=== PATIENT | male | born 1970 | race Caucasian/White ===

== ENCOUNTER 2017-02-03 14:25 | Inpatient (IN) | payer MEDICAID, SELFPAY | END 2017-02-06 08:35 | disposition home or self-care (01) | DRG 74 | PROVIDERS: Admitting Provider Family Medicine; Visit Provider Family Medicine | DX: E11.42 Type 2 diabetes mellitus with diabetic polyneuropathy (principal); E11.621 Type 2 diabetes mellitus with foot ulcer; L97.528 Non-pressure chronic ulcer of other part of left foot with other specified severity; L97.518 Non-pressure chronic ulcer of other part of right foot with other specified severity; E11.628 Type 2 diabetes mellitus with other skin complications; E11.65 Type 2 diabetes mellitus with hyperglycemia; L03.032 Cellulitis of left toe; L03.031 Cellulitis of right toe | CPT/HCPCS: 11042; 36415; 73630; 80053; 80202; 82962; 85025; 87040; 93971; J2543; J3370 ==

== ENCOUNTER 2017-02-19 13:16 | Emergency (ER) | payer MEDICAID, SELFPAY ==
[2017-02-19 13:18] VITALS: BP 146/84; PULSE 84; RESP 16; TEMP 36.7; O2SAT 97; BMI 32.7
--- NOTE | 2017-02-19 14:06 | HMH.EDEXTP ---
ED Disposition Clinical Impression: Diabetic foot ulcer Disposition: Home, Self-Care Condition on Discharge: Fair Instructions: DI for Cellulitis -- Adult Additional Instructions: Keep dressing toe as before and followup with Wound care center as scheduled Prescriptions: levoFLOXacin [Levaquin 500mg tab] 500 mg PO DAILY #10 tab Referrals: Jose Francisco Fuentes MD [Primary Care Provider] - Time of Disposition: 17:01 - Critical Care Critical Care Time: No Attestation: On , the high probability of a clinically significant, sudden or life threatening deterioration of the following system(s) required my full and direct attention, intervention and personal management. The time I documented below is in addition to time spent performing reported procedures but includes the following listed in this critical care notation. Medical Decision Making - Medical Records Medical records reviewed: Yes: I reviewed the patient's medical records. Vital Signs: 02/19/17 13:18 Temperature 98.0 F Temperature Source Oral Pulse Rate [Right Brachial] 84 Respiratory Rate 16 Blood Pressure [Right Arm] 146/84 Blood Pressure Mean [Right Arm] 104 Blood Pressure Source [Right Arm] Automatic Cuff Blood Pressure Position [Right Arm] Sitting 02 Sat by Pulse Oximetry 97 Oxygen Delivery Method Room Air - Lab Data Lab results reviewed: Yes: I reviewed the patient's lab results. Lab Results 02/19/17 14:45: WBC 5.9, RBC 5.47, Hgb 15.8, Hct 48.2, MCV 88.1, MCH 29.0, MCHC 32.9, RDW 13.3, Plt Count 217, MPV 7.6, Neut % (Auto) 60.4, Lymph % (Auto) 31.6, [place] % (Auto) 5.4, Eos % (Auto) 2.2, Baso % (Auto) 0.5, Neut # (Auto) 3.6, Lymph # (Auto) 1.9, [place] # (Auto) 0.3, Eos # (Auto) 0.1, Baso # (Auto) 0.0 02/19/17 14:45: Sodium 142, Potassium 4.1, Chloride 104, Carbon Dioxide 28, Anion Gap 14.1, BUN 14, Creatinine 1.11, Estimated Creat Clear 133, Estimated GFR > 60, Est GFR ( Amer) > 60, Glucose 120 H, Calcium 9.4, Total Bilirubin 0.6, AST 22, ALT 28, Alkaline Phosphatase 112, Total Protein 8.3 H, Albumin 4.1, Globulin 4.2 H, Albumin/Globulin Ratio 1.0 L Result diagrams: 02/19/17 14:45 02/19/17 14:45 Orders (Tests/Meds): ED MEDICATIONS Generic Name Dose Route Start Last Admin Trade Name Freq PRN Reason Stop Dose Admin Sodium Chloride 1,000 mls @ 250 mls/hr 02/19/17 14:45 02/19/17 15:59 Sod Chloride 0.9% 1000ml Bag IV 03/21/17 14:44 250 mls/hr .Q4H KAREN Administration Sodium Chloride 10 ml 02/19/17 14:35 Saline Flush 10ml Syringe IV 03/21/17 14:34 NEEDED PRN Maintain IV Site Discontinued Medications Generic Name Dose Route Start Last Admin Trade Name Freq PRN Reason Stop Dose Admin Sodium Chloride 250 mls @ 250 mls/hr 02/19/17 14:30 02/19/17 16:16 Sod Chloride 0.9% 250ml Bag IV 03/21/17 14:29 Not Given .Q1H KAREN Levofloxacin 500 mg 02/19/17 14:32 02/19/17 16:00 Levaquin 500mg Tab PO 02/19/17 14:33 500 mg ONCE ONE Administration ORDERS Category Date Time Status Foot XR right minimum 3 views [XR foot RT min 3V] Stat Exams 02/19/17 14:31 Taken Wound Culture and Gram Stain Stat Micro 02/19/17 14:45 Received - Radiology Data #1 Image(s): Foot/Toes, Other Image Reviewed: Yes I reviewed the patient's radiology image Preliminary Findings: Normal/NAD - Antonio Inquiry Pt receiving controlled substance: No Antonio was queried for this patient: No Extremity Problem HPI - General Chief complaint: Extremity Problem,Nontraumatic Stated complaint: poss cellulitis on right great toe Time Seen by Provider: 02/19/17 14:25 Mode of Arrival: Ambulatory Source of Information: Patient Limitations: No Limitations Description of Symptoms (Recalled from ER Triage Doc. by RN): pt reports swelling to R ankle that was noticed this morning. Pt reports has been previously treated for cellulitis in R foot r/t wound on R great toe. Pt reports had first visit with wound c
--- NOTE | 2017-02-19 14:22 | ED_ITS ---
ED Disposition Clinical Impression: Diabetic foot ulcer Disposition: Home, Self-Care Condition on Discharge: Fair Instructions: DI for Cellulitis -- Adult Additional Instructions: Keep dressing toe as before and followup with Wound care center as scheduled Prescriptions: levoFLOXacin [Levaquin 500mg tab] 500 mg PO DAILY #10 tab Referrals: Jose Francisco Fuentes MD [Primary Care Provider] - Time of Disposition: 17:01 - Critical Care Critical Care Time: No Attestation: On , the high probability of a clinically significant, sudden or life threatening deterioration of the following system(s) required my full and direct attention, intervention and personal management. The time I documented below is in addition to time spent performing reported procedures but includes the following listed in this critical care notation. Medical Decision Making - Medical Records Medical records reviewed: Yes: I reviewed the patient's medical records. Vital Signs: 02/19/17 13:18 Temperature 98.0 F Temperature Source Oral Pulse Rate [Right Brachial] 84 Respiratory Rate 16 Blood Pressure [Right Arm] 146/84 Blood Pressure Mean [Right Arm] 104 Blood Pressure Source [Right Arm] Automatic Cuff Blood Pressure Position [Right Arm] Sitting 02 Sat by Pulse Oximetry 97 Oxygen Delivery Method Room Air - Lab Data Lab results reviewed: Yes: I reviewed the patient's lab results. Lab Results 02/19/17 14:45: WBC 5.9, RBC 5.47, Hgb 15.8, Hct 48.2, MCV 88.1, MCH 29.0, MCHC 32.9, RDW 13.3, Plt Count 217, MPV 7.6, Neut % (Auto) 60.4, Lymph % (Auto) 31.6 , [place] % (Auto) 5.4, Eos % (Auto) 2.2, Baso % (Auto) 0.5, Neut # (Auto) 3.6, Lymph # (Auto) 1.9, [place] # (Auto) 0.3, Eos # (Auto) 0.1, Baso # (Auto) 0.0 02/19/17 14:45: Sodium 142, Potassium 4.1, Chloride 104, Carbon Dioxide 28, Anion Gap 14.1, BUN 14, Creatinine 1.11, Estimated Creat Clear 133, Estimated GFR > 60, Est GFR ( Amer) > 60, Glucose 120 H, Calcium 9.4, Total Bilirubin 0.6, AST 22, ALT 28, Alkaline Phosphatase 112, Total Protein 8.3 H, Albumin 4.1, Globulin 4.2 H, Albumin/Globulin Ratio 1.0 L Result diagrams: 02/19/17 14:45 02/19/17 14:45 Orders (Tests/Meds): ED MEDICATIONS Generic Name Dose Route Start Last Admin Trade Name Freq PRN Reason Stop Dose Admin Sodium Chloride 1,000 mls @ 250 mls/hr 02/19/17 14:45 02/19/17 15:59 Sod Chloride 0.9% 1000ml Bag IV 03/21/17 14:44 250 mls/hr .Q4H KAREN Administration Sodium Chloride 10 ml 02/19/17 14:35 Saline Flush 10ml Syringe IV 03/21/17 14:34 NEEDED PRN Maintain IV Site Discontinued Medications Generic Name Dose Route Start Last Admin Trade Name Freq PRN Reason Stop Dose Admin Sodium Chloride 250 mls @ 250 mls/hr 02/19/17 14:30 02/19/17 16:16 Sod Chloride 0.9% 250ml Bag IV 03/21/17 14:29 Not Given .Q1H KAREN Levofloxacin 500 mg 02/19/17 14:32 02/19/17 16:00 Levaquin 500mg Tab PO 02/19/17 14:33 500 mg ONCE ONE Administration ORDERS Category Date Time Status Foot XR right minimum 3 views [XR foot RT min 3V] Stat Exams 02/19/17 14:31 Taken Wound Culture and Gram Stain Stat Micro 02/19/17 14:45 Received - Radiology Data #1 Image(s): Foot/Toes, Other Image Reviewed: Yes I reviewed the p
--- NOTE | 2017-02-19 14:31 | XR_ITS ---
XR foot RT min 3V HISTORY: Right great toe pain, redness, swelling ITS.REASON: rule out osteomyelitis right great toe ORDERING PHYSICIAN: Gabe Handy MD PATIENT AGE: 46 years COMPARISON: None FINDINGS: No fracture or dislocation. No lytic or blastic change. There is normal mineralization.. The joint spaces are well-preserved. No significant degenerative/arthritic changes. No erosive changes evident. There is generalized soft tissue swelling involving the great toe. No obvious erosive change. Faint lucency is noted along the medial and plantar aspect of the toe which could be due to soft tissue defect. Please correlate clinically. A tiny density is present along the plantar surface of the soft tissues and could be a foreign body upon the skin. Please correlate clinically IMPRESSION: Soft tissue swelling otherwise negative. No obvious osteomyelitis
[2017-02-19 15:12] LABS: Basophils % 0.5 % (0.1-2.0); Eosinophils # 0.1 K/mm3 (0.0-0.4); Eosinophils % 2.2 % (0.1-12.0); Hematocrit 48.2 % (42.0-52.0); Hemoglobin 15.8 g/dL (14.1-18.0); Lymphocytes # 1.9 K/mm3 (0.7-4.5); Lymphocytes % 31.6 K/mm3 (10-50); Mean Corpuscular HGB Conc 32.9 g/dL (31.8-35.4); Mean Corpuscular Volume 88.1 fl (80-94); Mean Platelet Volume 7.6 fl (7.4-10.4); Monocytes # 0.3 K/mm3 (0.1-1.0); Monocytes % 5.4 % (1.7-9.3); Neutrophils # 3.6 K/mm3 (1.8-7.8); Neutrophils % 60.4 % (37.0-80.0); Platelet Count 217 K/mm3 (142-424); Red Blood Count 5.47 M/mm3 (4.60-6.20); Red Cell Distribution Width 13.3 % (11.5-17.5); White Blood Count 5.9 K/mm3 (4.8-10.8)
[2017-02-19 15:20] LABS: Alanine Aminotransferase 28 U/L (12-78); Albumin Level 4.1 gm/dL (3.4-5.0); Alkaline Phosphatase 112 U/L (46-116); Anion Gap 14.1 mEq/L (5-15); Aspartate Amino Transferase 22 U/L (15-37); Bilirubin,Total 0.6 mg/dL (0.2-1.0); Blood Urea Nitrogen 14 mg/dL (7-18); Calcium 9.4 mg/dL (8.5-10.1); Carbon Dioxide 28 mmol/L (21.0-32.0); Chloride 104 mmol/L (98-107); Creatinine Clearance Estimated 133 mL/min (0-300); Creatinine,Serum 1.11 mg/dL (0.70-1.30); Estimated Glomerular Filt Rate > 60 ml/min (>60); GFR (African American) > 60 ML/MIN (>60); Globulin 4.2 gm/dl (1.3-3.2); Glucose 120 mg/dL (74-106); Potassium 4.1 mmoL/L (3.5-5.1); Sodium 142 mmol/L (136-145); Total Protein,Serum 8.3 gm/dL (6.4-8.2)
[2017-02-19 17:11] VITALS: BP 166/90; PULSE 79; RESP 18; TEMP 36.6; O2SAT 96
== END 2017-02-19 17:13 | disposition home or self-care (01) ==
PROVIDERS: Emergency Provider General Practice; Family Provider Family Medicine; PCP Family Medicine
DX: E11.621 Type 2 diabetes mellitus with foot ulcer (principal); A49.01 Methicillin susceptible Staphylococcus aureus infection, unspecified site
CPT/HCPCS: 73630; 80053; 85025; 87070; 87077; 87186; 87205; 96360; 96365; 99283

== ENCOUNTER 2017-02-23 09:00 | Outpatient (RCR) | payer MEDICAID, SELFPAY ==
--- NOTE | 2017-02-18 14:48 | HMH.PTOPEV ---
Outpatient Rehab Evaluation Rehab OP Evaluation Start: 02/18/17 12:51 Freq: Status: Active Protocol: Document 02/18/17 12:52 PENELOPE (Rec: 02/18/17 14:12 PENELOPE [id number]) Electronically Signed By Spencer Man, PT 02/18/17 12:52 Outpatient Therapy Subjective History Subjective History Pt presents with c/o ely great toe DFU x ~ 1 mo, right worse than left. Pt reports significant hx of polyneuropathy affecting all extremities as well as ely LE sciatica and DM. He reports last A1c was 6.2. He states, I was going to go back to work and had to wear steel toe boots and thick socks and rubbed some blisters on my feet. He also reports a recent hospitalization due to cellulitis in the right LE. Chief Complaint Pain Paresthesia Symptom Type Sharp Burning Numbness Prior Functional Limitations None Current Functional Limitations None Symptom Description Constant but Variable Level of pain today (0-10) 5 Wound Eval Subjective History Subjective Pt c/o frequent shooting pain in ely feet associated with neuropathy. He also reports numbness/and tingling worse from knees distal, but affecting entire LE ely. Wound Right Medial Great Toe Wound Type Diabetic Foot Ulcer Is This a Chronic Wound No Wound Length (cm) 1.4 Wound Width (cm) 0.9 Wound Depth (cm) 0.3 Wound Bed Appearance Yellow Pale Percentage Granulated (%) 25 Percentage of Slough (%) 75 Wound Margins Description Macerated Surrounding Tissue Appearance [place] Edema Degree None Query Text:1+ Trace, Barely Detectable, Rebound 15-30 seconds 2+ Moderate, Slight Indentation, Rebound 10-20 seconds 3+ Deep, Deeper Indentation, Rebound > 30 seconds 4+ Very Deep, Rebound > 60 seconds Drainage Description Sanguineous Drainage Amount Small Drainage Odor Slight Odor Dressing Status Changed Wound Topical S
== END 2017-02-23 09:01 ==
LOC: PT 09:00
PROVIDERS: Family Provider Family Medicine; PCP Family Medicine; Visit Provider Podiatrist
DX: E10.621 Type 1 diabetes mellitus with foot ulcer (principal); M86.9 Osteomyelitis, unspecified; Z51.89 Encounter for other specified aftercare
CPT/HCPCS: 97162; 97597

== ENCOUNTER 2017-03-08 22:17 | Observation (INO) | payer MEDICAID, SELFPAY ==
[2017-03-08 22:29] VITALS: BP 141/89; PULSE 93; RESP 16; TEMP 36.9; O2SAT 96; BMI 32.7
--- NOTE | 2017-03-08 23:06 | XR_ITS ---
XR foot RT min 3V HISTORY: The right first toe. Pain and swelling and redness. ITS.REASON: r/o osteomylitis ORDERING PHYSICIAN: Jose Francisco Fuentes MD PATIENT AGE: 46 years COMPARISON: 02/19/2017 FINDINGS: There is soft tissue swelling involving the great toe. Soft tissue gas is present along pad of the great toe consistent with ulceration of the soft tissues. There is discontinuity with an area of decreased density involving the proximal and medial aspect of the distal phalanx consistent with a bony erosion from osteomyelitis. This has developed since previous exam. This area measures approximately 3 mm and may be accentuated by the overlying soft tissue gas. There does however appear to be discontinuity of the bony cortex at this region. This is suspicious for osteomyelitis. Consider MRI for confirmation. Decreased density is noted along the proximal aspect of the distal phalanx on the oblique view as well. No other significant anomalies evident. IMPRESSION: Suspect small area of bony erosion involving the proximal and medial aspect of the distal phalanx of the great toe suspicious for osteomyelitis with associated soft tissue swelling and soft tissue ulceration. Consider MRI for confirmation
--- NOTE | 2017-03-08 23:35 | HMH.EDSKAF ---
ED Disposition Clinical Impression: Abscess of skin or subcutaneous tissue Qualifiers: Site of cutaneous abscess: extremity Site of cutaneous abscess of extremity: foot Laterality: right Qualified Code(s): L02.611 - Cutaneous abscess of right foot Diabetic foot ulcer Qualifiers: Diabetic foot ulcer location: toe Diabetes mellitus type: type 1 Laterality: right Non-pressure ulcer stage: unspecified non-pressure ulcer stage Qualified Code(s): E10.621 - Type 1 diabetes mellitus with foot ulcer; L97.519 - Non-pressure chronic ulcer of other part of right foot with unspecified severity Disposition: Admitted as Observation Condition on Discharge: Good Instructions: DI for Skin Abscess Referrals: Jose Francisco Fuentes MD [Primary Care Provider] - - Critical Care Critical Care Time: No Attestation: On 03/08/17, the high probability of a clinically significant, sudden or life threatening deterioration of the following system(s) required my full and direct attention, intervention and personal management. The time I documented below is in addition to time spent performing reported procedures but includes the following listed in this critical care notation. Medical Decision Making - Medical Records Medical records reviewed: Yes: I reviewed the patient's medical records. Vital Signs: 03/08/17 22:29 03/08/17 23:39 Temperature 98.4 F Temperature Source Oral Pulse Rate [Right Radial] 93 H 94 H Respiratory Rate 16 18 Blood Pressure [Right Arm] 141/89 145/94 Blood Pressure Mean [Right Arm] 106 111 Blood Pressure Source [Right Arm] Automatic Cuff Automatic Cuff Blood Pressure Position [Right Arm] Sitting Sitting 02 Sat by Pulse Oximetry 96 Oxygen Delivery Method Room Air - Lab Data Lab results reviewed: Yes: I reviewed the patient's lab results. Lab Results 03/08/17 23:00: WBC 5.8, RBC 5.01, Hgb 14.8, Hct 43.6, MCV 87.0, MCH 29.5, MCHC 33.9, RDW 13.4, Plt Count 186, MPV 8.1, Neut % (Auto) 54.9, Lymph % (Auto) 32.5, [place] % (Auto) 7.6, Eos % (Auto) 4.4, Baso % (Auto) 0.6, Neut # (Auto) 3.2, Lymph # (Auto) 1.9, [place] # (Auto) 0.4, Eos # (Auto) 0.3, Baso # (Auto) 0.0 03/08/17 23:00: Sodium 138, Potassium 4.0, Chloride 104, Carbon Dioxide 26, Anion Gap 12.0, BUN 19 H, Creatinine 1.06, Estimated Creat Clear 139, Estimated GFR 75, Est GFR ( Amer) 90, Glucose 196 H, C-Reactive Protein 0.8 03/08/17 23:00: Lactic Acid 1.4 Result diagrams: 03/08/17 23:00 03/08/17 23:00 Orders (Tests/Meds): ED MEDICATIONS Discontinued Medications Generic Name Dose Route Start Last Admin Trade Name Freq PRN Reason Stop Dose Admin Ertapenem 1 gm/ Sodium 50 mls @ 100 mls/hr 03/09/17 00:13 Chloride IV 03/09/17 00:14 ONCE ONE Protocol Vancomycin HCl 2,000 mg 03/09/17 00:14 Vancomycin 500mg Vial IV 03/09/17 00:15 CONSULT PHARMACY ONE Protocol ORDERS Category Date Time Status XR foot RT min 3V Stat Exams 03/08/17 23:06 Taken ESR [Erythrocyte Sedimentation Rate] Stat Lab 03/08/17 23:00 Received Blood Culture Stat Micro 03/08/17 23:00 Received - Radiology Data #1 Image(s): Foot/Toes Image Reviewed: Yes I reviewed the patient's radiology image Preliminary Findings: Abnormal (possible osteo) - Antonio Inquiry Pt receiving controlled substance: No Skin/Abscess/FB HPI - General Chief complaint: Skin/Abscess/Foreign Body Stated complaint: diab ulcer on right big toe Time Seen by Provider: 03/08/17 22:40 Mode of Arrival: Ambulatory Source of Information: Patient, Medical Record Limitations: No Limitations Description of Symptoms (Recalled from ER Triage Doc. by RN): diabetic ulcer reported to right great toe - History of Present Illness HPI narrative: pt with diabetes with progressive infection to rt foot - he has seen [facility] and podiatry and on abx but reports inc pain and reddness with foul smell complaint: abscess/boil Onset (ago): day(s) Tetanus up to date:
[2017-03-08 23:39] VITALS: BP 145/94; PULSE 94; RESP 18
--- NOTE | 2017-03-08 23:41 | ED_ITS ---
ED Disposition Clinical Impression: Abscess of skin or subcutaneous tissue Qualifiers: Site of cutaneous abscess: extremity Site of cutaneous abscess of extremity: foot Laterality: right Qualified Code(s): L02.611 - Cutaneous abscess of right foot Diabetic foot ulcer Qualifiers: Diabetic foot ulcer location: toe Diabetes mellitus type: type 1 Laterality: right Non-pressure ulcer stage: unspecified non-pressure ulcer stage Qualified Code(s): E10.621 - Type 1 diabetes mellitus with foot ulcer; L97.519 - Non- pressure chronic ulcer of other part of right foot with unspecified severity Disposition: Admitted as Observation Condition on Discharge: Good Instructions: DI for Skin Abscess Referrals: Jose Francisco Fuentes MD [Primary Care Provider] - - Critical Care Critical Care Time: No Attestation: On 03/08/17, the high probability of a clinically significant, sudden or life threatening deterioration of the following system(s) required my full and direct attention, intervention and personal management. The time I documented below is in addition to time spent performing reported procedures but includes the following listed in this critical care notation. Medical Decision Making - Medical Records Medical records reviewed: Yes: I reviewed the patient's medical records. Vital Signs: 03/08/17 22:29 03/08/17 23:39 Temperature 98.4 F Temperature Source Oral Pulse Rate [Right Radial] 93 H 94 H Respiratory Rate 16 18 Blood Pressure [Right Arm] 141/89 145/94 Blood Pressure Mean [Right Arm] 106 111 Blood Pressure Source [Right Arm] Automatic Cuff Automatic Cuff Blood Pressure Position [Right Arm] Sitting Sitting 02 Sat by Pulse Oximetry 96 Oxygen Delivery Method Room Air - Lab Data Lab results reviewed: Yes: I reviewed the patient's lab results. Lab Results 03/08/17 23:00: WBC 5.8, RBC 5.01, Hgb 14.8, Hct 43.6, MCV 87.0, MCH 29.5, MCHC 33.9, RDW 13.4, Plt Count 186, MPV 8.1, Neut % (Auto) 54.9, Lymph % (Auto) 32.5 , [place] % (Auto) 7.6, Eos % (Auto) 4.4, Baso % (Auto) 0.6, Neut # (Auto) 3.2, Lymph # (Auto) 1.9, [place] # (Auto) 0.4, Eos # (Auto) 0.3, Baso # (Auto) 0.0 03/08/17 23:00: Sodium 138, Potassium 4.0, Chloride 104, Carbon Dioxide 26, Anion Gap 12.0, BUN 19 H, Creatinine 1.06, Estimated Creat Clear 139, Estimated GFR 75, Est GFR ( Amer) 90, Glucose 196 H, C-Reactive Protein 0.8 03/08/17 23:00: Lactic Acid 1.4 Result diagrams: 03/08/17 23:00 03/08/17 23:00 Orders (Tests/Meds): ED MEDICATIONS Discontinued Medications Generic Name Dose Route Start Last Admin Trade Name Freq PRN Reason Stop Dose Admin Ertapenem 1 gm/ Sodium 50 mls @ 100 mls/hr 03/09/17 00:13 Chloride IV 03/09/17 00:14 ONCE ONE Protocol Vancomycin HCl 2,000 mg 03/09/17 00:14 Vancomycin 500mg Vial IV 03/09/17 00:15 CONSULT PHARMACY ONE Protocol ORDERS Category Date Time Status XR foot RT min 3V Stat Exams 03/08/17 23:06 Taken ESR [Erythrocyte Sedimentation Rate] Stat Lab 03/08/17 23:00 Received Blood Culture Stat Micro 03/08/17 23:00 Received - Radiology Data #1 Image(s): Foot/Toes Image Reviewed: Yes I reviewed the patient's radiology image Preliminary Findings: Abnormal (possible osteo) - Antonio Inquiry Pt receiving controlled substance: No
[2017-03-09] VITALS (22 sets, daily range): BP systolic 119–157; BP diastolic 75–94; PULSE 79–114; RESP 16–20; TEMP 36.1–36.9; O2SAT 94–97; BMI 32.5; BMI 32.7; BMI 32.6
[2017-03-09 00:14] LABS: Basophils % 0.6 % (0.1-2.0); Eosinophils # 0.3 K/mm3 (0.0-0.4); Eosinophils % 4.4 % (0.1-12.0); Hematocrit 43.6 % (42.0-52.0); Hemoglobin 14.8 g/dL (14.1-18.0); Lymphocytes # 1.9 K/mm3 (0.7-4.5); Lymphocytes % 32.5 K/mm3 (10-50); Mean Corpuscular HGB Conc 33.9 g/dL (31.8-35.4); Mean Corpuscular Hemoglobin 29.5 pg (27.0-31.2); Mean Platelet Volume 8.1 fl (7.4-10.4); Monocytes # 0.4 K/mm3 (0.1-1.0); Monocytes % 7.6 % (1.7-9.3); Neutrophils # 3.2 K/mm3 (1.8-7.8); Neutrophils % 54.9 % (37.0-80.0); Platelet Count 186 K/mm3 (142-424); Red Blood Count 5.01 M/mm3 (4.60-6.20); Red Cell Distribution Width 13.4 % (11.5-17.5); White Blood Count 5.8 K/mm3 (4.8-10.8)
[2017-03-09 00:20] LABS: Blood Urea Nitrogen 19 mg/dL (7-18); C-Reactive Protein 0.8 mg/L (0.0-0.9); Carbon Dioxide 26 mmol/L (21.0-32.0); Chloride 104 mmol/L (98-107); Creatinine Clearance Estimated 139 mL/min (0-300); Creatinine,Serum 1.06 mg/dL (0.70-1.30); Estimated Glomerular Filt Rate 75 ml/min (>60); GFR (African American) 90 ML/MIN (>60); Glucose 196 mg/dL (74-106); Sodium 138 mmol/L (136-145)
[2017-03-09 00:30] LABS: Lactic Acid 1.4 mmol/L (0.4-2.0)
--- NOTE | 2017-03-09 01:10 | PC.NURSE ---
Dr Villalta personally spoke to Pharmacy to clarify Vancomycin dosing
[2017-03-09 01:24] LABS: Erythrocyte Sedimentation Rate 15 mm/hr (0-15)
--- NOTE | 2017-03-09 05:54 | PC.NURSE ---
PATIENT ADMITTED WITH ULCER TO RIGHT GREAT TOE, STATING IT HAS BEEN THERE SINCE PROBABLY OCT. PATIENT STATES HE WAS INFORMED BY FAMILY MD TO COME TO ED IF PAIN START RADIATING UP LEG (NEUROPATHY) TO COME TO ED. INVANZ WAS STARTED IN ED AND WAS PASSED ON IN REPORT TO START VANCOMYCIN SOON INVANZ WAS DONE. @ 230 PHARMACY WAS PAGED, 1389 ROD CALLED BACK TO VERIFY FIRST DOSE OF VANC. 2 GRAMS TO BE GIVEN IN 250 NS OVER 2 HOURS. PATIENT RESTING WELL. VSS. NO C/O PAIN OR DISCOMFORT AT THIS TIME AND NO S/S OF ADVERSE REACTIONS NOTED. WILL CONTINUE TO MONITOR.
--- NOTE | 2017-03-09 07:14 | HMH.PHAVTE ---
[facility] Pharmacy VTE Monitoring - Patient Demographics Admission date: 03/09/17 Report Date: 03/09/17 Time: 07:14 Allergies/Adverse Reactions: Patient Allergies No Known Allergies Allergy (Unverified 02/03/17 14:32) No Known Allergies Allergy (Unknown, Uncoded 02/01/17 14:41) Height: 1.88 m Weight: 115.53 kg Patient Problems: Current Active Problems Diabetic foot ulcer (Acute) Abscess of skin or subcutaneous tissue (Acute) - VTE Risk Labs: VTE Related Lab Results Hgb 14.8 g/dL (14.1-18.0) 03/08/17 23:00 Hct 43.6 % (42.0-52.0) 03/08/17 23:00 Plt Count 186 K/mm3 (142-424) 03/08/17 23:00 BUN 19 mg/dL (7-18) H 03/08/17 23:00 Creatinine 1.06 mg/dL (0.70-1.30) 03/08/17 23:00 Estimated Creat Clear 139 mL/min (0-300) 03/08/17 23:00 Was VTE Risk Assessment Performed: Yes VTE Score: 4 VTE Risk Level: Low Risk - Prophylaxis VTE Prophylaxis Ordered?: Yes Types of VTE Prophylaxis: TEDS Knee High Location of Applied Device: Bilateral Lower Extremeties - VTE Diagnosis Confirmed Treatment or plan recommended: Continue Current Treatment
--- NOTE | 2017-03-09 07:25 | HMH.HP ---
*Admission Date: 03/08/17 *Chief complaint: Right great toe redness and swelling *History of present illness: 86-year-old male with recent history of diabetic foot infection stemming from a right great toe ulcer that required inpatient hospitalization within the last month as well as outpatient courses of antibiotics after an ER visit presented to the emergency department with increased redness and swelling originating at the right great toe. Patient is also been receiving treatment as an outpatient in the wound care clinic although tells me it is been almost 2 weeks since he was seen there due to a scheduling mixup. Patient denies fevers or chills at home. In emergency department he was evaluated and decision was made to admit for IV antibiotics as well as podiatry consultation. [facility] History I have reviewed the patient's past medical history: Yes Medical History: Reports:: Diabetes Mellitus Type 2 Denies:: Cancer, Coronary Artery Disease, Diabetes Mellitus Type 1, MRSA Other Surgeries: Yes: No Previous Surgery, Colonoscopy, EGD Amputation: No Fractures: No - *Social History Educational Level: Attended College Smoking Status: Former smoker Tobacco Type: cigars Alcohol Intake: former Occupational Status: employed Housing: other Household Members: spouse, children - Psychiatric History Expresses thoughts of harming self/others: None Suicide Plan Description: No Plan *Family Hx:: Diabetes, Heart Attack, Hypertension Review of Systems - Review of Systems Review of systems:: pertinent systems reviewed and negative unless documented below - Constitutional Denies chills, Denies fever(s) - *Cardiovascular Denies chest pain - *Respiratory Denies cough, Denies shortness of breath - *Musculoskeletal Reports joint swelling - *Neurologic Reports numbness (Diabetic peripheral neuropathy), Reports sensory deficit, Denies dizziness, Denies seizure-like activity Meds Home Medications Medication Instructions Recorded Confirmed Type Atorvastatin Calcium [Atorvastatin 10 mg PO HS 03/08/17 03/08/17 History 10mg Tab] Canagliflozin [Invokana] 1 cap PO DAILY 03/08/17 03/08/17 History Collagenase Clostridium Hist. 1 applic TD DAILY 03/08/17 03/08/17 History [Santyl Ointment 30gm] Finasteride [Proscar 5mg Tablet] 1 cap PO DAILY 03/08/17 03/08/17 History Linagliptin [Tradjenta] 1 tab PO DAILY 03/08/17 03/08/17 History Metformin HCl 1,000 mg PO BID 03/08/17 03/08/17 History Nortriptyline HCl 2 cap PO HS 03/08/17 03/08/17 History Pregabalin [Lyrica 75mg Cap] 1 cap PO BID 03/08/17 03/08/17 History Tamsulosin HCl [Flomax] 0.4 mg PO DAILY 03/08/17 03/08/17 History levoFLOXacin [Levaquin 500mg 500 mg PO DAILY 03/08/17 03/08/17 History tab] Allergies Allergy/AdvReac Type Severity Reaction Status Date / Time No Known Allergies Allergy Unverified 02/03/17 14:32 No Known Allergies Allergy Unknown Uncoded 02/01/17 14:41 Exam Vital signs and Labs for Last 24 Hours: Temp Pulse Resp BP Pulse Ox 97.5 F L 85 18 119/86 96 03/09/17 04:00 03/09/17 04:00 03/09/17 04:00 03/09/17 04:00 03/09/17 04:00 Laboratory Results - last 24 hr 03/08/17 23:00: WBC 5.8, RBC 5.01, Hgb 14.8, Hct 43.6, MCV 87.0, MCH 29.5, MCHC 33.9, RDW 13.4, Plt Count 186, MPV 8.1, Neut % (Auto) 54.9, Lymph % (Auto) 32.5, [place] % (Auto) 7.6, Eos % (Auto) 4.4, Baso % (Auto) 0.6, Neut # (Auto) 3.2, Lymph # (Auto) 1.9, [place] # (Auto) 0.4, Eos # (Auto) 0.3, Baso # (Auto) 0.0 03/08/17 23:00: Sodium 138, Potassium 4.0, Chloride 104, Carbon Dioxide 26, Anion Gap 12.0, BUN 19 H, Creatinine 1.06, Estimated Creat Clear 139, Estimated GFR 75, Est GFR ( Amer) 90, Glucose 196 H, C-Reactive Protein 0.8 03/08/17 23:00: ESR 15 03/08/17 23:00: Lactic Acid 1.4 I & O for Last 24 hours: Intake & Output 03/06/17 03/07/17 03/08/17 01/24/18 11:59 11:59 11:59 11:59 Weight 254 lb 11.2 oz Narrative: Patient appears comfortable and well.
--- NOTE | 2017-03-09 07:29 | P.HP_ITS ---
*Admission Date: 03/08/17 *Chief complaint: Right great toe redness and swelling *History of present illness: 86-year-old male with recent history of diabetic foot infection stemming from a right great toe ulcer that required inpatient hospitalization within the last month as well as outpatient courses of antibiotics after an ER visit presented to the emergency department with increased redness and swelling originating at the right great toe. Patient is also been receiving treatment as an outpatient in the wound care clinic although tells me it is been almost 2 weeks since he was seen there due to a scheduling mixup. Patient denies fevers or chills at home. In emergency department he was evaluated and decision was made to admit for IV antibiotics as well as podiatry consultation. [facility] History I have reviewed the patient's past medical history: Yes Medical History: Reports:: Diabetes Mellitus Type 2 Denies:: Cancer, Coronary Artery Disease, Diabetes Mellitus Type 1, MRSA Other Surgeries: Yes: No Previous Surgery, Colonoscopy, EGD Amputation: No Fractures: No - *Social History Educational Level: Attended College Smoking Status: Former smoker Tobacco Type: cigars Alcohol Intake: former Occupational Status: employed Housing: other Household Members: spouse, children - Psychiatric History Expresses thoughts of harming self/others: None Suicide Plan Description: No Plan *Family Hx:: Diabetes, Heart Attack, Hypertension Review of Systems - Review of Systems Review of systems:: pertinent systems reviewed and negative unless documented below - Constitutional Denies chills, Denies fever(s) - *Cardiovascular Denies chest pain - *Respiratory Denies cough, Denies shortness of breath - *Musculoskeletal Reports joint swelling - *Neurologic Reports numbness (Diabetic peripheral neuropathy), Reports sensory deficit, Denies dizziness, Denies seizure-like activity Meds Home Medications Medication Instructions Recorded Confirmed Type Atorvastatin Calcium [Atorvastatin 10 mg PO HS 03/08/17 03/08/17 History 10mg Tab] Canagliflozin [Invokana] 1 cap PO DAILY 03/08/17 03/08/17 History Collagenase Clostridium Hist. 1 applic TD DAILY 03/08/17 03/08/17 History [Santyl Ointment 30gm] Finasteride [Proscar 5mg Tablet] 1 cap PO DAILY 03/08/17 03/08/17 History Linagliptin [Tradjenta] 1 tab PO DAILY 03/08/17 03/08/17 History Metformin HCl 1,000 mg PO BID 03/08/17 03/08/17 History Nortriptyline HCl 2 cap PO HS 03/08/17 03/08/17 History Pregabalin [Lyrica 75mg Cap] 1 cap PO BID 03/08/17 03/08/17 History Tamsulosin HCl [Flomax] 0.4 mg PO DAILY 03/08/17 03/08/17 History levoFLOXacin [Levaquin 500mg 500 mg PO DAILY 03/08/17 03/08/17 History tab] Allergies Allergy/AdvReac Type Severity Reaction Status Date / Time No Known Allergies Allergy Unverified 02/03/17 14:32 No Known Allergies Allergy Unknown Uncoded 02/01/17 14:41 Exam Vital signs and Labs for Last 24 Hours: Temp Pulse Resp BP Pulse Ox 97.5 F L 85 18 119/86 96 03/09/17 04:00 03/09/17 04:00 03/09/17 04:00 03/09/17 04:00 03/09/17 04:00 Laboratory Results - last 24 hr 03/08/17 23:00: WBC 5.8, RBC 5.01, Hgb 14.8, Hct 43.6, MCV 87.0, MCH 29.5, MCHC 33.9, RDW 13.4, Plt Count 186, MPV 8.1, Neut % (Auto) 54.9, Lymph % (Auto) 32.5 , [place] % (Auto) 7.6, Eos % (Auto) 4.4, Baso % (Auto) 0.6, Neut # (Auto) 3.2,
--- NOTE | 2017-03-09 09:15 | P.CONPHA_ITS ---
- Pharmacy Consult Date: 03/09/17 Time: 09:12 Referring provider: DR. CASTRO Reason for Consult:: VANCOMYCIN DOSING Allergies and ADEs:: Allergies Allergy/AdvReac Type Severity Reaction Status Date / Time No Known Allergies Allergy Unverified 02/03/17 14:32 No Known Allergies Allergy Unknown Uncoded 02/01/17 14:41 Home Medications:: Home Medications Medication Instructions Recorded Confirmed Type Atorvastatin Calcium [Atorvastatin 10 mg PO HS 03/08/17 03/08/17 History 10mg Tab] Canagliflozin [Invokana] 1 cap PO DAILY 03/08/17 03/08/17 History Collagenase Clostridium Hist. 1 applic TD DAILY 03/08/17 03/08/17 History [Santyl Ointment 30gm] Finasteride [Proscar 5mg Tablet] 1 cap PO DAILY 03/08/17 03/08/17 History Linagliptin [Tradjenta] 1 tab PO DAILY 03/08/17 03/08/17 History Metformin HCl 1,000 mg PO BID 03/08/17 03/08/17 History Nortriptyline HCl 2 cap PO HS 03/08/17 03/08/17 History Pregabalin [Lyrica 75mg Cap] 1 cap PO BID 03/08/17 03/08/17 History Tamsulosin HCl [Flomax] 0.4 mg PO DAILY 03/08/17 03/08/17 History levoFLOXacin [Levaquin 500mg 500 mg PO DAILY 03/08/17 03/08/17 History tab] Height: 1.88 m Weight: 115.53 kg Laboratory Results:: SRCR=1.06 Medical History: Reports:: Diabetes Mellitus Type 2 Denies:: Cancer, Coronary Artery Disease, Diabetes Mellitus Type 1, MRSA Assessment and Plan (1) Diabetic foot ulcer Current visit: Yes Status: Acute Qualifiers: Diabetic foot ulcer location: toe Diabetes mellitus type: type 1 Laterality: right Non-pressure ulcer stage: unspecified non-pressure ulcer stage Qualified Code(s): E10.621 - Type 1 diabetes mellitus with foot ulcer; L97.519 - Non-pressure chronic ulcer of other part of right foot with unspecified severity Category: Medical Code(s): E11.621 - Type 2 diabetes mellitus with foot ulcer ; L97.509 - Non-pressure chronic ulcer of other part of unspecified foot with unspecified severity (2) Cellulitis of great toe of right foot Current visit: Yes Status: Acute Category: Medical Code(s): L03.031 - Cellulitis of right toe - Assessment and plan all Dx Assessment and Plan for all problems:: BASED ON PATIENT FACTORS, RECOMMEND VANCOMYCIN 2 GM IV Q12H. WILL OBTAIN VANCOMYCIN TROUGH LEVEL TOMORROW PRIOR TO 4TH DOSE. PHARMACY WILL FOLLOW DAILY AND ADJUST APPROPRIATE.
--- NOTE | 2017-03-09 09:22 | HMH.ORTHHP ---
*Admission Date: 03/08/17 *Chief complaint: Right hallux cellulitis, osteomyelitis *History of present illness: 86-year-old male with recent history of diabetic foot infection stemming from a right great toe ulcer that required inpatient hospitalization within the last month as well as outpatient courses of antibiotics after an ER visit presented to the emergency department with increased redness and swelling originating at the right great toe. Patient is also been receiving treatment as an outpatient in the wound care clinic although tells me it is been almost 2 weeks since he was seen there due to a scheduling mixup. Patient denies fevers or chills at home. In emergency department he was evaluated and decision was made to admit for IV antibiotics as well as podiatry consultation. [facility] History I have reviewed the patient's past medical history: Yes Medical History: Reports:: Diabetes Mellitus Type 2 Denies:: Cancer, Coronary Artery Disease, Diabetes Mellitus Type 1, MRSA Other Surgeries: Yes: No Previous Surgery, Colonoscopy, EGD Amputation: No Fractures: No - *Social History Educational Level: Attended College Smoking Status: Former smoker Tobacco Type: cigars Alcohol Intake: former Occupational Status: employed Housing: other Household Members: spouse, children - Psychiatric History Expresses thoughts of harming self/others: None Suicide Plan Description: No Plan *Family Hx:: Diabetes, Heart Attack, Hypertension Review of Systems - Constitutional Reports anorexia, Reports fatigue, Reports lack of energy, Denies body ache(s), Denies fever(s), Denies night sweats - Eyes Denies change in vision - ENT Denies abnormal hearing - *Cardiovascular Denies chest pain, Denies shortness of breath - *Respiratory Denies chest congestion, Denies shortness of breath - *Gastrointestinal Denies abdominal pain - *Genitourinary Denies difficulty urinating - *Musculoskeletal Reports joint swelling, Reports numbness - *Neurologic Reports numbness (Diabetic peripheral neuropathy), Reports sensory deficit, Denies abnormal walking, Denies dizziness, Denies seizure-like activity - Psychiatric Denies abnormal sleep pattern - Endocrine Denies rapid, pounding, or irregular heartbeat - Hematologic/Lymphatic Denies easy bleeding Meds Home Medications Medication Instructions Recorded Confirmed Type Atorvastatin Calcium [Atorvastatin 10 mg PO HS 03/08/17 03/08/17 History 10mg Tab] Canagliflozin [Invokana] 1 cap PO DAILY 03/08/17 03/08/17 History Collagenase Clostridium Hist. 1 applic TD DAILY 03/08/17 03/08/17 History [Santyl Ointment 30gm] Finasteride [Proscar 5mg Tablet] 1 cap PO DAILY 03/08/17 03/08/17 History Linagliptin [Tradjenta] 1 tab PO DAILY 03/08/17 03/08/17 History Metformin HCl 1,000 mg PO BID 03/08/17 03/08/17 History Nortriptyline HCl 2 cap PO HS 03/08/17 03/08/17 History Pregabalin [Lyrica 75mg Cap] 1 cap PO BID 03/08/17 03/08/17 History Tamsulosin HCl [Flomax] 0.4 mg PO DAILY 03/08/17 03/08/17 History levoFLOXacin [Levaquin 500mg 500 mg PO DAILY 03/08/17 03/08/17 History tab] Allergies Allergy/AdvReac Type Severity Reaction Status Date / Time No Known Allergies Allergy Unverified 02/03/17 14:32 No Known Allergies Allergy Unknown Uncoded 02/01/17 14:41 Exam Vital signs and Labs for Last 24 Hours: Temp Pulse Resp BP Pulse Ox 97.5 F L 85 18 119/86 96 03/09/17 04:00 03/09/17 04:00 03/09/17 04:00 03/09/17 04:00 03/09/17 04:00 I & O for Last 24 hours: Intake & Output 03/06/17 03/07/17 03/08/17 03/09/17 11:59 11:59 11:59 11:59 Weight 254 lb 11.2 oz - *Routine Respiratory Exam Present: accessory muscle use - *Routine Cardiovascular Exam Present: RRR - *Routine Abdominal Exam Present: soft - *Routine Rectal Exam Patient deferred: visual exam - *Routine Exam Patient deferred: penile exam - *Routine Extremities Exam Present: e
--- NOTE | 2017-03-09 09:26 | P.HP_ITS ---
*Admission Date: 03/08/17 *Chief complaint: Right hallux cellulitis, osteomyelitis *History of present illness: 86-year-old male with recent history of diabetic foot infection stemming from a right great toe ulcer that required inpatient hospitalization within the last month as well as outpatient courses of antibiotics after an ER visit presented to the emergency department with increased redness and swelling originating at the right great toe. Patient is also been receiving treatment as an outpatient in the wound care clinic although tells me it is been almost 2 weeks since he was seen there due to a scheduling mixup. Patient denies fevers or chills at home. In emergency department he was evaluated and decision was made to admit for IV antibiotics as well as podiatry consultation. [facility] History I have reviewed the patient's past medical history: Yes Medical History: Reports:: Diabetes Mellitus Type 2 Denies:: Cancer, Coronary Artery Disease, Diabetes Mellitus Type 1, MRSA Other Surgeries: Yes: No Previous Surgery, Colonoscopy, EGD Amputation: No Fractures: No - *Social History Educational Level: Attended College Smoking Status: Former smoker Tobacco Type: cigars Alcohol Intake: former Occupational Status: employed Housing: other Household Members: spouse, children - Psychiatric History Expresses thoughts of harming self/others: None Suicide Plan Description: No Plan *Family Hx:: Diabetes, Heart Attack, Hypertension Review of Systems - Constitutional Reports anorexia, Reports fatigue, Reports lack of energy, Denies body ache(s), Denies fever(s), Denies night sweats - Eyes Denies change in vision - ENT Denies abnormal hearing - *Cardiovascular Denies chest pain, Denies shortness of breath - *Respiratory Denies chest congestion, Denies shortness of breath - *Gastrointestinal Denies abdominal pain - *Genitourinary Denies difficulty urinating - *Musculoskeletal Reports joint swelling, Reports numbness - *Neurologic Reports numbness (Diabetic peripheral neuropathy), Reports sensory deficit, Denies abnormal walking, Denies dizziness, Denies seizure-like activity - Psychiatric Denies abnormal sleep pattern - Endocrine Denies rapid, pounding, or irregular heartbeat - Hematologic/Lymphatic Denies easy bleeding Meds Home Medications Medication Instructions Recorded Confirmed Type Atorvastatin Calcium [Atorvastatin 10 mg PO HS 03/08/17 03/08/17 History 10mg Tab] Canagliflozin [Invokana] 1 cap PO DAILY 03/08/17 03/08/17 History Collagenase Clostridium Hist. 1 applic TD DAILY 03/08/17 03/08/17 History [Santyl Ointment 30gm] Finasteride [Proscar 5mg Tablet] 1 cap PO DAILY 03/08/17 03/08/17 History Linagliptin [Tradjenta] 1 tab PO DAILY 03/08/17 03/08/17 History Metformin HCl 1,000 mg PO BID 03/08/17 03/08/17 History Nortriptyline HCl 2 cap PO HS 03/08/17 03/08/17 History Pregabalin [Lyrica 75mg Cap] 1 cap PO BID 03/08/17 03/08/17 History Tamsulosin HCl [Flomax] 0.4 mg PO DAILY 03/08/17 03/08/17 History levoFLOXacin [Levaquin 500mg 500 mg PO DAILY 03/08/17 03/08/17 History tab] Allergies Allergy/AdvReac Type Severity Reaction Status Date / Time No Known Allergies Allergy Unverified 02/03/17 14:32 No Known Allergies Allergy Unknown Uncoded 02/01/17 14:41 Exam Vital signs and Labs for Last 24 Hours: Temp Pulse Resp
--- NOTE | 2017-03-09 09:46 | P.PN_ITS ---
[facility] Anesthesia Checklist - Patient Identification Patient Identification: Arm Band - Structural Data Admitted From: Home Planned Operative Procedure/s: right 1st toe amputation, left 1st toe debridement Consent for Planned Operative Procedure(s) Verified: Yes Verified Documents: Surgical Consent, History and Physical - NPO Status Verified Time NPO: 00:00 - Additional verifications Anesthesia Reactions: No - Airway Assessment C-Spine Mobility Assessed: Yes (Mp2) TMJ Mobility Assessed: Yes Dentition: Good Dentition - Neurological Assessment Level of Consciousness: Awake, Alert - Anesthesia Plan Anesthesia Risk discussed: Yes Anesthesia Plan: Verified ASA Class: III Anesthesia Type: MAC [facility] Anesthesia HX I have reviewed the patient's past medical history: Yes Medical History: Reports:: Diabetes Mellitus Type 2, Gastroesophageal Reflux Disease(GERD), Hyperlipidemia Denies:: Cancer, Coronary Artery Disease, Diabetes Mellitus Type 1, MRSA Other Surgeries: Yes: No Previous Surgery, Colonoscopy, EGD Amputation: No Fractures: No *Family Hx:: Diabetes, Heart Attack, Hypertension
--- NOTE | 2017-03-09 10:54 | P.PN_ITS ---
[facility] Anesthesia Record Part I Intake, IV Amount: 550 Estimated blood loss (mL): 10 Urine output (mL): 0 Blood Products used (#): none Blood Pressure: 148/82 SaO2: 94 Pulse Rate: 93 Respiratory Rate: 18 Temperature: 97.5 F Patient is:: Awake, Stable Stable to PACU at:: 10:52
--- NOTE | 2017-03-09 10:54 | HMH.OPNOTE ---
Date of procedure: 03/09/17 Pre-op Diagnosis:: 1. Left hallux diabetic ulcer 2. Right hallux diabetic ulcer 3. Right hallux cellulitis 4. Right hallux osteomyelitis Post-op diagnosis:: same Procedure performed:: 1. Left hallux wound debridement 2. Right partial hallux amputation Surgeon:: Aundrea Vicente DPM SUPERVISOR [employer]:: Jose Francisco Zamudio Anesthesia: MAC Estimated blood loss (mL): 10 Clinical Note:: 46-year-old male with recent history of diabetic foot infection stemming from a right great toe ulcer that required inpatient hospitalization within the last month as well as outpatient courses of antibiotics after an ER visit presented to the emergency department with increased redness and swelling originating at the right great toe. Patient is also been receiving treatment as an outpatient in the wound care clinic. He has not been seen by wound care or myself for 2 weeks. Patient denies fevers or chills at home. In emergency department he was evaluated and decision was made to admit for IV antibiotics as well as podiatry consultation. X-rays and clinical examination reveal a stable left hallux ulcer and right hallux osteomyelitis. After a long discussion with the patient in regards to the conservative versus surgical treatment for the wounds and suspected osteomyelitis, the patient has elected to proceed with surgery because they have failed conservative wound treatment and the right toe infection is getting worse. The patient has been instructed on the planned procedure, all risk versus benefits of the procedure discussed. These include but are not limited to: bleeding, infection, nerve and blood vessel damage, need for further surgery, delay in healing of soft tissue or bone, failure of bones to heal, non-union, mal-union, prolonged pain and recovery, CPRS/RSD, DVT and anesthetic complications. No guarantees were given. All questions fully answered. The patient verbalized understanding and agreed to proceed with surgery. Written consent was obtained. Operative findings:: Left hallux wound: 0.4 x 0.5cm, does not probe to bone, wound base granular Right hallux distal phalanx bone soft and crumbly with purulent drainage from plantar wound. Operative note:: On this date and time patient was deemed an appropriate surgical candidate. With informed consent signed, the patient was taken to the operating theater. The patient was positioned supine. MAC anesthesia was induced. No tourniquet used. Pre-op right hallux block given with 15 cc 0.5% marcaine plain. Left hallux wound debridement: The left extremity was prepped and draped in normal sterile fashion. Attention was directed to the plantar medial aspect of the left hallux where an ulcer was noted. Utilizing a 15 blade the callus surrounding the wound was sharply debrided. Utilizing a 15 blade and curette the wound was debrided sharply sharply excisionally through skin into the subcu layer. Fibrotic tissue and biofilm was removed. Good bleeding was noted. Granular base was noted. Post debridement the wound measured 0.4?0.5 cm and probed 0.2 cm but not to bone. No purulence or signs of infection. Betadine dry sterile dressing was then applied to the left foot Right hallux partial amputation: The right lower extremity was prepped and drapped in normal sterile fashion. Attention was directed to the right hallux where a plantar medial wound was noted. Cellulitis is noted extending to the MPJ. wound probed directly to the bone and purulent drainage was coming from the wound site. A wound culture was taken. A fish mouth incision was mapped out. Utilizing a 15 blade dissection was carried down sharply to the level of the bone around the distal phalanx which was disarticulated from the proximal phalanx. The distal phalanx bone was soft and crumbly and had a slight malodor to it. Portion of it was cut and sent for bone culture and the other part was sent for bone biopsy for pathology. Attention was then direc
--- NOTE | 2017-03-09 10:54 | HMH.ANESII ---
[facility] Anesthesia Record Part II Discharge Time: 11:22 Destination: Nursing Department PACU nurse assessment reviewed?: Yes Patient Condition:: Good Anesthesia Complications:: None
--- NOTE | 2017-03-09 11:52 | XR_ITS ---
XR foot RT min 3V HISTORY: Follow-up surgery/amputation ITS.REASON: post op right foot amputation ORDERING PHYSICIAN: Jose Francisco Fuentes MD PATIENT AGE: 46 years COMPARISON: 03/08/2017 FINDINGS: Status post amputation at the mid aspect of the proximal phalanx of the great toe. No other changes evident. IMPRESSION: Status post amputation mid proximal phalanx great toe
--- NOTE | 2017-03-09 15:38 | HMH.DCSUM ---
General - General Admission date: 03/08/17 Discharge date: 03/10/17 HPI HPI: 86-year-old male with recent history of diabetic foot infection stemming from a right great toe ulcer that required inpatient hospitalization within the last month as well as outpatient courses of antibiotics after an ER visit presented to the emergency department with increased redness and swelling originating at the right great toe. Patient is also been receiving treatment as an outpatient in the wound care clinic although tells me it is been almost 2 weeks since he was seen there due to a scheduling mixup. Patient denies fevers or chills at home. In emergency department he was evaluated and decision was made to admit for IV antibiotics as well as podiatry consultation. Objective Vital signs: Temp Pulse Resp BP Pulse Ox 97.6 F 104 H 18 131/80 95 03/09/17 15:20 03/09/17 15:20 03/09/17 15:20 03/09/17 15:20 03/09/17 15:20 Hospital Course Hospital Course: Patient was admitted and placed on intravenous vancomycin for the cellulitis of the right great toe. Foot x-ray was concerning for osteomyelitis of the right great toe. Podiatry was consulted. Decision was made to take the patient to the OR for partial right hallux amputation. Patient underwent uncomplicated partial right hallux amputation. Postoperatively antibiotics were continued. On the dressings were changed by Dr. Millan. Patient was discharged home on oral antibiotics and will follow up with Dr. Millan per her instructions and will follow up with me in 1 week for adjustment of diabetic medications. DS: Diagnosis - Discharge Diagnosis (1) Osteomyelitis of toe of right foot Status: Acute (2) Diabetic foot ulcer Status: Chronic (3) Cellulitis of great toe of right foot Status: Acute (4) Diabetes mellitus with hyperglycemia Status: Acute Meds Home Medications Medication Instructions Recorded Confirmed Type Atorvastatin Calcium [Atorvastatin 10 mg PO HS 03/08/17 03/08/17 History 10mg Tab] Canagliflozin [Invokana] 300 mg PO DAILY 03/08/17 03/09/17 History Collagenase Clostridium Hist. 1 applic TD DAILY 03/08/17 03/08/17 History [Santyl Ointment 30gm] Finasteride [Proscar 5mg Tablet] 5 mg PO DAILY 03/08/17 03/09/17 History Linagliptin [Tradjenta] 5 mg PO DAILY 03/08/17 03/09/17 History Metformin HCl 1,000 mg PO BID 03/08/17 03/08/17 History Nortriptyline HCl 100 mg PO HS 03/08/17 03/09/17 History Pregabalin [Lyrica 75mg Cap] 75 mg PO BID 03/08/17 03/09/17 History Tamsulosin HCl [Flomax] 0.4 mg PO DAILY 03/08/17 03/08/17 History Allergies Allergy/AdvReac Type Severity Reaction Status Date / Time No Known Allergies Allergy Unverified 02/03/17 14:32 No Known Allergies Allergy Unknown Uncoded 02/01/17 14:41 Discharge Plan - Patient Discharge Instructions ACTIVITY: Continue current activity (June discharge after seen by podiatry) DIET: continue same diet - Follow up Plan Follow up with: Jose Francisco Fuentes MD [Primary Care Provider] - Aundrea Vicente DPM [Physician] - Disposition: Home, Self-Assisted Medications: Home Medications Medication Instructions Recorded Confirmed Type Atorvastatin Calcium [Atorvastatin 10 mg PO HS 03/08/17 03/08/17 History 10mg Tab] Canagliflozin [Invokana] 300 mg PO DAILY 03/08/17 03/09/17 History Collagenase Clostridium Hist. 1 applic TD DAILY 03/08/17 03/08/17 History [Santyl Ointment 30gm] Finasteride [Proscar 5mg Tablet] 5 mg PO DAILY 03/08/17 03/09/17 History Linagliptin [Tradjenta] 5 mg PO DAILY 03/08/17 03/09/17 History Metformin HCl 1,000 mg PO BID 03/08/17 03/08/17 History Nortriptyline HCl 100 mg PO HS 03/08/17 03/09/17 History Pregabalin [Lyrica 75mg Cap] 75 mg PO BID 03/08/17 03/09/17 History Tamsulosin HCl [Flomax] 0.4 mg PO DAILY 03/08/17 03/08/17 History Prescriptions/Medication Reconciliation: New Ciprofloxacin HCl [Cipro 500mg Tab] 500 mg PO BID #28 tab
--- NOTE | 2017-03-09 17:55 | PC.NURSE ---
Addendum entered by Caitlyn Paulino RN 03/09/17 17:59: right foot elevated on pillow. post op shoes at bedside. pt aware of partial weight bearing to right foot. Original Note: pt has no changes from previous assessment. lungs are clear. bowel and heart sounds normal. dressing are c/d/i to bilateral feet. pedal pulses in bilateral feet present. no pain reported. v/s/s. call light in reach. nonskids at bedside. iv is patent and flushes. call light in reach. will continue to monitor pt condition.
--- NOTE | 2017-03-09 18:58 | PC.NURSE ---
report to be given to silas marquez rn
--- NOTE | 2017-03-09 19:15 | PC.NURSE ---
PT FULL CODE, REPORT RECEIVED FROM ATA
[2017-03-10 04:00] VITALS: BP 148/88; PULSE 105; RESP 18; TEMP 36.6; O2SAT 94
--- NOTE | 2017-03-10 04:36 | PC.NURSE ---
PT ALERT AND ORIENTED. SLEPT LONG INTERVALS. IV SECURE AND PATENT, SL; CONTINUES ON IV ABX. C/O PAIN X1 OF THIS TIME, PAIN MED GIVEN. BILATERAL DRESSINGS ON FEET CLEAN, DRY AND INTACT. RT FOOT ELEVATED ON PILLOW WHILE IN BED. PT HAS ORDER FOR VANCOMYCIN TROUGH TODAY AT 1430. RESPIRATIONS EVEN AND UNLABORED. BREATH SOUNDS CLEAR. PT STABLE. WILL CONTINUE TO MONITOR PT. REPORT TO BE GIVEN TO ONCOMING NURSE.
--- NOTE | 2017-03-10 07:41 | PC.NURSE ---
REPORT GIVEN TO James ROMERO W/C
--- NOTE | 2017-03-10 08:51 | HMH.ORTHPN ---
Subjective Date: 03/10/17 Time: 08:05 Principal diagnosis: Right hallux cellulitis, osteomyelitis Interval history: Mr. Salas is a 46-year-old male who originally presented in January for bilateral hallux wounds. The left hallux wound was stable. However the right hallux wound progressed and became deeper and infected. He was admitted 03/08/17 for cellulitis, purulent drainage and worsening infection. Decision was made to take to surgery for partial hallux amputation for osteomyelitis. She is resting comfortably in bed this morning. No complaints of pain. Denies nausea, vomiting, fever and chills. PN: Obj Ex Vital signs: Temp Pulse Resp BP Pulse Ox 97.9 F 105 H 18 148/88 94 L 03/10/17 04:00 03/10/17 04:00 03/10/17 04:00 03/10/17 04:00 03/10/17 04:00 Narrative: Patient is resting comfortably in bed. Denies nausea, vomiting, fever, chills, shortness of breath and chest pain. He denies pain to the feet - Constitutional no acute distress - Detailed Lower Extremity Exam Foot/Toes: Left wound (left hallux plantar medial ulcer), Right amputation (partial hallux, sutures intact), Right erythema (improved to right hallux), Right swelling (improving to right hallux) Progress Note: A&P (1) Diabetic foot ulcer Start date: 03/08/17 Start time: 08:00 Status: Chronic Assessment and plan: Right hallux cellulitis, osteomyelitis, ulcer: S/p right partial hallux amputation 03/09/17, POD #1 Sutures intact to the distal right hallux and dictation site. Cellulitis is improving. The ulcer was removed with the amputation. There is less edema noted. Betadine used to cleanse the incision site. New Betadine dry sterile dressing applied to the right great toe and foot. 1. Maintain the dressing dry and intact until follow-up next week. 2. Elevate as needed for pain and swelling. 3. Take Motrin for pain as needed. 4. Partial weightbearing to the right heel in the postop shoe. Post op shoe dispensed today. 5. Rx given for Clinda and Cipro x 2 weeks. 6. Follow up with me in office next week. Current Visit: Yes (2) Cellulitis of great toe of right foot Status: Acute Assessment and plan: Cellulitis improving to right hallux. Continue antibiotics: Clinda and Cipro x 2 weeks upon discharge. Current Visit: Yes (3) Diabetic ulcer of left foot Status: Chronic Assessment and plan: Left plantar medial hallux ulcer: S/P left wound debridement 03/09/17, POD #1 Wound is stable today. No signs of infection. New betadine dry sterile dressing applied. Flat post op shoe dispensed. WB as tolerated. Current Visit: Yes - Time Spent With Patient less than 15 minutes (15 mins: b/l dressing changes and education)
--- NOTE | 2017-03-10 08:55 | P.PN_ITS ---
Subjective Date: 03/10/17 Time: 08:05 Principal diagnosis: Right hallux cellulitis, osteomyelitis Interval history: Mr. Salas is a 46-year-old male who originally presented in January for bilateral hallux wounds. The left hallux wound was stable. However the right hallux wound progressed and became deeper and infected. He was admitted for cellulitis, purulent drainage and worsening infection. Decision was made to take to surgery for partial hallux amputation for osteomyelitis. She is resting comfortably in bed this morning. No complaints of pain. Denies nausea , vomiting, fever and chills. PN: Obj Ex Vital signs: Temp Pulse Resp BP Pulse Ox 97.9 F 105 H 18 148/88 94 L 03/10/17 04:00 03/10/17 04:00 03/10/17 04:00 03/10/17 04:00 03/10/17 04:00 Narrative: Patient is resting comfortably in bed. Denies nausea, vomiting, fever, chills, shortness of breath and chest pain. He denies pain to the feet - Constitutional no acute distress - Detailed Lower Extremity Exam Foot/Toes: Left wound (left hallux plantar medial ulcer), Right amputation ( partial hallux, sutures intact), Right erythema (improved to right hallux), Right swelling (improving to right hallux) Progress Note: A&P (1) Diabetic foot ulcer Start date: 03/08/17 Start time: 08:00 Status: Chronic Assessment and plan: Right hallux cellulitis, osteomyelitis, ulcer: S/p right partial hallux amputation 03/09/17, POD #1 Sutures intact to the distal right hallux and dictation site. Cellulitis is improving. The ulcer was removed with the amputation. There is less edema noted. Betadine used to cleanse the incision site. New Betadine dry sterile dressing applied to the right great toe and foot. 1. Maintain the dressing dry and intact until follow-up next week. 2. Elevate as needed for pain and swelling. 3. Take Motrin for pain as needed. 4. Partial weightbearing to the right heel in the postop shoe. Post op shoe dispensed today. 5. Rx given for Clinda and Cipro x 2 weeks. 6. Follow up with me in office next week. Current Visit: Yes (2) Cellulitis of great toe of right foot Status: Acute Assessment and plan: Cellulitis improving to right hallux. Continue antibiotics: Clinda and Cipro x 2 weeks upon discharge. Current Visit: Yes (3) Diabetic ulcer of left foot Status: Chronic Assessment and plan: Left plantar medial hallux ulcer: S/P left wound debridement 03/09/17, POD #1 Wound is stable today. No signs of infection. New betadine dry sterile dressing applied. Flat post op shoe dispensed. WB as tolerated. Current Visit: Yes - Time Spent With Patient less than 15 minutes (15 mins: b/l dressing changes and education)
== END 2017-03-10 09:03 | disposition home or self-care (01) ==
LOC: ER 03-09 00:46 → 2ND 03-09 01:04
PROVIDERS: Admitting Provider Emergency Medicine; Emergency Provider Emergency Medicine; Family Provider Family Medicine; PCP Family Medicine; Visit Provider Podiatrist
PROC: (CPT 11042; principal; 2017-03-09 09:30)
DX: E11.69 Type 2 diabetes mellitus with other specified complication (principal); E11.621 Type 2 diabetes mellitus with foot ulcer; M86.171 Other acute osteomyelitis, right ankle and foot; E11.65 Type 2 diabetes mellitus with hyperglycemia; L03.031 Cellulitis of right toe; E11.42 Type 2 diabetes mellitus with diabetic polyneuropathy; L97.521 Non-pressure chronic ulcer of other part of left foot limited to breakdown of skin; Z87.891 Personal history of nicotine dependence
CPT/HCPCS: 11042; 28820; 73630; 80048; 83605; 85025; 85651; 86140; 87040; 87070; 87077; 87186; 87205; 88307; 88311; 93005; 99284; G0378; J1335; J3370

== ENCOUNTER → 2017-03-28 10:52 | Outpatient (CLI) | payer MEDICAID, SELFPAY ==
--- NOTE | 2017-03-28 | XR_ITS ---
XR foot wt bearing RT 2V HISTORY: Follow-up indication ORDERING PHYSICIAN: Aundrea Vicente DPM PATIENT AGE: 46 years COMPARISON: 03/09/2017 FINDINGS: Status post amputation at the mid aspect of the proximal phalanx of the great toe. There is some faint subcortical lucency at the amputation site. While this may be related to postsurgical change, one cannot exclude the possibility of osteomyelitis. Please correlate with clinical findings. Continued follow-up recommended. No soft tissue gas or other significant anomalies. IMPRESSION: There is faint transverse area of cortical lucency involving the stump of the amputation site of the proximal phalanx of the great toe possibly related to postsurgical change versus underlying osteomyelitis..
== END ==
PROVIDERS: PCP Family Medicine; Visit Provider Podiatrist
DX: Z89.421 Acquired absence of other right toe(s) (principal)
CPT/HCPCS: 73620

== ENCOUNTER 2017-03-30 22:51 | Emergency (ER) | payer MEDICAID, SELFPAY ==
[2017-03-30 22:56] VITALS: BP 142/88; PULSE 99; RESP 16; TEMP 36.9; O2SAT 96; BMI 32.7
--- NOTE | 2017-03-30 23:25 | HMH.EDSKAF ---
ED Disposition Clinical Impression: Cellulitis Qualifiers: Site of cellulitis: extremity Site of cellulitis of extremity: lower extremity Laterality: left Qualified Code(s): L03.116 - Cellulitis of left lower limb Diabetic foot ulcer Qualifiers: Diabetic foot ulcer location: toe Diabetes mellitus type: type 1 Laterality: left Non-pressure ulcer stage: unspecified non-pressure ulcer stage Qualified Code(s): E10.621 - Type 1 diabetes mellitus with foot ulcer; L97.529 - Non-pressure chronic ulcer of other part of left foot with unspecified severity Disposition: Home, Self-Care Condition on Discharge: Good Instructions: DI for Skin Abscess Additional Instructions: see dr douglas at 0800 Referrals: Jose Francisco Fuentes MD [Primary Care Provider] - - Critical Care Critical Care Time: No Attestation: On 03/30/17, the high probability of a clinically significant, sudden or life threatening deterioration of the following system(s) required my full and direct attention, intervention and personal management. The time I documented below is in addition to time spent performing reported procedures but includes the following listed in this critical care notation. Medical Decision Making - Medical Records Medical records reviewed: Yes: I reviewed the patient's medical records. Vital Signs: 03/30/17 22:56 Temperature 98.5 F Temperature Source Oral Pulse Rate [Left Radial] 99 H Respiratory Rate 16 Blood Pressure [Right Arm] 142/88 Blood Pressure Mean [Right Arm] 106 Blood Pressure Source [Right Arm] Automatic Cuff Blood Pressure Position [Right Arm] Sitting 02 Sat by Pulse Oximetry 96 Oxygen Delivery Method Room Air - Lab Data Lab results reviewed: Yes: I reviewed the patient's lab results. Lab Results 03/30/17 23:28: WBC 6.0, RBC 4.82, Hgb 13.9 L, Hct 41.4 L, MCV 86.0, MCH 28.8, MCHC 33.5, RDW 13.5, Plt Count 217, MPV 7.7, Neut % (Auto) 59.6, Lymph % (Auto) 30.8, [place] % (Auto) 6.3, Eos % (Auto) 2.6, Baso % (Auto) 0.6, Neut # (Auto) 3.6, Lymph # (Auto) 1.8, [place] # (Auto) 0.4, Eos # (Auto) 0.2, Baso # (Auto) 0.0 03/30/17 23:28: Sodium 133 L, Potassium 4.0, Chloride 104, Carbon Dioxide 28, Anion Gap 5.0, BUN 21 H, Creatinine 1.21, Estimated Creat Clear 122, Estimated GFR 64, Est GFR ( Amer) 77, Glucose 231 H Result diagrams: 03/30/17 23:28 03/30/17 23:28 Orders (Tests/Meds): ED MEDICATIONS Generic Name Dose Route Start Last Admin Trade Name Daniel PRN Reason Stop Dose Admin Vancomycin HCl 2,250 mg 03/30/17 23:35 Vancomycin 1000mg Vial IV 03/30/17 23:36 CON[facility]ULT [facility] Protocol ORDERS Category Date Time Status Foot XR left 2 views [XR foot LT 2V] Stat Exams 03/30/17 23:08 Ordered Lactic Acid Stat Lab 03/30/17 23:28 Received Blood Culture Stat Micro 03/30/17 23:28 Received - Physician Consults Physician Consulted: misael Reason -: Pt condition - Antonio Inquiry Pt receiving controlled substance: No Skin/Abscess/FB HPI - General Chief complaint: Skin/Abscess/Foreign Body Stated complaint: bleeding diabetic foot ulcers Time Seen by Provider: 03/30/17 23:25 Mode of Arrival: Ambulatory Source of Information: Patient, Medical Record Limitations: No Limitations Description of Symptoms (Recalled from ER Triage Doc. by RN): left great toe bleeding, diabetic - History of Present Illness HPI narrative: diabetic with infected lt great toe MD complaint: abscess/boil Onset (ago): day(s) Tetanus up to date: yes Location: L foot Severity: moderate - Related Data Home Medications Medication Instructions Recorded Confirmed Atorvastatin Calcium [Atorvastatin 10 mg PO HS 03/08/17 03/30/17 10mg Tab] Finasteride [Proscar 5mg Tablet] 5 mg PO DAILY 03/08/17 03/30/17 Linagliptin [Tradjenta] 5 mg PO DAILY 03/08/17 03/30/17 Metformin HCl 1,000 mg PO BID 03/08/17 03/30/17 Nortriptyline HCl 100 mg PO HS 03/08/17 03/30/17 Tamsulosin HCl [Flomax] 0.4 mg PO DAILY
--- NOTE | 2017-03-30 23:29 | ED_ITS ---
ED Disposition Clinical Impression: Cellulitis Qualifiers: Site of cellulitis: extremity Site of cellulitis of extremity: lower extremity Laterality: left Qualified Code(s): L03.116 - Cellulitis of left lower limb Diabetic foot ulcer Qualifiers: Diabetic foot ulcer location: toe Diabetes mellitus type: type 1 Laterality: left Non-pressure ulcer stage: unspecified non-pressure ulcer stage Qualified Code(s): E10.621 - Type 1 diabetes mellitus with foot ulcer; L97.529 - Non- pressure chronic ulcer of other part of left foot with unspecified severity Disposition: Home, Self-Care Condition on Discharge: Good Instructions: DI for Skin Abscess Additional Instructions: see dr douglas at 0800 Referrals: Jose Francisco Fuentes MD [Primary Care Provider] - - Critical Care Critical Care Time: No Attestation: On 03/30/17, the high probability of a clinically significant, sudden or life threatening deterioration of the following system(s) required my full and direct attention, intervention and personal management. The time I documented below is in addition to time spent performing reported procedures but includes the following listed in this critical care notation. Medical Decision Making - Medical Records Medical records reviewed: Yes: I reviewed the patient's medical records. Vital Signs: 03/30/17 22:56 Temperature 98.5 F Temperature Source Oral Pulse Rate [Left Radial] 99 H Respiratory Rate 16 Blood Pressure [Right Arm] 142/88 Blood Pressure Mean [Right Arm] 106 Blood Pressure Source [Right Arm] Automatic Cuff Blood Pressure Position [Right Arm] Sitting 02 Sat by Pulse Oximetry 96 Oxygen Delivery Method Room Air - Lab Data Lab results reviewed: Yes: I reviewed the patient's lab results. Lab Results 03/30/17 23:28: WBC 6.0, RBC 4.82, Hgb 13.9 L, Hct 41.4 L, MCV 86.0, MCH 28.8, MCHC 33.5, RDW 13.5, Plt Count 217, MPV 7.7, Neut % (Auto) 59.6, Lymph % (Auto) 30.8, [place] % (Auto) 6.3, Eos % (Auto) 2.6, Baso % (Auto) 0.6, Neut # (Auto) 3.6 , Lymph # (Auto) 1.8, [place] # (Auto) 0.4, Eos # (Auto) 0.2, Baso # (Auto) 0.0 03/30/17 23:28: Sodium 133 L, Potassium 4.0, Chloride 104, Carbon Dioxide 28, Anion Gap 5.0, BUN 21 H, Creatinine 1.21, Estimated Creat Clear 122, Estimated GFR 64, Est GFR ( Amer) 77, Glucose 231 H Result diagrams: 03/30/17 23:28 02 23:28 Orders (Tests/Meds): ED MEDICATIONS Generic Name Dose Route Start Last Admin Trade Name Freq PRN Reason Stop Dose Admin Vancomycin HCl 2,250 mg 03/30/17 23:35 Vancomycin 1000mg Vial IV 03/30/17 23:36 [facility]ULT [facility] Protocol ORDERS Category Date Time Status Foot XR left 2 views [XR foot LT 2V] Stat Exams 03/30/17 23:08 Ordered Lactic Acid Stat Lab 03/30/17 23:28 Received Blood Culture Stat Micro 03/30/17 23:28 Received - Physician Consults Physician Consulted: misael Reason -: Pt condition - Antonio Inquiry Pt receiving controlled substance: No Skin/Abscess/FB HPI - General Chief complaint: Skin/Abscess/Foreign Body Stated complaint: bleeding diabetic foot ulcers Time Seen by Provider: 03/30/17 23:25 Mode of Arrival: Ambulatory Source of Information: Patient, Medical Record Limitations: No Limitations Description of Symptoms (Recalled from ER Triage Doc. by RN): left great toe bleeding, diabetic - Hist
[2017-03-30 23:38] LABS: Basophils % 0.6 % (0.1-2.0); Eosinophils # 0.2 K/mm3 (0.0-0.4); Eosinophils % 2.6 % (0.1-12.0); Hematocrit 41.4 % (42.0-52.0); Hemoglobin 13.9 g/dL (14.1-18.0); Lymphocytes # 1.8 K/mm3 (0.7-4.5); Lymphocytes % 30.8 K/mm3 (10-50); Mean Corpuscular HGB Conc 33.5 g/dL (31.8-35.4); Mean Corpuscular Hemoglobin 28.8 pg (27.0-31.2); Mean Platelet Volume 7.7 fl (7.4-10.4); Monocytes # 0.4 K/mm3 (0.1-1.0); Monocytes % 6.3 % (1.7-9.3); Neutrophils # 3.6 K/mm3 (1.8-7.8); Neutrophils % 59.6 % (37.0-80.0); Platelet Count 217 K/mm3 (142-424); Red Blood Count 4.82 M/mm3 (4.60-6.20); Red Cell Distribution Width 13.5 % (11.5-17.5)
[2017-03-30 23:46] LABS: Blood Urea Nitrogen 21 mg/dL (7-18); Carbon Dioxide 28 mmol/L (21.0-32.0); Chloride 104 mmol/L (98-107); Creatinine Clearance Estimated 122 mL/min (0-300); Creatinine,Serum 1.21 mg/dL (0.70-1.30); Estimated Glomerular Filt Rate 64 ml/min (>60); GFR (African American) 77 ML/MIN (>60); Glucose 231 mg/dL (74-106); Sodium 133 mmol/L (136-145)
[2017-03-30 23:55] LABS: Lactic Acid 1.6 mmol/L (0.4-2.0)
--- NOTE | 2017-03-31 00:34 | PC.NURSE ---
Vancomycin 2250mg/500ml to be administered over 2.5 hours dose verified with Mei from pharmacy. Oder will not transfer to [facility] to be signed off.
[2017-03-31 00:56] VITALS: BP 143/90; PULSE 84; RESP 18; O2SAT 98
[2017-03-31 02:55] VITALS: BP 143/90; PULSE 84; RESP 18; TEMP 36.7; O2SAT 98
== END 2017-03-31 02:55 | disposition home or self-care (01) ==
PROVIDERS: Emergency Provider Emergency Medicine; Family Provider Family Medicine; PCP Family Medicine
DX: E11.621 Type 2 diabetes mellitus with foot ulcer (principal); L97.529 Non-pressure chronic ulcer of other part of left foot with unspecified severity; E11.65 Type 2 diabetes mellitus with hyperglycemia; Z79.84 Long term (current) use of oral hypoglycemic drugs; K21.9 Gastro-esophageal reflux disease without esophagitis; E78.5 Hyperlipidemia, unspecified
CPT/HCPCS: 80048; 83605; 85025; 87040; 93041; 96365; 99282

== ENCOUNTER → 2017-06-06 15:00 | Outpatient (CLI) | payer MEDICAID, SELFPAY ==
--- NOTE | 2017-06-06 14:38 | NVE_ITS ---
Venous Exam Indications: 729.5 Pain in limb. IMPRESSIONS 1. There is no evidence of significant Reflux. 2. Superficial vein thrombosis involving the left great saphenous vein Left lower extremity venous duplex evaluation. Doppler flow study including spectral analysis, color and alcantara scale imaging. Location: Vascular laboratory. Patient status: Outpatient. CRITICAL FINDINGS - Reported to: PETE - Read back and verified. - 06/06/17 - 1540 - SVT Tables: Venous flow and imaging: + + + + Location Overall Flow properties + + + + Left common femoral Patent Normal phasicity; spontaneous; normal augmentation; compressible + + + + Left saphenofemoral Patent Compressible junction + + + + Left profunda femoral Patent Compressible + + + + Left femoral Patent Normal phasicity; spontaneous; normal augmentation; compressible + + + + Left greater saphenous Partially occluded Diminished phasicity; not spontaneous; diminished augmentation; partially compressible + + + + Left popliteal Patent Normal phasicity; spontaneous; normal augmentation; compressible + + + + Left posterior tibial Patent Compressible + + + + Left peroneal Patent Compressible + + + + Left gastrocnemius Patent Compressible + + + + Left soleal Patent Compressible + + + + (Report amended ) Electronically signed by: Aubrey Galvan [id number]
--- NOTE | 2017-06-06 15:06 | XR_ITS ---
XR foot wt bearing LT 3V HISTORY: Redness, pain, swelling, ulceration ORDERING PHYSICIAN: Aundrea Vicente DPM PATIENT AGE: 46 years COMPARISON: 02/03/2017 FINDINGS: Bandage artifact is present at the great toe at the interphalangeal region and medially. No obvious bony destructive process evident. The joint spaces are well-preserved. No fracture or dislocation. There is soft tissue swelling of the great toe. No soft tissue gas apparent. IMPRESSION: Soft tissue swelling of the great toe with bandage artifact. No bony destructive process evident.
--- NOTE | 2017-06-06 15:06 | XR_ITS ---
XR foot wt bearing RT 3V HISTORY: Follow-up amputation of the great toe ORDERING PHYSICIAN: Aundrea Vicente DPM PATIENT AGE: 46 years COMPARISON: 03/28/2017 FINDINGS: Status post amputation at the distal aspect of the proximal phalanx of the great toe. There is some subcortical lucency noted at the distal aspect of the stump of the amputation as previously described the distal margin of the stump is ill-defined laterally on the oblique view. Cannot exclude the possibility of osteomyelitis of the tip of the stump. No soft tissue gas or other significant anomalies evident. IMPRESSION: Persistent subcortical lucencies of the tip of the stump of the proximal phalanx of the great toe with ill definition of the cortex laterally. Osteomyelitis is considered. MRI may be of further value if clinically warranted.
--- NOTE | 2017-06-06 16:18 | XR_ITS ---
XR chest 2V HISTORY: ITS.REASON: DIABETIC ORDERING PHYSICIAN: Aundrea Vicente DPM PATIENT AGE: 46 years COMPARISON: 03/17/2009 FINDINGS: The cardiomediastinal silhouette and pulmonary vascularity are within normal limits. The lungs are clear without infiltrates, suspicious nodules, or pleural effusions. No acute bony abnormalities. IMPRESSION: No change with no acute finding
== END ==
PROVIDERS: Visit Provider Podiatrist
DX: Z01.818 Encounter for other preprocedural examination (principal); E10.621 Type 1 diabetes mellitus with foot ulcer; I82.812 Embolism and thrombosis of superficial veins of left lower extremity
CPT/HCPCS: 71046; 73630; 93005; 93971

== ENCOUNTER → 2017-06-24 08:22 | Outpatient (CLI) | payer MEDICAID, SELFPAY ==
--- NOTE | 2017-06-24 08:22 | XR_ITS ---
XR foot wt bearing RT 3V HISTORY: Follow-up amputation ITS.REASON: post op views ORDERING PHYSICIAN: Aundrea Vicente DPM PATIENT AGE: 46 years COMPARISON: 06/06/2017 FINDINGS: Status post amputation of the distal aspect of the proximal phalanx of the great toe. Previously there was some subcortical lucency noted at the amputation site. This is once again noted but appears somewhat less lucent compared to the previous exam. There remains some cortical irregularity along the plantar and lateral aspect of the amputation site. No new abnormalities are evident. IMPRESSION: Status post amputation at the distal aspect of the proximal phalanx of the great toe with persistent cortical irregularity laterally. Subcortical lucency medially is somewhat less apparent. These findings may all be related to postsurgical change. Continued follow-up recommended
--- NOTE | 2017-06-24 08:22 | XR_ITS ---
XR foot wt bearing LT 3V HISTORY: Follow-up amputation ITS.REASON: post op views ORDERING PHYSICIAN: Aundrea Vicente DPM PATIENT AGE: 46 years COMPARISON: 06/06/2017 FINDINGS: Status post amputation at the first metatarsophalangeal junction. No abnormal soft tissue gas or bony erosive change at the patient's site. No other significant anomalies are evident. IMPRESSION: Unremarkable status post amputation of the first metatarsophalangeal junction
== END ==
PROVIDERS: Visit Provider Podiatrist
DX: Z98.890 Other specified postprocedural states (principal)
CPT/HCPCS: 73630

== ENCOUNTER 2017-07-04 08:05 | Outpatient (CLI) | payer MEDICAID, SELFPAY ==
[2017-07-04] VITALS (9 sets, daily range): BP systolic 130–146; BP diastolic 82–92; PULSE 77–82; RESP 18; TEMP 37; O2SAT 96; BMI 33.3
== END 2017-07-04 12:15 | disposition home or self-care (01) ==
LOC: INF 08:12
PROVIDERS: Family Provider Family Medicine; Visit Provider Podiatrist
DX: Z98.890 Other specified postprocedural states (principal); L03.039 Cellulitis of unspecified toe
CPT/HCPCS: 96365; 96366; J2407

== ENCOUNTER → 2018-03-30 08:39 | Outpatient (CLI) | payer MEDICAID, SELFPAY | PROVIDERS: Visit Provider Podiatrist | DX: Z71.3 Dietary counseling and surveillance (principal); E11.40 Type 2 diabetes mellitus with diabetic neuropathy, unspecified | CPT/HCPCS: 97802 ==

== ENCOUNTER → 2018-05-15 15:54 | Outpatient (CLI) | payer MEDICAID, SELFPAY ==
--- NOTE | 2018-05-15 15:57 | NVE_ITS ---
Venous Exam Indications: 729.5 Pain in limb. IMPRESSIONS 1. There is no evidence of significant Reflux. 2. No evidence of deep or superficial vein thrombosis involving the left lower extremity Left lower extremity venous duplex evaluation. Doppler flow study including spectral analysis, color and alcantara scale imaging. Location: Vascular laboratory. Patient status: Outpatient. CRITICAL FINDINGS - [facility] - Read back and verified. - 05/15/18 - 1615 - NONE Tables: Venous flow and imaging: + +-------+ + Location Overall Flow properties + +-------+ + Left common femoral Patent Normal phasicity; spontaneous; normal augmentation; compressible + +-------+ + Left saphenofemoral junction Patent Compressible + +-------+ + Left profunda femoral Patent Compressible + +-------+ + Left femoral Patent Normal phasicity; spontaneous; normal augmentation; compressible + +-------+ + Left greater saphenous Patent Normal phasicity; spontaneous; normal augmentation; compressible + +-------+ + Left popliteal Patent Normal phasicity; spontaneous; normal augmentation; compressible + +-------+ + Left posterior tibial Patent Compressible + +-------+ + Left peroneal Patent Compressible + +-------+ + Left gastrocnemius Patent Compressible + +-------+ + Left soleal Patent Compressible + +-------+ + (Report amended ) Electronically signed by: Breezy Currie [id number]
== END ==
PROVIDERS: PCP Internal Medicine Adolescent Medicine; Visit Provider Internal Medicine Adolescent Medicine
DX: M79.652 Pain in left thigh (principal)
CPT/HCPCS: 93971

== ENCOUNTER → 2018-08-01 10:18 | Outpatient (CLI) | payer MEDICAID, SELFPAY ==
--- NOTE | 2018-08-01 10:26 | XR_ITS ---
XR ribs RT min 3V w CXR1V HISTORY: ITS.REASON: pain ORDERING PHYSICIAN: Aundrea Vicente DPM PATIENT AGE: 47 years Comparison: None FINDINGS: A frontal view of the chest shows no acute finding. Multiple views of the right ribs were obtained. No fracture or dislocation. No lytic or blastic change. IMPRESSION: Negative RIBS. If pain persists, consider follow-up exam in 7-[address] with 3-D reformats.
== END ==
PROVIDERS: PCP Internal Medicine Adolescent Medicine; Visit Provider Podiatrist
DX: R07.81 Pleurodynia (principal)
CPT/HCPCS: 71101

== ENCOUNTER → 2018-08-24 12:32 | Outpatient (CLI) | payer MEDICAID, SELFPAY ==
--- NOTE | 2018-08-24 12:38 | XR_ITS ---
XR foot wt bearing RT 3V HISTORY: ITS.REASON: Pain and swelling right 2nd toe ORDERING PHYSICIAN: Aundrea Vicente DPM PATIENT AGE: 47 years COMPARISON: 06/24/2017 FINDINGS: Subtle erosive changes are present involving the tuft of the distal phalanx of the second toe consistent with acute osteomyelitis with associated soft tissue swelling. This has developed since the previous exam. There has been a prior amputation at the distal aspect of the proximal phalanx of the great toe with well-circumscribed margins. IMPRESSION: Erosion of the of the tuft of the distal phalanx of the second toe with soft tissue swelling consistent with osteomyelitis and cellulitis
== END ==
PROVIDERS: PCP Internal Medicine Adolescent Medicine; Visit Provider Podiatrist
DX: M79.674 Pain in right toe(s) (principal); M79.89 Other specified soft tissue disorders
CPT/HCPCS: 73630

== ENCOUNTER → 2018-08-26 09:40 | Outpatient (CLI) | payer MEDICAID, SELFPAY ==
[2018-08-26 10:29] LABS: Basophils % 0.7 % (0.1-2.0); Eosinophils # 0.1 K/mm3 (0.0-0.4); Eosinophils % 2.2 % (0.1-12.0); Hematocrit 46.8 % (42.0-52.0); Lymphocytes # 1.5 K/mm3 (0.7-4.5); Lymphocytes % 23.2 % (10-50); Mean Corpuscular Hemoglobin 28.6 pg (27.0-31.2); Mean Corpuscular Volume 89.6 fl (80-94); Mean Platelet Volume 7.4 fl (7.4-10.4); Monocytes # 0.4 K/mm3 (0.1-1.0); Monocytes % 6.9 % (1.7-9.3); Neutrophils # 4.2 K/mm3 (1.8-7.8); Platelet Count 249 K/mm3 (142-424); Red Blood Count 5.22 M/mm3 (4.60-6.20); Red Cell Distribution Width 13.4 % (11.5-17.5); White Blood Count 6.3 K/mm3 (4.8-10.8)
[2018-08-26 10:51] LABS: Alanine Aminotransferase 37 U/L (12-78); Albumin Level 3.4 gm/dL (3.4-5.0); Albumin/Globulin Ratio 1.1 (1.1-1.8); Alkaline Phosphatase 111 U/L (46-116); Anion Gap 12.4 mEq/L (5-15); Aspartate Amino Transferase 24 U/L (15-37); Bilirubin,Total 0.5 mg/dL (0.2-1.0); Blood Urea Nitrogen 18 mg/dL (7-18); Calcium 9.3 mg/dL (8.5-10.1); Carbon Dioxide 29 mmol/L (21.0-32.0); Chloride 108 mmol/L (98-107); Creatinine,Serum 1.22 mg/dL (0.70-1.30); Estimated Glomerular Filt Rate 63 ml/min (>60); GFR (African American) 76 ML/MIN (>60); Globulin 3.1 gm/dl (1.3-3.2); Glucose 178 mg/dL (74-106); Potassium 4.4 mmoL/L (3.5-5.1); Sodium 145 mmol/L (136-145); Total Protein,Serum 6.5 gm/dL (6.4-8.2)
[2018-08-26 11:21] LABS: C-Reactive Protein < 0.2 mg/L (0.0-0.9)
[2018-08-26 11:22] LABS: Hemoglobin A1C 6.2 % (0.0-7.0)
[2018-08-26 13:24] LABS: Erythrocyte Sedimentation Rate 7 mm/hr (0-15)
== END ==
PROVIDERS: Visit Provider Podiatrist
DX: E11.40 Type 2 diabetes mellitus with diabetic neuropathy, unspecified (principal); S90.424A Blister (nonthermal), right lesser toe(s), initial encounter; Z89.411 Acquired absence of right great toe; Z89.412 Acquired absence of left great toe
CPT/HCPCS: 36415; 80053; 83036; 85025; 85651; 86140

== ENCOUNTER → 2018-10-26 09:02 | Outpatient (CLI) | payer MEDICAID, SELFPAY ==
--- NOTE | 2018-10-26 09:06 | XR_ITS ---
PROCEDURE: XR FOOT WT BEARING LT 3V CLINICAL INDICATION: comparison views COMPARISON: [id number] XR foot LT min 3V from 06/08/2017 [id number] XR foot RT min 3V from 06/08/2017 [id number] XR foot wt bearing LT 3V from 06/24/2017 [id number] XR foot wt bearing RT 3V from 06/24/2017 XR FOOT WT BEARING RT 3V from 10/26/2018 FINDINGS: Status post amputation at the 1st metatarsophalangeal joint The joint spaces are well-preserved. No significant degenerative/arthritic changes. No erosive changes evident. Other findings:None. IMPRESSION: No change status post amputation at the 1st metatarsophalangeal joint. No acute finding Dictated by: Aubrey Galvan MD 10/26/2018 18:08 Electronically signed by Aubrey Galvan MD in [place] 10/26/2018 18:08
--- NOTE | 2018-10-26 09:06 | XR_ITS ---
PROCEDURE: XR FOOT WT BEARING RT 3V CLINICAL INDICATION: osteomyelitis of toe COMPARISON: [id number] XR foot LT min 3V from 06/08/2017 [id number] XR foot RT min 3V from 06/08/2017 [id number] XR foot wt bearing LT 3V from 06/24/2017 [id number] XR foot wt bearing RT 3V from 06/24/2017 FINDINGS: There has been prior amputation at the distal aspect of the proximal phalanx of the great toe. The amputation site is well-circumscribed. Erosion is present involving the distal aspect of the distal phalanx of the 2nd toe with some bony fragmentation and overlying soft tissue swelling consistent with osteomyelitis. IMPRESSION: Osteomyelitis of the tuft of the distal phalanx of the 2nd toe with associated soft tissue swelling Dictated by: Aubrey Galvan MD 10/26/2018 18:04 Electronically signed by Aubrey Galvan MD in [place] 10/26/2018 18:07
== END ==
PROVIDERS: PCP Internal Medicine Adolescent Medicine; Visit Provider Podiatrist
DX: M86.9 Osteomyelitis, unspecified (principal); M79.671 Pain in right foot; M79.672 Pain in left foot
CPT/HCPCS: 73630

== ENCOUNTER → 2018-11-02 12:53 | Outpatient (CLI) | payer MEDICAID, SELFPAY ==
[2018-11-02 14:17] LABS: Blood Urea Nitrogen 19 mg/dL (7-18); Estimated Glomerular Filt Rate 64 ml/min (>60); GFR (African American) 78 ML/MIN (>60)
== END ==
PROVIDERS: Visit Provider Podiatrist
DX: M86.9 Osteomyelitis, unspecified (principal)
CPT/HCPCS: 36415; 82565; 84520

== ENCOUNTER → 2018-11-06 09:53 | Outpatient (CLI) | payer MEDICAID, SELFPAY ==
--- NOTE | 2018-11-06 10:24 | MR_ITS ---
PROCEDURE: MR FOOT RT WO/W CON CLINICAL INDICATION: Surgical Planning, Osteomyelitis Osteomyelitis of the 2nd toe, chronic osteomyelitis, pre op evaluation with surgical planning COMPARISON: XR FOOT WT BEARING RT 3V from 10/26/2018 TECHNIQUE: Routine multiplanar multi echo sequences are performed without and with gadolinium enhancement. FINDINGS: There is destruction of the distal phalanx of the 2nd toe. Small fluid collection is present along the distal aspect of the 2nd toe in the subcutaneous region. This measures 7 mm and is consistent with a small abscess. There is hammertoe deformity of the 2nd toe. The middle phalanx and proximal phalanx have an unremarkable appearance. Extensive soft tissue swelling is present at the distal aspect of the 2nd toe. There has been prior amputation at the interphalangeal total joint of the great toe with some bony hypertrophic change at this area but no evidence of bone marrow edema or abnormal enhancement. No ligamentous or tendinous abnormalities are evident. IMPRESSION: 1. Osteomyelitis of the distal phalanx of the 2nd toe with associated small abscess in the bed of the distal phalanx and associated cellulitis of the 2nd toe. 2. Prior amputation at the interphalangeal joint of the great toe Dictated by: Aubrey Galvan MD 11/08/2018 06:49 Electronically signed by Aubrey Galvan MD in [place] 11/08/2018 06:49
== END ==
PROVIDERS: PCP Internal Medicine Adolescent Medicine; Visit Provider Podiatrist
DX: M86.9 Osteomyelitis, unspecified (principal); M79.671 Pain in right foot
CPT/HCPCS: 73720; A9576

== ENCOUNTER → 2018-11-09 14:40 | Outpatient (CLI) | payer MEDICAID, SELFPAY ==
--- NOTE | 2018-11-09 14:42 | MR_ITS ---
PROCEDURE: MR LUMBAR SPINE WO CON CLINICAL INDICATION: LEFT SIDED SCIATICA Low back pain with left leg pain weakness and burning COMPARISON: XR LUMBAR SPINE MIN 4V from 10/28/2018 TECHNIQUE: Standard multiplanar multiecho sequences are performed without contrast. 3-D MIP and myelographic images are also rendered and reviewed FINDINGS: The spinal cord ends at the T12-L1 level. T11-T12: Mild degenerative disc disease. T12-L1: Unremarkable. L1-L2: Unremarkable. L2-L3: Unremarkable. L3-L4: Unremarkable. L4-5: Bulging disc along with facet and ligamentum hypertrophic change with moderate right-sided foraminal narrowing and moderate to severe left-sided foraminal narrowing. The bulging disc is very slightly eccentric to the right abutting the anterior aspect of both L5 nerve roots. Small annular fissure is present at this region. L5-S1: Unremarkable. CT IMPRESSION: Bulging disc at L4-5 along with facet and ligamentum hypertrophic change with moderate right-sided foraminal narrowing and moderate to severe left-sided foraminal narrowing. The bulging disc is very slightly eccentric to the right abutting the anterior aspect of both L5 nerve roots. Small annular fissure is present at this region. Dictated by: Aubrey Galvan MD 11/10/2018 07:17 Electronically signed by Aubrey Galvan MD in [place] 11/10/2018 14:02
== END ==
PROVIDERS: PCP Internal Medicine Adolescent Medicine; Visit Provider Internal Medicine Adolescent Medicine
DX: M54.32 Sciatica, left side (principal)
CPT/HCPCS: 72148; 76376

== ENCOUNTER → 2018-11-23 09:18 | Outpatient (CLI) | payer OTHER, SELFPAY ==
--- NOTE | 2018-11-23 09:31 | ECG_ITS ---
APPROVED REPORT Exam: Resting ECG HR:76 bpm ECG Measurements Heart Rate 76 AXES WI 210 P 25 QRSd 90 QRS 29 QT 364 T 35 QTc 409 <Conclusion> Sinus rhythm with 1st degree AV block Otherwise normal ECG Electronically signed by : Jose Francisco Caldera, 11/23/2018 22:05:24
--- NOTE | 2018-11-23 09:33 | XR_ITS ---
PROCEDURE: XR CHEST 2V CLINICAL HISTORY: HTN, DMII COMPARISON: CXR2V XR chest 2V from 06/06/2017 FINDINGS: The cardiomediastinal silhouette and pulmonary vascularity are within normal limits. The lungs are clear without infiltrates, suspicious nodules, or pleural effusions. No acute bony abnormalities. IMPRESSION: No change with no acute finding Dictated by: Aubrey Galvan MD 11/23/2018 17:59 Electronically signed by Aubrey Galvan MD in [place] 11/23/2018 17:59
[2018-11-23 10:53] LABS: Basophils # 0.1 K/mm3 (0-0.2); Basophils % 0.9 % (0.1-2.0); Eosinophils # 0.4 K/mm3 (0.0-0.4); Hematocrit 45.9 % (42.0-52.0); Hemoglobin 14.8 g/dL (14.1-18.0); Lymphocytes % 30.9 % (10-50); Mean Corpuscular HGB Conc 32.1 g/dL (31.8-35.4); Mean Corpuscular Hemoglobin 29.8 pg (27.0-31.2); Mean Corpuscular Volume 92.8 fl (80-94); Mean Platelet Volume 7.5 fl (7.4-10.4); Monocytes # 0.4 K/mm3 (0.1-1.0); Monocytes % 6.5 % (1.7-9.3); Neutrophils # 3.5 K/mm3 (1.8-7.8); Neutrophils % 54.8 % (37.0-80.0); Platelet Count 236 K/mm3 (142-424); Red Blood Count 4.95 M/mm3 (4.60-6.20); Red Cell Distribution Width 14.2 % (11.5-17.5); White Blood Count 6.3 K/mm3 (4.8-10.8)
[2018-11-23 11:37] LABS: Alanine Aminotransferase 36 U/L (12-78); Albumin Level 3.6 gm/dL (3.4-5.0); Albumin/Globulin Ratio 1.2 (1.1-1.8); Alkaline Phosphatase 97 U/L (46-116); Anion Gap 13.4 mEq/L (5-15); Aspartate Amino Transferase 21 U/L (15-37); Bilirubin,Total 0.5 mg/dL (0.2-1.0); Blood Urea Nitrogen 19 mg/dL (7-18); Calcium 8.8 mg/dL (8.5-10.1); Carbon Dioxide 26 mmol/L (21.0-32.0); Chloride 107 mmol/L (98-107); Creatinine,Serum 1.13 mg/dL (0.70-1.30); Estimated Glomerular Filt Rate 69 ml/min (>60); GFR (African American) 83 ML/MIN (>60); Globulin 3.1 gm/dl (1.3-3.2); Glucose 119 mg/dL (74-106); Potassium 4.4 mmoL/L (3.5-5.1); Sodium 142 mmol/L (136-145); Total Protein,Serum 6.7 gm/dL (6.4-8.2)
[2018-11-23 13:59] LABS: C-Reactive Protein < 0.2 mg/dL (0.0-0.9)
[2018-11-23 16:59] LABS: Erythrocyte Sedimentation Rate 76 mm/hr (0-15)
== END ==
PROVIDERS: PCP Internal Medicine Adolescent Medicine; Visit Provider Podiatrist
DX: Z01.818 Encounter for other preprocedural examination (principal); M86.671 Other chronic osteomyelitis, right ankle and foot
CPT/HCPCS: 36415; 71046; 80053; 85025; 85651; 86140; 93005

== ENCOUNTER 2018-11-30 09:03 | Outpatient (CLI) | payer OTHER, SELFPAY ==
[2018-11-30 09:04] VITALS: BMI 32.1
--- NOTE | 2018-11-30 09:32 | HMH.PHACONS ---
- Pharmacy Consult Date: 11/30/18 Time: 09:32 Referring provider: DR. FREEMAN Reason for Consult:: VANCOMYCIN DOSING Allergies and ADEs:: Allergies Allergy/AdvReac Type Severity Reaction Status Date / Time tetanus toxoid, adsorbed Allergy Verified 11/28/18 12:24 Home Medications:: Home Medications Medication Instructions Recorded Confirmed Type Finasteride [Proscar 5mg Tablet] 5 mg PO DAILY 03/08/17 11/30/18 History Metformin HCl 1,000 mg PO BID 03/08/17 11/30/18 History Tamsulosin HCl [Flomax] 0.4 mg PO DAILY 03/08/17 11/30/18 History atorvastatin 40 mg tablet 40 mg PO DAILY 30 Days tab 05/23/18 11/30/18 History ertugliflozin 15 mg tablet 15 mg PO DAILY 30 Days tab 05/23/18 11/30/18 History lisinopril 20 mg tablet 20 mg PO DAILY #60 tab 08/01/18 11/30/18 History gabapentin 100 mg capsule 200 mg PO TID 30 Days #180 cap 10/26/18 11/30/18 History nortriptyline 50 mg capsule 50 mg PO DAILY #30 cap 10/26/18 11/30/18 History sildenafil 100 mg tablet 100 mg PO DAILY #10 tab 10/26/18 11/30/18 History levofloxacin 500 mg tablet 500 mg PO Q24H 14 Days #14 tab 11/17/18 11/30/18 Rx Doxycycline Hyclate [Doxycycline 100 mg PO BID 11/28/18 11/30/18 History 100mg Capsule] Height: 1.88 m Weight: 113.398 kg Laboratory Results:: SRCR 1.13 MG/DL ON 11/23/2018 Medical History: Reports:: Deep Vein Thrombosis, Diabetes Mellitus Type 2, Gastroesophageal Reflux Disease(GERD), Hyperlipidemia, Hypertension Denies:: Asthma, Cancer, Chronic Obstructive Pulmonary Disease (COPD), Coronary Artery Disease, Diabetes Mellitus Type 1, Internal Pacemaker, MRSA, Seizures Assessment and Plan - Assessment and plan all Dx Assessment and Plan for all problems:: RECOMMEND STARTING WITH VANCOMYCIN 2000 MG Q12H AT THIS TIME. WILL OBTAIN TROUGH AND BMP PRIOR TO DOSE IN THE AM TO DETERMINE CLEARANCE. PHARMACY WILL FOLLOW DAILY AND ADJUST APPROPRIATE.
[2018-11-30 09:43] LABS: Anion Gap 12.2 mEq/L (5-15); Blood Urea Nitrogen 17 mg/dL (7-18); Calcium 8.7 mg/dL (8.5-10.1); Carbon Dioxide 26 mmol/L (21.0-32.0); Chloride 107 mmol/L (98-107); Creatinine Clearance Estimated 136 mL/min (50-200); Creatinine,Serum 1.04 mg/dL (0.70-1.30); Estimated Glomerular Filt Rate 76 ml/min (>60); GFR (African American) 91 ML/MIN (>60); Glucose 112 mg/dL (74-106); Potassium 4.2 mmoL/L (3.5-5.1); Sodium 141 mmol/L (136-145)
[2018-11-30 09:45] VITALS: BP 147/73; PULSE 84; RESP 18; O2SAT 97
[2018-11-30 10:38] VITALS: BP 145/74; PULSE 87; RESP 18; O2SAT 95
[2018-11-30 12:15] VITALS: BP 135/79; PULSE 89; RESP 18; O2SAT 97
[2018-11-30 20:05] VITALS: BMI 32.1
[2018-11-30 20:10] VITALS: BP 151/92; PULSE 93; RESP 17; TEMP 37; O2SAT 98
== END 2018-11-30 22:20 | disposition home or self-care (01) ==
PROVIDERS: PCP Internal Medicine Adolescent Medicine; Visit Provider Podiatrist
DX: M86.671 Other chronic osteomyelitis, right ankle and foot (principal)
CPT/HCPCS: 80048; 96365; 96366; J3370

== ENCOUNTER 2018-12-01 08:10 | Outpatient (CLI) | payer OTHER, SELFPAY ==
[2018-12-01 08:27] VITALS: BMI 32.1
[2018-12-01 09:22] LABS: Anion Gap 13.1 mEq/L (5-15); Blood Urea Nitrogen 17 mg/dL (7-18); Calcium 9.1 mg/dL (8.5-10.1); Carbon Dioxide 26 mmol/L (21.0-32.0); Chloride 106 mmol/L (98-107); Creatinine Clearance Estimated 129 mL/min (50-200); Estimated Glomerular Filt Rate 71 ml/min (>60); GFR (African American) 86 ML/MIN (>60); Glucose 117 mg/dL (74-106); Potassium 4.1 mmoL/L (3.5-5.1); Sodium 141 mmol/L (136-145)
[2018-12-01 09:27] LABS: Vancomycin,Trough 20.2 mcg/ml (10.0-20.0)
[2018-12-01 09:45] VITALS: BP 120/71; PULSE 80; RESP 18; TEMP 36.3; O2SAT 97
[2018-12-01 10:15] VITALS: BP 117/68; PULSE 86; RESP 18
[2018-12-01 10:45] VITALS: BP 120/68; PULSE 84; RESP 16
[2018-12-01 11:15] VITALS: BP 117/70; PULSE 86; RESP 16
[2018-12-01 11:35] VITALS: BP 119/71; PULSE 82; RESP 18
== END 2018-12-01 11:55 | disposition home or self-care (01) ==
LOC: INF 08:27
PROVIDERS: Visit Provider Podiatrist
DX: L03.031 Cellulitis of right toe (principal); M79.671 Pain in right foot; E11.65 Type 2 diabetes mellitus with hyperglycemia
CPT/HCPCS: 80048; 80202; 96365; 96366; J3370

== ENCOUNTER → 2018-12-02 07:33 | Outpatient (CLI) | payer OTHER, SELFPAY ==
[2018-12-02 07:48] VITALS: BP 143/86; PULSE 89; RESP 16; TEMP 36.3; O2SAT 98; BMI 29.9
[2018-12-02 12:02] VITALS: BP 145/91; PULSE 84; RESP 16; O2SAT 95
[2018-12-02 19:31] VITALS: BP 133/66; PULSE 95; RESP 14; TEMP 36.6; O2SAT 95; BMI 32.1
[2018-12-02 20:45] VITALS: BP 132/84; PULSE 94; RESP 16; TEMP 36.8; O2SAT 97
[2018-12-02 21:49] VITALS: BP 137/76; PULSE 85; RESP 16; TEMP 36.8; O2SAT 96
== END ==
PROVIDERS: PCP Internal Medicine Adolescent Medicine; Visit Provider Podiatrist
DX: M86.671 Other chronic osteomyelitis, right ankle and foot (principal)
CPT/HCPCS: 96365; 96366; J3370

== ENCOUNTER → 2018-12-03 07:34 | Outpatient (CLI) | payer OTHER, SELFPAY ==
[2018-12-03 08:00] VITALS: BP 139/72; PULSE 75; RESP 16; TEMP 36.7; O2SAT 98; BMI 29.9
[2018-12-03 09:12] LABS: Vancomycin,Trough 19.1 mcg/ml (10.0-20.0)
[2018-12-03 09:18] LABS: Anion Gap 13.9 mEq/L (5-15); Blood Urea Nitrogen 16 mg/dL (7-18); Calcium 9.6 mg/dL (8.5-10.1); Carbon Dioxide 26 mmol/L (21.0-32.0); Chloride 106 mmol/L (98-107); Creatinine Clearance Estimated 121 mL/min (50-200); Creatinine,Serum 1.12 mg/dL (0.70-1.30); Estimated Glomerular Filt Rate 69 ml/min (>60); GFR (African American) 84 ML/MIN (>60); Glucose 125 mg/dL (74-106); Potassium 3.9 mmoL/L (3.5-5.1); Sodium 142 mmol/L (136-145)
--- NOTE | 2018-12-03 09:31 | HMH.PHACONS ---
- Pharmacy Consult Date: 12/03/18 Time: 09:31 Referring provider: DR. FREEMAN Reason for Consult:: VANCOMYCIN TROUGH LEVEL Allergies and ADEs:: Allergies Allergy/AdvReac Type Severity Reaction Status Date / Time tetanus toxoid, adsorbed Allergy Verified 11/30/18 20:18 Home Medications:: Home Medications Medication Instructions Recorded Confirmed Type Finasteride [Proscar 5mg Tablet] 5 mg PO DAILY 03/08/17 12/01/18 History Metformin HCl 1,000 mg PO BID 03/08/17 12/01/18 History Tamsulosin HCl [Flomax] 0.4 mg PO DAILY 03/08/17 12/01/18 History atorvastatin 40 mg tablet 40 mg PO DAILY 30 Days tab 05/23/18 12/01/18 History ertugliflozin 15 mg tablet 15 mg PO DAILY 30 Days tab 05/23/18 12/01/18 History lisinopril 20 mg tablet 20 mg PO DAILY #60 tab 08/01/18 12/01/18 History gabapentin 100 mg capsule 200 mg PO TID 30 Days #180 cap 10/26/18 12/01/18 History nortriptyline 50 mg capsule 50 mg PO DAILY #30 cap 10/26/18 12/01/18 History sildenafil 100 mg tablet 100 mg PO DAILY #10 tab 10/26/18 12/01/18 History levofloxacin 500 mg tablet 500 mg PO Q24H 14 Days #14 tab 11/17/18 12/01/18 Rx Doxycycline Hyclate [Doxycycline 100 mg PO BID 11/28/18 12/01/18 History 100mg Capsule] hydrocodone 5 mg-acetaminophen 325 1 tab PO Q6H PRN #30 tab 11/30/18 12/01/18 Rx mg tablet Height: 1.91 m Weight: 108.862 kg Laboratory Results:: Laboratory Results - last 24 hr 12/03/18 08:00: Vancomycin Trough 19.1 12/03/18 08:00: Sodium 142, Potassium 3.9, Chloride 106, Carbon Dioxide 26, Anion Gap 13.9, BUN 16, Creatinine 1.12, Estimated Creat Clear 121, Estimated GFR 69, Est GFR ( Amer) 84, Glucose 125 H, Calcium 9.6 Medical History: Reports:: Deep Vein Thrombosis, Diabetes Mellitus Type 2, Gastroesophageal Reflux Disease(GERD), Hyperlipidemia, Hypertension Denies:: Asthma, Cancer, Chronic Obstructive Pulmonary Disease (COPD), Coronary Artery Disease, Diabetes Mellitus Type 1, Internal Pacemaker, MRSA, Seizures Assessment and Plan - Assessment and plan all Dx Assessment and Plan for all problems:: BASED ON PATIENT FACTORS AND VANCOMYCIN TROUGH LEVEL OF 19.1, RECOMMEND CONTINUING CURRENT DOSE OF 1,750MG EVERY 12 HOURS. PHARMACY WILL CONTINUE TO MONITOR AND WILL ADJUST DOSE APPROPRIATE. -TAYA FARNSWORTH, LORAD
[2018-12-03 12:26] VITALS: BP 139/70; PULSE 72; RESP 16; TEMP 36.6; O2SAT 99
[2018-12-03 19:53] VITALS: BP 121/81; PULSE 83; RESP 18; TEMP 36.8; O2SAT 98; BMI 32.1
[2018-12-03 21:59] VITALS: BP 135/70; PULSE 84; RESP 17; TEMP 36.8; O2SAT 98
== END ==
PROVIDERS: PCP Internal Medicine Adolescent Medicine; Visit Provider Podiatrist
DX: M86.671 Other chronic osteomyelitis, right ankle and foot (principal)
CPT/HCPCS: 80048; 80202; 96365; 96366; J3370

== ENCOUNTER 2018-12-04 08:15 | Outpatient (CLI) | payer OTHER, SELFPAY ==
[2018-12-04 08:30] VITALS: BP 137/84; PULSE 79; RESP 20; TEMP 36.9; O2SAT 95
[2018-12-04 09:00] VITALS: BP 112/74; PULSE 68; RESP 20; TEMP 36.9; O2SAT 95
[2018-12-04 10:00] VITALS: BP 125/75; PULSE 68; RESP 20; TEMP 36.9; O2SAT 95
[2018-12-04 10:40] VITALS: BP 112/74; PULSE 68; RESP 20; TEMP 36.9; O2SAT 95
[2018-12-04 19:45] VITALS: BP 136/81; PULSE 82; RESP 18; TEMP 37.2; O2SAT 96
[2018-12-04 20:00] VITALS: BMI 32.1
[2018-12-04 21:50] VITALS: BP 136/83; PULSE 74; RESP 18; TEMP 36.9; O2SAT 96
== END 2018-12-04 10:45 | disposition home or self-care (01) ==
LOC: INF 08:15
PROVIDERS: PCP Internal Medicine Adolescent Medicine; Visit Provider Podiatrist
DX: M86.671 Other chronic osteomyelitis, right ankle and foot (principal)
CPT/HCPCS: 96365; 96366; G0463; J3370

== ENCOUNTER 2018-12-05 08:07 | Outpatient (CLI) | payer OTHER, SELFPAY ==
[2018-12-05 08:11] VITALS: BMI 32.1
[2018-12-05 08:37] LABS: Anion Gap 12.8 mEq/L (5-15); Blood Urea Nitrogen 24 mg/dL (7-18); Carbon Dioxide 27 mmol/L (21.0-32.0); Chloride 106 mmol/L (98-107); Creatinine Clearance Estimated 132 mL/min (50-200); Creatinine,Serum 1.07 mg/dL (0.70-1.30); Estimated Glomerular Filt Rate 73 ml/min (>60); GFR (African American) 89 ML/MIN (>60); Glucose 118 mg/dL (74-106); Sodium 141 mmol/L (136-145)
[2018-12-05 08:39] LABS: Potassium 4.8 mmoL/L (3.5-5.1)
[2018-12-05 08:40] LABS: Vancomycin,Trough 23.8 mcg/ml (10.0-20.0)
--- NOTE | 2018-12-05 08:57 | P.CONPHA_ITS ---
- Pharmacy Consult Date: 12/05/18 Time: 08:55 Referring provider: DR. FREEMAN Reason for Consult:: VANCOMYCIN TROUGH LEVEL AND DOSE CHANGE Allergies and ADEs:: Allergies Allergy/AdvReac Type Severity Reaction Status Date / Time tetanus toxoid, adsorbed Allergy Verified 11/30/18 20:18 Home Medications:: Home Medications Medication Instructions Recorded Confirmed Type Finasteride [Proscar 5mg Tablet] 5 mg PO DAILY 03/08/17 12/01/18 History Metformin HCl 1,000 mg PO BID 03/08/17 12/01/18 History Tamsulosin HCl [Flomax] 0.4 mg PO DAILY 03/08/17 12/01/18 History atorvastatin 40 mg tablet 40 mg PO DAILY 30 Days tab 05/23/18 12/01/18 History ertugliflozin 15 mg tablet 15 mg PO DAILY 30 Days tab 05/23/18 12/01/18 History lisinopril 20 mg tablet 20 mg PO DAILY #60 tab 08/01/18 12/01/18 History gabapentin 100 mg capsule 200 mg PO TID 30 Days #180 cap 10/26/18 12/01/18 History nortriptyline 50 mg capsule 50 mg PO DAILY #30 cap 10/26/18 12/01/18 History sildenafil 100 mg tablet 100 mg PO DAILY #10 tab 10/26/18 12/01/18 History levofloxacin 500 mg tablet 500 mg PO Q24H 14 Days #14 tab 11/17/18 12/01/18 Rx Doxycycline Hyclate [Doxycycline 100 mg PO BID 11/28/18 12/01/18 History 100mg Capsule] hydrocodone 5 mg-acetaminophen 325 1 tab PO Q6H PRN #30 tab 11/30/18 12/01/18 Rx mg tablet Height: 1.88 m Weight: 113.398 kg Laboratory Results:: Laboratory Results - last 24 hr 12/05/18 08:15: Sodium 141, Potassium 4.8 D, Chloride 106, Carbon Dioxide 27, A nion Gap 12.8, BUN 24 H D, Creatinine 1.07, Estimated Creat Clear 132, Estimated GFR 73, Est GFR ( Amer) 89, Glucose 118 H, Calcium 9.0, Vancomycin Trough 23.8 H Medical History: Reports:: Deep Vein Thrombosis, Diabetes Mellitus Type 2, Gastroesophageal Reflux Disease(GERD), Hyperlipidemia, Hypertension Denies:: Asthma, Cancer, Chronic Obstructive Pulmonary Disease (COPD), Coronary Artery Disease, Diabetes Mellitus Type 1, Internal Pacemaker, MRSA, Seizures Assessment and Plan - Assessment and plan all Dx Assessment and Plan for all problems:: BASED ON PATIENT FACTORS AND VANCOMYCIN TROUGH LEVEL OF 23.8, RECOMMEND HOLDING DOSE TODAY AND RESUMING DOSE TOMORROW AT 2,250MG DAILY. WILL OBTAIN TROUGH LEVEL AND BMP PRIOR TO DOSE ON 12/08/18. PHARMACY WILL CONTINUE TO MONITOR AND ADJUST DOSE APPROPRIATE. -TAYA FARNSWORTH, LORAD
[2018-12-05 09:00] VITALS: BP 135/83; PULSE 71; RESP 18; TEMP 36.6; O2SAT 98
--- NOTE | 2018-12-05 11:16 | PC.NURSE ---
Patient's Vancomycin was held today due to elevated vanc trough checked this am 23.8. Order from pharmacy to hold today's AM and PM dose of Vancomycin, then resume Vancomycin in am per pharmacy dosing. Pt verbalizes understanding of all instructions and that he is to return to outpatient infusion in am for Vancomyin.
== END 2018-12-05 09:00 | disposition home or self-care (01) ==
LOC: INF 08:07
PROVIDERS: Visit Provider Podiatrist
DX: M86.671 Other chronic osteomyelitis, right ankle and foot (principal); L03.031 Cellulitis of right toe
CPT/HCPCS: 80048; 80202

== ENCOUNTER 2018-12-06 08:11 | Outpatient (CLI) | payer OTHER, SELFPAY ==
[2018-12-06 08:23] VITALS: BP 131/84; PULSE 77; RESP 18; TEMP 36.7; O2SAT 98
[2018-12-06 08:53] VITALS: BP 130/81; PULSE 79; RESP 18; O2SAT 97
[2018-12-06 09:23] VITALS: BP 133/77; PULSE 74; RESP 18; O2SAT 98
[2018-12-06 09:53] VITALS: BP 130/79; PULSE 76; RESP 18; O2SAT 98
[2018-12-06 10:25] VITALS: BP 131/77; PULSE 76; RESP 18; O2SAT 98
== END 2018-12-06 10:40 | disposition home or self-care (01) ==
LOC: INF 08:11
PROVIDERS: Visit Provider Podiatrist
DX: M86.671 Other chronic osteomyelitis, right ankle and foot (principal)
CPT/HCPCS: 96365; 96366; J3370

== ENCOUNTER 2018-12-07 08:14 | Outpatient (CLI) | payer OTHER, SELFPAY ==
[2018-12-07 08:26] VITALS: BP 114/67; PULSE 78; RESP 18; TEMP 36.6; O2SAT 98
[2018-12-07 08:56] VITALS: BP 111/69; PULSE 74; RESP 18; O2SAT 97
[2018-12-07 09:26] VITALS: BP 112/62; PULSE 71; RESP 18; O2SAT 98
[2018-12-07 09:56] VITALS: BP 117/69; PULSE 78; RESP 18; O2SAT 98
[2018-12-07 10:26] VITALS: BP 115/66; PULSE 76; RESP 18; O2SAT 97
[2018-12-07 10:40] VITALS: BP 133/67; PULSE 76; RESP 18; O2SAT 98
== END 2018-12-07 10:40 | disposition home or self-care (01) ==
LOC: INF 08:14
PROVIDERS: Visit Provider Podiatrist
DX: M86.671 Other chronic osteomyelitis, right ankle and foot (principal); L03.031 Cellulitis of right toe
CPT/HCPCS: 96365; 96366; J3370

== ENCOUNTER 2018-12-08 08:14 | Outpatient (CLI) | payer OTHER, SELFPAY ==
[2018-12-08 08:18] VITALS: BMI 32.1
[2018-12-08 08:43] LABS: Anion Gap 10.3 mEq/L (5-15); Blood Urea Nitrogen 20 mg/dL (7-18); Calcium 9.2 mg/dL (8.5-10.1); Carbon Dioxide 27 mmol/L (21.0-32.0); Chloride 106 mmol/L (98-107); Creatinine Clearance Estimated 127 mL/min (50-200); Creatinine,Serum 1.12 mg/dL (0.70-1.30); Estimated Glomerular Filt Rate 69 ml/min (>60); GFR (African American) 84 ML/MIN (>60); Glucose 110 mg/dL (74-106); Potassium 4.3 mmoL/L (3.5-5.1); Sodium 139 mmol/L (136-145)
--- NOTE | 2018-12-08 09:03 | HMH.PHACONS ---
- Pharmacy Consult Date: 12/08/18 Time: 09:03 Referring provider: DR. FREEMAN Reason for Consult:: VANCOMYCIN TROUGH LEVEL Allergies and ADEs:: Allergies Allergy/AdvReac Type Severity Reaction Status Date / Time tetanus toxoid, adsorbed Allergy Verified 12/07/18 14:59 Home Medications:: Home Medications Medication Instructions Recorded Confirmed Type Finasteride [Proscar 5mg Tablet] 5 mg PO DAILY 03/08/17 12/07/18 History Metformin HCl 1,000 mg PO BID 03/08/17 12/07/18 History Tamsulosin HCl [Flomax] 0.4 mg PO DAILY 03/08/17 12/07/18 History atorvastatin 40 mg tablet 40 mg PO DAILY 30 Days tab 05/23/18 12/07/18 History ertugliflozin 15 mg tablet 15 mg PO DAILY 30 Days tab 05/23/18 12/07/18 History lisinopril 20 mg tablet 20 mg PO DAILY #60 tab 08/01/18 12/07/18 History gabapentin 100 mg capsule 200 mg PO TID 30 Days #180 cap 10/26/18 12/07/18 History nortriptyline 50 mg capsule 50 mg PO DAILY #30 cap 10/26/18 12/07/18 History sildenafil 100 mg tablet 100 mg PO DAILY #10 tab 10/26/18 12/07/18 History Doxycycline Hyclate [Doxycycline 100 mg PO BID 11/28/18 12/07/18 History 100mg Capsule] hydrocodone 5 mg-acetaminophen 325 1 tab PO Q6H PRN #30 tab 11/30/18 12/07/18 Rx mg tablet vancomycin 1.5 gram intravenous 1 g IV Q24H 12/07/18 12/07/18 History solution Height: 1.88 m Weight: 113.398 kg Laboratory Results:: Laboratory Results - last 24 hr 12/08/18 08:20: Sodium 139, Potassium 4.3, Chloride 106, Carbon Dioxide 27, Anion Gap 10.3, BUN 20 H, Creatinine 1.12, Estimated Creat Clear 127, Estimated GFR 69, Est GFR ( Amer) 84, Glucose 110 H, Calcium 9.2, Vancomycin Trough 13.0 Medical History: Reports:: Deep Vein Thrombosis, Diabetes Mellitus Type 2, Gastroesophageal Reflux Disease(GERD), Hyperlipidemia, Hypertension Denies:: Asthma, Cancer, Chronic Obstructive Pulmonary Disease (COPD), Coronary Artery Disease, Diabetes Mellitus Type 1, Internal Pacemaker, MRSA, Seizures Assessment and Plan - Assessment and plan all Dx Assessment and Plan for all problems:: BASED ON VANCOMYCIN TROUGH LEVEL AND PATIENT FACTORS, RECOMMEND CONTINUING VANCOMYCIN 2250 MG IV Q24H. PHARMACY WILL CONTINUE TO MONITOR DAILY AND ADJUST APPROPRIATE.
[2018-12-08 09:14] VITALS: BP 134/86; PULSE 82; RESP 18; TEMP 36.4; O2SAT 98
[2018-12-08 09:44] VITALS: BP 131/84; PULSE 81; RESP 18; O2SAT 97
[2018-12-08 10:14] VITALS: BP 136/81; PULSE 84; RESP 18; O2SAT 98
[2018-12-08 10:44] VITALS: BP 133/79; PULSE 82; RESP 18; O2SAT 97
[2018-12-08 11:20] VITALS: BP 135/84; PULSE 80; RESP 18; O2SAT 98
== END 2018-12-08 11:20 | disposition home or self-care (01) ==
LOC: INF 08:14
PROVIDERS: Visit Provider Podiatrist
DX: M86.671 Other chronic osteomyelitis, right ankle and foot (principal); L03.031 Cellulitis of right toe
CPT/HCPCS: 80048; 80202; 96365; 96366; J3370

== ENCOUNTER 2018-12-09 07:41 | Outpatient (CLI) | payer OTHER, SELFPAY ==
[2018-12-09 08:21] VITALS: BP 133/77; PULSE 79; RESP 17; TEMP 36.8; O2SAT 97
== END 2018-12-09 10:33 | disposition home or self-care (01) ==
LOC: INF 07:42
PROVIDERS: PCP Internal Medicine Adolescent Medicine; Visit Provider Podiatrist
DX: Z79.2 Long term (current) use of antibiotics (principal)
CPT/HCPCS: 96365; 96366; J3370

== ENCOUNTER 2018-12-10 08:09 | Outpatient (CLI) | payer OTHER, SELFPAY ==
[2018-12-10 08:23] VITALS: BMI 32.1
--- NOTE | 2018-12-10 08:27 | PC.NURSE ---
Notified dietary of diet request, they stated they were no longer serving breakfast
[2018-12-10 08:36] VITALS: BP 130/83; PULSE 81; RESP 14; TEMP 36.5; O2SAT 96
--- NOTE | 2018-12-10 08:54 | PC.NURSE ---
Dietary has delivered breakfast tray
== END 2018-12-10 10:55 | disposition home or self-care (01) ==
LOC: INF 08:10
PROVIDERS: PCP Internal Medicine Adolescent Medicine; Visit Provider Podiatrist
DX: Z98.890 Other specified postprocedural states (principal); L03.031 Cellulitis of right toe; M76.71 Peroneal tendinitis, right leg
CPT/HCPCS: 96365; 96366; J3370

== ENCOUNTER 2018-12-11 08:08 | Outpatient (CLI) | payer OTHER, SELFPAY ==
[2018-12-11 08:35] VITALS: BP 128/83; PULSE 73; RESP 18; TEMP 36.4; O2SAT 99
[2018-12-11 09:05] VITALS: BP 132/78; PULSE 71; RESP 18; TEMP 36.6; O2SAT 98
[2018-12-11 09:35] VITALS: BP 136/74; PULSE 79; RESP 16
[2018-12-11 10:05] VITALS: BP 129/72; PULSE 75; RESP 18; TEMP 36.7; O2SAT 97
[2018-12-11 10:35] VITALS: BP 138/69; PULSE 70; RESP 18
[2018-12-11 10:50] VITALS: BP 124/71; PULSE 71; RESP 16; TEMP 36.6; O2SAT 98
== END 2018-12-11 10:55 | disposition home or self-care (01) ==
LOC: INF 08:08
PROVIDERS: Visit Provider Podiatrist
DX: M86.671 Other chronic osteomyelitis, right ankle and foot (principal); L03.031 Cellulitis of right toe
CPT/HCPCS: 96365; 96366; J3370

== ENCOUNTER 2018-12-12 08:09 | Outpatient (CLI) | payer OTHER, SELFPAY ==
[2018-12-12 08:11] VITALS: BMI 32.1
[2018-12-12 08:45] LABS: Anion Gap 13.1 mEq/L (5-15); Blood Urea Nitrogen 18 mg/dL (7-18); Calcium 8.4 mg/dL (8.5-10.1); Carbon Dioxide 25 mmol/L (21.0-32.0); Chloride 108 mmol/L (98-107); Creatinine Clearance Estimated 131 mL/min (50-200); Creatinine,Serum 1.08 mg/dL (0.70-1.30); Estimated Glomerular Filt Rate 72 ml/min (>60); GFR (African American) 88 ML/MIN (>60); Glucose 100 mg/dL (74-106); Potassium 4.1 mmoL/L (3.5-5.1); Sodium 142 mmol/L (136-145); Vancomycin,Trough 11.6 mcg/ml (10.0-20.0)
--- NOTE | 2018-12-12 08:56 | HMH.PHACONS ---
- Pharmacy Consult Date: 12/12/18 Time: 08:57 Referring provider: DR. FREEMAN Reason for Consult:: VANCOMYCIN TROUGH LEVEL Allergies and ADEs:: Allergies Allergy/AdvReac Type Severity Reaction Status Date / Time tetanus toxoid, adsorbed Allergy Verified 12/11/18 14:10 Home Medications:: Home Medications Medication Instructions Recorded Confirmed Type Finasteride [Proscar 5mg Tablet] 5 mg PO DAILY 03/08/17 12/11/18 History Metformin HCl 1,000 mg PO BID 03/08/17 12/11/18 History Tamsulosin HCl [Flomax] 0.4 mg PO DAILY 03/08/17 12/11/18 History atorvastatin 40 mg tablet 40 mg PO DAILY 30 Days tab 05/23/18 12/11/18 History ertugliflozin 15 mg tablet 15 mg PO DAILY 30 Days tab 05/23/18 12/11/18 History lisinopril 20 mg tablet 20 mg PO DAILY #60 tab 08/01/18 12/11/18 History gabapentin 100 mg capsule 200 mg PO TID 30 Days #180 cap 10/26/18 12/11/18 History nortriptyline 50 mg capsule 50 mg PO DAILY #30 cap 10/26/18 12/11/18 History sildenafil 100 mg tablet 100 mg PO DAILY #10 tab 10/26/18 12/11/18 History Doxycycline Hyclate [Doxycycline 100 mg PO BID 11/28/18 12/11/18 History 100mg Capsule] hydrocodone 5 mg-acetaminophen 325 1 tab PO Q6H PRN #30 tab 11/30/18 12/11/18 Rx mg tablet vancomycin 1.5 gram intravenous 1 g IV Q24H 12/07/18 12/08/18 History solution Height: 1.88 m Weight: 113.398 kg Laboratory Results:: Laboratory Results - last 24 hr 12/12/18 08:15: Sodium 142, Potassium 4.1, Chloride 108 H, Carbon Dioxide 25, Anion Gap 13.1, BUN 18, Creatinine 1.08, Estimated Creat Clear 131, Estimated GFR 72, Est GFR ( Amer) 88, Glucose 100, Calcium 8.4 L, Vancomycin Trough 11.6 Medical History: Reports:: Deep Vein Thrombosis, Diabetes Mellitus Type 2, Gastroesophageal Reflux Disease(GERD), Hyperlipidemia, Hypertension Denies:: Asthma, Cancer, Chronic Obstructive Pulmonary Disease (COPD), Coronary Artery Disease, Diabetes Mellitus Type 1, Internal Pacemaker, MRSA, Seizures Assessment and Plan - Assessment and plan all Dx Assessment and Plan for all problems:: BASED ON PATIENT FACTORS AND VANCOMYCIN TROUGH LEVEL OF 11.6, RECOMMEND CONTINUING CURRENT DOSE OF VANCOMYCIN IV AT 2,250MG Q24H. PHARMACY WILL CONTINUE TO MONITOR AND WILL OBTAIN TROUGH LEVEL/BMP PRIOR TO DOSE ON 12/18/18. AT THAT POINT VANCOMYCIN DOSE WILL BE ADJUSTED APPROPRIATE. -TAYA COURTNEY, PHARMD
[2018-12-12 09:07] VITALS: BP 139/83; PULSE 73; RESP 18; TEMP 36.6; O2SAT 97
[2018-12-12 09:30] VITALS: BP 135/78; PULSE 75; RESP 18; O2SAT 98
[2018-12-12 10:00] VITALS: BP 140/80; PULSE 80; RESP 16; TEMP 36.6; O2SAT 97
[2018-12-12 10:30] VITALS: BP 133/76; PULSE 76; RESP 18
[2018-12-12 11:00] VITALS: BP 130/79; PULSE 74; RESP 18; TEMP 36.7; O2SAT 98
[2018-12-12 11:30] VITALS: BP 134/80; PULSE 72; RESP 16; TEMP 36.7; O2SAT 98
== END 2018-12-12 11:30 | disposition home or self-care (01) ==
LOC: INF 08:09
PROVIDERS: Visit Provider Podiatrist
DX: M86.671 Other chronic osteomyelitis, right ankle and foot (principal); L03.031 Cellulitis of right toe
CPT/HCPCS: 80048; 80202; 96365; 96366; J3370

== ENCOUNTER 2018-12-13 08:00 | Outpatient (CLI) | payer OTHER, SELFPAY ==
[2018-12-13 08:20] VITALS: BP 132/80; PULSE 75; RESP 18; TEMP 36.4; O2SAT 97
[2018-12-13 08:50] VITALS: BP 150/82; PULSE 75; RESP 18
[2018-12-13 09:20] VITALS: BP 138/70; PULSE 81; RESP 18
[2018-12-13 09:50] VITALS: BP 132/71; PULSE 80; RESP 18
[2018-12-13 10:10] VITALS: BP 127/73; PULSE 81; RESP 18
== END 2018-12-13 10:20 | disposition home or self-care (01) ==
LOC: INF 08:07
PROVIDERS: Visit Provider Podiatrist
DX: M86.671 Other chronic osteomyelitis, right ankle and foot (principal); L03.031 Cellulitis of right toe
CPT/HCPCS: 96365; 96366; J3370

== ENCOUNTER 2018-12-14 08:00 | Outpatient (CLI) | payer OTHER, SELFPAY ==
[2018-12-14 08:25] VITALS: BP 125/77; PULSE 79; RESP 18; TEMP 36.1; O2SAT 96
[2018-12-14 08:55] VITALS: BP 133/79; PULSE 79; RESP 18
[2018-12-14 09:25] VITALS: BP 143/73; PULSE 75; RESP 20
[2018-12-14 09:55] VITALS: BP 133/73; PULSE 74; RESP 20
[2018-12-14 10:25] VITALS: BP 135/79; PULSE 78; RESP 18
== END 2018-12-14 10:45 | disposition home or self-care (01) ==
LOC: INF 08:10
PROVIDERS: Visit Provider Podiatrist
DX: M86.671 Other chronic osteomyelitis, right ankle and foot (principal); L03.031 Cellulitis of right toe
CPT/HCPCS: 96365; 96366; J3370

== ENCOUNTER 2018-12-15 08:10 | Outpatient (CLI) | payer OTHER, SELFPAY ==
[2018-12-15 08:43] VITALS: BP 128/83; PULSE 72; RESP 18; TEMP 36.5; O2SAT 98
[2018-12-15 09:10] VITALS: BP 135/80; PULSE 72; RESP 18; TEMP 36.6; O2SAT 97
[2018-12-15 09:40] VITALS: BP 149/80; PULSE 83; RESP 16; O2SAT 98
[2018-12-15 10:10] VITALS: BP 126/79; PULSE 76; RESP 18; TEMP 36.6; O2SAT 98
[2018-12-15 10:35] VITALS: BP 132/82; PULSE 82; RESP 18; O2SAT 97
[2018-12-15 10:50] VITALS: BP 139/74; PULSE 80; RESP 16; TEMP 36.7; O2SAT 98
== END 2018-12-15 10:50 | disposition home or self-care (01) ==
LOC: INF 08:10
PROVIDERS: Visit Provider Podiatrist
DX: M86.671 Other chronic osteomyelitis, right ankle and foot (principal); L03.031 Cellulitis of right toe
CPT/HCPCS: 96365; 96366; J3370

== ENCOUNTER → 2018-12-16 08:00 | Outpatient (CLI) | payer OTHER, SELFPAY ==
[2018-12-16 08:21] VITALS: BP 145/85; PULSE 78; RESP 18; TEMP 36.8; O2SAT 98
[2018-12-16 10:26] VITALS: BP 152/83; PULSE 78; RESP 18; TEMP 36.7; O2SAT 98
== END ==
PROVIDERS: PCP Internal Medicine Adolescent Medicine; Visit Provider Podiatrist
DX: M86.671 Other chronic osteomyelitis, right ankle and foot (principal); L03.031 Cellulitis of right toe
CPT/HCPCS: 96365; 96366; J3370

== ENCOUNTER → 2018-12-17 07:55 | Outpatient (CLI) | payer OTHER, SELFPAY ==
[2018-12-17 08:08] VITALS: BP 151/93; PULSE 79; RESP 16; TEMP 36.7; O2SAT 100; BMI 32.1
== END ==
PROVIDERS: PCP Internal Medicine Adolescent Medicine; Visit Provider Podiatrist
DX: M86.671 Other chronic osteomyelitis, right ankle and foot (principal); L03.031 Cellulitis of right toe
CPT/HCPCS: 96365; 96366; J3370

== ENCOUNTER 2018-12-18 08:31 | Outpatient (CLI) | payer OTHER, SELFPAY ==
[2018-12-18 08:28] VITALS: BMI 32.1
[2018-12-18 09:35] LABS: Blood Urea Nitrogen 17 mg/dL (7-18); Calcium 9.2 mg/dL (8.5-10.1); Carbon Dioxide 27 mmol/L (21.0-32.0); Chloride 107 mmol/L (98-107); Creatinine Clearance Estimated 134 mL/min (50-200); Creatinine,Serum 1.06 mg/dL (0.70-1.30); Estimated Glomerular Filt Rate 74 ml/min (>60); GFR (African American) 89 ML/MIN (>60); Glucose 100 mg/dL (74-106); Sodium 142 mmol/L (136-145)
--- NOTE | 2018-12-18 09:52 | HMH.PHACONS ---
- Pharmacy Consult Date: 12/18/18 Time: 09:52 Referring provider: DR. FREEMAN Reason for Consult:: VANCOMYCIN TROUGH LEVEL Allergies and ADEs:: Allergies Allergy/AdvReac Type Severity Reaction Status Date / Time tetanus toxoid, adsorbed Allergy Verified 12/15/18 10:16 Home Medications:: Home Medications Medication Instructions Recorded Confirmed Type Finasteride [Proscar 5mg Tablet] 5 mg PO DAILY 03/08/17 12/18/18 History Metformin HCl 1,000 mg PO BID 03/08/17 12/18/18 History Tamsulosin HCl [Flomax] 0.4 mg PO DAILY 03/08/17 12/18/18 History atorvastatin 40 mg tablet 40 mg PO DAILY 30 Days tab 05/23/18 12/18/18 History lisinopril 20 mg tablet 20 mg PO DAILY #60 tab 08/01/18 12/18/18 History gabapentin 100 mg capsule 200 mg PO TID 30 Days #180 cap 10/26/18 12/18/18 History nortriptyline 50 mg capsule 50 mg PO DAILY #30 cap 10/26/18 12/18/18 History sildenafil 100 mg tablet 100 mg PO DAILY #10 tab 10/26/18 12/18/18 History Doxycycline Hyclate [Doxycycline 100 mg PO BID 11/28/18 12/18/18 History 100mg Capsule] hydrocodone 5 mg-acetaminophen 325 1 tab PO Q6H PRN #30 tab 11/30/18 12/18/18 Rx mg tablet vancomycin 1.5 gram intravenous 1 g IV Q24H 12/07/18 12/18/18 History solution Empagliflozin [Jardiance] 25 mg PO DAILY 12/13/18 12/18/18 History Height: 1.88 m Weight: 113.398 kg Laboratory Results:: Laboratory Results - last 24 hr 12/18/18 08:35: Vancomycin Trough 12.0 12/18/18 08:35: Sodium 142, Potassium 4.0, Chloride 107, Carbon Dioxide 27, Anion Gap 12.0, BUN 17, Creatinine 1.06, Estimated Creat Clear 134, Estimated GFR 74, Est GFR ( Amer) 89, Glucose 100, Calcium 9.2 Medical History: Reports:: Deep Vein Thrombosis, Diabetes Mellitus Type 2, Gastroesophageal Reflux Disease(GERD), Hyperlipidemia, Hypertension Denies:: Asthma, Cancer, Chronic Obstructive Pulmonary Disease (COPD), Coronary Artery Disease, Diabetes Mellitus Type 1, Internal Pacemaker, MRSA, Seizures Assessment and Plan - Assessment and plan all Dx Assessment and Plan for all problems:: BASED ON VANCOMYCIN TROUGH LEVEL OF 12.0, RECOMMEND CONTINUING CURRENT DOSE OF 2,250MG IV DAILY. WILL OBTAIN TROUGH LEVEL PRIOR TO DOSE ON 12/25/18 WITH BMP. DOSE WILL BE ADJUSTED APPROPRIATE AT THAT POINT. -LORA LIND
[2018-12-18 09:53] VITALS: BP 157/91; PULSE 81; RESP 18; TEMP 36.9; O2SAT 98
[2018-12-18 10:23] VITALS: BP 151/89; PULSE 80; RESP 18; O2SAT 97
[2018-12-18 10:53] VITALS: BP 150/87; PULSE 81; RESP 18; O2SAT 98
[2018-12-18 11:23] VITALS: BP 156/85; PULSE 78; RESP 18; O2SAT 98
[2018-12-18 11:53] VITALS: BP 153/82; PULSE 77; RESP 18; O2SAT 98
[2018-12-18 12:05] VITALS: BP 149/81; PULSE 80; RESP 18; O2SAT 97
== END 2018-12-18 12:05 | disposition home or self-care (01) ==
PROVIDERS: Visit Provider Podiatrist
DX: M86.671 Other chronic osteomyelitis, right ankle and foot (principal); L03.031 Cellulitis of right toe
CPT/HCPCS: 80048; 80202; 96365; 96366; J3370

== ENCOUNTER → 2018-12-18 13:07 | Outpatient (POV) | payer OTHER, SELFPAY ==
[2018-12-18 13:43] VITALS: BP 161/94; PULSE 84; RESP 18; O2SAT 98; BMI 32.1
--- NOTE | 2018-12-19 10:26 | HMH.PMCON ---
Assessment and Plan (1) Degenerative disc disease Current visit: Yes Status: Chronic Qualifiers: Spinal region: lumbar Qualified Code(s): M51.36 - Other intervertebral disc degeneration, lumbar region Category: Medical (2) Lumbar radiculopathy Current visit: Yes Status: Chronic Category: Medical Code(s): M54.16 - Radiculopathy, lumbar region (3) Low back pain Current visit: No Status: Acute Qualifiers: Chronicity: acute Back pain laterality: midline Sciatica presence: with sciatica Sciatica laterality: bilateral sciatica Qualified Code(s): M54.42 - Lumbago with sciatica, left side; M54.41 - Lumbago with sciatica, right side Category: Medical Code(s): M54.5 - Low back pain - Assessment and plan all Dx Assessment and Plan for all problems:: We will follow-up with the patient 1 month reassess his symptoms at that time. Patient should be completed his antibiotic therapy and released by that time we will move forward with injective therapy after this. He is been instructed to call the office if he has any issues prior to his next appointment. Dr. Galvez has reviewed this note and agrees with this plan of care. This note was dictated using voice recognition software and may contain errors or omissions HPI - Data of Consult Consult date: 12/18/18 Requesting Physician: Diane Murcia APRN Primary Care Provider: Jose Francisco Caldera MD - Consult Narrative Reason for consult: Back pain, leg pain History of present illness: Mr. Salas is a 48 year old male who presents today for consultation in regards to his low back and left leg pain. Patient has had pain for several years however it was exacerbated recently when he had been lawn mowing. Patient rates his pain an 8 out of 10. Patient is interested in injective therapy. He does have an MRI showing degenerative changes along with ligamenta flava hypertrophy. Patient and I discussed interventional options of pain management he would like to move forward with this. However patient does have current PICC line and vancomycin ordered for 6 weeks status post a toe amputation. We discussed that we would be able to do this after he finished antibiotic therapy and was cleared. CC: Diane Murcia APRN [facility] History I have reviewed the patient's past medical history: Yes Medical History: Reports:: Deep Vein Thrombosis, Diabetes Mellitus Type 2, Gastroesophageal Reflux Disease(GERD), Hyperlipidemia, Hypertension Denies:: Asthma, Cancer, Chronic Obstructive Pulmonary Disease (COPD), Coronary Artery Disease, Diabetes Mellitus Type 1, Internal Pacemaker, MRSA, Seizures *Have you ever received a pneumonia vaccine?: Yes *Have you received a flu vaccine this season?: Yes Other Medical History: Reports: Arthritis, Sinus Problems. Denies: Blood Transfusion Reaction Laterality Cases: Right: Other Other Surgeries: Yes: No Previous Surgery, Cardiac Catheterization, Colonoscopy, EGD, Other. No: Pacemaker Amputation: Yes (Right partial hallux amputation, Left Partial Hallux amputation ) Fractures: No - *Social History Smoking Status: Never smoker # Packs/Day (cigarettes): 0 #Yrs smoked (if former smoker): 0 Alcohol Intake: never Alcohol Intake Frequency:: holidays/special occasions only Substance Use Type: denies use *Occupational Status:: other Housing: house Household Members: children *Travel in the last 8 weeks: None Family Hx:: Diabetes, Heart Attack, Hypertension, Cancer Review of Systems - Review of Systems ROS General: no recent weight change, no fever, no sleep disturbances Respiratory: no cough, no shortness of air, no recurring pulmonary infections Cardiovascular/Peripheral Vascular: No chest pain, No palpitations, no edema, no shortness of breath. Gastrointestinal: no new onset incontinence, normal bowel movements reported Genitourinary: no new onset incontinence Musculoskeletal: Back pain, left leg pain Psychiatric: quinn
--- NOTE | 2018-12-19 10:30 | P.CONS_ITS ---
Assessment and Plan (1) Degenerative disc disease Current visit: Yes Status: Chronic Qualifiers: Spinal region: lumbar Qualified Code(s): M51.36 - Other intervertebral disc degeneration, lumbar region Category: Medical (2) Lumbar radiculopathy Current visit: Yes Status: Chronic Category: Medical Code(s): M54.16 - Radiculopathy, lumbar region (3) Low back pain Current visit: No Status: Acute Qualifiers: Chronicity: acute Back pain laterality: midline Sciatica presence: with sciatica Sciatica laterality: bilateral sciatica Qualified Code(s): M54.42 - Lumbago with sciatica, left side; M54.41 - Lumbago with sciatica, right side Category: Medical Code(s): M54.5 - Low back pain - Assessment and plan all Dx Assessment and Plan for all problems:: We will follow-up with the patient 1 month reassess his symptoms at that time. Patient should be completed his antibiotic therapy and released by that time we will move forward with injective therapy after this. He is been instructed to c all the office if he has any issues prior to his next appointment. Dr. Galvez has reviewed this note and agrees with this plan of care. This note was dictated using voice recognition software and may contain errors or omissions HPI - Data of Consult Consult date: 12/18/18 Requesting Physician: Diane Murcia APRN Primary Care Provider: Jose Francisco Caldera MD - Consult Narrative Reason for consult: Back pain, leg pain History of present illness: Mr. Salas is a 48 year old male who presents today for consultation in regards to his low back and left leg pain. Patient has had pain for several years however it was exacerbated recently when he had been lawn mowing. Patient rates his pain an 8 out of 10. Patient is interested in injective therapy. He does have an MRI showing degenerative changes along with ligamenta flava hypertrophy. Patient and I discussed interventional options of pain management he would like to move forward with this. However patient does have current PICC line and vancomycin ordered for 6 weeks status post a toe amputation. We discussed that we would be able to do this after he finished antibiotic therapy and was cleared. CC: Diane Murcia APRN [facility] History I have reviewed the patient's past medical history: Yes Medical History: Reports:: Deep Vein Thrombosis, Diabetes Mellitus Type 2, Gastroesophageal Reflux Disease(GERD), Hyperlipidemia, Hypertension Denies:: Asthma, Cancer, Chronic Obstructive Pulmonary Disease (COPD), Coronary Artery Disease, Diabetes Mellitus Type 1, Internal Pacemaker, MRSA, S eizures *Have you ever received a pneumonia vaccine?: Yes *Have you received a flu vaccine this season?: Yes Other Medical History: Reports: Arthritis, Sinus Problems. Denies: Blood Transfusion Reaction Laterality Cases: Right: Other Other Surgeries: Yes: No Previous Surgery, Cardiac Catheterization, Colonoscopy, EGD, Other. No: Pacemaker Amputation: Yes (Right partial hallux amputation, Left Partial Hallux amputation ) Fractures: No - *Social History Smoking Status: Never smoker # Packs/Day (cigarettes): 0 #Yrs smoked (if former smoker): 0 Alcohol Intake: never Alcohol Intake Frequency:: holidays/special occasions only Substance Use Type: denies use *Occupational Status:: other Housing: house Household Members: children *Travel in the last 8 weeks: None Family Hx:: Diabetes, Heart Attack, Hypertension, Cancer Review of Systems - Review of Systems ROS General: no recent weight change, no fever, no sleep disturbances
== END ==
PROVIDERS: PCP Internal Medicine Adolescent Medicine; Visit Provider Clinical Nurse Specialist Family Health
DX: M51.16 Intervertebral disc disorders with radiculopathy, lumbar region (principal)
CPT/HCPCS: 99202

== ENCOUNTER 2018-12-19 08:10 | Outpatient (CLI) | payer OTHER, SELFPAY ==
[2018-12-19 08:26] VITALS: BP 145/82; PULSE 88; RESP 18; TEMP 36.4; O2SAT 98
[2018-12-19 09:00] VITALS: BP 142/79; PULSE 82; RESP 18; TEMP 36.6; O2SAT 97
[2018-12-19 09:30] VITALS: BP 139/72; PULSE 79; RESP 16; TEMP 36.7; O2SAT 98
[2018-12-19 10:00] VITALS: BP 133/82; PULSE 76; RESP 18
[2018-12-19 10:30] VITALS: BP 138/76; PULSE 75; RESP 18; TEMP 36.6; O2SAT 97
[2018-12-19 10:45] VITALS: BP 140/79; PULSE 74; RESP 16; TEMP 36.6; O2SAT 97
== END 2018-12-19 10:50 | disposition home or self-care (01) ==
LOC: INF 08:10
PROVIDERS: Visit Provider Podiatrist
DX: M86.671 Other chronic osteomyelitis, right ankle and foot (principal); L03.031 Cellulitis of right toe
CPT/HCPCS: 96365; 96366; J3370

== ENCOUNTER 2018-12-20 08:42 | Outpatient (CLI) | payer OTHER, SELFPAY ==
[2018-12-20 08:48] VITALS: BP 125/73; PULSE 81; RESP 18; O2SAT 99
[2018-12-20 11:00] VITALS: BP 149/80; PULSE 88; RESP 18; O2SAT 98
== END 2018-12-20 11:00 | disposition home or self-care (01) ==
LOC: INF 08:42
PROVIDERS: Visit Provider Podiatrist
DX: M86.671 Other chronic osteomyelitis, right ankle and foot (principal); L03.031 Cellulitis of right toe
CPT/HCPCS: 96365; 96366; J3370

== ENCOUNTER 2018-12-21 08:20 | Outpatient (CLI) | payer OTHER, SELFPAY ==
[2018-12-21 08:37] VITALS: BP 131/85; PULSE 71; RESP 18; O2SAT 97
[2018-12-21 11:05] VITALS: BP 143/79; PULSE 74; RESP 18
== END 2018-12-21 11:05 | disposition home or self-care (01) ==
LOC: INF 08:21
PROVIDERS: Visit Provider Podiatrist
DX: M86.671 Other chronic osteomyelitis, right ankle and foot (principal); L03.031 Cellulitis of right toe
CPT/HCPCS: 96365; 96366; J3370

== ENCOUNTER 2018-12-22 08:05 | Outpatient (CLI) | payer OTHER, SELFPAY ==
[2018-12-22 08:30] VITALS: BP 141/85; PULSE 72; RESP 18; TEMP 36.3; O2SAT 97
[2018-12-22 10:45] VITALS: BP 130/82; PULSE 85; RESP 18; TEMP 36.6; O2SAT 97
== END 2018-12-22 10:45 | disposition home or self-care (01) ==
LOC: INF 08:05
PROVIDERS: Visit Provider Podiatrist
DX: M86.671 Other chronic osteomyelitis, right ankle and foot (principal); L03.031 Cellulitis of right toe
CPT/HCPCS: 96365; 96366; J3370

== ENCOUNTER 2018-12-23 07:52 | Outpatient (CLI) | payer OTHER, SELFPAY ==
[2018-12-23 08:19] VITALS: BP 131/92; PULSE 76; RESP 18; TEMP 36.4; O2SAT 96; BMI 32.1
[2018-12-23 10:40] VITALS: BP 138/90; PULSE 82; RESP 18; TEMP 36.6; O2SAT 99
== END 2018-12-23 10:40 | disposition home or self-care (01) ==
LOC: INF 07:53
PROVIDERS: PCP Internal Medicine Adolescent Medicine; Visit Provider Podiatrist
DX: M86.671 Other chronic osteomyelitis, right ankle and foot (principal); L03.031 Cellulitis of right toe
CPT/HCPCS: 96365; 96366; J3370

== ENCOUNTER 2018-12-24 08:01 | Outpatient (CLI) | payer OTHER, SELFPAY ==
[2018-12-24 08:13] VITALS: BP 141/96; PULSE 72; RESP 16; TEMP 36.4; O2SAT 97
[2018-12-24 10:40] VITALS: BP 135/85; PULSE 80; RESP 18; TEMP 36.6; O2SAT 96
== END 2018-12-24 10:40 | disposition home or self-care (01) ==
LOC: INF 08:02
PROVIDERS: PCP Internal Medicine Adolescent Medicine; Visit Provider Podiatrist
DX: M86.671 Other chronic osteomyelitis, right ankle and foot (principal); L03.031 Cellulitis of right toe
CPT/HCPCS: 96365; 96366; J3370

== ENCOUNTER 2018-12-25 08:09 | Outpatient (CLI) | payer OTHER, SELFPAY ==
[2018-12-25 08:10] VITALS: BMI 31.9
[2018-12-25 08:42] LABS: Anion Gap 11.3 mEq/L (5-15); Blood Urea Nitrogen 17 mg/dL (7-18); Calcium 8.9 mg/dL (8.5-10.1); Carbon Dioxide 28 mmol/L (21.0-32.0); Chloride 106 mmol/L (98-107); Creatinine Clearance Estimated 128 mL/min (50-200); Estimated Glomerular Filt Rate 71 ml/min (>60); GFR (African American) 86 ML/MIN (>60); Glucose 115 mg/dL (74-106); Potassium 4.3 mmoL/L (3.5-5.1); Sodium 141 mmol/L (136-145); Vancomycin,Trough 13.3 mcg/ml (10.0-20.0)
--- NOTE | 2018-12-25 08:50 | HMH.PHACONS ---
- Pharmacy Consult Date: 12/25/18 Time: 08:50 Referring provider: DR. FREEMAN Reason for Consult:: VANCOMYCIN TROUGH LEVEL Allergies and ADEs:: Allergies Allergy/AdvReac Type Severity Reaction Status Date / Time tetanus toxoid, adsorbed Allergy Verified 12/19/18 09:17 Home Medications:: Home Medications Medication Instructions Recorded Confirmed Type Finasteride [Proscar 5mg Tablet] 5 mg PO DAILY 03/08/17 12/24/18 History Metformin HCl 1,000 mg PO BID 03/08/17 12/24/18 History Tamsulosin HCl [Flomax] 0.4 mg PO DAILY 03/08/17 12/24/18 History atorvastatin 40 mg tablet 40 mg PO HS 30 Days tab 05/23/18 12/24/18 History lisinopril 20 mg tablet 20 mg PO DAILY #60 tab 08/01/18 12/24/18 History gabapentin 100 mg capsule 200 mg PO TID 30 Days #180 cap 10/26/18 12/24/18 History nortriptyline 50 mg capsule 50 mg PO HS #30 cap 10/26/18 12/24/18 History sildenafil 100 mg tablet 100 mg PO DAILY #10 tab 10/26/18 12/24/18 History Doxycycline Hyclate [Doxycycline 100 mg PO BID 11/28/18 12/24/18 History 100mg Capsule] hydrocodone 5 mg-acetaminophen 325 1 tab PO Q6H PRN #30 tab 11/30/18 12/24/18 Rx mg tablet vancomycin 1.5 gram intravenous 1 g IV Q24H 12/07/18 12/24/18 History solution Empagliflozin [Jardiance] 25 mg PO DAILY 12/13/18 12/24/18 History Diclofenac Sodium [Diclofenac 75mg 75 mg PO BID 12/19/18 12/24/18 History Tab] Height: 1.88 m Weight: 112.945 kg Laboratory Results:: Laboratory Results - last 24 hr 12/25/18 08:16: Sodium 141, Potassium 4.3, Chloride 106, Carbon Dioxide 28, Anion Gap 11.3, BUN 17, Creatinine 1.10, Estimated Creat Clear 128, Estimated GFR 71, Est GFR ( Amer) 86, Glucose 115 H, Calcium 8.9, Vancomycin Trough 13.3 Medical History: Reports:: Deep Vein Thrombosis, Diabetes Mellitus Type 2, Gastroesophageal Reflux Disease(GERD), Hyperlipidemia, Hypertension Denies:: Asthma, Cancer, Chronic Obstructive Pulmonary Disease (COPD), Coronary Artery Disease, Diabetes Mellitus Type 1, Internal Pacemaker, MRSA, Seizures Assessment and Plan - Assessment and plan all Dx Assessment and Plan for all problems:: BASED ON PATIENT FACTORS AND VANCOMYCIN TROUGH LEVEL, RECOMMEND CONTINUING VANCOMYCIN 2250 MG IV Q24H. PHARMACY WILL CONTINUE TO MONITOR AND ADJUST APPROPRIATE.
[2018-12-25 09:09] VITALS: BP 143/85; PULSE 79; RESP 18; TEMP 36.4; O2SAT 97
[2018-12-25 09:47] VITALS: BP 148/82; PULSE 78; RESP 18; TEMP 36.6; O2SAT 97
[2018-12-25 10:30] VITALS: BP 136/79; PULSE 82; RESP 16; TEMP 36.6; O2SAT 98
[2018-12-25 11:00] VITALS: BP 142/80; PULSE 76; RESP 18
[2018-12-25 11:30] VITALS: BP 139/81; PULSE 80; RESP 18; TEMP 36.6; O2SAT 97
== END 2018-12-25 11:30 | disposition home or self-care (01) ==
LOC: INF 08:09
PROVIDERS: Visit Provider Podiatrist
DX: M86.671 Other chronic osteomyelitis, right ankle and foot (principal); L03.031 Cellulitis of right toe
CPT/HCPCS: 80048; 80202; 96365; 96366; J3370

== ENCOUNTER 2018-12-26 08:13 | Outpatient (CLI) | payer OTHER, SELFPAY ==
[2018-12-26 08:30] VITALS: BP 137/82; PULSE 81; RESP 18; TEMP 36.6; O2SAT 97
[2018-12-26 09:00] VITALS: BP 134/84; PULSE 80; RESP 18; O2SAT 98
[2018-12-26 09:30] VITALS: BP 131/79; PULSE 79; RESP 18; O2SAT 97
[2018-12-26 10:00] VITALS: BP 132/80; PULSE 82; RESP 18; O2SAT 97
[2018-12-26 10:30] VITALS: BP 129/79; PULSE 78; RESP 18; O2SAT 98
[2018-12-26 10:50] VITALS: BP 124/73; PULSE 83; RESP 18; O2SAT 97
== END 2018-12-26 10:50 | disposition home or self-care (01) ==
LOC: INF 08:13
PROVIDERS: Visit Provider Podiatrist
DX: M86.671 Other chronic osteomyelitis, right ankle and foot (principal); L03.031 Cellulitis of right toe
CPT/HCPCS: 96365; 96366; J3370

== ENCOUNTER 2018-12-27 08:15 | Outpatient (CLI) | payer OTHER, SELFPAY ==
[2018-12-27 08:55] VITALS: BP 157/96; PULSE 81; RESP 18; O2SAT 98
[2018-12-27 09:25] VITALS: BP 131/85; PULSE 77; RESP 18
[2018-12-27 09:55] VITALS: BP 136/77; PULSE 81; RESP 18
[2018-12-27 10:25] VITALS: BP 122/69; PULSE 81; RESP 18
[2018-12-27 10:55] VITALS: BP 123/70; PULSE 83; RESP 18
== END 2018-12-27 11:05 | disposition home or self-care (01) ==
LOC: INF 08:23
PROVIDERS: Visit Provider Podiatrist
DX: M86.671 Other chronic osteomyelitis, right ankle and foot (principal); L03.031 Cellulitis of right toe
CPT/HCPCS: 96365; 96366; J3370

== ENCOUNTER 2018-12-28 08:04 | Outpatient (CLI) | payer OTHER, SELFPAY ==
[2018-12-28 08:19] VITALS: BP 140/83; PULSE 74; RESP 18
[2018-12-28 10:45] VITALS: BP 151/88; PULSE 78; RESP 18
--- NOTE | 2018-12-28 10:47 | XR_ITS ---
PROCEDURE: XR FOOT WT BEARING RT 3V CLINICAL INDICATION: post-op The follow-up amputation COMPARISON: [id number] XR foot wt bearing LT 3V from 06/24/2017 XR FOOT WT BEARING LT 3V from 10/26/2018 XR FOOT WT BEARING RT 3V from 10/26/2018 XR FOOT RT MIN 3V from 11/29/2018 FINDINGS: Status post amputation at the interphalangeal joint of the great toe and the PIP joint of the 2nd toe. There is some cortical regularity involving the stump of the great toe medially. This however was present on the previous exam and represents a chronic finding. No active bony lytic process evident. IMPRESSION: Status post amputation at the 1st interphalangeal joint and 2nd PIP joint with no acute finding Dictated by: Aubrey Galvan MD 12/28/2018 15:42 Electronically signed by Aubrey Galvan MD in [place] 12/28/2018 15:42
== END 2018-12-28 10:45 | disposition home or self-care (01) ==
PROVIDERS: PCP Internal Medicine Adolescent Medicine; Visit Provider Podiatrist
DX: M86.671 Other chronic osteomyelitis, right ankle and foot (principal); L03.031 Cellulitis of right toe; Z98.890 Other specified postprocedural states
CPT/HCPCS: 73630; 96365; 96366; J3370

== ENCOUNTER 2018-12-29 08:12 | Outpatient (CLI) | payer OTHER, SELFPAY ==
[2018-12-29 08:22] VITALS: BP 157/84; PULSE 82; RESP 18; TEMP 36.6; O2SAT 97
[2018-12-29 09:00] VITALS: BP 152/91; PULSE 80; RESP 18; TEMP 36.6; O2SAT 97
[2018-12-29 10:00] VITALS: BP 149/84; PULSE 82; RESP 16; TEMP 36.6; O2SAT 98
[2018-12-29 10:30] VITALS: BP 147/74; PULSE 80; RESP 18; TEMP 36.6; O2SAT 98
--- NOTE | 2018-12-29 10:41 | XR_ITS ---
PROCEDURE: XR CERVICAL SPINE 5V CLINICAL INDICATION: CERVICALGIA COMPARISON: No exams were available for comparison FINDINGS: There is normal alignment. No fracture or dislocation. No lytic or blastic change. No foraminal narrowing. No evidence of cervical rib. A central venous line is present from left subclavian approach with the tip in the region of the SVC IMPRESSION: Negative cervical spine Dictated by: Aubrey Galvan MD 12/29/2018 12:31 Electronically signed by Aubrey Galvan MD in [place] 12/29/2018 12:31
== END 2018-12-29 10:30 | disposition home or self-care (01) ==
PROVIDERS: PCP Internal Medicine Adolescent Medicine; Visit Provider Podiatrist
DX: M86.671 Other chronic osteomyelitis, right ankle and foot (principal); L03.031 Cellulitis of right toe; M54.2 Cervicalgia
CPT/HCPCS: 72050; 96365; 96366; J3370

== ENCOUNTER → 2018-12-30 07:57 | Outpatient (CLI) | payer OTHER, SELFPAY ==
[2018-12-30 08:08] VITALS: BP 136/77; PULSE 87; RESP 18; TEMP 36.9; O2SAT 98; BMI 30.8
[2018-12-30 10:26] VITALS: BP 140/88; PULSE 88; RESP 20; TEMP 36.8; O2SAT 98
== END ==
PROVIDERS: PCP Internal Medicine Adolescent Medicine; Visit Provider Podiatrist
DX: M86.671 Other chronic osteomyelitis, right ankle and foot (principal); L03.031 Cellulitis of right toe
CPT/HCPCS: 96365; 96366; J3370

== ENCOUNTER 2018-12-31 08:09 | Outpatient (CLI) | payer OTHER, SELFPAY ==
[2018-12-31 08:09] VITALS: BMI 32.1
[2018-12-31 08:15] VITALS: BP 129/80; PULSE 90; RESP 18; TEMP 36.4; O2SAT 98
[2018-12-31 09:14] VITALS: BP 138/71; PULSE 83; RESP 18; TEMP 36.6; O2SAT 97
[2018-12-31 10:15] VITALS: BP 145/84; PULSE 84; RESP 17; TEMP 36.6; O2SAT 98
[2018-12-31 10:50] VITALS: BP 136/78; PULSE 82; RESP 18; TEMP 36.7; O2SAT 98
== END 2018-12-31 10:50 | disposition home or self-care (01) ==
LOC: INF 08:10
PROVIDERS: PCP Internal Medicine Adolescent Medicine; Visit Provider Podiatrist
DX: M86.671 Other chronic osteomyelitis, right ankle and foot (principal); L03.031 Cellulitis of right toe
CPT/HCPCS: 96365; 96366; J3370

== ENCOUNTER 2019-01-01 08:18 | Outpatient (CLI) | payer OTHER, SELFPAY ==
[2019-01-01 08:20] VITALS: BMI 31.9
[2019-01-01 08:41] LABS: Basophils % 0.6 % (0.1-2.0); Eosinophils # 0.3 K/mm3 (0.0-0.4); Eosinophils % 6.9 % (0.1-12.0); Hematocrit 42.9 % (42.0-52.0); Hemoglobin 14.1 g/dL (14.1-18.0); Lymphocytes # 1.6 K/mm3 (0.7-4.5); Mean Corpuscular HGB Conc 32.8 g/dL (31.8-35.4); Mean Corpuscular Hemoglobin 31.1 pg (27.0-31.2); Mean Corpuscular Volume 94.8 fl (80-94); Mean Platelet Volume 7.8 fl (7.4-10.4); Monocytes # 0.4 K/mm3 (0.1-1.0); Monocytes % 8.9 % (1.7-9.3); Neutrophils # 2.6 K/mm3 (1.8-7.8); Neutrophils % 51.6 % (37.0-80.0); Platelet Count 201 K/mm3 (142-424); Red Blood Count 4.53 M/mm3 (4.60-6.20); Red Cell Distribution Width 13.8 % (11.5-17.5); White Blood Count 4.9 K/mm3 (4.8-10.8)
[2019-01-01 08:50] LABS: C-Reactive Protein < 0.2 mg/dL (0.0-0.9)
[2019-01-01 09:03] LABS: Erythrocyte Sedimentation Rate 15 mm/hr (0-15)
[2019-01-01 09:09] LABS: Anion Gap 13.5 mEq/L (5-15); Blood Urea Nitrogen 21 mg/dL (7-18); Calcium 8.5 mg/dL (8.5-10.1); Carbon Dioxide 26 mmol/L (21.0-32.0); Chloride 109 mmol/L (98-107); Creatinine Clearance Estimated 126 mL/min (50-200); Creatinine,Serum 1.12 mg/dL (0.70-1.30); Estimated Glomerular Filt Rate 69 ml/min (>60); GFR (African American) 84 ML/MIN (>60); Glucose 107 mg/dL (74-106); Potassium 4.5 mmoL/L (3.5-5.1); Sodium 144 mmol/L (136-145); Vancomycin,Trough 13.8 mcg/ml (10.0-20.0)
--- NOTE | 2019-01-01 09:35 | P.CONPHA_ITS ---
- Pharmacy Consult Date: 01/01/19 Time: 09:34 Referring provider: DR. FREEMAN Reason for Consult:: VANCOMYCIN TROUGH LEVEL Allergies and ADEs:: Allergies Allergy/AdvReac Type Severity Reaction Status Date / Time tetanus toxoid, adsorbed Allergy Verified 12/29/18 09:26 Home Medications:: Home Medications Medication Instructions Recorded Confirmed Type Finasteride [Proscar 5mg Tablet] 5 mg PO DAILY 03/08/17 12/29/18 History Metformin HCl 1,000 mg PO BID 03/08/17 12/29/18 History Tamsulosin HCl [Flomax] 0.4 mg PO DAILY 03/08/17 12/29/18 History atorvastatin 40 mg tablet 40 mg PO HS 30 Days tab 05/23/18 12/29/18 History lisinopril 20 mg tablet 20 mg PO DAILY #60 tab 08/01/18 12/29/18 History nortriptyline 50 mg capsule 50 mg PO HS #30 cap 10/26/18 12/29/18 History sildenafil 100 mg tablet 100 mg PO DAILY #10 tab 10/26/18 12/29/18 History vancomycin 1.5 gram intravenous 1 g IV Q24H 12/07/18 12/28/18 History solution Empagliflozin [Jardiance] 25 mg PO DAILY 12/13/18 12/29/18 History Diclofenac Sodium [Diclofenac 75mg 75 mg PO BID 12/19/18 12/29/18 History Tab] gabapentin 100 mg capsule 300 mg PO TID 30 Days #270 cap 12/28/18 12/29/18 History Height: 1.88 m Weight: 112.945 kg Laboratory Results:: Laboratory Results - last 24 hr 01/01/19 08:20: WBC 4.9, RBC 4.53 L, Hgb 14.1, Hct 42.9, MCV 94.8 H, MCH 31.1, MCHC 32.8, RDW 13.8, Plt Count 201, MPV 7.8, Neut % (Auto) 51.6, Lymph % (Auto) 32.0, [place] % (Auto) 8.9, Eos % (Auto) 6.9, Baso % (Auto) 0.6, Neut # (Auto) 2.6, Lymph # (Auto) 1.6, [place] # (Auto) 0.4, Eos # (Auto) 0.3, Baso # (Auto) 0.0, ESR 15 01/01/19 08:20: C-Reactive Protein < 0.2 01/01/19 08:20: Sodium 144, Potassium 4.5, Chloride 109 H, Carbon Dioxide 26, Anion Gap 13.5, BUN 21 H, Creatinine 1.12, Estimated Creat Clear 126, Estimated GFR 69, Est GFR ( Amer) 84, Glucose 107 H, Calcium 8.5, Vancomycin Trough 13.8 Medical History: Reports:: Deep Vein Thrombosis, Diabetes Mellitus Type 2, Gastroesophageal Reflux Disease(GERD), Hyperlipidemia, Hypertension Denies:: Asthma, Cancer, Chronic Obstructive Pulmonary Disease (COPD), Coronary Artery Disease, Diabetes Mellitus Type 1, Internal Pacemaker, MRSA, Seizures Assessment and Plan - Assessment and plan all Dx Assessment and Plan for all problems:: BASED ON PATIENT FACTORS AND VANCOMYCIN TROUGH LEVEL, RECOMMEND CONTINUING VANCOMYCIN 2250 MG IV Q24H. PHARMACY WILL CONTINUE TO MONITOR AND ADJUST APPROPRIATE.
[2019-01-01 09:45] VITALS: BP 133/88; PULSE 77; RESP 18; TEMP 36.6; O2SAT 98
[2019-01-01 10:15] VITALS: BP 138/87; PULSE 84; RESP 18; TEMP 36.6; O2SAT 97
[2019-01-01 10:45] VITALS: BP 140/79; PULSE 79; RESP 16; O2SAT 98
[2019-01-01 11:15] VITALS: BP 141/82; PULSE 75; RESP 18; TEMP 36.7; O2SAT 97
[2019-01-01 11:45] VITALS: BP 135/76; PULSE 76; RESP 18; TEMP 36.7; O2SAT 98
== END 2019-01-01 11:45 | disposition home or self-care (01) ==
LOC: INF 08:18
PROVIDERS: Visit Provider Podiatrist
DX: M86.671 Other chronic osteomyelitis, right ankle and foot (principal); L03.031 Cellulitis of right toe
CPT/HCPCS: 80048; 80202; 85025; 85651; 86140; 96365; 96366; J3370

== ENCOUNTER 2019-01-02 08:13 | Outpatient (CLI) | payer OTHER, SELFPAY ==
[2019-01-02 08:29] VITALS: BP 142/82; PULSE 73; RESP 18; TEMP 36.6; O2SAT 98
[2019-01-02 09:05] VITALS: BP 149/72; PULSE 77; RESP 18; TEMP 36.6; O2SAT 97
[2019-01-02 09:40] VITALS: BP 145/79; PULSE 74; RESP 18; TEMP 36.6; O2SAT 98
[2019-01-02 10:10] VITALS: BP 139/76; PULSE 80; RESP 16; TEMP 36.6; O2SAT 98
[2019-01-02 10:40] VITALS: BP 134/80; PULSE 78; RESP 18; TEMP 36.7; O2SAT 98
== END 2019-01-02 10:45 | disposition home or self-care (01) ==
LOC: INF 08:13
PROVIDERS: Visit Provider Podiatrist
DX: M86.671 Other chronic osteomyelitis, right ankle and foot (principal); L03.031 Cellulitis of right toe
CPT/HCPCS: 96365; 96366; J3370

== ENCOUNTER 2019-01-03 08:14 | Outpatient (CLI) | payer OTHER, SELFPAY ==
[2019-01-03 08:37] VITALS: BP 149/77; PULSE 78; RESP 18; O2SAT 96
[2019-01-03 10:50] VITALS: BP 155/86; PULSE 83; RESP 18
== END 2019-01-03 10:50 | disposition home or self-care (01) ==
LOC: INF 08:14
PROVIDERS: Visit Provider Podiatrist
DX: M86.671 Other chronic osteomyelitis, right ankle and foot (principal); L03.031 Cellulitis of right toe
CPT/HCPCS: 96365; 96366; G0463; J3370

== ENCOUNTER → 2019-01-16 10:09 | Outpatient (POV) | payer OTHER, SELFPAY ==
[2019-01-16 10:26] VITALS: BP 130/91; PULSE 85; RESP 18; O2SAT 98; BMI 32.7
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
== END ==
PROVIDERS: PCP Internal Medicine Adolescent Medicine; Visit Provider Clinical Nurse Specialist Family Health
DX: M51.16 Intervertebral disc disorders with radiculopathy, lumbar region (principal)
CPT/HCPCS: 99212

== ENCOUNTER → 2019-01-17 09:29 | Outpatient (CLI) | payer OTHER, SELFPAY ==
[2019-01-17 10:09] LABS: Basophils % 0.8 % (0.1-2.0); Eosinophils # 0.3 K/mm3 (0.0-0.4); Eosinophils % 6.5 % (0.1-12.0); Hematocrit 48.5 % (42.0-52.0); Hemoglobin 15.6 g/dL (14.1-18.0); Lymphocytes # 1.8 K/mm3 (0.7-4.5); Lymphocytes % 36.5 % (10-50); Mean Corpuscular HGB Conc 32.3 g/dL (31.8-35.4); Mean Corpuscular Hemoglobin 30.9 pg (27.0-31.2); Mean Corpuscular Volume 95.8 fl (80-94); Mean Platelet Volume 8.1 fl (7.4-10.4); Monocytes # 0.4 K/mm3 (0.1-1.0); Monocytes % 8.5 % (1.7-9.3); Neutrophils # 2.3 K/mm3 (1.8-7.8); Neutrophils % 47.7 % (37.0-80.0); Platelet Count 237 K/mm3 (142-424); Red Blood Count 5.06 M/mm3 (4.60-6.20); Red Cell Distribution Width 13.3 % (11.5-17.5); White Blood Count 4.8 K/mm3 (4.8-10.8)
[2019-01-17 11:05] LABS: Erythrocyte Sedimentation Rate 6 mm/hr (0-15)
[2019-01-17 11:21] LABS: C-Reactive Protein < 0.2 mg/dL (0.0-0.9)
== END ==
PROVIDERS: Visit Provider Podiatrist
DX: Z98.890 Other specified postprocedural states (principal); M86.671 Other chronic osteomyelitis, right ankle and foot; M79.671 Pain in right foot; E11.40 Type 2 diabetes mellitus with diabetic neuropathy, unspecified; Z79.4 Long term (current) use of insulin
CPT/HCPCS: 36415; 85025; 85651; 86140

== ENCOUNTER → 2019-01-23 07:55 | Outpatient (CLI) | payer OTHER, SELFPAY ==
--- NOTE | 2019-01-23 08:00 | MR_ITS ---
PROCEDURE: MR CERVICAL SPINE WO CON CLINICAL INDICATION: NECK PAIN Neck pain, headache, bilateral neck pain with burning and bilateral arms COMPARISON: XR CERVICAL SPINE 5V from 12/29/2018 TECHNIQUE: Standard multiplanar multiecho sequences are performed without contrast. Routine multiplanar multi echo sequences are performed without gadolinium enhancement. FINDINGS: Normal alignment. Cranial cervical junction has an unremarkable appearance. Minimal bulging disc at C4-C5 and C5-C6 without impingement. No canal stenosis, foraminal stenosis, or extruded herniated disc evident. IMPRESSION: Minimal bulging disc at C4-5 and C5-6 without impingement otherwise negative MRI of the cervical Dictated by: Aubrey Galvan MD 01/23/2019 14:34 Electronically signed by Aubrey Galvan MD in [place] 01/23/2019 14:34
== END ==
PROVIDERS: PCP Internal Medicine Adolescent Medicine; Visit Provider Clinical Nurse Specialist Family Health
DX: M54.2 Cervicalgia (principal)
CPT/HCPCS: 72141; 76376

== ENCOUNTER → 2019-02-20 08:57 | Outpatient (POV) | payer OTHER, SELFPAY ==
[2019-02-20 09:23] VITALS: BP 142/79; PULSE 87; RESP 18; O2SAT 99; BMI 32.1
--- NOTE | 2019-02-20 09:47 | P.CONS_ITS ---
[facility] Pain Management SOAP Note Subjective:: Patient is a pleasant 48-year-old white male who presents today for follow-up after his lumbar epidural steroid injection. Overall he is doing extremely well. Patient rates his pain a 1 out of 10. Most of his pain now is in his neck. patient does have a bulging disc at C4-C5 C5-C6. Patient is having some radicular symptoms into his arms. Patient is interested in epidural injection in regards to his cervical spine as well. Patient has been having some episodes of euphoria and disorientation. He is already got an appointment with a neurologist to be evaluated. ROS General: no recent weight change, no fever, no sleep disturbances Respiratory: no cough, no shortness of air, no recurring pulmonary infections Cardiovascular/Peripheral Vascular: No chest pain, No palpitations, no edema, no shortness of breath. Gastrointestinal: no new onset incontinence, normal bowel movements reported Genitourinary: no new onset incontinence Musculoskeletal: Neck pain, arm pain Psychiatric: normal mood/ affect Neurological: [denies new onset weakness in extremities], [denies new onset balance issues] Objective:: Physical Exam General: Alert and oriented x3, no acute distress, pleasant and cooperative, [on room air] Lungs: Resps E/U, Symmetrical chest expansion, Eyes: PERRL Musculoskeletal: Flexion and extension of cervical and lumbar spine somewhat guarded secondary to pain, deep tendon reflexes normal, strength in upper and lower extremities [5/5], [abnormal gait noted] Neurological: speech clear, rare/endangered species specialist equal, no gross sensory deficits Assessment:: Degenerative disc disease cervical spine with cervical radiculopathy, degenerative disc disease lumbar spine with lumbar radiculopathy Plan:: We will set up the patient for C5-C6 cervical epidural steroid injection. He is been instructed to call the office if he has any issues prior to his next appointment. I will follow-up with him after his epidural reassess his symptoms at that time. Patient is not on any anticoagulation therapy. Dr. Galvez has reviewed this note and agrees with this plan of care. This note was dictated using voice recognition software and may contain errors or omissions [facility] History I have reviewed the patient's past medical history: Yes Medical History: Reports:: Deep Vein Thrombosis, Diabetes Mellitus Type 2, Gastroesophageal Reflux Disease(GERD), Hyperlipidemia, Hypertension Denies:: Asthma, Cancer, Chronic Obstructive Pulmonary Disease (COPD), Coronary Artery Disease, Diabetes Mellitus Type 1, Internal Pacemaker, MRSA, Seizures *Have you ever received a pneumonia vaccine?: Yes *Have you received a flu vaccine this season?: Yes Other Medical History: Reports: Arthritis, Sinus Problems. Denies: Blood Transfusion Reaction Laterality Cases: Right: Other Other Surgeries: Yes: No Previous Surgery, Cardiac Catheterization, Colonoscopy, EGD, Other. No: Pacemaker Amputation: Yes (Right partial hallux amputation, Left Partial Hallux amputation ) Fractures: No - *Social History Smoking Status: Never smoker # Packs/Day (cigarettes): 0 #Yrs smoked (if former smoker): 0 Alcohol Intake: never Alcohol Intake Frequency:: holidays/special occasions only Substance Use Type: denies use *Occupational Status:: other Housing: house Household Members: children *Travel in the last 8 weeks: None Family Hx:: Diabetes, Heart Attack, Hypertension, Cancer
== END ==
PROVIDERS: PCP Internal Medicine Adolescent Medicine; Visit Provider Clinical Nurse Specialist Family Health
DX: M50.10 Cervical disc disorder with radiculopathy, unspecified cervical region (principal); M51.16 Intervertebral disc disorders with radiculopathy, lumbar region
CPT/HCPCS: 99212

== ENCOUNTER → 2019-03-12 13:16 | Outpatient (CLI) | payer OTHER, SELFPAY ==
[2019-03-14 10:46] LABS: Vitamin B12 437 pg/mL (232-1245)
== END ==
PROVIDERS: Visit Provider Specialist
DX: R00.2 Palpitations (principal); R42 Dizziness and giddiness; R29.2 Abnormal reflex; R51 Headache; R47.89 Other speech disturbances; E11.69 Type 2 diabetes mellitus with other specified complication; G47.9 Sleep disorder, unspecified; R06.83 Snoring; Z68.32 Body mass index [BMI] 32.0-32.9, adult; Z86.69 Personal history of other diseases of the nervous system and sense organs
CPT/HCPCS: 36415; 82607; 86618; 93225; 93226; 94762

== ENCOUNTER → 2019-03-19 09:34 | Outpatient (POV) | payer OTHER, SELFPAY ==
[2019-03-19 10:20] VITALS: BP 142/82; PULSE 79; RESP 18; O2SAT 99; BMI 32.1
--- NOTE | 2019-03-19 10:31 | HMH.PAINSOAP ---
[facility] Pain Management SOAP Note Subjective:: Patient is a very pleasant 48-year-old white male who presents today for follow-up after cervical epidural steroid injection. Patient states that his cervical pain has decreased however he is now having quite a bit of myofascial pain in his cervical paraspinous and bilateral trapezius muscles. He does have palpable trigger points in the bilateral trapezius muscles. He rates his pain a 3 out of 10 today. Patient is also had 1 lumbar epidural steroid injection which we did extremely well for him. He states that this pain is beginning to slowly return. He is continuing a home stretching program. Patient's tried and failed multiple medications. ROS General: no recent weight change, no fever, no sleep disturbances Respiratory: no cough, no shortness of air, no recurring pulmonary infections Cardiovascular/Peripheral Vascular: No chest pain, No palpitations, no edema, no shortness of breath. Gastrointestinal: no new onset incontinence, normal bowel movements reported Genitourinary: no new onset incontinence Musculoskeletal: Back pain, leg pain, myofascial pain Psychiatric: normal mood/ affect Neurological: [denies new onset weakness in extremities], [denies new onset balance issues] Objective:: Physical Exam General: Alert and oriented x3, no acute distress, pleasant and cooperative, [on room air] Lungs: Resps E/U, Symmetrical chest expansion, Eyes: PERRL Musculoskeletal: Flexion and extension of lumbar spine somewhat guarded secondary to pain, deep tendon reflexes normal, strength in upper and lower extremities [5/5], [abnormal gait noted] trigger points noted bilateral cervical paraspinous and trapezius muscles Neurological: speech clear, chief science officer equal, no gross sensory deficits Assessment:: Generative disc disease cervical spine with cervical radiculopathy, degenerative disc disease lumbar spine with lumbar radiculopathy, myofascial pain syndrome Plan:: We will schedule a trigger point injection for his bilateral trapezius muscles and then in 2 weeks do lumbar epidural steroid injection. Patient is not on any anticoagulation therapy is continuing a home stretching program. I will follow-up with him after this reassess his symptoms at that time he is been instructed to call the office if he has any issues prior to his next appointment. Dr. Galvez has reviewed this note and agrees with this plan of care. This note was dictated using voice recognition software and may contain errors or omissions [facility] History I have reviewed the patient's past medical history: Yes Medical History: Reports:: Anxiety, Deep Vein Thrombosis, Diabetes Mellitus Type 2, Gastroesophageal Reflux Disease(GERD), Hyperlipidemia, Hypertension, Migraine, Peripheral Artery Disease Denies:: Asthma, Cancer, Chronic Obstructive Pulmonary Disease (COPD), Coronary Artery Disease, Diabetes Mellitus Type 1, Internal Pacemaker, MRSA, Seizures *Have you ever received a pneumonia vaccine?: Yes *Have you received a flu vaccine this season?: Yes Other Medical History: Reports: Arthritis, Sinus Problems, Other. Denies: Blood Transfusion Reaction Laterality Cases: Right: Other Other Surgeries: Yes: No Previous Surgery, Cardiac Catheterization, Colonoscopy, EGD, Other. No: Pacemaker Amputation: Yes (Right partial hallux amputation, Left Partial Hallux amputation ) Fractures: No - *Social History Smoking Status: Never smoker # Packs/Day (cigarettes): 0 #Yrs smoked (if former smoker): 0 Alcohol Intake: never Alcohol Intake Frequency:: holidays/special occasions only Substance Use Type: denies use *Occupational Status:: other Housing: house Household Members: children *Travel in the last 8 weeks: None - Psychiatric History Pschychiatric History:: Reports:: Anxiety Family Hx:: Diabetes, Heart Attack, Hypertension, Cancer
== END ==
PROVIDERS: PCP Internal Medicine Adolescent Medicine; Visit Provider Clinical Nurse Specialist Family Health
DX: M50.10 Cervical disc disorder with radiculopathy, unspecified cervical region (principal); M51.36 Other intervertebral disc degeneration, lumbar region; M79.18 Myalgia, other site; Z79.899 Other long term (current) drug therapy; E11.9 Type 2 diabetes mellitus without complications; I73.9 Peripheral vascular disease, unspecified; F41.9 Anxiety disorder, unspecified; K21.9 Gastro-esophageal reflux disease without esophagitis; I10 Essential (primary) hypertension; E78.5 Hyperlipidemia, unspecified
CPT/HCPCS: 99212

== ENCOUNTER → 2019-03-23 12:52 | Outpatient (CLI) | payer OTHER, SELFPAY ==
--- NOTE | 2019-03-23 12:52 | MR_ITS ---
PROCEDURE: MR HEAD/BRAIN WO CON CLINICAL INDICATION: headaches, frequent returning bells palsy. Severe headache, dizziness, giddiness, disorientation, blurred vision COMPARISON: No exams were available for comparison TECHNIQUE: Routine multiplanar multi echo sequences are performed without gadolinium enhancement. FINDINGS: No midline shift, mass effect, intracranial hemorrhage, or hydrocephalus. There is a small area increased diffusion signal within the central aspect of the aline. This is of questionable clinical significance. This is seen on only 1 axial image and may be artifactual. The cerebellopontine angles, cerebellum, and brainstem are unremarkable. No mastoid effusion or sinus air-fluid level. The pituitary and optic chiasm, corpus callosum, and craniocervical junction are unremarkable. There are a few scattered T2 white matter hyperintensities in the frontal lobes. These are nonspecific. IMPRESSION: 1. No acute intracranial findings. 2. Scattered T2 white matter hyperintensities of the frontal lobes nonspecific. Most common etiology would be ischemic gliotic foci or sequela from migraine headache. Demyelinating process would be included in the differential diagnosis. 3. Nonspecific increased diffusion signal within the central aline. Dictated by: Aubrey Galvan MD 03/26/2019 09:50 Electronically signed by Aubrey Galvan MD in [place] 03/26/2019 09:50
== END ==
PROVIDERS: PCP Internal Medicine Adolescent Medicine; Visit Provider Specialist
DX: E11.69 Type 2 diabetes mellitus with other specified complication (principal); G47.9 Sleep disorder, unspecified; R00.2 Palpitations; R06.83 Snoring; R29.2 Abnormal reflex; R42 Dizziness and giddiness; R47.89 Other speech disturbances; R51 Headache; Z68.32 Body mass index [BMI] 32.0-32.9, adult; Z86.69 Personal history of other diseases of the nervous system and sense organs
CPT/HCPCS: 70551

== ENCOUNTER → 2019-03-26 13:15 | Outpatient (POV) | payer OTHER, SELFPAY | PROVIDERS: Visit Provider Specialist | DX: M79.605 Pain in left leg (principal); M79.604 Pain in right leg; M79.641 Pain in right hand; R20.0 Anesthesia of skin; R20.2 Paresthesia of skin | CPT/HCPCS: 95886; 95910 ==

== ENCOUNTER → 2019-05-28 15:38 | Outpatient (CLI) | payer OTHER, SELFPAY ==
--- NOTE | 2019-05-28 15:41 | XR_ITS ---
PROCEDURE: XR FOOT WT BEARING LT 3V CLINICAL INDICATION: diabetic ulcer of left 2nd toe. COMPARISON: XR FOOT WT BEARING LT 3V from 10/26/2018 XR FOOT WT BEARING RT 3V from 10/26/2018 XR FOOT RT MIN 3V from 11/29/2018 XR FOOT WT BEARING RT 3V from 12/28/2018 FINDINGS: There has been amputation at the 1st metatarsophalangeal joint There does appear to be a bony erosive changes involving the tuft of the distal phalanx of the 2nd toe suggesting osteomyelitis. There is bandage artifact at this area as well. Other findings:None. IMPRESSION: Erosive changes at the tuft of the distal phalanx of the 2nd toe consistent with osteomyelitis The extent may be better demonstrated with MRI if clinically desired. Dictated by: Aubrey Galvan MD 05/28/2019 16:28 Electronically signed by Aubrey Galvan MD in [place] 05/28/2019 16:28
[2019-05-28 16:16] LABS: Basophils % 0.7 % (0.1-2.0); Eosinophils # 0.4 K/mm3 (0.0-0.4); Hemoglobin 13.8 g/dL (14.1-18.0); Lymphocytes # 1.9 K/mm3 (0.7-4.5); Lymphocytes % 32.7 % (10-50); Mean Corpuscular HGB Conc 34.5 g/dL (31.8-35.4); Mean Corpuscular Hemoglobin 31.3 pg (27.0-31.2); Mean Corpuscular Volume 90.7 fl (80-94); Mean Platelet Volume 7.7 fl (7.4-10.4); Monocytes # 0.3 K/mm3 (0.1-1.0); Monocytes % 5.8 % (1.7-9.3); Neutrophils # 3.2 K/mm3 (1.8-7.8); Neutrophils % 54.8 % (37.0-80.0); Platelet Count 234 K/mm3 (142-424); Red Cell Distribution Width 14.4 % (11.5-17.5); White Blood Count 5.9 K/mm3 (4.8-10.8)
[2019-05-28 16:38] LABS: Chloride 107 mmol/L (98-107)
[2019-05-28 16:39] LABS: Potassium 4.8 mmoL/L (3.5-5.1); Sodium 139 mmol/L (136-145)
[2019-05-28 16:41] LABS: Alanine Aminotransferase 39 U/L (12-78); Aspartate Amino Transferase 35 U/L (17-59); Blood Urea Nitrogen 16 mg/dl (9-20); Estimated Glomerular Filt Rate 71 ml/min (>60); GFR (African American) 86 ML/MIN (>60)
[2019-05-28 16:42] LABS: Albumin/Globulin Ratio 1.6 (1.1-1.8); Alkaline Phosphatase 88 U/L (38-126); Anion Gap 10.8 mEq/L (5-15); Bilirubin,Total 0.4 mg/dl (0.2-1.3); Calcium 9.5 mg/dl (8.4-10.2); Carbon Dioxide 26 mmol/L (22.0-30.0); Globulin 2.5 g/dL (1.3-3.2); Glucose 148 mg/dl (74-100); Total Protein,Serum 6.5 g/dl (6.3-8.2)
[2019-05-28 16:47] LABS: C-Reactive Protein 1.1 mg/L (0-4)
[2019-05-28 18:30] LABS: Erythrocyte Sedimentation Rate 14 mm/hr (0-15)
[2019-05-28 18:54] LABS: Hemoglobin A1C 6.9 % (4.0-6.0)
== END ==
PROVIDERS: PCP Internal Medicine Adolescent Medicine; Visit Provider Podiatrist
DX: E11.621 Type 2 diabetes mellitus with foot ulcer (principal); L97.529 Non-pressure chronic ulcer of other part of left foot with unspecified severity; Z79.84 Long term (current) use of oral hypoglycemic drugs
CPT/HCPCS: 36415; 73630; 80053; 83036; 85025; 85651; 86140

== ENCOUNTER → 2019-06-04 13:47 | Outpatient (CLI) | payer OTHER, SELFPAY ==
--- NOTE | 2019-06-04 13:52 | XR_ITS ---
PROCEDURE: XR CHEST 2V CLINICAL HISTORY: HTN, PRE OP Hypertension COMPARISON: CXR2V XR chest 2V from 06/06/2017 XR CHEST 2V from 11/23/2018 XR CHEST PORTABLE PICC PLAC from 11/29/2018 FINDINGS: The cardiomediastinal silhouette and pulmonary vascularity are within normal limits. The lungs are clear without infiltrates, suspicious nodules, or pleural effusions. No acute bony abnormalities. IMPRESSION: No acute findings. Dictated by: Aubrey Galvan MD 06/04/2019 15:10 Electronically signed by Aubrey Galvan MD in [place] 06/04/2019 15:10
--- NOTE | 2019-06-04 14:07 | ECG_ITS ---
APPROVED REPORT Exam: Resting ECG HR:73 bpm ECG Measurements Heart Rate 73 AXES SC 194 P 17 QRSd 92 QRS 15 QT 366 T 41 QTc 403 <Conclusion> Normal sinus rhythm Normal ECG Electronically signed by : Higinio Sibley, 06/04/2019 14:34:09
== END ==
PROVIDERS: PCP Internal Medicine Adolescent Medicine; Visit Provider Podiatrist
DX: Z01.818 Encounter for other preprocedural examination (principal); L03.032 Cellulitis of left toe
CPT/HCPCS: 71046; 93005

== ENCOUNTER → 2019-06-06 08:11 | Outpatient (CLI) | payer OTHER, SELFPAY ==
--- NOTE | 2019-06-06 08:18 | MR_ITS ---
PROCEDURE: MR FOOT LT WO/W CON CLINICAL INDICATION: evaluate for osteomyelitis Pain and swelling, left foot osteomyelitis, redness pain and swelling with cellulitis COMPARISON: XR FOOT WT BEARING LT 3V from 05/28/2019 XR FOOT LT MIN 3V from 06/07/2019 TECHNIQUE: Routine multiplanar multi echo sequences are performed without and with gadolinium enhancement. FINDINGS: There has been prior amputation at the 1st metatarsophalangeal junction. Focal increased T2 signal involves the distal phalanx of the 2nd toe with contrast enhancement consistent with osteomyelitis. There is soft tissue swelling at this region as well. No abscess. Small amount of fluid is present at the ankle joint anteriorly and at the talar calcaneal region posteriorly. IMPRESSION: 1. Osteomyelitis involves the distal phalanx of the 2nd toe. There is overlying cellulitis. 2. Prior amputation at the 1st metatarsal phalangeal junction Dictated by: Aubrey Galvan MD 06/08/2019 10:11 Electronically signed by Aubrey Galvan MD in [place] 06/08/2019 10:11
== END ==
PROVIDERS: PCP Internal Medicine Adolescent Medicine; Visit Provider Podiatrist
DX: E11.621 Type 2 diabetes mellitus with foot ulcer (principal); L03.032 Cellulitis of left toe; L97.529 Non-pressure chronic ulcer of other part of left foot with unspecified severity; Z79.84 Long term (current) use of oral hypoglycemic drugs
CPT/HCPCS: 73720; A9576

== ENCOUNTER 2019-06-07 05:41 | Day surgery (SDC) | payer OTHER, SELFPAY ==
[2019-06-05 11:37] VITALS: BMI 34.7
[2019-06-07] VITALS (12 sets, daily range): BP systolic 102–122; BP diastolic 62–76; PULSE 74–88; RESP 12–20; TEMP 36.1–43; O2SAT 92–96
[2019-06-07 06:49] LABS: POC Glucose,Bedside 158 (70-110)
--- NOTE | 2019-06-07 06:54 | P.PN_ITS ---
[facility] Anesthesia Checklist - Patient Identification Patient Identification: Arm Band, Verbal (Name & ) - Structural Data Admitted From: Home Planned Operative Procedure/s: toe amp Consent for Planned Operative Procedure(s) Verified: Yes Verified Documents: History and Physical - NPO Status Verified Time NPO: 00:00 - Additional verifications Patient : No Anesthesia Reactions: No Hx Blood Transfusions: No Blood Transfusion Reaction: No Cephalosporin Allergy: No Previous Colonoscopy: Yes - Cardiovascular Assessment Heart Sounds: S1 & S2 Pulse Strength: Baseline Pulse Rhythm: Regular Peripheral Edema: No - Airway Assessment C-Spine Mobility Assessed: Yes TMJ Mobility Assessed: Yes Dentition: Good Dentition - Neurological Assessment Level of Consciousness: Awake, Alert, Appropriate Hx Seizures: No Numbness or tingling in extremities: No - Anesthesia Plan Anesthesia Risk discussed: Yes Anesthesia Plan: Verified ASA Class: III Anesthesia Type: General [facility] History I have reviewed the patient's past medical history: Yes Medical History: Reports:: Anxiety, Deep Vein Thrombosis, Diabetes Mellitus Type 2, Gastroesophageal Reflux Disease(GERD), Hyperlipidemia, Hypertension, Migraine, Palpitations, Peripheral Artery Disease Denies:: Asthma, Cancer, Chronic Obstructive Pulmonary Disease (COPD), Coronary Artery Disease, Diabetes Mellitus Type 1, Internal Pacemaker, MRSA (toes), Seizures *Have you ever received a pneumonia vaccine?: No *Have you received a flu vaccine this season?: No Other Medical History: Reports: Arthritis, Sinus Problems, Other. Denies: Blood Transfusion Reaction Anesthesia experience/problems:: none Laterality Cases: Right: Other Other Surgeries: Yes: No Previous Surgery, Cardiac Catheterization, Colonoscopy, EGD, Other. No: Pacemaker Amputation: Yes (Right partial hallux amputation, Left Partial Hallux amputation ) Fractures: No - *Social History Smoking Status: Never smoker # Packs/Day (cigarettes): 0 #Yrs smoked (if former smoker): 0 Alcohol Intake: never Alcohol Intake Frequency:: other Substance Use Type: denies use *Occupational Status:: disabled Housing: house Household Members: children *Travel in the last 8 weeks: None - Psychiatric History Pschychiatric History:: Reports:: Anxiety Family Hx:: Diabetes, Heart Attack, Hypertension, Cancer
--- NOTE | 2019-06-07 07:31 | XR_ITS ---
PROCEDURE: XR FOOT LT MIN 3V CLINICAL INDICATION: Post op amp Follow-up amputation COMPARISON: XR FOOT WT BEARING LT 3V from 10/26/2018 XR FOOT RT MIN 3V from 11/29/2018 XR FOOT WT BEARING RT 3V from 12/28/2018 XR FOOT WT BEARING LT 3V from 05/28/2019 FINDINGS: Prior amputation at the 1st and 2nd metatarsophalangeal joint. 2nd toe amputation is new since 05/28/2019. Bandage artifact is present. No bony erosive process apparent with good alignment IMPRESSION: Interval amputation at the 2nd metatarsophalangeal joint with an older amputation of the 1st metatarsophalangeal joint Dictated by: Aubrey Galvan MD 06/07/2019 13:28 Electronically signed by Aubrey Galvan MD in [place] 06/07/2019 13:28
--- NOTE | 2019-06-07 07:32 | HMH.OPNOTE ---
Date of procedure: 06/07/19 Pre-op Diagnosis:: 1. Left second toe diabetic ulcer 2. Left second toe osteomyelitis 3. Left toe cellulitis 4. Diabetes type 2, neuropathy Post-op Diagnosis:: Same Procedure performed:: 1. Left 2nd toe irrigation and debridement 2. Left 2nd toe amputation 3. Left foot bone bisopy Surgeon:: Aundrea Vicente DPM Anesthesia: GETA, local (20cc 0.5% marcaine plain) Estimated blood loss (mL): 10 Clinical Note:: Infected Wound: left 2nd toe DM ulcer: Left foot x-rays 3 views taken 05/28/19 and MRI 06/07/19, evaluated by myself. Report reviewed. FINDINGS: There has been amputation at the 1st metatarsophalangeal joint There does appear to be a bony erosive changes involving the tuft of the distal phalanx of the 2nd toe suggesting osteomyelitis. There is bandage artifact at this area as well. IMPRESSION: Erosive changes at the tuft of the distal phalanx of the 2nd toe consistent with osteomyelitis. We discussed conservative versus surgical treatment options. Conservative treatment options include local wound care, oral and IV antibiotics, change in shoe wear, taping/padding, and off-loading. We discussed surgical intervention for amputation of the left 2nd toe. Patient understands that there is a chance that the toes can migrate to fill the gap or the foot may change shape after surgery. Patient also understands that they could have wound healing complications including delayed healing and infection. We discussed that if the wound does not heal, it is possible that they may need a more proximal amputation and could result in further loss of digits, loss of partial foot or loss of leg. We discussed the risks and benefits in great detail. Other surgical risks include: prolonged pain and swelling, further infection requiring oral or IV antibiotics, delay in healing of soft tissue or bone, nerve or blood vessel damage, CRPS/RSD, DVT, anesthesia complications, and even . All questions answered. Patient verbalized understanding. Consent obtained. Operative findings:: Utilizing forceps and 15 blade, the distal 2nd toe tip wound was sharply excisionally debrided through callus. Ulcer noted to probe to bone. There was no drainage and no purulence noted. The ulcer was excised. Distal and middle phalanx removed. Soft and crumbly. The head of the proximal phalanx had cortical erosions and wear to head. It was removed in total. No sinus tracking or deep soft tissue infection noted. Operative note:: On this date and time patient was deemed an appropriate surgical candidate. With informed consent signed, the patient was taken to the operating theater. The patient was positioned supine. General anesthesia was induced. No tourniquet used. Pre-op left second toe block given with 10 cc 0.5% marcaine plain. Left 2nd irrigation and debridement, digit amputation, bone biopsy: The left lower extremity was prepped and drapped in normal sterile fashion. Note the patient had a previous left hallux amputation. Attention was directed to the left 2nd toe where a dorsal distal ulcer was noted over the DIPJ. There was exposed deep fascia, extensor tendon and bone. Intra-operatively, no purulence expressed. A racquet ball incision was mapped out. Utilizing a 15 blade dissection was carried down sharply to the level of the bone around the proximal phalanx which was disarticulated from the metatarsal head. The distal phalanx bone was soft and crumbly and had a slight malodor to it. It was sent for bone culture. Middle phalanx disarticulated from proximal phalanx. Midlde was soft, it was sent for bone biopsy for pathology. Attention was then directed to the proximal phalanx. The head was discolored with cortical erosions noted. The proximal phalanx was disarticulated from met head and sent for bone culture. The middle phalanx base was sent as proximal margin. The 2nd met head was intact with no cortical erosions, discoloration or obvious signs of osteomyelitis. Next 3 L
--- NOTE | 2019-06-07 08:18 | HMH.ANESI ---
[facility] Anesthesia Record Part I Intake, IV Amount: 500 Estimated blood loss (mL): 10 Urine output (mL): 0 (NM) Blood Products used (#): none Blood Pressure: 122/67 SaO2: 96 Pulse Rate: 88 Respiratory Rate: 12 Temperature: 97.0 F Patient is:: Awake, Stable Stable to PACU at:: 08:15
[2019-06-07 08:39] LABS: POC Glucose,Bedside 133 (70-110)
--- NOTE | 2019-06-07 15:12 | HMH.ANESII ---
[facility] Anesthesia Record Part II Discharge Time: 08:45 Destination: Surgical Day Care (OP Surgery) PACU nurse assessment reviewed?: Yes Patient Condition:: Good Anesthesia Complications:: None Swallowing reflex intact?: Yes Cyanosis?: No Blood Pressure: 115/76 Pulse Rate: 81 Temperature: 98.5 F Mental Status: Alert & Oriented Pain level:: 0 Nausea and/or vomitting:: None Intake, IV Amount: 0
== END 2019-06-07 09:28 | disposition home or self-care (01) ==
LOC: OR 05:43
PROVIDERS: PCP Internal Medicine Adolescent Medicine; Visit Provider Podiatrist
PROC: (CPT 28820; principal; 2019-06-07 07:30)
DX: E11.621 Type 2 diabetes mellitus with foot ulcer (principal); L97.526 Non-pressure chronic ulcer of other part of left foot with bone involvement without evidence of necrosis; M86.172 Other acute osteomyelitis, left ankle and foot; L03.032 Cellulitis of left toe; E11.42 Type 2 diabetes mellitus with diabetic polyneuropathy
CPT/HCPCS: 28820; 73630; 82962; 87070; 87077; 87186; 87205; 96374; J2405; J3370

== ENCOUNTER → 2019-06-21 10:22 | Outpatient (CLI) | payer OTHER, SELFPAY ==
[2019-06-21 10:53] LABS: Basophils # 0.1 K/mm3 (0-0.2); Basophils % 1.2 % (0.1-2.0); Eosinophils # 0.4 K/mm3 (0.0-0.4); Eosinophils % 6.4 % (0.1-12.0); Hematocrit 46.5 % (42.0-52.0); Lymphocytes # 2.2 K/mm3 (0.7-4.5); Lymphocytes % 35.8 % (10-50); Mean Corpuscular HGB Conc 32.2 g/dL (31.8-35.4); Mean Corpuscular Volume 96.1 fl (80-94); Mean Platelet Volume 7.8 fl (7.4-10.4); Monocytes # 0.4 K/mm3 (0.1-1.0); Monocytes % 5.7 % (1.7-9.3); Neutrophils # 3.2 K/mm3 (1.8-7.8); Neutrophils % 50.8 % (37.0-80.0); Platelet Count 235 K/mm3 (142-424); Red Blood Count 4.83 M/mm3 (4.60-6.20); Red Cell Distribution Width 13.6 % (11.5-17.5); White Blood Count 6.3 K/mm3 (4.8-10.8)
[2019-06-21 11:20] LABS: C-Reactive Protein 0.9 mg/L (0-4)
[2019-06-21 11:38] LABS: Erythrocyte Sedimentation Rate 10 mm/hr (0-15)
== END ==
PROVIDERS: Visit Provider Podiatrist
DX: Z98.890 Other specified postprocedural states (principal)
CPT/HCPCS: 36415; 85025; 85651; 86140

== ENCOUNTER 2020-05-07 19:45 | Emergency (ER) | payer OTHER, SELFPAY ==
[2020-05-07 19:56] VITALS: BP 136/73; PULSE 88; RESP 14; TEMP 37; O2SAT 97; BMI 35.3
--- NOTE | 2020-05-07 20:59 | HMH.EDUTC ---
[facility] [place] Clinical Impression: Laceration Disposition: Home, Self-Care Condition on Discharge: Good Instructions: Laceration Repair, How to Care for a Laceration After Repair, DI for Laceration Repair -- Finger Additional Instructions: Suture/ instructions: You have required stitches or Mozier today. Please read the following instructions so you know how to care for them: 1. Keep wound area dry for the first 24 hours. 2 May clean gently with mild soap and water, after 48 hours to prevent crusting over suture knots. 3. You may shower if your provider gives permission but do not take a bath until the skin is healed.. 4. Never leave a wet dressing or Band-Aid on your stitches as this allows bacteria to reach the area and may cause infection. Band-aids can cause the wound to sweat and not recommended to wear for long periods of time Watch for signs of infection: Increasing redness, tenderness or warmth around the suture site Unusual swelling around the site Appearance of pus around each suture or any red streaks Fever If you develop any of the above signs or symptoms of infection, Follow up with Family Physician immediately 5. Suture removal in _10-12___days 6. Return to [facility] or follow up with family doctor for removal. This can be done by any medical provider during regular hours on Tuesday through Tuesday, by appointment. Prescriptions: Amoxicillin/Potassium Clav [Augmentin 500mg tab] 500 mg PO TID #21 tab Transmission Status: Pending to [id number] Referrals: Jose Francisco Caldera MD [Primary Care Provider] - As needed Time of Disposition: 21:10 Medical Decision Making - Antonio Inquiry Pt receiving controlled substance: No Antonio was queried for this patient: No Vital Signs: 05/07/20 19:56 Temperature 98.6 F Temperature Source Oral Pulse Rate [Right] 88 Respiratory Rate 14 Blood Pressure [Right Arm] 136/73 Blood Pressure Mean [Right Arm] 94 Blood Pressure Source [Right Arm] Automatic Cuff Blood Pressure Position [Right Arm] Sitting 02 Sat by Pulse Oximetry 97 Oxygen Delivery Method Room Air Orders (Tests/Meds): ED MEDICATIONS Discontinued Medications Generic Name Dose Route Start Last Admin Trade Name Freq PRN Reason Stop Dose Admin Lidocaine HCl 5 ml 05/07/20 20:36 05/07/20 20:37 Lidocaine 1% 5ml Pf Vial IJ 05/07/20 20:37 5 ml ONCE ONE Administration Medical Decision Narrative: Discussed with patient that recommended that he be transferred to the ED for further evaluation and examination of nailbed injury to right middle finger and patient declined State that he wanted to have the laceration on his right ring finger closed and the nailbed on his middle finger was alright and declined transfer Recommended to see if ED physician could come to the [facility] and evaluate and patient still declined States that it was ok and not bleeding and he had to see his PCP tomorrow and did not want to have the finger evaluation [facility] [place]PI - General Stated complaint: AO 05/07 lac to R Hand Time Seen by Provider: 05/07/20 20:59 Mode of Arrival: Ambulatory Source of Information: Patient Limitations: No Limitations Description of Symptoms (Recalled from Triage Doc. by RN): pt was cutting limbs with hedge trimmers. he has a laceration on the tip of his ring finger on his left hand about a cm long. he also broke the nail on his middle finger. HEENT Symptoms (Recalled from RN notes): No Resp Symptoms (Recalled from RN notes): No Skin Symptoms (Recalled from RN notes): Yes (laceration to ring finger on left hand) MS Symptoms (Recalled from RN notes): No Functional Status (Recalled from RN notes): na - History of Present Illness Provider Complaint: Patient states that he was using some hedge trimmers when he was cutting some limbs and the trimmers accidently folded in on him and hit him in his right hand catching his middle finger and breaking his nail and right ring finger States that he h
--- NOTE | 2020-05-07 21:07 | PC.NURSE ---
Shannon VAUGHN offered to send pt to the ER due to the crack in his nail on the middle finger. pt is a diabetic and she thought he needed further evaluation. pt refuses to go to the ER and states he is seeing his pcp in the am.
[2020-05-07 21:08] VITALS: BP 133/79; PULSE 82; RESP 19; TEMP 36.6
== END 2020-05-07 21:17 | disposition home or self-care (01) ==
PROVIDERS: Emergency Provider Nurse Practitioner; PCP Internal Medicine Adolescent Medicine
DX: S61.214A Laceration without foreign body of right ring finger without damage to nail, initial encounter (principal); S61.312A Laceration without foreign body of right middle finger with damage to nail, initial encounter; W31.89XA Contact with other specified machinery, initial encounter; Y92.89 Other specified places as the place of occurrence of the external cause; E11.9 Type 2 diabetes mellitus without complications; I10 Essential (primary) hypertension; E78.5 Hyperlipidemia, unspecified; K21.9 Gastro-esophageal reflux disease without esophagitis; F41.9 Anxiety disorder, unspecified; Z88.7 Allergy status to serum and vaccine; Z79.899 Other long term (current) drug therapy
CPT/HCPCS: 12001; 99202; G0463

== ENCOUNTER → 2020-05-08 13:01 | Outpatient (CLI) | payer OTHER, SELFPAY ==
[2020-05-08 13:20] LABS: Basophils % 0.7 % (0.1-2.0); Eosinophils # 0.3 K/mm3 (0.0-0.4); Eosinophils % 4.1 % (0.1-12.0); Hematocrit 47.5 % (42.0-52.0); Hemoglobin 15.9 g/dL (14.1-18.0); Lymphocytes # 2.2 K/mm3 (0.7-4.5); Lymphocytes % 34.5 % (10-50); Mean Corpuscular HGB Conc 33.6 g/dL (31.8-35.4); Mean Corpuscular Hemoglobin 30.2 pg (27.0-31.2); Mean Platelet Volume 7.7 fl (7.4-10.4); Monocytes # 0.5 K/mm3 (0.1-1.0); Monocytes % 7.8 % (1.7-9.3); Neutrophils # 3.4 K/mm3 (1.8-7.8); Neutrophils % 52.9 % (37.0-80.0); Platelet Count 215 K/mm3 (142-424); Red Blood Count 5.27 M/mm3 (4.60-6.20); Red Cell Distribution Width 14.3 % (11.5-17.5); White Blood Count 6.4 K/mm3 (4.8-10.8)
[2020-05-08 13:50] LABS: Hemoglobin A1C 8.3 % (4.0-6.0)
[2020-05-08 14:37] LABS: Alanine Aminotransferase 35 U/L (12-78); Albumin Level 4.2 g/dl (3.5-5.0); Albumin/Globulin Ratio 1.6 (1.1-1.8); Alkaline Phosphatase 114 U/L (38-126); Anion Gap 13.7 mEq/L (5-15); Aspartate Amino Transferase 33 U/L (17-59); Bilirubin,Total 0.8 mg/dl (0.2-1.3); Blood Urea Nitrogen 18 mg/dl (9-20); Calcium 9.6 mg/dl (8.4-10.2); Carbon Dioxide 25 mmol/L (22.0-30.0); Chloride 107 mmol/L (98-107); Chol/HDL Ratio 2.6 (1-3.5); Cholesterol 108 mg/dl (140-200); Estimated Glomerular Filt Rate 71 ml/min (>60); GFR (African American) 85 ML/MIN (>60); Globulin 2.6 g/dL (1.3-3.2); Glucose 142 mg/dl (74-100); HDL Cholesterol 42 mg/dl (40-60); Potassium 4.7 mmoL/L (3.5-5.1); Sodium 141 mmol/L (136-145); Total Protein,Serum 6.8 g/dl (6.3-8.2); Triglycerides 160 mg/dl (30-150); VLDL Cholesterol 32 mg/dL (0-40)
[2020-05-08 14:48] LABS: Direct LDL Cholesterol 37.34 mg/dL (100-129)
[2020-05-08 15:08] LABS: Thyroid Stimulating Hormone 0.67 uIU/mL (0.465-4.68)
== END ==
PROVIDERS: Visit Provider Internal Medicine Adolescent Medicine
DX: E11.42 Type 2 diabetes mellitus with diabetic polyneuropathy (principal); N40.1 Benign prostatic hyperplasia with lower urinary tract symptoms; Z79.84 Long term (current) use of oral hypoglycemic drugs
CPT/HCPCS: 36415; 80053; 80061; 83036; 84443; 85025

== ENCOUNTER 2020-06-08 11:24 | Emergency (ER) | payer OTHER, SELFPAY ==
[2020-06-08 11:28] VITALS: BP 138/79; PULSE 95; RESP 19; TEMP 37.2; O2SAT 95; BMI 33.6
--- NOTE | 2020-06-08 11:40 | HMH.EDUTC ---
[facility] [place] Disposition Clinical Impression: Periorbital cellulitis of left eye Disposition: Home, Self-Care Condition on Discharge: Good Instructions: DI for Cellulitis -- Adult Additional Instructions: Follow up with Dr Caldera this week. If visual changes, severe pain, fever, worsening of symptoms occur, return to ER to rule out orbital cellulitis Prescriptions: Sulfamethoxazole/Trimethoprim [Bactrim DS tablet] 1 each PO BID 10 Days #20 tab Transmission Status: Pending to [id number] Cefdinir [Omnicef 300mg Capsule] 300 mg PO BID #20 cap Transmission Status: Pending to [id number] Referrals: Jose Francisco Caldera MD [Primary Care Provider] - Time of Disposition: 11:53 Medical Decision Making - Antonio Inquiry Pt receiving controlled substance: No [facility] [place] HPI - General Stated complaint: Left is swollen side of face swollen Time Seen by Provider: 06/08/20 11:40 - History of Present Illness Provider Complaint: Left eye has been a little red and irritated for 3 days. Has been using pinkeye relief drops. Has not gotten any better. Today woke up with swelling in his left eyelid, left cheek and teeth hurt on the left side. No fever. Has diabetes. States it is fairly well controlled. No eye pain or vision changes. No headache. Onset (ago): day(s) (3) Location: eyes Relieving factors: none Exacerbating factors: none Associated symptoms: denies other symptoms Treatments prior to arrival: other (OTC pinkeye relief) - Related Data Home Medications Medication Instructions Recorded Confirmed Finasteride [Proscar 5mg Tablet] 5 mg PO DAILY 03/08/17 08/09/19 Metformin HCl 1,000 mg PO BID 03/08/17 08/09/19 Tamsulosin HCl [Flomax] 0.4 mg PO DAILY 03/08/17 08/09/19 atorvastatin 40 mg tablet 40 mg PO HS 30 Days tab 05/23/18 08/09/19 lisinopril 20 mg tablet 20 mg PO DAILY #60 tab 08/01/18 08/09/19 nortriptyline 50 mg capsule 50 mg PO HS #30 cap 10/26/18 08/09/19 sildenafil 100 mg tablet 100 mg PO DAILY #10 tab 10/26/18 08/09/19 ertugliflozin 15 mg tablet 15 mg PO DAILY #30 tab 01/17/19 08/09/19 gabapentin 300 mg capsule 300 mg PO TID #90 cap 01/17/19 08/09/19 aspirin 81 mg tablet,delayed 81 mg PO DAILY 06/04/19 08/09/19 release Previous Rx's Medication Instructions Recorded diclofenac sodium 75 mg 75 mg PO BID #60 tab 08/09/19 tablet,delayed release Amoxicillin/Potassium Clav 500 mg PO TID #21 tab 05/07/20 [Augmentin 500mg tab] Cefdinir [Omnicef 300mg Capsule] 300 mg PO BID #20 cap 06/08/20 Sulfamethoxazole/Trimethoprim 1 each PO BID 10 Days #20 tab 06/08/20 [Bactrim DS tablet] Allergies Allergy/AdvReac Type Severity Reaction Status Date / Time tetanus toxoid, adsorbed Allergy Verified 05/07/20 19:56 [facility] History - Hepatitis A Screen Attestation statement:: This patient has been screened for Hepatitis A risk factors. I have reviewed the patient's past medical history: Yes Medical History: Reports:: Anxiety, Deep Vein Thrombosis, Diabetes Mellitus Type 2, Gastroesophageal Reflux Disease(GERD), Hyperlipidemia, Hypertension, Migraine, Palpitations, Peripheral Artery Disease Denies:: Asthma, Cancer, Chronic Obstructive Pulmonary Disease (COPD), Coronary Artery Disease, Diabetes Mellitus Type 1, Internal Pacemaker, MRSA (toes), Seizures Other Medical History: Reports: Arthritis, Sinus Problems, Other. Denies: Blood Transfusion Reaction Comment: Paulino's Palsy bilateral, kidney stones Laterality Cases: Right: Other Other Surgeries: Yes: No Previous Surgery, Cardiac Catheterization, Colonoscopy, EGD, Other. No: Pacemaker Amputation: Yes (Right partial hallux amputation, Left Partial Hallux amputation ) Fractures: No Comment: toe amputation x 3 - Social History Smoking Status: Never smoker # Packs/Day (cigarettes): 0 #Yrs smoked (if former smoker): 0 Alcohol Intake: never Alcohol Intake Frequency:: other Substance Use Type: denies use Occupational Status: employed Housing:
[2020-06-08 11:44] VITALS: BP 138/79; PULSE 95; RESP 19; TEMP 37.2; O2SAT 96
== END 2020-06-08 11:55 | disposition home or self-care (01) ==
PROVIDERS: Emergency Provider Physician Assistant; PCP Internal Medicine Adolescent Medicine
DX: L03.213 Periorbital cellulitis (principal); E11.9 Type 2 diabetes mellitus without complications; F41.9 Anxiety disorder, unspecified; I10 Essential (primary) hypertension; K21.9 Gastro-esophageal reflux disease without esophagitis; E78.5 Hyperlipidemia, unspecified; Z88.7 Allergy status to serum and vaccine; Z79.899 Other long term (current) drug therapy
CPT/HCPCS: 99202; G0463

== ENCOUNTER 2020-06-09 15:10 | Observation (INO) | payer OTHER, SELFPAY ==
[2020-06-09 15:13] VITALS: BMI 33.3
[2020-06-09 15:53] VITALS: BP 142/76; PULSE 92; RESP 18; TEMP 36.7; O2SAT 98
--- NOTE | 2020-06-09 15:53 | CT_ITS ---
PROCEDURE INFORMATION: Exam: CT Head Without Contrast Exam date and time: 06/09/2020 3:53 PM Age: 49 years old Clinical indication: Other: Periorbital cellulitis TECHNIQUE: Imaging protocol: Computed tomography of the head without contrast. Radiation optimization: All CT scans at this facility use at least one of these dose optimization techniques: automated exposure control; mA and/or kV adjustment per patient size (includes targeted exams where dose is matched to clinical indication); or iterative reconstruction. COMPARISON: MR HEAD/BRAIN WO CON 03/23/2019 1:08 PM FINDINGS: Brain: There is no evidence of infarct, mcgee-white matter differentiation is preserved. There is no hemorrhage or extra-axial collection. There is no mass. Cerebral ventricles: There is no hydrocephalus. Bones/joints: Unremarkable. No acute fracture. Paranasal sinuses: See maxillofacial CT Mastoid air cells: Visualized mastoid air cells are well aerated. Soft tissues: Left periorbital soft tissue swelling, see maxillofacial CT IMPRESSION: No intracranial lesion or injury
--- NOTE | 2020-06-09 15:53 | CT_ITS ---
PROCEDURE INFORMATION: Exam: CT Maxillofacial Without Contrast Exam date and time: 06/09/2020 3:53 PM Age: 49 years old Clinical indication: Other: Periorbital cellulitis TECHNIQUE: Imaging protocol: Computed tomography images of the face without contrast. Radiation optimization: All CT scans at this facility use at least one of these dose optimization techniques: automated exposure control; mA and/or kV adjustment per patient size (includes targeted exams where dose is matched to clinical indication); or iterative reconstruction. COMPARISON: No relevant prior studies available. FINDINGS: Orbital cavity: No soft tissue fluid collection. No evidence of intraorbital inflammation or mass. No ocular abnormality. Extraocular muscles are normal and symmetric. Bones/joints: No acute fracture. Paranasal sinuses: The sinuses are clear. Soft tissues: There is left preseptal periorbital soft tissue swelling. IMPRESSION: 1. Left preseptal periorbital cellulitis. 2. No evidence of intraorbital inflammation
[2020-06-09 16:07] LABS: Basophils % 0.8 % (0.1-2.0); Eosinophils # 0.2 K/mm3 (0.0-0.4); Eosinophils % 3.1 % (0.1-12.0); Hematocrit 43.3 % (42.0-52.0); Hemoglobin 14.6 g/dL (14.1-18.0); Lymphocytes # 1.4 K/mm3 (0.7-4.5); Lymphocytes % 25.6 % (10-50); Mean Corpuscular HGB Conc 33.7 g/dL (31.8-35.4); Mean Corpuscular Hemoglobin 30.1 pg (27.0-31.2); Mean Corpuscular Volume 89.5 fl (80-94); Mean Platelet Volume 7.6 fl (7.4-10.4); Monocytes # 0.5 K/mm3 (0.1-1.0); Monocytes % 8.8 % (1.7-9.3); Neutrophils # 3.3 K/mm3 (1.8-7.8); Neutrophils % 61.7 % (37.0-80.0); Platelet Count 210 K/mm3 (142-424); Red Blood Count 4.84 M/mm3 (4.60-6.20); Red Cell Distribution Width 14.6 % (11.5-17.5); White Blood Count 5.4 K/mm3 (4.8-10.8)
[2020-06-09 16:17] LABS: Chloride 105 mmol/L (98-107); Potassium 4.3 mmoL/L (3.5-5.1); Sodium 139 mmol/L (136-145)
[2020-06-09 16:20] LABS: Alanine Aminotransferase 53 U/L (12-78); Albumin Level 4.2 g/dl (3.5-5.0); Albumin/Globulin Ratio 1.3 (1.1-1.8); Alkaline Phosphatase 108 U/L (38-126); Anion Gap 12.3 mEq/L (5-15); Aspartate Amino Transferase 63 U/L (17-59); Bilirubin,Total 0.9 mg/dl (0.2-1.3); Blood Urea Nitrogen 16 mg/dl (9-20); Calcium 9.4 mg/dl (8.4-10.2); Carbon Dioxide 26 mmol/L (22.0-30.0); Creatinine Clearance Estimated 112 mL/min (50-200); Estimated Glomerular Filt Rate 58 ml/min (>60); GFR (African American) 70 ML/MIN (>60); Globulin 3.3 g/dL (1.3-3.2); Glucose 153 mg/dl (74-100); Total Protein,Serum 7.5 g/dl (6.3-8.2)
--- NOTE | 2020-06-09 16:24 | HMH.PHAVTE ---
[facility] Pharmacy VTE Monitoring - Patient Demographics Admission date: 06/09/20 Report Date: 06/09/20 Time: 16:24 Allergies/Adverse Reactions: Patient Allergies tetanus toxoid, adsorbed Allergy (Verified 05/07/20 19:56) Height: 1.88 m Weight: 117.736 kg - VTE Risk Labs: VTE Related Lab Results Hgb 14.6 g/dL (14.1-18.0) 06/09/20 15:50 Hct 43.3 % (42.0-52.0) 06/09/20 15:50 Plt Count 210 K/mm3 (142-424) 06/09/20 15:50 BUN 16 mg/dl (9-20) 06/09/20 15:50 Creatinine 1.30 mg/dl (0.66-1.25) H 06/09/20 15:50 Estimated Creat Clear 112 mL/min (50-200) 06/09/20 15:50 VTE Score: 3 VTE Risk Level: Low Risk - Prophylaxis VTE Prophylaxis Ordered?: Yes Types of VTE Prophylaxis: TEDS Knee High Location of Applied Device: Bilateral Lower Extremeties
[2020-06-09 16:29] LABS: Adenovirus,PCR Not Detected (NotDetected); Bordetella Pertussis Not Detected (NotDetected); Chlamydophila Pneumoniae, PCR Not Detected (NotDetected); Coronavirus 19, PCR Not Detected (NotDetected); Coronavirus 229E Not Detected (NotDetected); Coronavirus NL63 Not Detected (NotDetected); Coronavirus OC43 Not Detected (NotDetected); Coronovirus HKU1,PCR Not Detected (NotDetected); Human Metapneumovirus Not Detected (NotDetected); Influenza A, PCR Not Detected (NotDetected); Influenza AH1, 2009 Not Detected (NotDetected); Influenza AH1, PCR Not Detected (NotDetected); Influenza AH3,PCR Not Detected (NotDetected); Influenza B, PCR Not Detected (NotDetected); Mycoplasma Pneumoniae, PCR Not Detected (NotDetected); Parainfluenza 1, PCR Not Detected (NotDetected); Parainfluenza 2, PCR Not Detected (NotDetected); Parainfluenza 3, PCR Not Detected (NotDetected); Parainfluenza 4, PCR Not Detected (NotDetected); Respiratory Syncytial Virus Not Detected (NotDetected); Rhinovirus/Enterovirus Not Detected (NotDetected)
[2020-06-09 16:54] LABS: Lactic Acid 1.9 mmol/L (0.7-2.1)
[2020-06-09 17:08] LABS: POC Glucose,Bedside 114 (70-110)
--- NOTE | 2020-06-09 17:41 | PC.NURSE ---
pt a new admit. no c/o pain, n/v/d. 20G in right FA with NS at 50ml/hr. call light within reach. will cont. to monitor.
--- NOTE | 2020-06-09 17:48 | HMH.HP ---
*Admission Date: 06/09/20 *Chief complaint: Left facial swelling and left eyelid swelling *History of present illness: 49-year-old white male diabetic with history of poor control and history of dental abscesses who presented to the urgent treatment center yesterday with a chief complaint of left eyelid swelling, left eye drainage and watering and some blurry vision. He was diagnosed with periorbital cellulitis and placed on Bactrim and Omnicef. He came to the office today because of worsening swelling and some pain around the side of his head and behind the left ear. Was afebrile, normal vital signs, significant swelling noted, admitted to hospital for IV antibiotics and imaging. [facility] History I have reviewed the patient's past medical history: Yes Medical History: Reports:: Anxiety, Deep Vein Thrombosis, Diabetes Mellitus Type 2, Gastroesophageal Reflux Disease(GERD), Hyperlipidemia, Hypertension, Migraine, Palpitations, Peripheral Artery Disease Denies:: Asthma, Cancer, Chronic Obstructive Pulmonary Disease (COPD), Coronary Artery Disease, Diabetes Mellitus Type 1, Internal Pacemaker, MRSA, Seizures *Have you ever received a pneumonia vaccine?: No *Have you received a flu vaccine this season?: No Other Medical History: Reports: Arthritis, Sinus Problems, Other. Denies: Blood Transfusion Reaction Laterality Cases: Right: Other Other Surgeries: Yes: No Previous Surgery, Cardiac Catheterization, Colonoscopy, EGD, Other. No: Pacemaker Amputation: Yes (Right partial hallux amputation, Left Partial Hallux amputation ) Fractures: No - *Social History Smoking Status: Never smoker # Packs/Day (cigarettes): 0 #Yrs smoked (if former smoker): 0 Alcohol Intake: never Alcohol Intake Frequency:: other Substance Use Type: denies use *Occupational Status:: employed Housing: house Household Members: spouse *Travel in the last 8 weeks: None - Psychiatric History Pschychiatric History:: Reports:: Anxiety Family Hx:: Diabetes Review of Systems - Review of Systems Review of systems:: pertinent systems reviewed and negative unless documented below Meds Home Medications Medication Instructions Recorded Confirmed Type Finasteride [Proscar 5mg Tablet] 5 mg PO DAILY 03/08/17 06/09/20 History Metformin HCl 1,000 mg PO BID 03/08/17 06/09/20 History Tamsulosin HCl [Flomax] 0.4 mg PO DAILY 03/08/17 06/09/20 History atorvastatin 40 mg tablet 40 mg PO HS 30 Days tab 05/23/18 06/09/20 History lisinopril 20 mg tablet 20 mg PO DAILY #60 tab 08/01/18 06/09/20 History nortriptyline 50 mg capsule 50 mg PO HS #30 cap 10/26/18 06/09/20 History sildenafil 100 mg tablet 100 mg PO DAILY #10 tab 10/26/18 06/09/20 History ertugliflozin 15 mg tablet 15 mg PO DAILY #30 tab 01/17/19 06/09/20 History gabapentin 300 mg capsule 300 mg PO TID #90 cap 01/17/19 06/09/20 History aspirin 81 mg tablet,delayed 81 mg PO DAILY 06/04/19 06/09/20 History release diclofenac sodium 75 mg 75 mg PO BID #60 tab 08/09/19 06/09/20 Rx tablet,delayed release Amoxicillin/Potassium Clav 500 mg PO TID 06/09/20 06/09/20 History [Augmentin 500mg tab] Cefdinir [Omnicef 300mg Capsule] 300 mg PO BID 06/09/20 06/09/20 History Sulfamethoxazole/Trimethoprim 1 each PO BID 06/09/20 06/09/20 History [Bactrim DS tablet] Allergies Allergy/AdvReac Type Severity Reaction Status Date / Time tetanus toxoid, adsorbed Allergy Verified 05/07/20 19:56 Exam Vital signs and Labs for Last 24 Hours: Temp Pulse Resp BP Pulse Ox 98.1 F 92 H 18 142/76 H 98 06/09/20 15:53 06/09/20 15:53 06/09/20 15:53 06/09/20 15:53 06/09/20 15:53 Laboratory Results - last 24 hr 06/09/20 15:50: WBC 5.4, RBC 4.84, Hgb 14.6, Hct 43.3, MCV 89.5, MCH 30.1, MCHC 33.7, RDW 14.6, Plt Count 210, MPV 7.6, Neut % (Auto) 61.7, Lymph % (Auto) 25.6, [place] % (Auto) 8.8, Eos % (Auto) 3.1, Baso % (Auto) 0.8, Neut # (Auto) 3.3, Lymph # (Auto) 1.4, [place] # (Auto) 0.5, Eos # (Auto) 0.2, Baso # (Auto) 0.0 04
--- NOTE | 2020-06-09 17:55 | ECG_ITS ---
APPROVED REPORT Exam: Resting ECG HR:81 bpm ECG Measurements Heart Rate 81 AXES NE 212 P 6 QRSd 86 QRS 15 QT 366 T -2 QTc 425 Conclusion Sinus rhythm with 1st degree AV block Isolated q wave in III noted Abnormal ECG Electronically signed by : Jose Francisco Caldera, 06/12/2020 21:27:19
[2020-06-09 20:00] VITALS: BP 133/79; PULSE 80; RESP 16; TEMP 36.7; O2SAT 98
[2020-06-09 20:57] LABS: POC Glucose,Bedside 118 (70-110)
[2020-06-10 04:00] VITALS: BP 126/70; PULSE 69; RESP 16; TEMP 36.5; O2SAT 96
[2020-06-10 04:09] LABS: POC Glucose,Bedside 104 (70-110)
[2020-06-10 05:15] VITALS: BMI 32.7
[2020-06-10 07:40] LABS: Basophils # 0.1 K/mm3 (0-0.2); Basophils % 0.8 % (0.1-2.0); Eosinophils # 0.3 K/mm3 (0.0-0.4); Eosinophils % 4.2 % (0.1-12.0); Hematocrit 42.5 % (42.0-52.0); Lymphocytes # 1.6 K/mm3 (0.7-4.5); Lymphocytes % 27.5 % (10-50); Mean Corpuscular Hemoglobin 30.4 pg (27.0-31.2); Mean Corpuscular Volume 92.2 fl (80-94); Mean Platelet Volume 7.7 fl (7.4-10.4); Monocytes # 0.5 K/mm3 (0.1-1.0); Monocytes % 8.6 % (1.7-9.3); Neutrophils # 3.5 K/mm3 (1.8-7.8); Platelet Count 208 K/mm3 (142-424); Red Blood Count 4.61 M/mm3 (4.60-6.20); Red Cell Distribution Width 14.6 % (11.5-17.5); White Blood Count 5.9 K/mm3 (4.8-10.8)
[2020-06-10 07:49] LABS: Chloride 106 mmol/L (98-107); Potassium 4.8 mmoL/L (3.5-5.1); Sodium 137 mmol/L (136-145)
[2020-06-10 07:52] LABS: Anion Gap 9.8 mEq/L (5-15); Blood Urea Nitrogen 16 mg/dl (9-20); Calcium 8.7 mg/dl (8.4-10.2); Carbon Dioxide 26 mmol/L (22.0-30.0); Creatinine Clearance Estimated 119 mL/min (50-200); Estimated Glomerular Filt Rate 64 ml/min (>60); GFR (African American) 77 ML/MIN (>60); Glucose 104 mg/dl (74-100)
[2020-06-10 07:54] VITALS: BP 126/77; PULSE 80; RESP 24; TEMP 36.9; O2SAT 100
[2020-06-10 08:00] VITALS: RESP 24; O2SAT 100
--- NOTE | 2020-06-10 08:19 | HMH.ACPN2 ---
Internal Medicine - PN: Subj *Date: 06/10/20 *Time: 08:19 Interval history: 49-year-old male admitted for periorbital cellulitis left eye. Remained afebrile overnight. Labs this morning stable with no leukocytosis. Patient overall has done well. Complains of some discomfort of his eye but no pain with movement. More pain with blinking and on the surface of the eye. States his vision is still blurry in the left eye but that is his bad eye per his report. Tender in the left preauricular region but not throbbing and consistent like it was yesterday. Overall he feels improved. Denies any chest pain, nausea, shortness of breath. Exam Vital signs and Labs for Last 24 Hours: Temp Pulse Resp BP Pulse Ox 98.4 F 80 24 126/77 100 06/10/20 07:54 06/10/20 07:54 06/10/20 07:54 06/10/20 07:54 06/10/20 07:54 Laboratory Results - last 24 hr 06/09/20 15:50: WBC 5.4, RBC 4.84, Hgb 14.6, Hct 43.3, MCV 89.5, MCH 30.1, MCHC 33.7, RDW 14.6, Plt Count 210, MPV 7.6, Neut % (Auto) 61.7, Lymph % (Auto) 25.6, [place] % (Auto) 8.8, Eos % (Auto) 3.1, Baso % (Auto) 0.8, Neut # (Auto) 3.3, Lymph # (Auto) 1.4, [place] # (Auto) 0.5, Eos # (Auto) 0.2, Baso # (Auto) 0.0 06/09/20 15:50: Sodium 139, Potassium 4.3, Chloride 105, Carbon Dioxide 26, Anion Gap 12.3, BUN 16, Creatinine 1.30 H, Estimated Creat Clear 112, Estimated GFR 58 L, Est GFR ( Amer) 70, Glucose 153 H, Calcium 9.4, Total Bilirubin 0.9, AST 63 H, ALT 53, Alkaline Phosphatase 108, Total Protein 7.5, Albumin 4.2, Globulin 3.3 H, Albumin/Globulin Ratio 1.3 06/09/20 16:18: Lactate 1.9 06/09/20 16:18: Chlamy pneumoniae PCR Not detected, Adenovirus (PCR) Not detected, B. pertussis DNA (PCR) Not detected, Coronavirus OC43 (PCR) Not detected, Coronavirus HKU1 (PCR) Not detected, Coronavirus 229E (PCR) Not detected, SARS-CoV-2 (PCR) Not detected, Coronavirus NL63 (PCR) Not detected, Human Metapneumovir PCR Not detected, Influenza A (H1) PCR Not detected, Influ A (H1N1/09) PCR Not detected, Influenza A (H3) PCR Not detected, Influenza Type A (PCR) Not detected, Influenza Type B (PCR) Not detected, M. pneumoniae (PCR) Not detected, Parainfluenza 1 (PCR) Not detected, Parainfluenza 2 (PCR) Not detected, Parainfluenza 3 (PCR) Not detected, Parainfluenza 4 (PCR) Not detected, RSV (PCR) Not detected, Entero/Rhino (PCR) Not detected 06/09/20 16:58: POC Glucose 114 H 06/09/20 20:50: POC Glucose 118 H 06/10/20 04:02: POC Glucose 104 06/10/20 06:58: WBC 5.9, RBC 4.61, Hgb 14.0 L, Hct 42.5, MCV 92.2, MCH 30.4, MCHC 33.0, RDW 14.6, Plt Count 208, MPV 7.7, Neut % (Auto) 59.0, Lymph % (Auto) 27.5, [place] % (Auto) 8.6, Eos % (Auto) 4.2, Baso % (Auto) 0.8, Neut # (Auto) 3.5, Lymph # (Auto) 1.6, [place] # (Auto) 0.5, Eos # (Auto) 0.3, Baso # (Auto) 0.1 06/10/20 06:58: Sodium 137, Potassium 4.8, Chloride 106, Carbon Dioxide 26, Anion Gap 9.8, BUN 16, Creatinine 1.20, Estimated Creat Clear 119, Estimated GFR 64, Est GFR ( Amer) 77, Glucose 104 H D, Calcium 8.7 I & O for Last 24 hours: Intake & Output 06/07/20 06/08/20 06/09/20 06/10/20 23:59 23:59 23:59 23:59 Intake Total 360 / 360 1300 / 1300 Output Total 0 / 0 Balance 360 / 360 1300 / 1300 Weight 117.736 kg 115.666 kg - Constitutional no acute distress, obese - *Routine HEENT Exam Head: Present: normocephalic Eye: Present: EOMI, PERRL ENT: Present: mucous membranes moist Comments: Left eye with significant injection of conjunctive and sclera. Edema of the sclera. No significant erythema of eyelid though eyelid is somewhat puffy compared to right side. Minimal tenderness left preauricular region but no palpable nodule or swelling. - *Routine Neck Exam Present: supple. Absent: lymphadenopathy - *Routine Respiratory Exam Present: CTA bilaterally - *Routine Cardiovascular Exam Present: RRR - *Routine Abdominal Exam Present: soft, normoactive bowel sounds. Absent: tenderness - *Routine Extremities Exam Absent: cyanosis, club
--- NOTE | 2020-06-10 10:12 | HMH.PHAINT ---
MEDICATION RECONCILIATION COMPLETED USING EXTERNAL FILL HISTORY, PHYSICIAN OFFICE LIST, AND PATIENT INTERVIEW
[2020-06-10 15:11] VITALS: BP 135/80; PULSE 74; RESP 20; TEMP 36.7; O2SAT 98
--- NOTE | 2020-06-10 15:51 | PC.NURSE ---
Pt has been pleasant this shift. Lt eye continues to be red and watery drainage noted-but eye color has improved since the beginning of shift. Pt states it doesn't hurt as bad. . Lung sounds diminished t/o. No cough noted. Active bowel sounds in all 4 quads, no BM noted. No other acute changes or complaints. Will continue to monitor.
[2020-06-10 16:52] LABS: POC Glucose,Bedside 121 (70-110)
[2020-06-10 16:59] LABS: POC Glucose,Bedside 122 (70-110)
--- NOTE | 2020-06-10 17:52 | HMH.DCSUM ---
General - General Admission date:: 06/09/20 Discharge date: 06/10/20 HPI HPI: 49-year-old white male diabetic with history of poor control and history of dental abscesses who presented to the urgent treatment center yesterday with a chief complaint of left eyelid swelling, left eye drainage and watering and some blurry vision. He was diagnosed with periorbital cellulitis and placed on Bactrim and Omnicef. He came to the office today because of worsening swelling and some pain around the side of his head and behind the left ear. Was afebrile, normal vital signs, significant swelling noted, admitted to hospital for IV antibiotics and imaging. Hospital Course Hospital Course: 49-year-old male admitted for preseptal cellulitis of left eye. Imaging obtained showing no abscess or gas behind orbit. Initiated on broad-spectrum IV antibiotics. Improvement and redness and swelling over the first 24 hours. Initiated on eyedrops of both antibiotic and steroid. Responded well to these with some continued improvement during the day and irritation and redness of his left eye. Extraocular movement intact, no fever, significant leukocytosis, pain with movement of eye. Patient remained hemodynamically stable and decision was made to transition oral antibiotics and discharge home for continued course. We will plan for close follow-up in the coming week. Resume home medication for chronic conditions. Antibiotic regimen for left eye infection includes the following: - Clindamycin oral 4 times a day - Resume Omnicef initiated the day before admission, complete course - Continue steroid eyedrops - Continue ofloxacin eyedrops Objective Vital signs: Temp Pulse Resp BP Pulse Ox 98.1 F 74 20 135/80 98 06/10/20 15:11 06/10/20 15:11 06/10/20 15:11 06/10/20 15:11 06/10/20 15:11 Narrative: - Constitutional no acute distress, obese - *Routine HEENT Exam Head: Present: normocephalic Eye: Present: EOMI, PERRL ENT: Present: mucous membranes moist Comments: Intervcal improvement of the Left eye injection of conjunctive and sclera. Edema of the sclera. No significant erythema of eyelid though eyelid is somewhat puffy compared to right side. Minimal tenderness left preauricular region but no palpable nodule or swelling. - *Routine Neck Exam Present: supple. Absent: lymphadenopathy - *Routine Respiratory Exam Present: CTA bilaterally - *Routine Cardiovascular Exam Present: RRR - *Routine Abdominal Exam Present: soft, normoactive bowel sounds. Absent: tenderness - *Routine Extremities Exam Absent: cyanosis, clubbing, edema - *Routine Skin Exam Present: warm. Absent: rash - *Routine Neurological Exam Present: alert, oriented X3 Results Labs on day of discharge: Labs from last 24 hours 06/10/20 06/10/20 06/10/20 16:35 12:02 06:58 WBC RBC Hgb Hct MCV MCH MCHC RDW Plt Count MPV Neut % (Auto) Lymph % (Auto) [place] % (Auto) Eos % (Auto) Baso % (Auto) Neut # (Auto) Lymph # (Auto) [place] # (Auto) Eos # (Auto) Baso # (Auto) Sodium 137 Potassium 4.8 Chloride 106 Carbon Dioxide 26 Anion Gap 9.8 BUN 16 Creatinine 1.20 Estimated Creat Clear 119 Estimated GFR 64 Est GFR ( Amer) 77 Glucose 104 H D POC Glucose 122 H 121 H Calcium 8.7 Chlamy pneumoniae PCR Adenovirus (PCR) B. pertussis DNA (PCR) Coronavirus OC43 (PCR) Coronavirus HKU1 (PCR) Coronavirus 229E (PCR) SARS-CoV-2 (PCR) Coronavirus NL63 (PCR) Human Metapneumovir PCR Influenza A (H1) PCR Influ A (H1N1/09) PCR Influenza A (H3) PCR Influenza Type A (PCR) Influenza Type B (PCR) M. pneumoniae (PCR) Parainfluenza 1 (PCR) Parainfluenza 2 (PCR) Parainfluenza 3 (PCR) Parainfluenza 4 (PCR) RSV (PCR) Entero/Rhino (PCR) 06/10/20 06/10/20 06/09/20 06:58 04
== END 2020-06-10 18:10 | disposition home or self-care (01) ==
PROVIDERS: Internal Medicine Adolescent Medicine; Admitting Provider Internal Medicine Adolescent Medicine; PCP Internal Medicine Adolescent Medicine; Visit Provider Internal Medicine Adolescent Medicine
DX: L03.213 Periorbital cellulitis (principal); G51.0 Bell's palsy; I10 Essential (primary) hypertension; E11.9 Type 2 diabetes mellitus without complications; Z79.84 Long term (current) use of oral hypoglycemic drugs; Z79.899 Other long term (current) drug therapy
CPT/HCPCS: 70450; 70486; 80048; 80053; 82962; 83605; 85025; 87040; 87581; 87633; 87798; 93005; G0378; J2543

== ENCOUNTER → 2020-08-26 12:03 | Outpatient (CLI) | payer OTHER, SELFPAY ==
--- NOTE | 2020-08-26 12:08 | XR_ITS ---
PROCEDURE: XR FOOT WT BEARING LT 3V CLINICAL INDICATION: wounds Infection, pain COMPARISON: CR XR FOOT RT MIN 3V from 11/29/2018 CR XR FOOT WT BEARING RT 3V from 12/28/2018 CR XR FOOT WT BEARING LT 3V from 05/28/2019 CR XR FOOT LT MIN 3V from 06/07/2019 FINDINGS: Status post amputation at the 1st and 2nd metatarsal phalangeal joints. There is an old ununited fracture at the base of the proximal phalanx of the 3rd toe. A nondisplaced transverse fracture of the head of the 3rd metatarsal. These findings have developed since 06/07/2019 but do not appear acute The joint spaces are well-preserved. No significant degenerative/arthritic changes. No erosive changes evident. Hammertoe deformity 3rd toe Other findings:No bony destructive changes IMPRESSION: Nondisplaced transverse fracture head of the 3rd metatarsal. Nondisplaced fracture involves the proximal aspect of the proximal phalanx of the 3rd toe. These findings have developed since the previous exam. At least the proximal phalanx fracture does not appear acute. The age of the 3rd metatarsal fracture is age indeterminate. Status post amputation at the 1st and 2nd toes. No bony erosive changes apparent Dictated by: Aubrey Galvan MD 08/26/2020 13:05 Aubrey Galvan MD in [place] 08/26/2020 13:05
--- NOTE | 2020-08-26 12:08 | XR_ITS ---
PROCEDURE: XR FOOT WT BEARING RT 3V CLINICAL INDICATION: wounds Pain, infection COMPARISON: CR XR FOOT RT MIN 3V from 11/29/2018 CR XR FOOT WT BEARING RT 3V from 12/28/2018 CR XR FOOT WT BEARING LT 3V from 05/28/2019 CR XR FOOT LT MIN 3V from 06/07/2019 FINDINGS: Status post amputation at the 1st interphalangeal joint and at the 2nd PIP joint. Bandage artifact at the amputation site at the 2nd toe. No bony erosive changes apparent The joint spaces are well-preserved. No significant degenerative/arthritic changes. No erosive changes evident. Other findings:None. IMPRESSION: Status post amputation at the 1st and 2nd toes with no acute finding Dictated by: Aubrey Galvan MD 08/26/2020 13:02 Aubrey Galvan MD in [place] 08/26/2020 13:02
== END ==
PROVIDERS: PCP Internal Medicine Adolescent Medicine; Visit Provider Podiatrist
DX: Z51.89 Encounter for other specified aftercare (principal); E11.621 Type 2 diabetes mellitus with foot ulcer; L97.512 Non-pressure chronic ulcer of other part of right foot with fat layer exposed; L03.031 Cellulitis of right toe; Z79.84 Long term (current) use of oral hypoglycemic drugs
CPT/HCPCS: 73630

== ENCOUNTER → 2020-08-27 14:26 | Outpatient (CLI) | payer OTHER, SELFPAY ==
[2020-08-27 15:04] LABS: Basophils # 0.1 K/mm3 (0-0.2); Eosinophils # 0.4 K/mm3 (0.0-0.4); Eosinophils % 5.5 % (0.1-12.0); Hematocrit 43.3 % (42.0-52.0); Lymphocytes # 2.1 K/mm3 (0.7-4.5); Lymphocytes % 32.2 % (10-50); Mean Corpuscular HGB Conc 34.6 g/dL (31.8-35.4); Mean Corpuscular Hemoglobin 30.2 pg (27.0-31.2); Mean Corpuscular Volume 87.4 fl (80-94); Mean Platelet Volume 7.8 fl (7.4-10.4); Monocytes # 0.5 K/mm3 (0.1-1.0); Monocytes % 7.1 % (1.7-9.3); Neutrophils # 3.5 K/mm3 (1.8-7.8); Neutrophils % 54.2 % (37.0-80.0); Platelet Count 214 K/mm3 (142-424); Red Blood Count 4.95 M/mm3 (4.60-6.20); Red Cell Distribution Width 13.9 % (11.5-17.5); White Blood Count 6.5 K/mm3 (4.8-10.8)
[2020-08-27 15:28] LABS: Erythrocyte Sedimentation Rate 13 mm/hr (0-20)
[2020-08-27 22:18] LABS: Alanine Aminotransferase 34 U/L (12-78); Albumin Level 3.9 g/dl (3.5-5.0); Albumin/Globulin Ratio 1.4 (1.1-1.8); Alkaline Phosphatase 123 U/L (38-126); Aspartate Amino Transferase 38 U/L (17-59); Bilirubin,Total 0.3 mg/dl (0.2-1.3); Blood Urea Nitrogen 18 mg/dl (9-20); Calcium 8.8 mg/dl (8.4-10.2); Carbon Dioxide 23 mmol/L (22.0-30.0); Chloride 112 mmol/L (98-107); Estimated Glomerular Filt Rate 79 ml/min (>60); GFR (African American) 95 ML/MIN (>60); Globulin 2.7 g/dL (1.3-3.2); Glucose 141 mg/dl (74-100); Sodium 142 mmol/L (136-145); Total Protein,Serum 6.6 g/dl (6.3-8.2)
[2020-08-27 22:23] LABS: C-Reactive Protein 0.6 mg/L (0-4)
== END ==
PROVIDERS: Visit Provider Podiatrist
DX: E11.621 Type 2 diabetes mellitus with foot ulcer (principal); L97.519 Non-pressure chronic ulcer of other part of right foot with unspecified severity; Z98.890 Other specified postprocedural states; L02.619 Cutaneous abscess of unspecified foot; L03.119 Cellulitis of unspecified part of limb; Z79.84 Long term (current) use of oral hypoglycemic drugs
CPT/HCPCS: 36415; 80053; 85025; 85651; 86140

== ENCOUNTER → 2020-08-28 08:27 | Outpatient (CLI) | payer OTHER, SELFPAY ==
--- NOTE | 2020-08-28 08:27 | MR_ITS ---
PROCEDURE INFORMATION: Exam: MR Right Lower Extremity Other Than Joint Without and With Contrast; Foot Exam date and time: 08/28/2020 8:27 AM Age: 49 years old Clinical indication: Pain; Foot; Right; Prior surgery; Surgery date: 6+ months; Additional info: Dm ulcer of right foot. PT is diabetic. Prior HX toe amputation. Open sore on plantar surface of 2nd toe. Swelling tip of 3rd toe. Symptoms x1wk. Prior x-ray 08-26-20. Prior MR 06-06-19. > 22ml prohance given. 17ml lot: [id number] exp: Mar 2022 5ml lot: [id number] exp: Apr 2022 bun: 18 cre: 1.0 gfr: 79. TECHNIQUE: Imaging protocol: MR of the Right lower extremity without and with intravenous contrast. Exam focused on the foot. Contrast material: PROHANCE; Contrast volume: 22 ml; Contrast route: IV; COMPARISON: 1. MR FOOT RT WO/W CON 11/06/2018 11:02 AM 2. CR XR FOOT WT BEARING RT 3V 08/26/2020 12:08 PM 3. CR XR FOOT WT BEARING RT 3V 12/28/2018 10:48 AM FINDINGS: Bones and cartilage: There is no evidence of osteomyelitis. Moderate bone marrow edema is present involving the third toe distal phalanx, but this edema does not significantly alter the marrow fat signal on T1-weighted imaging, being more typical for reactive osteitis than osteomyelitis. Joint spaces: A moderate effusion involves the ankle joint. LIGAMENTS: Lisfranc ligament: Unremarkable. No evidence of tear. TENDONS: Flexor tendons of foot: Unremarkable. No evidence of tear. Tibialis posterior tendon: Unremarkable as visualized. Peroneal tendons: Mild intraosseous edema involves the posterolateral fibula, which may be related to friction from the peroneal tendons. Extensor tendons of foot: Unremarkable. No evidence of tear. Tibialis anterior tendon: Unremarkable as visualized. Tarsal canal (Sinus tarsi): Unremarkable. Tarsal tunnel: Unremarkable. Soft tissues: Moderate soft tissue swelling involves the third toe. Amputations have been performed at the great toe proximal phalanx head and second toe proximal interphalangeal joint. A clinically reported ulcer along the plantar aspect of the second toe is difficult to appreciate on MRI. No abscess. The foot muscles demonstrate moderate edema and mild atrophy. Plantar fascia: Unremarkable as visualized. IMPRESSION: 1. No osteomyelitis or abscess. 2. Reactive osteitis of the third toe distal phalanx with prominent surrounding soft tissue edema. 3. Mild intraosseous edema involving the posterolateral distal fibula, which may be related to friction from the peroneal tendons. 4. Normal postoperative changes from amputations involving the first and second toes. 5. Moderate ankle joint effusion.
--- NOTE | 2020-08-28 10:06 | US_ITS ---
APPROVED REPORT Exam Type: Ankle to Brachial Index [employer] Team Leader: RT Gray(R) Indications Claudication: Bilaterally Non-healing Ulcer: Right Rest Pain: Bilaterally Left great and 2nd toe amputation. Right 2nd toe ulcer. Risk Factors Hypertension Hyperlipidemia Diabetes Pressures/Indices Right Indices Left Indices Brachial 125.00 mmHg Brachial 131.00 mmHg Low Thigh 150.00 mmHg 1.15 Low Thigh 154.00 mmHg 1.18 Calf 191.00 mmHg 1.46 Calf 173.00 mmHg 1.32 Ankle(PT) 195.00 mmHg 1.49 Ankle(PT) 190.00 mmHg 1.45 Ankle(DP) 156.00 mmHg 1.19 Ankle(DP) 187.00 mmHg 1.43 Digit 137.00 mmHg 1.05 Digit 140.00 mmHg 1.07 Findings RT CHAYA=1.49 LT CHAYA=1.45 RT TBI=1.05 LT TBI=1.07 Normal waveforms Normal pulses CHAYA's consistent with a restrictive pattern. Conclusion RT CHAYA=1.49 LT CHAYA=1.45 RT TBI=1.05 LT TBI=1.07 Normal waveforms Normal pulses CHAYA's consistent with a restrictive pattern. Electronically signed by : Aubrey Galvan MD 08/29/2020 16:28:18
== END ==
PROVIDERS: PCP Internal Medicine Adolescent Medicine; Visit Provider Podiatrist
DX: E11.621 Type 2 diabetes mellitus with foot ulcer (principal); L97.512 Non-pressure chronic ulcer of other part of right foot with fat layer exposed; R09.89 Other specified symptoms and signs involving the circulatory and respiratory systems; Z79.84 Long term (current) use of oral hypoglycemic drugs
CPT/HCPCS: 73720; 93923; A9576

== ENCOUNTER → 2020-12-10 09:29 | Outpatient (CLI) | payer OTHER, SELFPAY ==
[2020-12-10 09:51] LABS: Basophils # 0.1 K/mm3 (0-0.2); Basophils % 1.1 % (0.1-2.0); Eosinophils # 0.4 K/mm3 (0.0-0.4); Eosinophils % 4.8 % (0.1-12.0); Hematocrit 47.7 % (42.0-52.0); Hemoglobin 15.8 g/dL (14.1-18.0); Lymphocytes # 2.6 K/mm3 (0.7-4.5); Lymphocytes % 35.7 % (10-50); Mean Corpuscular Hemoglobin 31.3 pg (27.0-31.2); Mean Corpuscular Volume 94.7 fl (80-94); Mean Platelet Volume 8.2 fl (7.4-10.4); Monocytes # 0.5 K/mm3 (0.1-1.0); Monocytes % 6.3 % (1.7-9.3); Neutrophils # 3.8 K/mm3 (1.8-7.8); Neutrophils % 52.1 % (37.0-80.0); Platelet Count 235 K/mm3 (142-424); Red Blood Count 5.04 M/mm3 (4.60-6.20); Red Cell Distribution Width 13.6 % (11.5-17.5); White Blood Count 7.3 K/mm3 (4.8-10.8)
[2020-12-10 10:01] LABS: Hemoglobin A1C 6.7 % (4.0-6.0)
[2020-12-10 10:23] LABS: Alanine Aminotransferase 30 U/L (12-78); Albumin Level 3.8 g/dl (3.5-5.0); Albumin/Globulin Ratio 1.3 (1.1-1.8); Alkaline Phosphatase 100 U/L (38-126); Anion Gap 12.2 mEq/L (5-15); Aspartate Amino Transferase 28 U/L (17-59); Bilirubin,Total 0.6 mg/dl (0.2-1.3); Blood Urea Nitrogen 15 mg/dl (9-20); Calcium 9.3 mg/dl (8.4-10.2); Carbon Dioxide 28 mmol/L (22.0-30.0); Chloride 107 mmol/L (98-107); Chol/HDL Ratio 2.8 (1-3.5); Cholesterol 138 mg/dl (140-200); Estimated Glomerular Filt Rate 89 ml/min (>60); GFR (African American) 107 ML/MIN (>60); Glucose 162 mg/dl (74-100); HDL Cholesterol 49 mg/dl (40-60); Potassium 5.2 mmoL/L (3.5-5.1); Sodium 142 mmol/L (136-145); Total Protein,Serum 6.8 g/dl (6.3-8.2); Triglycerides 182 mg/dl (30-150); VLDL Cholesterol 36 mg/dL (0-40)
[2020-12-10 10:34] LABS: Direct LDL Cholesterol 56.91 mg/dL (100-129)
== END ==
PROVIDERS: Visit Provider Internal Medicine Adolescent Medicine
DX: E11.42 Type 2 diabetes mellitus with diabetic polyneuropathy (principal); Z79.84 Long term (current) use of oral hypoglycemic drugs
CPT/HCPCS: 36415; 80053; 80061; 83036; 85025

== ENCOUNTER → 2021-01-15 15:45 | Outpatient (CLI) | payer OTHER, SELFPAY ==
--- NOTE | 2021-01-15 15:47 | MR_ITS ---
PROCEDURE: MR CERVICAL SPINE WO CON CLINICAL INDICATION: CERVICAL AND THORACIC NEURALGIA COMPARISON: No exams were available for comparison TECHNIQUE: Standard multiplanar multiecho sequences are performed without contrast. 3-D MIP and myelographic images are also rendered and reviewed FINDINGS: There is normal alignment. The craniocervical junction has an unremarkable appearance. C2-C3: Unremarkable. C3-C4: Unremarkable. C4-C5: Minimal bulging disc without impingement. C5-C6: Minimal bulging disc without impingement C6-C7: Unremarkable. C7-T1: Unremarkable. No canal stenosis or extruded herniated disc. The disc spaces are well preserved. IMPRESSION: Minimal bulging disc at C4-C5 and C5-C6 without impingement of questionable clinical significance otherwise negative. Dictated by: Aubrey Galvan MD 01/16/2021 11:14 Aubrey Galvan MD in [place] 01/16/2021 11:14
--- NOTE | 2021-01-15 15:47 | MR_ITS ---
PROCEDURE: MR THORACIC SPINE WO CON CLINICAL INDICATION: CERVICAL AND THORACIC NEURALGIA COMPARISON: CR XR CHEST 2V from 06/04/2019 TECHNIQUE: Routine multiplanar multi echo sequences are performed without gadolinium enhancement. FINDINGS: Normal alignment. No acute fracture or dislocation. There is minimal mid thoracic curvature convex right. Mild lower thoracic kyphosis. There is decrease in the disc space with disc desiccation from T5-T8 and from T9-T12. Mild wedge contour involves T10, T11, and T12. No abnormal bone marrow signal intensity that would indicate an acute fracture. Minimal bulging disc at T6-T7 and T10-T11 and T11-T12. Facet hypertrophic changes are present on the left at T11-T12 causing left-sided lateral recess narrowing with minimal contour deformity of the cord at this region anteriorly on the left. There are mild facet hypertrophic changes bilaterally from T6-T12. No extruded herniated disc. No acute fracture or dislocation. IMPRESSION: Mild multilevel thoracic spondylosis. Please see above for detailed description at each level. No acute fracture. No extruded herniated disc. Dictated by: Aubrey Galvan MD 01/16/2021 11:19 Aubrey Galvan MD in [facility] 01/16/2021 11:19
== END ==
PROVIDERS: PCP Internal Medicine Adolescent Medicine; Visit Provider Internal Medicine Adolescent Medicine
DX: M54.12 Radiculopathy, cervical region (principal); M79.2 Neuralgia and neuritis, unspecified; M54.31 Sciatica, right side
CPT/HCPCS: 72141; 72146; 76376

== ENCOUNTER → 2021-01-16 15:18 | Outpatient (CLI) | payer OTHER, SELFPAY ==
--- NOTE | 2021-01-16 15:28 | MR_ITS ---
PROCEDURE: MR LUMBAR SPINE WO CON CLINICAL INDICATION: SCIATICA COMPARISON: CR XR LUMBAR SPINE MIN 4V from 10/28/2018 MR MR LUMBAR SPINE WO CON from 11/09/2018 MR MR THORACIC SPINE WO CON from 01/15/2021 TECHNIQUE: Standard multiplanar multiecho sequences are performed without contrast. 3-D MIP and myelographic images are also rendered and reviewed FINDINGS: The exam is compared to the previous study of 11/09/2018 and the thoracic spine MRI of 01/15/2021. With the thoracic spine labeling of the vertebral bodies the number assignment has been changed of the lumbar spine. The patient has a lumbarized S1 segment which was previously labeled as L5 but is actually S1. There is normal alignment. The spinal cord ends at the L1-L2 level. T12-L1: Mild degenerative disc disease with minimal circumferential bulging disc. L1-L2: Mild degenerative disc disease. L2-L3: Mild facet and ligamentum hypertrophic change . L3-L4: Facet and ligamentum hypertrophic changes with mild bilateral foraminal narrowing L4-5: Facet and ligamentum hypertrophic change with mild bilateral foraminal narrowing L5-S1: Circumferential bulging disc with facet and ligamentum hypertrophic change with mild bilateral lateral recess narrowing and moderate bilateral foraminal narrowing slightly greater on the left compared to the right side not significantly changed. Prominent anterior bulging disc at this level as well. IMPRESSION: Multilevel lumbar spondylosis as detailed above. Please see above for detailed description at each level. Overall there has been no significant change compared to the previous exam. No extruded herniated disc or bony canal stenosis. Circumferential bulging disc with facet and ligamentum hypertrophic change at L5-S1 with bilateral lateral recess narrowing and moderate bilateral foraminal narrowing left slightly greater than right overall not significantly changed. The number assignment of the lumbar vertebra has changed as described above and should be taken into account if any intervention is planned. Dictated by: Aubrey Galvan MD 01/19/2021 11:40 Aubrey Galvan MD in [place] 01/19/2021 11:40
== END ==
PROVIDERS: PCP Internal Medicine Adolescent Medicine; Visit Provider Internal Medicine Adolescent Medicine
DX: M54.12 Radiculopathy, cervical region (principal); M79.2 Neuralgia and neuritis, unspecified; M54.31 Sciatica, right side
CPT/HCPCS: 72148; 76376

== ENCOUNTER → 2021-01-26 09:30 | Outpatient (POV) | payer OTHER, SELFPAY ==
[2021-01-26 09:55] VITALS: BP 181/99; PULSE 87; RESP 18; O2SAT 97; BMI 32.1
--- NOTE | 2021-01-26 10:05 | HMH.PMCON ---
Assessment and Plan (1) Facet arthropathy, lumbar Status: Acute Category: Medical Code(s): M47.816 - Spondylosis without myelopathy or radiculopathy, lumbar region (2) Spondylosis Status: Acute Category: Medical Code(s): M47.9 - Spondylosis, unspecified (3) Myofascial pain Status: Acute Category: Medical Code(s): M79.18 - Myalgia, other site (4) Degenerative disc disease Status: Chronic Qualifiers: Spinal region: lumbar Qualified Code(s): M51.36 - Other intervertebral disc degeneration, lumbar region Category: Medical - Assessment and plan all Dx Assessment and Plan for all problems:: Patient has tried and failed oral medication, physical therapy, and at home exercises for greater than 6 weeks. We will not refill the patient's Robaxin today Since he states that it is not helping him. We will schedule the patient for a bilateral medial branch block at the levels of L4-L5, L5-S1. We will also schedule the patient for trigger point injections of his bilateral cervical paraspinous and trapezoid. Patient is currently not on any blood thinners. Risks and benefits of the procedure have been explained to the patient. Patient would like to proceed with the procedure. Patient has been instructed to contact the clinic with any concerns before the next appointment. Dr. Galvez has reviewed this note and agrees with this plan of care. This note was dictated using voice recognition software and make contain errors or omissions. HPI - Data of Consult Patient: new to practice Consult date: 01/26/21 Requesting Physician: Dr. Jose Francisco Caldera - Consult Narrative Reason for consult: worsening low back pain History of present illness: Mr. Salas is a 50 year old male who comes in here to reestablish care. Patient is referred by Dr. Jose Francisco Caldera for worsening back pain. Patient is a previous patient of ours. According to the patient, we did several injections on him in the past including trigger point injections, cervical and lumbar epidural steroid injections that helped relieve his pain. He says that he has not had the time to come in during covid. Patient says that he started having worsening back pain about 3 months ago. Patient denies any falls or trauma recently. Patient says the pain radiates from his lumbar back that radiates to bilateral legs and feet, worse on the left side. Patient says the pain is worse with bending, twisting, and prolonged activity. Patient says that Dr. Caldera gave him Robaxin for pain, but this has not helped him much. He is also taking Gabapentin 800mg TID for neuropathic pain that is also prescribed by Dr. Caldera. Patient has Type 2 diabetes. Patient reports no side effects from these medications. Patient denies any loss of bowel and bladder functions. Patient has tried and failed oral medication, physical therapy, and at home exercises for greater than 6 weeks in the past. Patient rates his pain today as 2/10. His Antonio number is [phone] with a morphine equivalent of 0. CC: Katty Coley APRN [facility] History I have reviewed the patient's past medical history: Yes Medical History: Reports:: Anxiety, Deep Vein Thrombosis, Diabetes Mellitus Type 2, Gastroesophageal Reflux Disease(GERD), Hyperlipidemia, Hypertension, Migraine, Palpitations, Peripheral Artery Disease Denies:: Asthma, Cancer, Chronic Obstructive Pulmonary Disease (COPD), Coronary Artery Disease, Diabetes Mellitus Type 1, Internal Pacemaker, MRSA, Seizures *Have you ever received a pneumonia vaccine?: No *Have you received a flu vaccine this season?: No Other Medical History: Reports: Arthritis, Sinus Problems, Other. Denies: Blood Transfusion Reaction Laterality Cases: Right: Other Other Surgeries: Yes: No Previous Surgery, Cardiac Catheterization, Colonoscopy, EGD, Other. No: Pacemaker Amputation: Yes (Right partial hallux amputation, Left Partial Hallux amputation ) Fractures: No - *Social History Smoking Status:
== END ==
PROVIDERS: Visit Provider Clinical Nurse Specialist Family Health
DX: M47.816 Spondylosis without myelopathy or radiculopathy, lumbar region (principal); M47.9 Spondylosis, unspecified; M79.18 Myalgia, other site; M51.36 Other intervertebral disc degeneration, lumbar region
CPT/HCPCS: 99202; G0463

== ENCOUNTER 2021-02-18 15:26 | Day surgery (SDC) | payer OTHER, SELFPAY ==
[2021-02-18 15:34] VITALS: BP 172/56; PULSE 43; RESP 18; TEMP 36.2; O2SAT 96; BMI 19.2
[2021-02-18 15:58] VITALS: BP 177/54; PULSE 68; RESP 18; O2SAT 97
[2021-02-18 16:00] VITALS: PULSE 72; RESP 18; O2SAT 97
--- NOTE | 2021-02-18 16:02 | HMH.PMPROC ---
- Procedure Date: 02/18/21 Time: 16:02 Anesthesiologist:: Kirill Galvez MD Complications:: None Pre-procedure Diagnosis:: Degenerative disc disease of lumbar spine with lumbar spondylosis and lumbar facet arthropathy Post-procedure Diagnosis:: Same Indications for Procedure:: Patient is a pleasant 50-year-old white male who we are treating for low back pain with lumbar facet arthropathy. He has increasing pain in the lower lumbar area worse with twisting and extension. He is tender over the facet joint/medial branches of L4-5 and L5-S1. We will plan on lumbar medial branch block/facet joint injections of L4-5 and L5-S1 today. Procedure Details:: Lumbar medial branch block Informed consent was obtained and the risks and benefits of the procedure was explained to the patient. The back was prepped using ChloraPrep. The skin and subcutaneous tissues were anesthetized using lidocaine. I placed 22-gauge spinal needles into the facet joint/medial branches of L4-L5 and L5-S1 bilaterally. Needle placement was confirmed with dye. After this we injected 3 mL bupivacaine 0.25% and Depo-Medrol 20 mg into each facet joint/medial branch of L4-L5 and L5-S1 bilaterally. We used a total of 80 mg Depo-Medrol for both levels bilaterally. The patient tolerated the procedure well with no complications. Plan and Disposition:: We will follow-up with him in 2 weeks. Will reevaluate symptoms at that time. If successful we will plan on RF ablation to the facet joint/medial branches of L4-5 and L5-S1 bilaterally.
[2021-02-18 16:06] VITALS: BP 152/67; PULSE 71; RESP 18; O2SAT 98
== END 2021-02-18 16:04 | disposition home or self-care (01) ==
LOC: SC.PAINP 15:26
PROVIDERS: PCP Internal Medicine Adolescent Medicine; Visit Provider Anesthesiology
DX: M51.36 Other intervertebral disc degeneration, lumbar region (principal); M47.816 Spondylosis without myelopathy or radiculopathy, lumbar region; M54.06 Panniculitis affecting regions of neck and back, lumbar region; G43.909 Migraine, unspecified, not intractable, without status migrainosus; E78.5 Hyperlipidemia, unspecified; I10 Essential (primary) hypertension; K21.9 Gastro-esophageal reflux disease without esophagitis; E11.9 Type 2 diabetes mellitus without complications; Z86.718 Personal history of other venous thrombosis and embolism; G51.0 Bell's palsy; Z88.7 Allergy status to serum and vaccine
CPT/HCPCS: 64493; 64494; 76000; Q9966

== ENCOUNTER → 2021-03-09 10:47 | Outpatient (POV) | payer OTHER, SELFPAY ==
[2021-03-09 10:55] VITALS: BP 146/79; PULSE 84; RESP 18; O2SAT 97; BMI 31.8
--- NOTE | 2021-03-09 12:10 | P.CONS_ITS ---
[facility] [place] Pain Management SOAP Note Subjective:: Patient is a 50 year old male who presents today for follow up afte MBB L4-5 and L5-S1. She got 70% relief, but after 2 weeks, pain is starting to return. He is also having left hip pain. He has tried home stretching, along with PT for greater than six weeks. He would like to proceed with repeat MBB. Rates pain 08/23. Review of Systems General: No recent weight changes, no fever, no sleep disturbances Respiratory: No cough, no shortness of air, no recurring pulmonary infections Cardiovascular/peripheral vascular: No chest pain, no palpitations, no edema, no shortness of breath Gastrointestinal: No new onset incontinence, normal bowel movements reported Genitourinary: No new onset incontinence Musculoskeletal: low back pain made worse with bending forward and extension at waist Psychiatric: [Normal mood/affect] Neurological: [Denies weakness in extremities], [denies balance issues] Objective:: Physical exam General: Alert and oriented x3, no acute distress, pleasant and cooperative Lungs: Respirations even and unlabored, symmetrical chest expansion Eyes: PERRL Musculoskeletal: Flexion and extension of lumbar [spine] somewhat guarded secondary to pain, [antalgic gait noted] Neurological: Speech clear, no gross sensory deficit Assessment:: Degenerative Disc disease lumbar spine with lumbar facet arthropathy and lumbar spondylosis Plan:: Patient got significant relief following initial MBB L4-5, L5-S1. He does have a positive kemps test today. He got 70% relief for up to two weeks. We will schedule the patient for a repeat MBB L4-L5 and L5-S1 bilaterally. He is not on any anticoagulation therapy. We will see him back after the injection for further evaluation. We will also order xray left hip. He is having worse pain to the hip. Possible side effects of corticosteroids have been discussed with the patient. Risks and benefits of the procedure have been explained to the patient. Patient would like to proceed with the procedure. Patient has been instructed to contact the clinic with any concerns before the next appointment. Dr. Galvez has reviewed this note and agrees with this plan of care. This note was dictated using voice recognition software and make contain errors or omissions. [facility] [place] History I have reviewed the patient's past medical history: Yes Medical History: Reports:: Anxiety, Arrhythmia, Deep Vein Thrombosis, Diabetes Mellitus Type 2, Gastroesophageal Reflux Disease(GERD), Hyperlipidemia, Hypertension, Migraine, Palpitations, Peripheral Artery Disease Denies:: Asthma, Cancer, Chronic Obstructive Pulmonary Disease (COPD), Coronary Artery Disease, Diabetes Mellitus Type 1, Internal Pacemaker, MRSA, Seizures *Have you ever received a pneumonia vaccine?: No *Have you received a flu vaccine this season?: No Other Medical History: Reports: Arthritis, Sinus Problems, Other. Denies: Blood Transfusion Reaction Laterality Cases: Right: Other Other Surgeries: Yes: No Previous Surgery, Cardiac Catheterization, Colonoscopy, EGD, Other. No: Pacemaker Amputation: Yes (Right partial hallux amputation, Left Partial Hallux amputation ) Fractures: No - *Social History Smoking Status: Never smoker # Packs/Day (cigarettes): 0 #Yrs smoked (if former smoker): 0 Alcohol Intake: never Alcohol Intake Frequency:: other Substance Use Type: denies use *Occupational Status:: unemployed Housing: house Household Members: spouse *Travel in the last 8 weeks: None - Psychiatric History Pschychiatric History:: Reports:: An
== END ==
PROVIDERS: Visit Provider Clinical Nurse Specialist Family Health
DX: M51.36 Other intervertebral disc degeneration, lumbar region (principal); M47.816 Spondylosis without myelopathy or radiculopathy, lumbar region; M54.06 Panniculitis affecting regions of neck and back, lumbar region
CPT/HCPCS: 99212; G0463

== ENCOUNTER → 2021-03-16 09:46 | Outpatient (CLI) | payer OTHER, SELFPAY ==
--- NOTE | 2021-03-16 09:50 | XR_ITS ---
FINAL REPORT CLINICAL HISTORY: LT HIP PAIN FINDINGS: LEFT HIP: Two views of the left hip including an AP pelvis demonstrate no acute fracture or dislocation. The joint spaces appear normal. The visualized bony structures are well aligned. No soft tissue abnormality is seen. IMPRESSION: No acute bony abnormality. Reviewed, Interpreted and Dictated by Westley Sanford III, MD Transcribed by Becky Jimenez Authenticated by Westley Sanford III, MD on 03/16/2021 12:06:[address] [facility]
== END ==
PROVIDERS: PCP Internal Medicine Adolescent Medicine; Visit Provider Clinical Nurse Specialist Family Health
DX: M25.552 Pain in left hip (principal)
CPT/HCPCS: 73502

== ENCOUNTER 2021-04-10 12:30 | Day surgery (SDC) | payer OTHER, SELFPAY ==
[2021-04-10 12:52] VITALS: BP 136/80; PULSE 72; RESP 16; TEMP 36.9; O2SAT 96; BMI 32.1
[2021-04-10 13:28] VITALS: BP 148/76; PULSE 67; RESP 18; O2SAT 94
[2021-04-10 13:29] VITALS: BP 144/72; PULSE 66; RESP 18; O2SAT 94
[2021-04-10 13:50] VITALS: BP 143/77; PULSE 71; RESP 20; O2SAT 98
--- NOTE | 2021-04-10 14:28 | HMH.PMPROC ---
- Procedure Date: 04/10/21 Time: 14:28 Anesthesiologist:: Divya Stovall MD Complications:: None Pre-procedure Diagnosis:: Degenerative disc disease of the lumbar spine with lumbar facet arthropathy and spondylosis Post-procedure Diagnosis:: Same Indications for Procedure:: Patient is a very pleasant 50-year-old white male who presents today with chronic low back pain related to the above diagnosis. He denies any radiation of pain down his legs. He has tried and failed conservative treatment including oral pain medications and home stretching program for greater than 6 weeks. He is currently taking gabapentin and milligrams 3 times daily as prescribed by Dr. Palomino. Note, the patient is a diabetic. The plan for today is for the patient to undergo agnostic lumbar facet joint/medial branch block injections at L4-L5 and L5-S1 bilaterally under fluoroscopy #1 Procedure Details:: Lumbar medial branch block Informed consent was obtained and the risks and benefits of the procedure was explained to the patient. The back was prepped using ChloraPrep. The skin and subcutaneous tissues were anesthetized using lidocaine. I placed 22-gauge spinal needles into the facet joint/medial branches of L4-L5 and L5-S1 bilaterally. Needle placement was confirmed with dye. After this we injected 3 mL solution consisting of bupivacaine 0.25% and 40mg Depo-Medrol into each facet joint/medial branch of L4- L5 and L5-S1 bilaterally. We used a total of 80 mg Depo-Medrol for all 2 levels bilaterally. The patient tolerated the procedure well with no complications. Plan and Disposition:: Follow-up with this patient in 2 weeks. Will reevaluate pain symptoms at that time.
== END 2021-04-10 13:50 | disposition home or self-care (01) ==
LOC: SC.PAINP 12:30
PROVIDERS: PCP Internal Medicine Adolescent Medicine; Visit Provider Anesthesiology Pain Medicine
DX: M51.36 Other intervertebral disc degeneration, lumbar region (principal); M54.06 Panniculitis affecting regions of neck and back, lumbar region; M47.816 Spondylosis without myelopathy or radiculopathy, lumbar region; G43.909 Migraine, unspecified, not intractable, without status migrainosus; E78.5 Hyperlipidemia, unspecified; I10 Essential (primary) hypertension; K21.9 Gastro-esophageal reflux disease without esophagitis; E11.9 Type 2 diabetes mellitus without complications; Z86.718 Personal history of other venous thrombosis and embolism
CPT/HCPCS: 64493; 64494; Q9966

== ENCOUNTER → 2021-05-07 10:22 | Outpatient (POV) | payer OTHER, SELFPAY ==
[2021-05-07 10:25] VITALS: BP 133/69; PULSE 69; RESP 20; TEMP 36.4; O2SAT 97; BMI 32.1
--- NOTE | 2021-05-07 12:38 | HMH.PAINSOAP ---
[facility] Pain Management SOAP Note Subjective:: Patient is a pleasant 50-year-old male who presents today for follow-up after a medial branch block at L4-L5 and L5-S1 bilaterally#1. Patient is currently being treated for degenerative disc disease of lumbar spine with lumbar facet arthropathy, lumbar spondylosis. After procedure, patient states that he had relief for about 2 to 3 days. He reports no issues after the injections. He rates his pain today as 4 out of 10. He is also complaining of neck and shoulder pain. He had trigger point injections in these areas in the past that helped him. He denies any recent falls or traumas. For pain management, he is taking gabapentin 800 mg 3 times a day that is prescribed by Dr. Caldera. Antonio #[phone] with an active morphine equivalent of 0. Review of Systems: General: No recent weight changes, no fever, no sleep disturbances Respiratory: No cough, no shortness of air, no recurring pulmonary infections Cardiovascular/peripheral vascular: No chest pain, no palpitations, no edema, no shortness of breath Gastrointestinal: No new onset incontinence, normal bowel movements reported Genitourinary: No new onset incontinence Musculoskeletal: Neck pain Psychiatric: [Normal mood/affect] Neurological: [Denies weakness in extremities], [denies balance issues] Objective:: General: Alert and oriented x3, no acute distress, pleasant and cooperative, [on room air] Lungs: Respirations even and unlabored, symmetrical chest expansion Eyes: PERRL Musculoskeletal: Flexion and extension of lumbar [spine] somewhat guarded secondary to pain; neck and shoulders are tender to palpation. Limited range of motion of the neck secondary to pain. Neurological: Speech clear, no gross sensory deficit Assessment:: Degenerative disc disease of the lumbar spine, facet arthropathy, lumbar spondylosis Myofascial 0333 of bilateral cervicals paraspinous and upper trapezius Plan:: Patient had significant relief of about 80 to 90% after the medial branch block at L4-L5, L5-S1 bilaterally. This lasted for about 2 to 3 days. We will schedule the patient for a repeat medial branch block at L4-L5, L5-S1 bilaterally. Risks and benefits of the procedure have been explained to the patient. Patient would like to proceed with the procedure. Patient is currently not on any blood thinners. Patient is also complaining of cough tenderness to palpation around his neck and shoulders. He has had trigger point injections in these areas in the past that helped him significantly. We will schedule the patient for trigger point injections at bilateral cervical paraspinous and upper trapezius. Risks and benefits of the procedure have been explained to the patient. Patient would like to proceed with the procedure. Patient has been instructed to contact the clinic with any concerns before the next appointment. Dr. Galvez has reviewed this note and agrees with this plan of care. This note was dictated using voice recognition software and make contain errors or omissions. [facility] History Medical History: Reports:: Anxiety, Arrhythmia, Deep Vein Thrombosis, Diabetes Mellitus Type 2, Gastroesophageal Reflux Disease(GERD), Hyperlipidemia, Hypertension, Migraine, Palpitations, Peripheral Artery Disease Denies:: Asthma, Cancer, Chronic Obstructive Pulmonary Disease (COPD), Coronary Artery Disease, Diabetes Mellitus Type 1, Internal Pacemaker, MRSA, Seizures *Have you ever received a pneumonia vaccine?: No *Have you received a flu vaccine this season?: No Other Medical History: Reports: Arthritis, Sinus Problems, Other. Denies: Blood Transfusion Reaction Laterality Cases: Right: Other Other Surgeries: Yes: No Previous Surgery, Cardiac Catheterization, Colonoscopy, EGD, Other. No: Pacemaker Amputation: Yes (Right partial hallux amputation, Left Partial Hallux amputation ) Fractures: No - *Social History Smoking Status: Never smoker # Packs/Day (cigarettes):
== END ==
PROVIDERS: Visit Provider Student in an Organized Health Care Education/Training Program
DX: M51.36 Other intervertebral disc degeneration, lumbar region (principal); M47.896 Other spondylosis, lumbar region; M54.06 Panniculitis affecting regions of neck and back, lumbar region; M79.12 Myalgia of auxiliary muscles, head and neck
CPT/HCPCS: 99212; G0463

== ENCOUNTER 2021-05-22 09:49 | Day surgery (SDC) | payer OTHER, SELFPAY ==
[2021-05-22 10:15] VITALS: BP 152/86; PULSE 72; RESP 20
[2021-05-22 10:17] VITALS: BP 152/86; PULSE 76; RESP 20
[2021-05-22 10:18] VITALS: BP 151/85; PULSE 66; RESP 20; TEMP 36.2; O2SAT 98; BMI 32.1
[2021-05-22 10:20] VITALS: BP 151/85; PULSE 66; RESP 18; O2SAT 98
--- NOTE | 2021-05-22 10:21 | HMH.PMPROC ---
- Procedure Date: 05/22/21 Time: 10:21 Anesthesiologist:: Kt Fraser CRNA Complications:: None Pre-procedure Diagnosis:: Chronic bilateral trapezius and bilateral posterior cervical paraspinous muscle spasms. Post-procedure Diagnosis:: Same Indications for Procedure:: Very pleasant 50-year-old white male that presents to our injection clinic today for bilateral trapezius and bilateral posterior cervical spinous trigger point injections. He has had these in the past with significant improvement. Procedure Details:: Details of the procedure were explained to the patient. The patient was placed in the sitting position. The area over the bilateral posterior cervical spine as well as bilateral trapezius muscles was cleansed using chlorhexidine as a cleansing solution. In 4 separate puncture wounds using a 25-gauge inch and half needle 2 cc of 1% lidocaine +4 to 8 mg of Depo-Medrol was injected. Patient tolerated procedure without difficulty. There were no complications. Plan and Disposition:: Patient was discharged home without difficulty or incident.
== END 2021-05-22 10:21 | disposition home or self-care (01) ==
LOC: SC.PAINP 09:49
PROVIDERS: PCP Internal Medicine Adolescent Medicine; Visit Provider Nurse Anesthetist, Certified Registered
DX: M79.12 Myalgia of auxiliary muscles, head and neck (principal); F41.9 Anxiety disorder, unspecified; E11.9 Type 2 diabetes mellitus without complications; K21.9 Gastro-esophageal reflux disease without esophagitis; E78.5 Hyperlipidemia, unspecified; I10 Essential (primary) hypertension; G43.909 Migraine, unspecified, not intractable, without status migrainosus; R00.2 Palpitations; M19.90 Unspecified osteoarthritis, unspecified site; Z86.718 Personal history of other venous thrombosis and embolism; Z89.412 Acquired absence of left great toe; Z89.411 Acquired absence of right great toe
CPT/HCPCS: 20553; J1040

== ENCOUNTER 2021-05-29 13:29 | Day surgery (SDC) | payer OTHER, SELFPAY ==
[2021-05-29 13:35] VITALS: BP 146/76; PULSE 68; RESP 18; TEMP 36.5; O2SAT 94; BMI 32.1
[2021-05-29 13:46] VITALS: BP 152/75; PULSE 68; RESP 20; O2SAT 96
--- NOTE | 2021-05-29 13:46 | P.PCN_ITS ---
- Procedure Date: 05/29/21 Time: 13:46 Anesthesiologist:: Kt Fraser CRNA Complications:: None Pre-procedure Diagnosis:: Facet arthropathy lumbar spine. Lumbar spondylosis. Post-procedure Diagnosis:: Same Indications for Procedure:: Patient is a very pleasant 50-year-old white male that we have been seeing for quite some time in our clinic. He is responded very well to facet/medial branch blocks in the past the lumbar spine. He presents today for repeat lumbar L4-5, L5-S1 facet block. Procedure Details:: Informed consent was obtained and the risk and benefits of the procedure was explained to the patient. Patient was taken to the procedure room where noninvasive monitors were placed, including noninvasive blood pressure cuff as well as pulse oximeter. The area over the lumbar spine was cleansed using chlorhexidine as a cleansing solution. I anesthetized the skin and subcutaneous tissues with 1% Lidocaine. I placed 22-gauge spinal needles into the facet joint/ medial branches of L4-L5, and L5-S1] bilaterally. Needle placement was confirmed with fluoroscopy. After confirmation of needle placement, each site was injected with 1 mL of 1% lidocaine and 0.25 % Marcaine and 10 mg of Depo- Medrol. A total of 80 mg of depo medrol was used for bilateral medial branch blocks of L4-L5, and L5-S1] bilaterally. Patient tolerated the procedure without difficulty. There were no complications. Plan and Disposition:: Patient tolerated the procedure without difficulty. She was discharged from the clinic. She will return to follow-up with us in the pain clinic.
[2021-05-29 13:47] VITALS: BP 152/75; PULSE 68; RESP 20; O2SAT 96
[2021-05-29 13:52] VITALS: BP 139/82; PULSE 67; RESP 18; O2SAT 99
== END 2021-05-29 13:53 | disposition home or self-care (01) ==
LOC: SC.PAINP 13:30
PROVIDERS: PCP Internal Medicine Adolescent Medicine; Visit Provider Nurse Anesthetist, Certified Registered
DX: M54.06 Panniculitis affecting regions of neck and back, lumbar region (principal); M47.816 Spondylosis without myelopathy or radiculopathy, lumbar region; E11.9 Type 2 diabetes mellitus without complications; K21.9 Gastro-esophageal reflux disease without esophagitis; E78.5 Hyperlipidemia, unspecified; I10 Essential (primary) hypertension; G43.909 Migraine, unspecified, not intractable, without status migrainosus; I73.9 Peripheral vascular disease, unspecified; F41.9 Anxiety disorder, unspecified; R00.2 Palpitations; M19.90 Unspecified osteoarthritis, unspecified site; Z88.7 Allergy status to serum and vaccine
CPT/HCPCS: 64493; 64494; J1030

== ENCOUNTER 2021-06-05 21:03 | Inpatient (IN) | payer OTHER, SELFPAY ==
[2021-06-05 21:05] VITALS: BP 140/91; PULSE 123; RESP 16; TEMP 36.8; O2SAT 98; BMI 34.0
[2021-06-05 21:11] VITALS: BP 137/57; PULSE 88; RESP 16; TEMP 37.4; O2SAT 98; BMI 32.1
--- NOTE | 2021-06-05 21:23 | CT_ITS ---
PROCEDURE INFORMATION: Exam: CT Right Lower Extremity Without Contrast, Foot Exam date and time: 06/05/2021 10:28 PM Age: 50 years old Clinical indication: Pain; Toes; Right; Prior surgery; Surgery date: 6+ months; Surgery type: Amputation of part of great toe and then part of 2nd toe; Additional info: Wound to right second toe diabetic. RO osteomylitis TECHNIQUE: Imaging protocol: CT of the Right lower extremity without contrast was performed. Exam focused on the foot. Radiation optimization: All CT scans at this facility use at least one of these dose optimization techniques: automated exposure control; mA and/or kV adjustment per patient size (includes targeted exams where dose is matched to clinical indication); or iterative reconstruction. COMPARISON: MR FOOT RT WO/W CON 08/28/2020 8:57 AM FINDINGS: Bones/joints: Postsurgical changes compatible with partial amputation of the great toe and 2nd toe. Subtle erosion at the tip of the great toe proximal phalanx (image 285 of series 2) may represent early osteomyelitis. Soft tissues: Moderate soft tissue swelling of the 1st and 2nd toes without emphysematous changes. IMPRESSION: 1. Postsurgical changes compatible with partial amputation of the great toe and 2nd toe. 2. Moderate soft tissue swelling of the 1st and 2nd toes without emphysematous changes. 3. Subtle erosion at the tip of the great toe proximal phalanx (image 285 of series 2) may represent early osteomyelitis. Recommend further evaluation with MRI to confirm.
[2021-06-05 21:30] VITALS: BP 122/57; PULSE 90; O2SAT 96
[2021-06-05 22:01] VITALS: BP 100/73; PULSE 84; O2SAT 95
[2021-06-05 22:07] LABS: Alanine Aminotransferase 28 U/L (12-78); Albumin Level 3.9 g/dl (3.5-5.0); Albumin/Globulin Ratio 1.4 (1.1-1.8); Alkaline Phosphatase 103 U/L (38-126); Anion Gap 9.4 mEq/L (5-15); Aspartate Amino Transferase 27 U/L (17-59); Bilirubin,Total 0.7 mg/dl (0.2-1.3); Blood Urea Nitrogen 24 mg/dl (9-20); Calcium 8.4 mg/dl (8.4-10.2); Carbon Dioxide 27 mmol/L (22.0-30.0); Chloride 109 mmol/L (98-107); Creatinine Clearance Estimated 115 mL/min (50-200); Estimated Glomerular Filt Rate 64 ml/min (>60); GFR (African American) 77 ML/MIN (>60); Globulin 2.7 g/dL (1.3-3.2); Glucose 203 mg/dl (74-100); Lactic Acid 1.4 mmol/L (0.7-2.1); Potassium 4.4 mmoL/L (3.5-5.1); Sodium 141 mmol/L (136-145); Total Protein,Serum 6.6 g/dl (6.3-8.2)
[2021-06-05 22:12] LABS: C-Reactive Protein 5.5 mg/L (0-4)
--- NOTE | 2021-06-05 22:16 | HMH.EDLOEX ---
ED Disposition Clinical Impression: Abscess of skin or subcutaneous tissue Qualifiers: Site of cutaneous abscess: extremity Site of cutaneous abscess of extremity: lower extremity Laterality: right Qualified Code(s): L02.415 - Cutaneous abscess of right lower limb Type 2 diabetes mellitus Qualifiers: Diabetes mellitus shelter insulin use: unspecified shelter insulin use status Diabetes mellitus complication status: with other specified complication Qualified Code(s): E11.69 - Type 2 diabetes mellitus with other specified complication Disposition: Admitted as Observation Condition on Discharge: Fair Referrals: Jose Francisco Caldera MD [Primary Care Provider] - - Critical Care Critical Care Time: No Attestation: On 06/05/21, the high probability of a clinically significant, sudden or life threatening deterioration of the following system(s) required my full and direct attention, intervention and personal management. The time I documented below is in addition to time spent performing reported procedures but includes the following listed in this critical care notation. Medical Decision Making - Medical Records Medical records reviewed: Yes: I reviewed the patient's medical records. - Antonio Inquiry Pt receiving controlled substance: No Vital Signs: 06/05/21 21:05 06/05/21 21:11 Temperature 98.2 F 99.3 F Temperature Source Oral Oral Pulse Rate [Left Radial] 88 Pulse Rate [Left] 123 H Respiratory Rate 16 16 Blood Pressure [Left Arm] 137/57 L Blood Pressure [Right Arm] 140/91 H Blood Pressure Mean [Left Arm] 83 Blood Pressure Mean [Right Arm] 107 Blood Pressure Source [Left Arm] Automatic Cuff Blood Pressure Position [Left Arm] Sitting 02 Sat by Pulse Oximetry 98 98 Oxygen Delivery Method Room Air Room Air - Lab Data Lab results reviewed: Yes: I reviewed the patient's lab results. Lab Results 06/05/21 21:29: WBC 10.0, RBC 4.58 L, Hgb 14.6, Hct 43.7, MCV 95.4 H, MCH 31.8 H, MCHC 33.4, RDW 13.8, Plt Count 231, MPV 8.3, Neut % (Auto) 76.1, Lymph % (Auto) 16.1, [place] % (Auto) 6.4, Eos % (Auto) 0.5, Baso % (Auto) 0.9, Neut # (Auto) 7.6, Lymph # (Auto) 1.6, [place] # (Auto) 0.6, Eos # (Auto) 0.1, Baso # (Auto) 0.1, ESR 17 06/05/21 21:29: Sodium 141, Potassium 4.4, Chloride 109 H, Carbon Dioxide 27, Anion Gap 9.4, BUN 24 H, Creatinine 1.20, Estimated Creat Clear 115, Estimated GFR 64, Est GFR ( Amer) 77, Glucose 203 H, Calcium 8.4, Total Bilirubin 0.7, AST 27, ALT 28, Alkaline Phosphatase 103, C-Reactive Protein 5.5 H, Total Protein 6.6, Albumin 3.9, Globulin 2.7, Albumin/Globulin Ratio 1.4, Procalcitonin 0.070 06/05/21 21:29: Lactate 1.4 Result diagrams: 06/05/21 21:29 06/05/21 21:29 Orders (Tests/Meds): ED MEDICATIONS Generic Name Dose Route Start Last Admin Trade Name Freq PRN Reason Stop Dose Admin Lactated Ringer's 1,000 mls @ 999 mls/hr 06/05/21 21:45 06/05/21 21:45 Lactated Ringer's 1000 Ml Bag IV 06/05/21 22:45 999 mls/hr .Q1H1M KAREN Administration Vancomycin HCl 2,000 mg/ 250 mls @ 125 mls/hr 06/05/21 22:45 Sodium Chloride IV 06/06/21 00:44 ONCE ONE Miscellaneous 1 each 06/05/21 22:30 06/05/21 22:37 Vancomycin Consult Request * 07/05/21 22:29 1 each CONSULT PHARMACY KAREN Administration Discontinued Medications Generic Name Dose Route Start Last Admin Trade Name Freq PRN Reason Stop Dose Admin Ketorolac Tromethamine 15 mg 06/05/21 21:39 06/05/21 21:44 Ketorolac 30mg/Ml Vial IV 06/05/21 21:40 15 mg ONCE ONE Administration ORDERS Category Date Time Status Rapid PCR Covid and Flu A/B Stat Lab 06/05/21 23:10 Received Blood Culture Stat Micro 06/05/21 21:29 Received Wound Culture and Gram Stain Stat Micro 06/05/21 22:25 Results - CT Data CT Scan: Other (foot ) Time Received: 23:[address] Reviewed: Yes: I have viewed the radiologist's interpretation Preliminary Findings: Abnormal (see report ) - Physician Consults Physician
[2021-06-05 22:22] LABS: Basophils # 0.1 K/mm3 (0-0.2); Basophils % 0.9 % (0.1-2.0); Eosinophils # 0.1 K/mm3 (0.0-0.4); Eosinophils % 0.5 % (0.1-12.0); Hematocrit 43.7 % (42.0-52.0); Hemoglobin 14.6 g/dL (14.1-18.0); Lymphocytes # 1.6 K/mm3 (0.7-4.5); Lymphocytes % 16.1 % (10-50); Mean Corpuscular HGB Conc 33.4 g/dL (31.8-35.4); Mean Corpuscular Hemoglobin 31.8 pg (27.0-31.2); Mean Corpuscular Volume 95.4 fl (80-94); Mean Platelet Volume 8.3 fl (7.4-10.4); Monocytes # 0.6 K/mm3 (0.1-1.0); Monocytes % 6.4 % (1.7-9.3); Neutrophils # 7.6 K/mm3 (1.8-7.8); Neutrophils % 76.1 % (37.0-80.0); Platelet Count 231 K/mm3 (142-424); Red Blood Count 4.58 M/mm3 (4.60-6.20); Red Cell Distribution Width 13.8 % (11.5-17.5)
--- NOTE | 2021-06-05 22:25 | PC.NURSE ---
WOUND CULTURE OBTAINED. DRY DRESSING APPLIED.
[2021-06-05 23:05] LABS: Erythrocyte Sedimentation Rate 17 mm/hr (0-20)
[2021-06-05 23:17] LABS: Coronavirus 19, PCR Not Detected (NotDetected); Influenza A, PCR Not Detected (NotDetected); Influenza B, PCR Not Detected (NotDetected)
[2021-06-05 23:36] VITALS: BMI 33.0
[2021-06-06] VITALS (7 sets, daily range): BP systolic 110–179; BP diastolic 65–86; PULSE 56–70; RESP 16–20; TEMP 36.4–37; O2SAT 95–98; BMI 33.0
--- NOTE | 2021-06-06 00:55 | PC.NURSE ---
PT ARRIVED TO FLOOR VIA WHEEL CHAIR, 00:54
--- NOTE | 2021-06-06 02:11 | PC.WOUNDNOTE ---
RT foot 2nd toe
--- NOTE | 2021-06-06 03:03 | PC.NURSE ---
Patient admitted to floor. RT foot assessed and reapplied dressing of telfa and coband. Patient does complain of pain in rt foot medicated per apr. Patient received antibiotics and fluids per apr. VSS. Patient states understanding to call out for help ambulating to the restroom. Nonskids applied at time of admission. Patient does however refuse teds, education provided. Call light with in reach.
[2021-06-06 07:20] LABS: Chloride 110 mmol/L (98-107)
[2021-06-06 07:21] LABS: Potassium 4.5 mmoL/L (3.5-5.1); Sodium 140 mmol/L (136-145)
[2021-06-06 07:24] LABS: Anion Gap 5.5 mEq/L (5-15); Blood Urea Nitrogen 22 mg/dl (9-20); Calcium 7.8 mg/dl (8.4-10.2); Carbon Dioxide 29 mmol/L (22.0-30.0); Creatinine Clearance Estimated 130 mL/min (50-200); Estimated Glomerular Filt Rate 70 ml/min (>60); GFR (African American) 85 ML/MIN (>60); Glucose 145 mg/dl (74-100)
--- NOTE | 2021-06-06 07:29 | HMH.HP ---
*Admission Date: 06/06/21 *Chief complaint: foot pain, infection *History of present illness: Mr. Slaas is a pleasant 50-year-old gentleman with history of type 2 diabetes, peripheral neuropathy, diabetic foot wounds, multiple previous amputations over the past few years of his toes. States that over the past week he developed a blister and wound on the distal end of his right second toe that has previously had partial amputation. Has been treating at home with Betadine and dressings based on previous recommendations from podiatry. Initially thought it was doing well but when he took the bandage off yesterday he noted a foul smell and worsening wound size. States about every year this time he gets blistering and lesions of a few toes on his right foot. Last year was the first year he did not have an amputation per his report. Given increase in pain and appearance of foot, he came to the ER for evaluation. Labs relatively normal with no leukocytosis. Slight elevation in inflammatory markers. CT of foot showed no lonnie osteomyelitis. Patient admitted for initiation of IV antibiotics and monitoring. Foot this morning and a clean bandage. Being wrapped by nursing. Discussed starting Betadine soaked gauze daily with daily dressing changes. Patient denies any chest pain, shortness of breath, nausea, vomiting, redness or swelling of the foot. [facility] History I have reviewed the patient's past medical history: Yes Medical History: Reports:: Anxiety, Arrhythmia, Deep Vein Thrombosis, Diabetes Mellitus Type 2, Gastroesophageal Reflux Disease(GERD), Hyperlipidemia, Hypertension, Migraine, Palpitations, Peripheral Artery Disease Denies:: Asthma, Cancer, Chronic Obstructive Pulmonary Disease (COPD), Coronary Artery Disease, Diabetes Mellitus Type 1, Internal Pacemaker, MRSA, Seizures *Have you ever received a pneumonia vaccine?: No *Have you received a flu vaccine this season?: No Other Medical History: Reports: Arthritis, Sinus Problems, Other. Denies: Blood Transfusion Reaction Laterality Cases: Right: Other Other Surgeries: Yes: No Previous Surgery, Cardiac Catheterization, Colonoscopy, EGD, Other. No: Pacemaker Amputation: Yes (Right partial hallux amputation, Left Partial Hallux amputation ) Fractures: No - *Social History Smoking Status: Never smoker # Packs/Day (cigarettes): 0 #Yrs smoked (if former smoker): 0 Alcohol Intake: current Alcohol Intake Frequency:: holidays/special occasions only Substance Use Type: denies use *Occupational Status:: employed Housing: house Household Members: spouse *Travel in the last 8 weeks: Inside the [place] - Psychiatric History Pschychiatric History:: Reports:: Anxiety Family Hx:: Diabetes Review of Systems - Review of Systems Review of systems:: pertinent systems reviewed and negative unless documented below (14 point review of systems performed, pertinent positives and negatives as per HPI) - *Neurologic Denies headache(s), Denies seizure-like activity Meds Home Medications Medication Instructions Recorded Confirmed Type Finasteride [Proscar 5mg Tablet] 5 mg PO DAILY 03/08/17 06/05/21 History atorvastatin 40 mg tablet 40 mg PO HS 30 Days tab 05/23/18 06/05/21 History Gabapentin 600 mg PO TID 06/10/20 06/05/21 History Melatonin 10 mg PO HS 06/10/20 06/05/21 History Metformin HCl [Metformin 1000mg 1,000 mg PO BID 06/10/20 06/05/21 History Tablets] Tamsulosin HCl 0.4 mg PO DAILY 06/10/20 06/05/21 History lisinopriL [Lisinopril] 20 mg PO DAILY 06/10/20 06/05/21 History dapagliflozin 10 mg tablet 10 mg PO DAILY tab 09/11/20 06/05/21 History Allergies Allergy/AdvReac Type Severity Reaction Status Date / Time tetanus toxoid, adsorbed Allergy Verified 05/29/21 13:36 Exam Vital signs and Labs for Last 24 Hours: Temp Pulse Resp BP Pulse Ox 97.6 F 56 L 18 179/86 H 98 06/06/21 04:00 06/06/21 04:00 06/06/21 04:00 06/06/21 04:00 06/06/21 04:00 Laboratory Resul
[2021-06-06 07:35] LABS: Basophils # 0.1 K/mm3 (0-0.2); Basophils % 0.7 % (0.1-2.0); Eosinophils # 0.1 K/mm3 (0.0-0.4); Eosinophils % 0.9 % (0.1-12.0); Hematocrit 39.6 % (42.0-52.0); Lymphocytes # 1.9 K/mm3 (0.7-4.5); Lymphocytes % 26.1 % (10-50); Mean Corpuscular HGB Conc 33.2 g/dL (31.8-35.4); Mean Corpuscular Hemoglobin 31.9 pg (27.0-31.2); Mean Corpuscular Volume 96.1 fl (80-94); Mean Platelet Volume 8.2 fl (7.4-10.4); Monocytes # 0.5 K/mm3 (0.1-1.0); Monocytes % 7.3 % (1.7-9.3); Neutrophils # 4.7 K/mm3 (1.8-7.8); Neutrophils % 64.9 % (37.0-80.0); Platelet Count 177 K/mm3 (142-424); Red Blood Count 4.12 M/mm3 (4.60-6.20); Red Cell Distribution Width 13.8 % (11.5-17.5); White Blood Count 7.2 K/mm3 (4.8-10.8)
[2021-06-06 08:05] LABS: Hemoglobin 13.2 g/dL (14.1-18.0)
--- NOTE | 2021-06-06 08:19 | HMH.PHACONS ---
- Pharmacy Consult Date: 06/06/21 Time: 08:19 Referring provider: DR. CHACON Reason for Consult:: VANCOMYCIN DOSING Allergies and ADEs:: Allergies Allergy/AdvReac Type Severity Reaction Status Date / Time tetanus toxoid, adsorbed Allergy Verified 05/29/21 13:36 Home Medications:: Home Medications Medication Instructions Recorded Confirmed Type Finasteride [Proscar 5mg Tablet] 5 mg PO DAILY 03/08/17 06/05/21 History atorvastatin 40 mg tablet 40 mg PO HS 30 Days tab 05/23/18 06/05/21 History Gabapentin 600 mg PO TID 06/10/20 06/05/21 History Melatonin 10 mg PO HS 06/10/20 06/05/21 History Metformin HCl [Metformin 1000mg 1,000 mg PO BID 06/10/20 06/05/21 History Tablets] Tamsulosin HCl 0.4 mg PO DAILY 06/10/20 06/05/21 History lisinopriL [Lisinopril] 20 mg PO DAILY 06/10/20 06/05/21 History dapagliflozin 10 mg tablet 10 mg PO DAILY tab 09/11/20 06/05/21 History Height: 1.88 m Weight: 117.027 kg Laboratory Results:: Laboratory Results - last 24 hr 06/05/21 21:29: WBC 10.0, RBC 4.58 L, Hgb 14.6, Hct 43.7, MCV 95.4 H, MCH 31.8 H, MCHC 33.4, RDW 13.8, Plt Count 231, MPV 8.3, Neut % (Auto) 76.1, Lymph % (Auto) 16.1, [place] % (Auto) 6.4, Eos % (Auto) 0.5, Baso % (Auto) 0.9, Neut # (Auto) 7.6, Lymph # (Auto) 1.6, [place] # (Auto) 0.6, Eos # (Auto) 0.1, Baso # (Auto) 0.1, ESR 17 06/05/21 21:29: Sodium 141, Potassium 4.4, Chloride 109 H, Carbon Dioxide 27, Anion Gap 9.4, BUN 24 H, Creatinine 1.20, Estimated Creat Clear 115, Estimated GFR 64, Est GFR ( Amer) 77, Glucose 203 H, Calcium 8.4, Total Bilirubin 0.7, AST 27, ALT 28, Alkaline Phosphatase 103, C-Reactive Protein 5.5 H, Total Protein 6.6, Albumin 3.9, Globulin 2.7, Albumin/Globulin Ratio 1.4, Procalcitonin 0.070 06/05/21 21:29: Lactate 1.4 06/05/21 23:10: SARS-CoV-2 (PCR) Not detected, Influenza A Untype (PCR) Not detected, Influenza Type B (PCR) Not detected 06/06/21 06:41: WBC 7.2 D, RBC 4.12 L, Hgb 13.2 L, Hct 39.6 L, MCV 96.1 H, MCH 31.9 H, MCHC 33.2, RDW 13.8, Plt Count 177, MPV 8.2, Neut % (Auto) 64.9, Lymph % (Auto) 26.1, [place] % (Auto) 7.3, Eos % (Auto) 0.9, Baso % (Auto) 0.7, Neut # (Auto) 4.7, Lymph # (Auto) 1.9, [place] # (Auto) 0.5, Eos # (Auto) 0.1, Baso # (Auto) 0.1 06/06/21 06:41: Sodium 140, Potassium 4.5, Chloride 110 H, Carbon Dioxide 29, Anion Gap 5.5, BUN 22 H, Creatinine 1.10, Estimated Creat Clear 130, Estimated GFR 70, Est GFR ( Amer) 85, Glucose 145 H D, Calcium 7.8 L Medical History: Reports:: Anxiety, Arrhythmia, Deep Vein Thrombosis, Diabetes Mellitus Type 2, Gastroesophageal Reflux Disease(GERD), Hyperlipidemia, Hypertension, Migraine, Palpitations, Peripheral Artery Disease Denies:: Asthma, Cancer, Chronic Obstructive Pulmonary Disease (COPD), Coronary Artery Disease, Diabetes Mellitus Type 1, Internal Pacemaker, MRSA, Seizures Assessment and Plan - Assessment and plan all Dx Assessment and Plan for all problems:: Age: 50 yo Serum creatinine: 1.1 mg/dL Height: 74.0 Inches Weight (kg): 117 Assessment: IBW (kg): 82.20 Dosing wt(kg): 117 Estimated Creatinine clearance (ml/min): 91.3 CRCL method: Cockcroft and Gault using ibw(default). Drug selected: Vancomycin Loading dose (mg): 0 Vd (liters): 93.6 (factor used: 0.8 L/kg) [place] (hr-1): 0.080 Half life (hrs): 8.66 Recommended dose: 2000 mg Interval: 12 hrs Infusion time (hrs): 2.0 Predicted peak (mcg/mL): 32.0 Predicted trough (mcg/mL): 14.38 Total body weight is being used for vancomycin dosing. Recommendations: Give Vancomycin 2000 mg q 12 hrs with an expected Cpeak of 32.0 mcg/ml and an expected Ctrough of 14.38 mcg/ml. ----Vanco only - ignore for aminoglycosides----- CLvanco= 7.49 L/hr AUC 0-24 /MARIA G Data: MARIA G 0.5 mcg/mL: AUC/MARIA G: 1068.1 MARIA G 1.0 mcg/mL: AUC/MARIA G: 534.0 --------- MARIA G 1.5 mcg/mL: AUC/
[2021-06-06 12:05] LABS: POC Glucose,Bedside 141 (70-110)
--- NOTE | 2021-06-06 13:09 | HMH.PHAVTE ---
[facility] Pharmacy VTE Monitoring - Patient Demographics Admission date: 06/06/21 Report Date: 06/06/21 Time: 13:09 Allergies/Adverse Reactions: Patient Allergies tetanus toxoid, adsorbed Allergy (Verified 05/29/21 13:36) Height: 1.88 m Weight: 117.027 kg Patient Problems: Current Active Problems Abscess of skin or subcutaneous tissue (Acute) Type 2 diabetes mellitus (Chronic) Essential hypertension (Chronic) Diabetic foot (Chronic) Obesity (BMI 30.0-34.9) (Chronic) - VTE Risk Labs: VTE Related Lab Results Hgb 13.2 g/dL (14.1-18.0) L 06/06/21 06:41 Hct 39.6 % (42.0-52.0) L 06/06/21 06:41 Plt Count 177 K/mm3 (142-424) 06/06/21 06:41 BUN 22 mg/dl (9-20) H 06/06/21 06:41 Creatinine 1.10 mg/dl (0.66-1.25) 06/06/21 06:41 Estimated Creat Clear 130 mL/min (50-200) 06/06/21 06:41 VTE Score: 2 VTE Risk Level: Low Risk - Prophylaxis Types of VTE Prophylaxis: TEDS Knee High Location of Applied Device: Bilateral Lower Extremeties (KAYLYN HOSE ORDER PLACED)
[2021-06-06 16:49] LABS: POC Glucose,Bedside 114 (70-110)
--- NOTE | 2021-06-06 18:38 | PC.NURSE ---
Pt has done well this shift. Pt tolerated dressing change to toe on rt foot well. Serosang drainage noted. Betadine soaked 4x4 applied and wrapped in kerlix. Pt has requested PRN pain meds x1 this shift w/ favorable results. VSS. No acute changes or complaints.
[2021-06-06 20:54] LABS: POC Glucose,Bedside 173 (70-110)
[2021-06-07 04:00] VITALS: BP 132/70; PULSE 51; RESP 20; TEMP 36.5; O2SAT 96
--- NOTE | 2021-06-07 04:25 | PC.NURSE ---
Pt a&o x 4. No acute changes or complaints thus far during my shift. Pt has rested well so far, no c/o of pain. Dressing to Rt second toe c/d/i. IV infusing per order. Fingerstick at bedtime was 173. Medicated per APR. Call light in reach. No needs voiced at this time.
[2021-06-07 05:00] VITALS: BMI 33.3
[2021-06-07 07:02] LABS: POC Glucose,Bedside 117 (70-110)
[2021-06-07 07:42] VITALS: BP 135/69; PULSE 69; RESP 18; TEMP 36.7; O2SAT 95
[2021-06-07 07:44] LABS: Basophils % 0.5 % (0.1-2.0); Eosinophils # 0.1 K/mm3 (0.0-0.4); Eosinophils % 1.9 % (0.1-12.0); Hematocrit 42.2 % (42.0-52.0); Hemoglobin 14.4 g/dL (14.1-18.0); Lymphocytes # 1.8 K/mm3 (0.7-4.5); Lymphocytes % 24.2 % (10-50); Mean Corpuscular HGB Conc 34.1 g/dL (31.8-35.4); Mean Corpuscular Hemoglobin 31.9 pg (27.0-31.2); Mean Corpuscular Volume 93.3 fl (80-94); Mean Platelet Volume 7.9 fl (7.4-10.4); Monocytes # 0.5 K/mm3 (0.1-1.0); Monocytes % 7.4 % (1.7-9.3); Neutrophils # 4.8 K/mm3 (1.8-7.8); Neutrophils % 66.1 % (37.0-80.0); Platelet Count 207 K/mm3 (142-424); Red Blood Count 4.52 M/mm3 (4.60-6.20); White Blood Count 7.3 K/mm3 (4.8-10.8)
[2021-06-07 07:55] LABS: Chloride 111 mmol/L (98-107); Potassium 4.6 mmoL/L (3.5-5.1); Sodium 139 mmol/L (136-145)
[2021-06-07 07:58] LABS: Alanine Aminotransferase 22 U/L (12-78); Albumin Level 3.5 g/dl (3.5-5.0); Albumin/Globulin Ratio 1.3 (1.1-1.8); Alkaline Phosphatase 77 U/L (38-126); Anion Gap 5.6 mEq/L (5-15); Aspartate Amino Transferase 24 U/L (17-59); Bilirubin,Total 0.8 mg/dl (0.2-1.3); Blood Urea Nitrogen 15 mg/dl (9-20); Calcium 8.2 mg/dl (8.4-10.2); Carbon Dioxide 27 mmol/L (22.0-30.0); Creatinine Clearance Estimated 160 mL/min (50-200); Estimated Glomerular Filt Rate 89 ml/min (>60); GFR (African American) 107 ML/MIN (>60); Globulin 2.6 g/dL (1.3-3.2); Glucose 108 mg/dl (74-100); Total Protein,Serum 6.1 g/dl (6.3-8.2)
[2021-06-07 07:59] LABS: Magnesium 1.8 mg/dl (1.6-2.3)
[2021-06-07 08:06] LABS: C-Reactive Protein 12.8 mg/L (0-4)
[2021-06-07 08:28] LABS: Erythrocyte Sedimentation Rate 20 mm/hr (0-20)
[2021-06-07 09:24] VITALS: BMI 33.3
--- NOTE | 2021-06-07 10:27 | PC.NURSE ---
Changed pt dressing on his foot. I have gathered supplies to send home with him at D/C.
[2021-06-07 10:30] LABS: Vancomycin,Trough 16.7 ug/mL (5.0-10.0)
[2021-06-07 11:17] LABS: POC Glucose,Bedside 124 (70-110)
--- NOTE | 2021-06-07 11:21 | HMH.DCSUM ---
General - General Admission date:: 06/06/21 Discharge date: 06/07/21 HPI HPI: Mr. Salas is a pleasant 50-year-old gentleman with history of type 2 diabetes, peripheral neuropathy, diabetic foot wounds, multiple previous amputations over the past few years of his toes. States that over the past week he developed a blister and wound on the distal end of his right second toe that has previously had partial amputation. Has been treating at home with Betadine and dressings based on previous recommendations from podiatry. Initially thought it was doing well but when he took the bandage off yesterday he noted a foul smell and worsening wound size. States about every year this time he gets blistering and lesions of a few toes on his right foot. Last year was the first year he did not have an amputation per his report. Given increase in pain and appearance of foot, he came to the ER for evaluation. Labs relatively normal with no leukocytosis. Slight elevation in inflammatory markers. CT of foot showed no lonnie osteomyelitis. Patient admitted for initiation of IV antibiotics and monitoring. Foot this morning and a clean bandage. Being wrapped by nursing. Discussed starting Betadine soaked gauze daily with daily dressing changes. Patient denies any chest pain, shortness of breath, nausea, vomiting, redness or swelling of the foot. Hospital Course Hospital Course: Patient admitted for concern for cellulitis of second toe on right foot. Started on IV antibiotics and wound culture obtained. Given improvement in erythema and redness, no overt osteomyelitis on imaging, and clinical stability of inflammatory markers with no leukocytosis, decision was made to transition oral antibiotics and discharge patient home. Plan for close follow-up with podiatry this week for further evaluation and possible surgical intervention. Patient agreeable to plan of care. Continue home regimens for diabetes, hypertension. Examined on day of discharge. Medically stable to discharge home. Objective Vital signs: Temp Pulse Resp BP Pulse Ox 98.1 F 69 18 135/69 95 06/07/21 07:42 06/07/21 07:42 06/07/21 07:42 06/07/21 07:42 06/07/21 07:42 Narrative: - Constitutional no acute distress, obese - *Routine HEENT Exam Head: Present: normocephalic Eye: Present: EOMI, PERRL ENT: Present: mucous membranes moist - *Routine Neck Exam Present: supple. Absent: lymphadenopathy - *Routine Respiratory Exam Present: CTA bilaterally - *Routine Cardiovascular Exam Present: RRR - *Routine Abdominal Exam Present: soft, normoactive bowel sounds. Absent: tenderness - *Routine Rectal Exam Rectal:: deferred - *Routine Genitalia Exam Genitalia:: deferred - *Routine Extremities Exam Absent: cyanosis, clubbing, edema; numerous amputations of toes on both feet, right foot with minimal cellulitis of second toe, split epidermis with exposed sub-q fat. no warmth; interval improvement in edema of foot/toes. - *Routine Skin Exam Present: warm. Absent: rash - *Routine Neurological Exam Present: alert, oriented X3 Results Labs on day of discharge: Labs from last 24 hours 06/07/21 06/07/21 06/07/21 11:06 09:37 06:48 WBC RBC Hgb Hct MCV MCH MCHC RDW Plt Count MPV Neut % (Auto) Lymph % (Auto) [place] % (Auto) Eos % (Auto) Baso % (Auto) Neut # (Auto) Lymph # (Auto) [place] # (Auto) Eos # (Auto) Baso # (Auto) ESR Sodium Potassium Chloride Carbon Dioxide Anion Gap BUN Creatinine Estimated Creat Clear Estimated GFR Est GFR ( Amer) Glucose POC Glucose 124 H 117 H Calcium Magnesium Total Bilirubin AST ALT Alkaline Phosphatase C-Reactive Protein Total Protein Albumin Globulin Albumin/Globulin Ratio Vancomycin Trough 16.7 H 06/07/21 06/07/21 06/06/21 06:27 06
--- NOTE | 2021-06-07 11:28 | PC.NURSE ---
Pt has a D/C order in. We are waiting for the Vanc to finish, and then I will discharge pt.
== END 2021-06-07 13:23 | disposition home or self-care (01) | DRG 638 ==
LOC: ER 22:15 → 2ND 23:39
PROVIDERS: Admitting Provider Internal Medicine Adolescent Medicine; Emergency Provider Emergency Medicine; PCP Internal Medicine Adolescent Medicine; Visit Provider Internal Medicine Adolescent Medicine
DX: E11.628 Type 2 diabetes mellitus with other skin complications (principal); L02.415 Cutaneous abscess of right lower limb; L02.611 Cutaneous abscess of right foot; K21.9 Gastro-esophageal reflux disease without esophagitis; E11.51 Type 2 diabetes mellitus with diabetic peripheral angiopathy without gangrene; Z79.84 Long term (current) use of oral hypoglycemic drugs; Z20.822 Contact with and (suspected) exposure to COVID-19
CPT/HCPCS: 36415; 73700; 80048; 80053; 80202; 82962; 83605; 83735; 84145; 85025; 85651; 86140; 87040; 87070; 87077; 87186; 87205; 96375; 99285; C9803; J0692; J3370; U0003; U0005

== ENCOUNTER → 2021-06-08 12:14 | Outpatient (CLI) | payer OTHER, SELFPAY ==
--- NOTE | 2021-06-08 12:15 | ECG_ITS ---
APPROVED REPORT Exam: Resting ECG HR:60 bpm ECG Measurements Heart Rate 60 AXES OH 219 P 6 QRSd 92 QRS 19 QT 384 T 31 QTc 384 Conclusion SINUS RHYTHM WITH FIRST DEGREE AV BLOCK ABNORMAL ECG UNCONFIRMED REPORT Electronically signed by : Jose Francsico Caldera MD 06/08/2021 14:10:13
--- NOTE | 2021-06-08 12:17 | XR_ITS ---
FINAL REPORT TECHNIQUE: Chest PA & Lateral CLINICAL HISTORY: HTN, preop testing COMPARISON: June 04, 2019 FINDINGS: 2 views of the chest were performed. The heart size is normal. The mediastinum is within normal limits. There is no acute cardiopulmonary process. There are no pleural effusions. There is no pneumothorax. The bony thorax appears intact. IMPRESSION: No acute cardiopulmonary process. Reviewed, Interpreted and Dictated by Pb Maddox MD Transcribed by Benson Townsend Authenticated by Pb Maddox MD on 06/08/2021 01:21:00 PM [facility]
== END ==
PROVIDERS: PCP Internal Medicine Adolescent Medicine; Visit Provider Podiatrist
DX: Z01.818 Encounter for other preprocedural examination (principal); Z11.52 Encounter for screening for COVID-19; E11.621 Type 2 diabetes mellitus with foot ulcer; L97.519 Non-pressure chronic ulcer of other part of right foot with unspecified severity; Z79.84 Long term (current) use of oral hypoglycemic drugs
CPT/HCPCS: 36415; 71046; 83036; 93005; C9803; U0003; U0005

== ENCOUNTER 2021-06-10 09:26 | Day surgery (SDC) | payer OTHER, SELFPAY ==
[2021-06-08 16:01] VITALS: BMI 32.5
[2021-06-10 09:50] VITALS: BP 129/81; PULSE 64; RESP 16; TEMP 36.4; O2SAT 99
--- NOTE | 2021-06-10 10:13 | HMH.ANESCL ---
[facility] Anesthesia Checklist - Patient Identification Patient Identification: Arm Band, Verbal (Name & ) - Structural Data Admitted From: Home Planned Operative Procedure/s: right toe amputation Consent for Planned Operative Procedure(s) Verified: Yes Verified Documents: Surgical Consent - NPO Status Verified Time NPO: 00:00 - Chart Verification Results Verified: CBC, BMP - Additional verifications Anesthesia Reactions: No Hx Blood Transfusions: No Blood Transfusion Reaction: No - Airway Assessment C-Spine Mobility Assessed: Yes TMJ Mobility Assessed: Yes Dentition: Good Dentition - Anesthesia Plan Anesthesia Risk discussed: Yes ASA Class: III Anesthesia Type: MAC [facility] History I have reviewed the patient's past medical history: Yes Medical History: Reports:: Anxiety, Arrhythmia, Deep Vein Thrombosis, Diabetes Mellitus Type 2, Gastroesophageal Reflux Disease(GERD), Hyperlipidemia, Hypertension, Migraine, Palpitations, Peripheral Artery Disease Denies:: Asthma, Cancer, Chronic Obstructive Pulmonary Disease (COPD), Coronary Artery Disease, Diabetes Mellitus Type 1, Internal Pacemaker, MRSA, Seizures *Have you ever received a pneumonia vaccine?: No *Have you received a flu vaccine this season?: No Other Medical History: Reports: Arthritis, Sinus Problems, Other. Denies: Blood Transfusion Reaction Anesthesia experience/problems:: none Laterality Cases: Right: Other Other Surgeries: Yes: No Previous Surgery, Cardiac Catheterization, Colonoscopy, EGD, Other. No: Pacemaker Amputation: Yes (Right partial hallux amputation, Left Partial Hallux amputation ) Fractures: No - *Social History Last grade of school completed: High school graduate Smoking Status: Never smoker # Packs/Day (cigarettes): 0 #Yrs smoked (if former smoker): 0 Alcohol Intake: current Alcohol Intake Frequency:: holidays/special occasions only Substance Use Type: denies use *Occupational Status:: disabled Housing: house Household Members: spouse *Travel in the last 8 weeks: None - Psychiatric History Pschychiatric History:: Reports:: Anxiety Family Hx:: Cancer
--- NOTE | 2021-06-10 12:00 | XR_ITS ---
FINAL REPORT CLINICAL HISTORY: Post op amp COMPARISON: 08/26/2020 FINDINGS: RIGHT FOOT Three views were obtained. There is no acute fracture or dislocation. There is been interval amputation of the 1st and 2nd digits with overlying soft tissue swelling. Tiny plantar spur is identified. IMPRESSION: Interval amputation of the 1st and 2nd digits. Reviewed, Interpreted and Dictated by Pb Maddox MD Transcribed by Abigail Hendesron Authenticated by Pb Maddox MD on 06/10/2021 02:05:[address] [facility]
[2021-06-10 12:35] VITALS: BP 113/66; PULSE 75; RESP 18; TEMP 36.3; O2SAT 94
--- NOTE | 2021-06-10 12:38 | HMH.OPNOTE ---
Date of procedure: 06/10/21 Pre-op Diagnosis:: 1. Right 1-2nd toe osteomyelitis 2. Right foot cellulitis Post-op Diagnosis:: Same Procedure performed:: 1. Right hallux amputation 2. Right 2nd toe irrigation and debridement and amputation Surgeon:: Aundrea Vicente DPM ASSESSMENT SPECIALIST:: Tyler Finn Anesthesia: MAC, local (20cc 0.5% marcaine plain) Estimated blood loss (mL): 10 Clinical Note:: Patient is a 50-year-old diabetic male with history of cellulitis, osteomyelitis with multiple foot surgeries including amputations. Patient was admitted at [facility] 06/05-06/07/2021. He was given IV antibiotics while admitted. He was discharged for outpatient surgical management for debridement and amputation. We discussed conservative versus surgical treatment options. Conservative treatment options include local wound care, oral and IV antibiotics, change in shoe wear, taping/padding, and off-loading. Patient understands that there is a chance that the toes can migrate to fill the gap or the foot may change shape after surgery. Patient also understands that they could have wound healing complications including delayed healing and infection. We discussed that if the wound does not heal, it is possible that they may need a more proximal amputation and could result in further loss of digits, loss of partial foot or loss of leg. We discussed the risks and benefits in great detail. Other surgical risks include: prolonged pain and swelling, further infection requiring oral or IV antibiotics, delay in healing of soft tissue or bone, nerve or blood vessel damage, CRPS/RSD, DVT, anesthesia complications, and even . All questions answered. Patient verbalized understanding. Consent obtained. Medical clearance per PCP: Dr Caldera/Killian. Pre-op labs: ESR, CRP, CBC, CMP, EKG, CXR Operative findings:: Right hallux blister and open wound noted to the distal lateral corner has healed. Prior partial hallux amputation. Right second toe has distal necrosis with skin sloughing and serous malodorous drainage. Distal second toe is crumbly and soft with changes consistent with osteomyelitis. Infection appears localized to the distal first and second toes. Does not appear to spread up the extensor or flexor tendons. Operative note:: On this date and time patient was deemed an appropriate surgical candidate. With informed consent signed, the patient was taken to the operating theater. The patient was positioned supine. MAC anesthesia was induced. No tourniquet used. Pre-op right hallux, second toe block given with 10 cc 0.5% marcaine plain. IV Vanco given. Right hallux amputation: The right lower extremity was prepped and drapped in normal sterile fashion. Previous wound was closed. A dorsal incision was made over the first MPJ full-thickness down to the bone. The proximal phalanx was disarticulated from the first metatarsal head. The metatarsal appeared intact with no evidence of cortical erosions or obvious signs of osteomyelitis. The head of the proximal phalanx was intact with some irregularity noted laterally. The bone was sent for bone culture and pathology. Right 2nd irrigation and debridement, digit amputation: Cellulitis is noted extending to the 2nd MPJ. A racquetball incision was mapped out over the second toe. Utilizing a 15 blade dissection was carried down sharply to the level of the bone around the proximal phalanx which was disarticulated from the second metatarsal. The phalanx bone was soft and crumbly and had a mild malodor to it. Portion of it was cut and sent for bone culture and the other part was sent for bone biopsy for pathology. Attention was then directed proximal, the first metatarsal head was intact with no cortical erosions, discoloration or obvious signs of osteomyelitis. Next gentamicin irrigation was used to flush the wound. The wound was reexplored and no further signs of infection noted. Bleeding controlled. Vessels ligated with electrocautery
[2021-06-10 12:50] VITALS: BP 114/73; PULSE 66; RESP 18; TEMP 36.3; O2SAT 95
[2021-06-10 13:05] VITALS: BP 132/81; PULSE 64; RESP 18; TEMP 36.3; O2SAT 95
[2021-06-10 13:20] VITALS: BP 142/82; PULSE 66; RESP 18; TEMP 36.3; O2SAT 96
[2021-06-10 13:25] VITALS: BP 138/82; PULSE 64; RESP 18; TEMP 36.3; O2SAT 97
[2021-06-10 15:28] LABS: POC Glucose,Bedside 148 (70-110)
[2021-11-12 10:59] LABS: POC Glucose,Bedside 135 (70-110)
== END 2021-06-10 13:25 | disposition home or self-care (01) ==
LOC: OR 09:27
PROVIDERS: PCP Internal Medicine Adolescent Medicine; Visit Provider Podiatrist
PROC: (CPT 28820; principal; 2021-06-10 11:00)
DX: E11.52 Type 2 diabetes mellitus with diabetic peripheral angiopathy with gangrene (principal); E11.69 Type 2 diabetes mellitus with other specified complication; M86.171 Other acute osteomyelitis, right ankle and foot; B95.7 Other staphylococcus as the cause of diseases classified elsewhere; L03.031 Cellulitis of right toe; E11.40 Type 2 diabetes mellitus with diabetic neuropathy, unspecified; I96 Gangrene, not elsewhere classified; M86.9 Osteomyelitis, unspecified; Z79.84 Long term (current) use of oral hypoglycemic drugs; M54.16 Radiculopathy, lumbar region; M51.36 Other intervertebral disc degeneration, lumbar region; Z79.899 Other long term (current) drug therapy
CPT/HCPCS: 28820 ×2; 73630; 82962; 87077; 87186; 88304; 96374; J3370

== ENCOUNTER → 2021-06-15 10:10 | Outpatient (POV) | payer OTHER, SELFPAY ==
[2021-06-15 11:51] VITALS: BP 153/79; PULSE 72; RESP 18; TEMP 36.2; O2SAT 97; BMI 32.5
--- NOTE | 2021-06-15 12:03 | P.CONS_ITS ---
[facility] Pain Management SOAP Note Subjective:: This patient is a pleasant 50-year-old white male that comes to our clinic today for follow-up visit after receiving bilateral cervical paraspinous muscle trigger point injections as well as bilateral trapezius muscle trigger point injections. Patient had significant relief in the left side. However his right side did not seem to produce any relief. Patient still having tightness in his right cervical spine as well as right trapezius. Patient also complained of some lumbar back pain. However he is status post medial branch block lumbar spine L4-5, L5-S1 bilateral. Patient reports significant improvement since his lumbar medial branch blocks. Patient recently had 2 toes on the right foot amputated secondary to osteomyelitis. He has noninsulin-dependent diabetic. However he does take several oral medications. His last A1c a month ago was 6.9. His blood sugar typically runs between 120 and 130. Objective:: Patient is awake alert oriented x3. In no acute distress. Flexion-extension lumbar spine somewhat guarded secondary to pain. Flexion-extension cervical spine somewhat guarded secondary to left-sided pain. Motor strength upper and lower extremities normal. Gait is antalgic. Assessment:: Degenerative disc disease with facet arthropathy lumbar spine. Cervical myofascial pain. [id number] diabetic. Osteomyelitis right foot. Plan:: Patient is interested in repeating trigger point injections on the right side. However, I advised the patient to lift his blood sugar stabilized. Also, give some time for his osteomyelitis of the right foot to heal. Patient will return to see us on an as-needed basis. [facility] History Medical History: Reports:: Anxiety, Arrhythmia, Deep Vein Thrombosis, Diabetes Mellitus Type 2, Gastroesophageal Reflux Disease(GERD), Hyperlipidemia, Hypertension, Migraine, Palpitations, Peripheral Artery Disease Denies:: Asthma, Cancer, Chronic Obstructive Pulmonary Disease (COPD), Coronary Artery Disease, Diabetes Mellitus Type 1, Internal Pacemaker, MRSA, Seizures *Have you ever received a pneumonia vaccine?: No *Have you received a flu vaccine this season?: No Other Medical History: Reports: Arthritis, Sinus Problems, Other. Denies: Blood Transfusion Reaction Laterality Cases: Right: Other Other Surgeries: Yes: No Previous Surgery, Cardiac Catheterization, Colonoscopy, EGD, Other. No: Pacemaker Amputation: Yes (Right partial hallux amputation, Left Partial Hallux amputation ) Fractures: No - *Social History Smoking Status: Never smoker # Packs/Day (cigarettes): 0 #Yrs smoked (if former smoker): 0 Alcohol Intake: current Alcohol Intake Frequency:: holidays/special occasions only Substance Use Type: denies use *Occupational Status:: employed Housing: house Household Members: spouse *Travel in the last 8 weeks: None - Psychiatric History Pschychiatric History:: Reports:: Anxiety Family Hx:: Cancer
== END ==
PROVIDERS: Visit Provider Nurse Anesthetist, Certified Registered
DX: M51.36 Other intervertebral disc degeneration, lumbar region (principal); M47.816 Spondylosis without myelopathy or radiculopathy, lumbar region; M79.12 Myalgia of auxiliary muscles, head and neck; E11.9 Type 2 diabetes mellitus without complications; M86.8X7 Other osteomyelitis, ankle and foot
CPT/HCPCS: 99212; G0463

== ENCOUNTER → 2021-07-02 10:43 | Outpatient (CLI) | payer OTHER, SELFPAY ==
[2021-07-02 11:26] LABS: Basophils # 0.1 K/mm3 (0-0.2); Basophils % 1.4 % (0.1-2.0); Eosinophils # 0.1 K/mm3 (0.0-0.4); Eosinophils % 2.4 % (0.1-12.0); Hematocrit 44.6 % (42.0-52.0); Hemoglobin 15.1 g/dL (14.1-18.0); Lymphocytes # 1.9 K/mm3 (0.7-4.5); Lymphocytes % 35.5 % (10-50); Mean Corpuscular HGB Conc 33.7 g/dL (31.8-35.4); Mean Corpuscular Hemoglobin 32.3 pg (27.0-31.2); Mean Corpuscular Volume 95.6 fl (80-94); Mean Platelet Volume 8.2 fl (7.4-10.4); Monocytes # 0.3 K/mm3 (0.1-1.0); Monocytes % 6.3 % (1.7-9.3); Neutrophils # 2.9 K/mm3 (1.8-7.8); Neutrophils % 54.5 % (37.0-80.0); Platelet Count 224 K/mm3 (142-424); Red Blood Count 4.67 M/mm3 (4.60-6.20); Red Cell Distribution Width 13.7 % (11.5-17.5); White Blood Count 5.3 K/mm3 (4.8-10.8)
[2021-07-02 11:47] LABS: Chloride 111 mmol/L (98-107); Sodium 141 mmol/L (136-145)
[2021-07-02 11:50] LABS: Alanine Aminotransferase 37 U/L (12-78); Albumin Level 3.8 g/dl (3.5-5.0); Albumin/Globulin Ratio 1.5 (1.1-1.8); Alkaline Phosphatase 95 U/L (38-126); Aspartate Amino Transferase 40 U/L (17-59); Bilirubin,Total 0.8 mg/dl (0.2-1.3); Blood Urea Nitrogen 15 mg/dl (9-20); Carbon Dioxide 26 mmol/L (22.0-30.0); Estimated Glomerular Filt Rate 78 ml/min (>60); GFR (African American) 95 ML/MIN (>60); Globulin 2.6 g/dL (1.3-3.2); Total Protein,Serum 6.4 g/dl (6.3-8.2)
[2021-07-02 11:51] LABS: Calcium 9.3 mg/dl (8.4-10.2); Glucose 129 mg/dl (74-100)
[2021-07-02 11:57] LABS: C-Reactive Protein 1.2 mg/L (0-4)
[2021-07-02 12:23] LABS: Erythrocyte Sedimentation Rate 14 mm/hr (0-20)
== END ==
PROVIDERS: Visit Provider Podiatrist
DX: Z98.890 Other specified postprocedural states (principal)
CPT/HCPCS: 36415; 80053; 85025; 85651; 86140

== ENCOUNTER → 2021-08-05 09:12 | Outpatient (CLI) | payer OTHER, SELFPAY ==
--- NOTE | 2021-08-05 09:16 | XR_ITS ---
FINAL REPORT CLINICAL HISTORY: WOUND COMPARISON: June 10, 2021 FINDINGS: RIGHT FOOT: Three views of the right foot were obtained. Compared with the prior exam there are postoperative changes from amputation of the 1st and 2nd digits at the MTP joints. There is deformity of the 3rd metatarsal head that may represent a subacute to chronic fracture, this is new since the prior exam. The joint spaces are intact. There is no soft tissue abnormality. IMPRESSION: Deformity of the 3rd metatarsal head may represent subacute to chronic fracture. Reviewed, Interpreted and Dictated by Westley Sanford III, MD Transcribed by Katty Burdick Authenticated and [facility]
[2021-08-05 10:01] LABS: Basophils # 0.2 K/mm3 (0-0.2); Basophils % 3.6 % (0.1-2.0); Eosinophils # 0.2 K/mm3 (0.0-0.4); Eosinophils % 3.2 % (0.1-12.0); Hematocrit 45.8 % (42.0-52.0); Hemoglobin 15.6 g/dL (14.1-18.0); Lymphocytes # 1.8 K/mm3 (0.7-4.5); Lymphocytes % 30.6 % (10-50); Mean Corpuscular HGB Conc 34.1 g/dL (31.8-35.4); Mean Corpuscular Hemoglobin 31.8 pg (27.0-31.2); Mean Corpuscular Volume 93.3 fl (80-94); Mean Platelet Volume 8.3 fl (7.4-10.4); Monocytes # 0.5 K/mm3 (0.1-1.0); Monocytes % 7.6 % (1.7-9.3); Neutrophils # 3.3 K/mm3 (1.8-7.8); Platelet Count 247 K/mm3 (142-424); Red Blood Count 4.92 M/mm3 (4.60-6.20); Red Cell Distribution Width 13.6 % (11.5-17.5); White Blood Count 5.9 K/mm3 (4.8-10.8)
[2021-08-05 10:25] LABS: Chloride 111 mmol/L (98-107); Potassium 4.5 mmoL/L (3.5-5.1); Sodium 141 mmol/L (136-145)
[2021-08-05 10:27] LABS: Blood Urea Nitrogen 20 mg/dl (9-20); Estimated Glomerular Filt Rate 78 ml/min (>60); GFR (African American) 95 ML/MIN (>60)
[2021-08-05 10:28] LABS: Alanine Aminotransferase 29 U/L (12-78); Albumin/Globulin Ratio 1.4 (1.1-1.8); Alkaline Phosphatase 102 U/L (38-126); Anion Gap 9.5 mEq/L (5-15); Aspartate Amino Transferase 34 U/L (17-59); Bilirubin,Total 0.5 mg/dl (0.2-1.3); Carbon Dioxide 25 mmol/L (22.0-30.0); Globulin 2.8 g/dL (1.3-3.2); Total Protein,Serum 6.8 g/dl (6.3-8.2)
[2021-08-05 10:29] LABS: Calcium 9.4 mg/dl (8.4-10.2); Glucose 164 mg/dl (74-100)
[2021-08-05 10:34] LABS: C-Reactive Protein 1.4 mg/L (0-4)
[2021-08-05 11:41] LABS: Erythrocyte Sedimentation Rate 12 mm/hr (0-20)
== END ==
PROVIDERS: PCP Internal Medicine Adolescent Medicine; Visit Provider Podiatrist
DX: E11.621 Type 2 diabetes mellitus with foot ulcer (principal); L97.501 Non-pressure chronic ulcer of other part of unspecified foot limited to breakdown of skin
CPT/HCPCS: 36415; 73630; 80053; 85025; 85651; 86140

== ENCOUNTER 2021-08-05 15:04 | Outpatient (RCR) | payer OTHER, SELFPAY | END 2021-08-05 16:00 | disposition home or self-care (01) | LOC: PT 15:04 | PROVIDERS: Visit Provider Nurse Practitioner Family | DX: S92.334D Nondisplaced fracture of third metatarsal bone, right foot, subsequent encounter for fracture with routine healing (principal) | CPT/HCPCS: 97760 ==

== ENCOUNTER → 2021-09-01 12:59 | Outpatient (CLI) | payer OTHER, SELFPAY ==
--- NOTE | 2021-09-01 13:02 | XR_ITS ---
FINAL REPORT CLINICAL HISTORY: fracture evaluation COMPARISON: 08/05/2021 FINDINGS: RIGHT FOOT Three views of the right foot were obtained. There has been amputation of the 1st and 2nd digits at the MTP joints. There is persistent irregularity of the 3rd metatarsal head and neck favoring subacute to chronic fracture. No acute fracture is identified. The visualized joint spaces are normally aligned. The soft tissues are unremarkable. IMPRESSION: Persistent irregularity of the 3rd metatarsal favoring subacute to chronic fracture. Reviewed, Interpreted and Dictated by Westley Sanford III, MD Transcribed by Becky Jimenez Authenticated and [facility]
== END ==
PROVIDERS: PCP Internal Medicine Adolescent Medicine; Visit Provider Podiatrist
DX: S92.334A Nondisplaced fracture of third metatarsal bone, right foot, initial encounter for closed fracture (principal)
CPT/HCPCS: 73630

== ENCOUNTER → 2021-09-15 10:14 | Outpatient (CLI) | payer OTHER, SELFPAY ==
--- NOTE | 2021-09-15 10:17 | XR_ITS ---
FINAL REPORT CLINICAL HISTORY: fracture eval COMPARISON: September 01, 2021 FINDINGS: RIGHT FOOT: Three views of the right foot were obtained. There is persistent irregularity of the distal 3rd metatarsal consistent with a fracture, stable. There has been amputation of the 1st and 2nd digits at the MTP joints. There are small calcaneal spurs. The joint spaces are intact. There is no soft tissue abnormality. IMPRESSION: Third metatarsal fracture, stable. Amputation of the 1st and 2nd digits. Reviewed, Interpreted and Dictated by Westley Sanford III, MD Transcribed by Benson Townsend Authenticated and [facility]
== END ==
PROVIDERS: PCP Internal Medicine Adolescent Medicine; Visit Provider Podiatrist
DX: S92.334A Nondisplaced fracture of third metatarsal bone, right foot, initial encounter for closed fracture (principal)
CPT/HCPCS: 73630

== ENCOUNTER → 2021-09-29 06:44 | Outpatient (CLI) | payer OTHER, SELFPAY | PROVIDERS: Visit Provider Podiatrist | DX: S92.334G Nondisplaced fracture of third metatarsal bone, right foot, subsequent encounter for fracture with delayed healing (principal); Z51.89 Encounter for other specified aftercare | CPT/HCPCS: 87070; 87077; 87186; 87205 ==

== ENCOUNTER → 2021-09-29 10:26 | Outpatient (CLI) | payer OTHER, SELFPAY ==
--- NOTE | 2021-09-29 10:31 | XR_ITS ---
FINAL REPORT CLINICAL HISTORY: fracture evaluation COMPARISON: September 15, 2021 FINDINGS: RIGHT FOOT: Three views of the right foot were obtained. There is amputation of the 1st and 2nd digits at the metatarsophalangeal joints. Again noted, is a nondisplaced fracture of the head of the 3rd metatarsal. The bony alignment is stable. There is no other fracture. The joint spaces are intact. There is no soft tissue abnormality. IMPRESSION: Nondisplaced fracture of the the 3rd metatarsal. Postoperative changes as above. Reviewed, Interpreted and Dictated by Westley Sanford III, MD Transcribed by Katty Burdick Authenticated and [facility]
== END ==
PROVIDERS: PCP Internal Medicine Adolescent Medicine; Visit Provider Podiatrist
DX: S92.334A Nondisplaced fracture of third metatarsal bone, right foot, initial encounter for closed fracture (principal)
CPT/HCPCS: 73630

== ENCOUNTER → 2021-10-07 12:57 | Outpatient (CLI) | payer OTHER, SELFPAY ==
[2021-10-07 13:15] LABS: Basophils # 0.1 K/mm3 (0-0.2); Basophils % 0.9 % (0.1-2.0); Eosinophils # 0.1 K/mm3 (0.0-0.4); Eosinophils % 1.8 % (0.1-12.0); Hematocrit 51.2 % (42.0-52.0); Lymphocytes # 1.9 K/mm3 (0.7-4.5); Lymphocytes % 26.7 % (10-50); Mean Corpuscular HGB Conc 31.3 g/dL (31.8-35.4); Mean Corpuscular Hemoglobin 29.9 pg (27.0-31.2); Mean Corpuscular Volume 95.4 fl (80-94); Mean Platelet Volume 8.2 fl (7.4-10.4); Monocytes # 0.5 K/mm3 (0.1-1.0); Monocytes % 6.4 % (1.7-9.3); Neutrophils # 4.6 K/mm3 (1.8-7.8); Neutrophils % 64.3 % (37.0-80.0); Platelet Count 270 K/mm3 (142-424); Red Blood Count 5.36 M/mm3 (4.60-6.20); Red Cell Distribution Width 13.6 % (11.5-17.5); White Blood Count 7.2 K/mm3 (4.8-10.8)
[2021-10-07 13:31] LABS: Hemoglobin A1C 7.1 % (4.0-6.0)
--- NOTE | 2021-10-07 13:31 | MR_ITS ---
FINAL REPORT TECHNIQUE: Multiplanar imaging of the right foot was obtained. CLINICAL HISTORY: non healing ulcer, hx of osteomyelitis FINDINGS: There is been prior amputation of the first and second digits. Abnormal signal is identified in the distal third metatarsal. Mild hypertrophic changes are identified at the third metatarsal phalangeal joint. No other foci of abnormal signal are seen. There is some edge effect signal identified within the fifth proximal and distal phalanges on the long axis images. The Achilles tendon and plantar fascia appear intact. IMPRESSION: 1. Postsurgical changes of prior amputation of the first and second digits. 2. Abnormal signal in the distal third metatarsal, favored to be related to underlying avascular necrosis. 3. No definite evidence of acute osteomyelitis. Authenticated and [facility]
[2021-10-07 13:45] LABS: Alanine Aminotransferase 28 U/L (12-78); Albumin Level 4.2 g/dl (3.5-5.0); Albumin/Globulin Ratio 1.5 (1.1-1.8); Alkaline Phosphatase 120 U/L (38-126); Anion Gap 10.7 mEq/L (5-15); Aspartate Amino Transferase 30 U/L (17-59); Bilirubin,Total 0.9 mg/dl (0.2-1.3); Blood Urea Nitrogen 17 mg/dl (9-20); Carbon Dioxide 27 mmol/L (22.0-30.0); Chloride 105 mmol/L (98-107); Estimated Glomerular Filt Rate 70 ml/min (>60); GFR (African American) 85 ML/MIN (>60); Globulin 2.8 g/dL (1.3-3.2); Glucose 140 mg/dl (74-100); Potassium 4.7 mmoL/L (3.5-5.1); Sodium 138 mmol/L (136-145)
[2021-10-07 13:50] LABS: C-Reactive Protein 1.6 mg/L (0-4)
[2021-10-07 15:09] LABS: Erythrocyte Sedimentation Rate 7 mm/hr (0-20)
== END ==
PROVIDERS: PCP Internal Medicine Adolescent Medicine; Visit Provider Podiatrist
DX: E11.621 Type 2 diabetes mellitus with foot ulcer (principal); L97.509 Non-pressure chronic ulcer of other part of unspecified foot with unspecified severity; Z79.84 Long term (current) use of oral hypoglycemic drugs
CPT/HCPCS: 36415; 73718; 80053; 83036; 85025; 85651; 86140

== ENCOUNTER → 2021-12-03 09:14 | Outpatient (CLI) | payer OTHER, SELFPAY ==
--- NOTE | 2021-12-03 09:24 | ECG_ITS ---
APPROVED REPORT Exam: Resting ECG HR:65 bpm ECG Measurements Heart Rate 65 AXES GA 204 P 19 QRSd 85 QRS 43 QT 366 T -18 QTc 378 Conclusion SINUS RHYTHM NONSPECIFIC T-WAVE ABNORMALITY ABNORMAL ECG UNCONFIRMED REPORT Electronically signed by : Jose Francisco Caldera MD 12/03/2021 17:13:45
[2021-12-03 09:44] LABS: Basophils # 0.1 K/mm3 (0-0.2); Eosinophils # 0.2 K/mm3 (0.0-0.4); Eosinophils % 2.3 % (0.1-12.0); Hematocrit 47.9 % (42.0-52.0); Hemoglobin 15.8 g/dL (14.1-18.0); Lymphocytes # 1.8 K/mm3 (0.7-4.5); Lymphocytes % 26.4 % (10-50); Mean Corpuscular HGB Conc 32.9 g/dL (31.8-35.4); Mean Corpuscular Hemoglobin 30.8 pg (27.0-31.2); Mean Corpuscular Volume 93.6 fl (80-94); Monocytes # 0.4 K/mm3 (0.1-1.0); Monocytes % 5.9 % (1.7-9.3); Neutrophils # 4.3 K/mm3 (1.8-7.8); Neutrophils % 64.3 % (37.0-80.0); Platelet Count 269 K/mm3 (142-424); Red Blood Count 5.12 M/mm3 (4.60-6.20); White Blood Count 6.7 K/mm3 (4.8-10.8)
--- NOTE | 2021-12-03 09:47 | XR_ITS ---
FINAL REPORT CLINICAL HISTORY: Foot Pain COMPARISON: 09/29/2021 FINDINGS: RIGHT FOOT Three views of the right foot were obtained. There are postoperative changes from amputation of the 1st and 2nd digit at the MTP joints. There is persistent irregularity of the distal 3rd metatarsal, including the metatarsal head, favoring a subacute fracture. No new bony abnormality is identified. The visualized joint spaces are normally aligned. The soft tissues are unremarkable. IMPRESSION: Persist irregularity of the distal 3rd metatarsal, including the metatarsal head, favoring a subacute fracture. No new acute bony abnormality is identified. Reviewed, Interpreted and Dictated by Westley Sanford III, MD Transcribed by Becky Jimenez Authenticated and . [facility]
[2021-12-03 10:27] LABS: Erythrocyte Sedimentation Rate 9 mm/hr (0-20)
[2021-12-03 10:42] LABS: Chloride 107 mmol/L (98-107)
[2021-12-03 10:43] LABS: Potassium 4.8 mmoL/L (3.5-5.1); Sodium 144 mmol/L (136-145)
[2021-12-03 10:45] LABS: Alanine Aminotransferase 25 U/L (12-78); Alkaline Phosphatase 131 U/L (38-126); Aspartate Amino Transferase 30 U/L (17-59); Bilirubin,Total 0.6 mg/dl (0.2-1.3); Blood Urea Nitrogen 16 mg/dl (9-20); Estimated Glomerular Filt Rate 78 ml/min (>60); GFR (African American) 95 ML/MIN (>60)
[2021-12-03 10:46] LABS: Albumin Level 4.2 g/dl (3.5-5.0); Albumin/Globulin Ratio 1.4 (1.1-1.8); Anion Gap 13.8 mEq/L (5-15); Calcium 9.1 mg/dl (8.4-10.2); Carbon Dioxide 28 mmol/L (22.0-30.0); Globulin 2.9 g/dL (1.3-3.2); Glucose 158 mg/dl (74-100); Total Protein,Serum 7.1 g/dl (6.3-8.2)
[2021-12-03 10:51] LABS: C-Reactive Protein 2.5 mg/L (0-4)
== END ==
PROVIDERS: PCP Internal Medicine Adolescent Medicine; Visit Provider Podiatrist
DX: E11.621 Type 2 diabetes mellitus with foot ulcer (principal); L97.513 Non-pressure chronic ulcer of other part of right foot with necrosis of muscle; L03.031 Cellulitis of right toe; Z51.89 Encounter for other specified aftercare
CPT/HCPCS: 36415; 73630; 80053; 85025; 85651; 86140; 93005

== ENCOUNTER 2021-12-10 11:18 | Day surgery (SDC) | payer OTHER, SELFPAY ==
[2021-12-08 16:10] VITALS: BMI 32.1
[2021-12-10 12:07] VITALS: BP 141/74; PULSE 71; RESP 18; TEMP 36.7; O2SAT 97
--- NOTE | 2021-12-10 13:39 | EXP.ANES.CKL ---
[facility] Medical History History of Paulino's palsy History of BPH History of left heart catheterization History of sciatica HLD (hyperlipidemia) HTN (hypertension), benign Type 2 diabetes mellitus Surgical History History of colonoscopy History of esophagogastroduodenoscopy (EGD) Family History Other No significant family history Social History Smoking Status: Never smoker second hand exposure: No alcohol intake: current counseling provided: none substance use type: denies use current occupational status: employed Travel in the last 8 weeks: None household members: spouse housing: house 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 Anesthesia Checklist Patient Identification Patient Identification: Arm Band and Verbal (Name & ) Structural Data Admitted From: Home Planned Operative Procedure/s: Right Foot Toe Amputation Consent for Planned Operative Procedure(s) Verified: Yes Verified Documents: Surgical Consent NPO Status Verified Time NPO: 00:00 Additional verifications Anesthesia Reactions: No Hx Blood Transfusions: No Blood Transfusion Reaction: No Airway Assessment C-Spine Mobility Assessed: Yes TMJ Mobility Assessed: Yes Dentition: Good Dentition Neurological Assessment Level of Consciousness: Awake, Alert and Appropriate Anesthesia Plan ASA Class: III Anesthesia Type: MAC
[2021-12-10 15:42] VITALS: BP 122/70; PULSE 67; RESP 17; TEMP 36.6; O2SAT 97
--- NOTE | 2021-12-10 15:42 | XR_ITS ---
FINAL REPORT CLINICAL HISTORY: Post op TMA FINDINGS: RIGHT FOOT 3 views of the right foot were obtained. There has been transmetatarsal amputation. A surgical drain is present. IMPRESSION: Changes from transmetatarsal amputation. Reviewed, Interpreted and Dictated by Westley Sanford III, MD Transcribed by Benson Townsend Authenticated and [facility]
--- NOTE | 2021-12-10 15:44 | EXP.OP.NOTE ---
Date of procedure: 12/10/21 Pre-op Diagnosis:: Right 4th toe osteomyelitis Right diabetic foot ulcer Right foot infection Post-op Diagnosis:: Same Procedure performed:: Right transmetatarsal amputation Right I&D bone cortex Application of FIORELLA drain Surgeon:: Aundrea Vicente DPM TEAMSITE DEVELOPER:: Thor Duong Anesthesia: MAC and local (20 cc 0.5% marcaine plain) Estimated blood loss (mL): 30 Clinical Note:: Patient is a 51-year-old diabetic male who has had multiple toe surgeries in the past due to diabetic foot ulcers and osteomyelitis.? He presented with a callus with open wound to the right fourth toe with subsequent cellulitis and infection. We discussed conservative versus surgical treatment options. Conservative treatment options include local wound care, oral and IV antibiotics, change in shoe wear, taping/padding, and off-loading. We discussed surgical intervention for amputation of the right fourth toe versus transmetatarsal amputation.? I explained due to the contracture of the third and fifth toes, once the fourth is amputated he will have pressure to the tips of these toes since the first and second toes have already been amputated.? We discussed making a normal parabola.? Transmetatarsal amputation so he may be fitted for diabetic shoes with a custom toe filler to address the current issue as well as prevent recurrent calluses and ulcerations in the future. Patient understands that there is a chance that the toes can migrate to fill the gap or the foot may change shape after surgery.? Patient also understands that they could have wound healing complications including delayed healing and infection. We discussed that if the wound does not heal, it is possible that they may need a more proximal amputation and could result in further loss of digits, loss of partial foot or loss of leg. We discussed the risks and benefits in great detail. Other surgical risks include: prolonged pain and swelling, further infection requiring oral or IV antibiotics, delay in healing of soft tissue or bone, nerve or blood vessel damage, CRPS/RSD, DVT, anesthesia complications, and even . All questions answered. Patient verbalized understanding. Consent obtained. Pre-op labs: ESR, CRP, Ha1c, CBC, CMP, EKG. IV vancomycin on the day of surgery. Discharged with doxycycline. Operative findings:: Right fourth toe diabetic ulcer noted at the tip of the toe with periwound callus formation. Also approximately 0.5 x 0.5 x 0.4 probes full-thickness through skin and subcu to deep fascia capsule over the fourth distal phalanx bone. Periwound maceration noted. No purulence or drainage expressed. Remaining toes, right toes 3 4 and 5 were disarticulated from the metatarsal heads. Metatarsal heads had some cortical erosions. Transmetatarsal amputation performed. Metatarsal margins appeared viable, hard in texture normal color with no evidence of sinus tracking or proximal infection. Operative note:: On this date and time patient was deemed an appropriate surgical candidate. With informed consent signed, the patient was taken to the operating theater. The patient was positioned supine. MAC anesthesia was induced. Right mid-calf tourniquet used @225mmHg. Pre-op right foreboot and ankle block given with 20 cc 0.5% marcaine plain. Right transmetatarsal amputation, irrigation and debridement: Attention was directed to the 3-5th toes where open wound was noted on 4th toe. Previous 1-2nd amp site well healed. Cellulitis noted extending to the 4th MPJ. A fish mouth incision was mapped out at the level of the MPJs. Utilizing a 15 blade dissection was carried down sharply to the level of the bone around the proximal phalanx bases, which were disarticulated from the metatarsals. The proximal phalanx bone of 4th toe was soft and crumbly but no malodor noted. The 4th toe was sent for bone culture and the other toes were sent for pathology. I&D bone cortex: Attention was then directed to the metatarsals.
[2021-12-10 15:52] VITALS: BP 113/70; PULSE 67; RESP 18; O2SAT 97
[2021-12-10 16:02] VITALS: BP 129/78; PULSE 60; RESP 19; O2SAT 98
[2021-12-10 16:12] VITALS: BP 146/83; PULSE 65; RESP 19; O2SAT 97
[2021-12-11 16:27] LABS: POC Glucose,Bedside 178 (70-110)
== END 2021-12-10 16:25 | disposition home or self-care (01) ==
PROVIDERS: PCP Internal Medicine Adolescent Medicine; Visit Provider Podiatrist
PROC: (CPT 28805; principal; 2021-12-10 13:00)
DX: E11.621 Type 2 diabetes mellitus with foot ulcer (principal); L97.513 Non-pressure chronic ulcer of other part of right foot with necrosis of muscle; E11.69 Type 2 diabetes mellitus with other specified complication; E11.40 Type 2 diabetes mellitus with diabetic neuropathy, unspecified; L03.031 Cellulitis of right toe; M86.171 Other acute osteomyelitis, right ankle and foot; Z79.84 Long term (current) use of oral hypoglycemic drugs; I10 Essential (primary) hypertension; E78.5 Hyperlipidemia, unspecified; Z79.899 Other long term (current) drug therapy
CPT/HCPCS: 28805; 73630; 82962; 87077; 87186; 88304; 96374; J3370

== ENCOUNTER → 2021-12-31 08:35 | Outpatient (CLI) | payer OTHER, SELFPAY ==
[2021-12-31 09:05] LABS: Basophils # 0.1 K/mm3 (0-0.2); Basophils % 0.9 % (0.1-2.0); Eosinophils # 0.2 K/mm3 (0.0-0.4); Eosinophils % 3.4 % (0.1-12.0); Hematocrit 47.2 % (42.0-52.0); Hemoglobin 15.3 g/dL (14.1-18.0); Mean Corpuscular HGB Conc 32.4 g/dL (31.8-35.4); Mean Corpuscular Hemoglobin 30.1 pg (27.0-31.2); Mean Corpuscular Volume 92.8 fl (80-94); Mean Platelet Volume 8.5 fl (7.4-10.4); Monocytes # 0.4 K/mm3 (0.1-1.0); Monocytes % 6.3 % (1.7-9.3); Neutrophils % 54.3 % (37.0-80.0); Platelet Count 237 K/mm3 (142-424); Red Blood Count 5.09 M/mm3 (4.60-6.20); Red Cell Distribution Width 14.9 % (11.5-17.5); White Blood Count 5.6 K/mm3 (4.8-10.8)
[2021-12-31 09:29] LABS: Erythrocyte Sedimentation Rate 6 mm/hr (0-20)
[2021-12-31 09:56] LABS: Alanine Aminotransferase 27 U/L (12-78); Albumin Level 4.2 g/dl (3.5-5.0); Albumin/Globulin Ratio 1.6 (1.1-1.8); Alkaline Phosphatase 126 U/L (38-126); Anion Gap 15.3 mEq/L (5-15); Aspartate Amino Transferase 30 U/L (17-59); Bilirubin,Total 0.7 mg/dl (0.2-1.3); Blood Urea Nitrogen 19 mg/dl (9-20); Calcium 9.8 mg/dl (8.4-10.2); Carbon Dioxide 24 mmol/L (22.0-30.0); Chloride 107 mmol/L (98-107); Estimated Glomerular Filt Rate 70 ml/min (>60); GFR (African American) 85 ML/MIN (>60); Globulin 2.7 g/dL (1.3-3.2); Glucose 209 mg/dl (74-100); Potassium 4.3 mmoL/L (3.5-5.1); Sodium 142 mmol/L (136-145); Total Protein,Serum 6.9 g/dl (6.3-8.2)
[2021-12-31 10:04] LABS: C-Reactive Protein 0.7 mg/L (0-4)
== END ==
PROVIDERS: PCP Internal Medicine Adolescent Medicine; Visit Provider Podiatrist
DX: L03.115 Cellulitis of right lower limb (principal); Z89.431 Acquired absence of right foot
CPT/HCPCS: 36415; 80053; 85025; 85651; 86140

== ENCOUNTER 2022-06-15 12:19 | Day surgery (SDC) | payer OTHER, SELFPAY ==
[2022-06-14 14:25] VITALS: BMI 32.1
[2022-06-15 12:38] VITALS: BP 134/76; PULSE 78; RESP 16; TEMP 36.6; O2SAT 96
[2022-06-15 12:49] LABS: POC Glucose,Bedside 83 (70-110)
--- NOTE | 2022-06-15 13:03 | EXP.ANES.CKL ---
[facility] Disclaimer: The information contained in this section may have been updated after the patient was seen, as this information can be updated by other users. Medical History History of amputation of toe History of Paulino's palsy History of BPH History of left heart catheterization History of sciatica HLD (hyperlipidemia) HTN (hypertension), benign Type 2 diabetes mellitus Surgical History History of amputation of right foot through metatarsal bone History of colonoscopy History of esophagogastroduodenoscopy (EGD) Family History Other Family history of diabetes mellitus type II Family history of hyperlipidemia Family history of hypertension Family history of myocardial infarction Social History Smoking Status: Never smoker second hand exposure: No alcohol intake: current counseling provided: none substance use type: denies use current occupational status: disabled Travel in the last 8 weeks: None household members: significant other housing: house lives independently: Yes marital status: life partner education level: college service: No 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 Anesthesia Checklist Patient Identification Patient Identification: Arm Band and Verbal (Name & ) Structural Data Admitted From: Home Planned Operative Procedure/s: EGD/Colonoscopy Consent for Planned Operative Procedure(s) Verified: Yes NPO Status Verified Time NPO: 00:00 Additional verifications Anesthesia Reactions: No Hx Blood Transfusions: No Blood Transfusion Reaction: No Airway Assessment C-Spine Mobility Assessed: Yes TMJ Mobility Assessed: Yes Dentition: Good Dentition Neurological Assessment Level of Consciousness: Awake Hx Seizures: No Numbness or tingling in extremities: No Anesthesia Plan Anesthesia Risk discussed: Yes Anesthesia Plan: Verified ASA Class: II Anesthesia Type: MAC
[2022-06-15 13:10] VITALS: O2SAT 96
[2022-06-15 13:47] VITALS: BP 82/43; PULSE 85; RESP 14; TEMP 36.5; O2SAT 94
--- NOTE | 2022-06-15 13:50 | HMH.SCOPE ---
Procedure: Date: 06/15/22 Patient Date of :: 1970 Procedure Performed:: Esophagogastroduodenoscopy with biopsy Colonoscopy Indications:: Gastroesophageal reflux Screening Performing Provider:: Clemente Maravilla MD Referring Provider:: . Sedation:: Monitored anesthesia care Procedure:: After informed consent was obtained the patient was taken to the endoscopy suite. Sedation ensued after the patient was transferred to the left lateral decubitus position. Pulse, blood pressure, and oxygen saturation were monitored throughout the procedure. The endoscope was advanced beyond the duodenal bulb. Retroflexion within the gastric lumen was accomplished. The gastroscope was carefully removed. Digital rectal exam revealed no significant abnormality. The colonoscope was placed in position. The entire colon was evaluated. The colonoscope was carefully removed and the patient was transferred to recovery in stable condition. Please see findings and specimens below for detail. Findings:: Patchy gastritis Mild to moderate duodenitis Sliding hiatal hernia High-arcing cardia versus paraesophageal defect Bowel preparation fairly poor Hemorrhoidal cushions Moderate spasticity Specimens:: Antral biopsy Recommendations:: Follow-up pathology Will likely benefit from formal barium swallow/UGI/small bowel follow-through secondary to symptomatology and high-arcing cardia versus paraesophageal defect Repeat colonoscopy in 6-12 months with alternate/extended bowel preparation Complications:: Limited visualization secondary to relatively poor bowel preparation Estimated blood obtained (mL): 1
[2022-06-15 13:57] VITALS: BP 83/51; PULSE 82; RESP 16; O2SAT 94
[2022-06-15 14:07] VITALS: BP 108/53; PULSE 89; RESP 16; O2SAT 97
--- NOTE | 2022-06-15 14:16 | PC.NURSE ---
ACCOUNTING SPECIALIST aware of BP. No new orders.
[2022-06-15 14:17] VITALS: BP 100/55; PULSE 83; RESP 16; TEMP 36.6; O2SAT 99
== END 2022-06-15 14:24 | disposition home or self-care (01) ==
PROVIDERS: PCP Internal Medicine Adolescent Medicine; Visit Provider Surgery
PROC: 0DJ08ZZ Inspection of Upper Intestinal Tract, Via Natural or Artificial Opening Endoscopic (ICD-10-PCS; CPT 43235; principal; 2022-06-15 13:30)
DX: Z12.11 Encounter for screening for malignant neoplasm of colon (principal); K21.9 Gastro-esophageal reflux disease without esophagitis; K29.70 Gastritis, unspecified, without bleeding; K44.9 Diaphragmatic hernia without obstruction or gangrene; K31.9 Disease of stomach and duodenum, unspecified; E11.9 Type 2 diabetes mellitus without complications
CPT/HCPCS: 43239; 45378; 82962; J2704

== ENCOUNTER → 2023-08-04 09:15 | Outpatient (CLI) | payer OTHER, SELFPAY | LOC: SL 09:15 | PROVIDERS: PCP Internal Medicine Adolescent Medicine; Visit Provider Internal Medicine Adolescent Medicine | DX: G47.33 Obstructive sleep apnea (adult) (pediatric) (principal); R06.83 Snoring; R40.0 Somnolence; I10 Essential (primary) hypertension | CPT/HCPCS: G0399 ==

== ENCOUNTER 2024-04-18 11:24 | Outpatient (POV) | payer OTHER, SELFPAY ==
--- NOTE | 2024-04-18 11:30 | EXP.PAIN.SOA ---
[facility] Disclaimer: The information contained in this section may have been updated after the patient was seen, as this information can be updated by other users. Medical History (Updated 04/18/24 @ 11:57 by Azul Sagastume APRN) History of left heart catheterization History of BPH History of Paulino's palsy History of sciatica HLD (hyperlipidemia) HTN (hypertension), benign Nondisplaced fracture of third metatarsal bone, right foot, subsequent encounter for fracture with delayed healing Open wound of toe of right foot Open wound of toe of right foot Type 2 diabetes mellitus Surgical History History of amputation of toe History of amputation of right foot through metatarsal bone History of esophagogastroduodenoscopy (EGD) History of colonoscopy Family History Other Family history of diabetes mellitus type II Family history of hyperlipidemia Family history of hypertension Family history of myocardial infarction Social History Smoking Status: Never smoker second hand exposure: No alcohol intake: current alcohol intake frequency: holidays/special occasions only counseling provided: none substance use type: denies use current occupational status: other Travel in the last 8 weeks: None household members: significant other housing: house lives independently: Yes marital status: life partner education level: college service: No 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 occupational exposures/hazards: No caffeine: Yes do you feel safe at home: Yes victim of physical abuse: No victim of emotional abuse: No victim of sexual abuse: No would you like helpful sources: No Have you lived/traveled outside US in past 30 days?: No Contact w/someone who lives/traveled outside US past 30 days?: No Exposure to someone with infectious disease in past 14 days?: No Do you have a fever (greater than 100.4 F or 38 C)?: No Have you tested positive for COVID-19: No Exposed to someone with COVID-19 in past 14 days?: No Do you have a sore throat?: No Do you have a cough?: No Do you have any weakness?: No Do you have any diarrhea?: No Are you experiencing any unusual bleeding?: No Do you have any muscle aches/pain?: No Do you have any abdominal pain?: No Are you experiencing loss of taste or smell?: No PM Subjective & Objective Subjective Subjective:: Patient is a pleasant 53-year-old male who presents today for follow-up. He rates his pain today as 3 out of 10. He states that he does have chronic pain throughout his neck and low back send a longstanding history of sacroiliitis. He denies any recent updated imaging. He states that he would have to say that overall the low back symptoms seem to be bothersome enough that he would like us to treat this area first. He describes it as a aching sensation with pressure that is primarily worse on the left side but does affect both sides he states is in and around his low back, hips and upper thighs. He does state the pain is interfering with his ability perform activities of daily living such as cooking and cleaning. He states that this pain is at least a 5 out of 10 and is worse with increased activity or prolonged positioning and will go to an 8 out of 10. He states he just feels like he has a lot of pressure. Patient was seen in our office back the most recently in 2021 for chronic low back pain, lumbar facet arthropathy and lumbar spondylosis. We had done multiple injections including trigger point and facet injections.he states typically that before we would go back and forth from treating his neck pain and his low back pain. He states these injections were helpful. Patient does state all of this pain has been going on for years and progressively worsened. He denies any prior surgical intervention. Patient has tried at home exercising and stretching for longer than 12 weeks with no additional changes. Patient is prescribed gabapentin from his PCP. His Antonio has been reviewed and is appropriate. Review of Systems: General: No recent weight changes, no fever, no sleep disturbances Respiratory: No cough, no shortness of air, no recurring pulmonary infections Cardiovascular/peripheral vascular: No chest pain, no palpitations, no edema, no shortness of breath Gastrointestinal: No new onset incontinence, normal bowel movements reported Genitourinary: No new onset incontinence Musculoskeletal: Low back pain, bilateral hip pain Psychiatric: [Normal mood/affect] Neurological: [Denies weakness in extremities], [denies balance issues] Pain at rest (0-10 scale): 5 Objective Objective:: Physical Exam: General: Alert and oriented x3, no acute distress, pleasant and cooperative Lungs: Respirations even and unlabored, symmetrical chest expansion Eyes: PERRL Musculoskeletal: Flexion and extension of lumbar [spine] somewhat guarded secondary to pain, [antalgic gait noted] point tenderness along bilateral SIs with positive bilateral Melba's, Reyna's, Gaenslen's, compression and distraction exam Neurological: Speech clear, no gross sensory deficit Has patient had previous pain injection?: No Conservative treatment options previously tried: Home exercise plan Length of treatment: Longer than 12 weeks Meds Home Medications and Allergies Home Medications ?Medication ?Instructions ?Recorded ?Confirmed ?Type finasteride 5 mg tablet 5 mg PO DAILY prostate 03/08/17 04/18/24 History atorvastatin 40 mg tablet 40 mg PO HS Cholesterol 30 days 05/23/18 04/18/24 History melatonin 10 mg capsule 10 mg PO HS sleep 06/10/20 04/18/24 History metformin 1,000 mg tablet 1,000 mg PO BID Diabetes 06/10/20 04/18/24 History tamsulosin 0.4 mg capsule 0.4 mg PO DAILY prostate 06/10/20 04/18/24 History dapagliflozin propanediol 10 mg 10 mg PO DAILY Diabetes 09/11/20 04/18/24 History tablet (Farxiga) amlodipine 5 mg tablet 5 mg PO DAILY BLOOD PRESSURE 06/06/21 04/18/24 History gabapentin 800 mg tablet 800 mg PO TID NEUROPATHY 06/06/21 04/18/24 History lisinopril 40 mg tablet 40 mg PO DAILY BLOOD PRESSURE 06/06/21 04/18/24 History trazodone 50 mg tablet 50 mg PO HS sleep 06/14/22 04/18/24 History New Prescriptions to Start Prescriptions: Allergies Allergy/AdvReac Type Severity Reaction Status Date / Time tetanus toxoid, adsorbed Allergy Verified 06/30/22 09:35 aripiprazole (From Abilify) AdvReac Verified 06/30/22 09:35 Assessment and Plan *Assessment and plan (1) Low back pain: Status: Acute Qualifiers: Back pain laterality: midline Chronicity: acute Sciatica laterality: bilateral sciatica Sciatica presence: with sciatica Qualified Code(s): M54.42 - Lumbago with sciatica, left side; M54.41 - Lumbago with sciatica, right side Category: Medical Code(s): M54.50 - Low back pain, unspecified (2) Degenerative disc disease: Status: Chronic Qualifiers: Spinal region: lumbar Qualified Code(s): M51.36 - Other intervertebral disc degeneration, lumbar region Category: Medical (3) Facet arthropathy, lumbar: Status: Acute Category: Medical Code(s): M47.816 - Spondylosis without myelopathy or radiculopathy, lumbar region (4) Chronic bilateral low back pain with bilateral sciatica: Status: Chronic Category: Medical Code(s): M54.42 - Lumbago with sciatica, left side; M54.41 - Lumbago with sciatica, right side; G89.29 - Other chronic pain (5) Bilateral sacroiliitis: Status: Acute Category: Medical Code(s): M46.1 - Sacroiliitis, not elsewhere classified (6) Neck pain: Status: Acute Category: Medical Code(s): M54.2 - Cervicalgia Plan Patient is experiencing worsening pain along the low back and bilateral hips. They did have limited range of motion of the lumbar spine along with point tenderness along bilateral SI joints and a positive bilateral Melba's, Reyna's, Gaenslen's, compression and distraction exam. I did discuss with the patient that I do believe they would benefit from bilateral SI injections. Risk and benefits were discussed with the patient and they would like to proceed forward with this option. Patient has tried and failed conservative therapy including continued at home stretching exercise for longer than 12 weeks. Patient has had this pain going on for years and progressively worsened. Patient has not had any injections with our office since 2021 and at that time those were lumbar facet and trigger point injections. I will order the patient a compounded cream and also order x-ray imaging of his cervical spine, lumbar spine and bilateral sacroiliac joints. We will proceed forward with advanced imaging at a later date. Patient agrees with this plan of care. Patient will be scheduled for bilateral SI injections under fluoroscopy. Patient has been instructed to contact the clinic with any concerns before the next appointment. Dr. Galvez has reviewed this note and agrees with this plan of care. This note was dictated using voice recognition software and make contain errors or omissions. All injections are used with Lidocaine or Bupivacaine and Depo Medrol. Patient has been instructed to contact the clinic with any concerns before the next appointment. Dr. Galvez has reviewed this note and agrees with this plan of care. This note was dictated using voice recognition software and make contain errors or omissions. All injections are used with Lidocaine, Bupivacaine and Depo Medrol. Occasionally urine drug screen is needed to verify patient's compliance with our office pain contract. This is ordered based off specific treatments related to chronic pain with the potential to abuse certain medications.
[2024-04-18 11:49] VITALS: BP 128/74; PULSE 76; RESP 14; O2SAT 97; BMI 32.3
== END 2024-04-18 23:59 | disposition home or self-care (01) ==
PROVIDERS: PCP Internal Medicine Adolescent Medicine; Visit Provider Nurse Practitioner Family
DX: M51.362 Other intervertebral disc degeneration, lumbar region with discogenic back pain and lower extremity pain (principal); M54.2 Cervicalgia; G89.29 Other chronic pain; M46.1 Sacroiliitis, not elsewhere classified; M47.816 Spondylosis without myelopathy or radiculopathy, lumbar region; Z73.89 Other problems related to life management difficulty
CPT/HCPCS: 99212; G0463

== ENCOUNTER 2024-04-20 10:14 | Outpatient (CLI) | payer OTHER, SELFPAY ==
--- NOTE | 2024-04-20 10:16 | XR_ITS ---
FINAL REPORT CLINICAL HISTORY: Low back pain, hip pain FINDINGS: SACROILIAC JOINTS Three views were obtained. There is no fracture or dislocation. The joint spaces appear normal. No soft tissue abnormality is identified. IMPRESSION: No acute process. Reviewed, Interpreted and Dictated by Chencho Tesfaye MD Transcribed by Abigail Henderson Authenticated and [facility]
--- NOTE | 2024-04-20 10:16 | XR_ITS ---
FINAL REPORT CLINICAL HISTORY: Neck pain FINDINGS: CERVICAL SPINE Three views were obtained. There is no acute fracture. The disc spaces are well-preserved. There is no malalignment. IMPRESSION: No acute process. Reviewed, Interpreted and Dictated by Chencho Tesfaye MD Transcribed by Abigail Henderson Authenticated and [facility]
--- NOTE | 2024-04-20 10:16 | XR_ITS ---
FINAL REPORT CLINICAL HISTORY: Low back pain FINDINGS: LUMBAR SPINE Three views were obtained. There is no acute fracture. There is mild degenerative endplate spurring. The disc spaces are well-preserved. There is no malalignment. IMPRESSION: Minimal degenerative changes. Reviewed, Interpreted and Dictated by Chencho Tesfaye MD Transcribed by Abigail Henderson Authenticated and [facility][1]
== END 2024-04-20 23:59 | disposition home or self-care (01) ==
LOC: RAD 10:14
PROVIDERS: PCP Internal Medicine Adolescent Medicine; Visit Provider Nurse Practitioner Family
DX: M54.2 Cervicalgia (principal); M54.42 Lumbago with sciatica, left side; M54.41 Lumbago with sciatica, right side; G89.29 Other chronic pain; M46.1 Sacroiliitis, not elsewhere classified
CPT/HCPCS: 72040; 72100; 72202

== ENCOUNTER 2024-05-08 14:02 | Day surgery (SDC) | payer OTHER, SELFPAY ==
[2024-05-08 14:08] VITALS: BP 128/70; PULSE 64; RESP 16; TEMP 36.6; O2SAT 97; BMI 32.1
--- NOTE | 2024-05-08 14:27 | P.PCN_ITS ---
Procedure Date: 05/08/24 Time: 14:15 Anesthesiologist:: Kt Fraser CRNA Complications:: None Pre-procedure Diagnosis:: Bilateral sacroiliitis Post-procedure Diagnosis:: Same Indications for Procedure:: Patient is a very pleasant 53-year-old male who comes our clinic today for bilateral sacroiliac joint injection of cortisone and local anesthetic. Patient describes low lumbar back pain off the midline bilaterally. Bilateral posterior hip pain. Difficulty transitioning from sitting to standing. Difficulty with ambulation. He rates his pain 8/10. Procedure Details:: Procedure: Bilateral sacroiliac joint injections under fluoroscopy Informed consent was obtained and the risks and benefits of the procedure were explained to the patient.~ The patient was taken to the procedure room and noninvasive monitors were placed including a noninvasive blood pressure cuff and pulse oximeter.~ The patient was placed prone on the procedure table. Both hips were cleansed using Betadine as a cleansing solution. C-arm fluoroscopy was used to view the right sacroiliac joint.~ The skin and subcutaneous tissues were anesthetized using lidocaine 1.5% and a 25-gauge needle.~ After this, a 22-gauge spinal needle was inserted under fluoroscopic guidance into the inferior aspect of the right sacroiliac joint.~ Omnipaque dye was injected and good spread was seen throughout the joint.~ After this, approximately 5 mL of bupivacaine, 0.25% and Depo-Medrol, 40 mg was incrementally injected into the right sacroiliac joint. We then moved to the left sacroiliac joint.~ The skin and subcutaneous tissues were anesthetized using lidocaine 1.5% and a 25-gauge needle.~ After this, a 22- gauge spinal needle was inserted under fluoroscopic guidance into the inferior aspect of the left sacroiliac joint.~ Omnipaque dye was injected and good spread was seen throughout the joint. After this, approximately 5 mL of bupivacaine, 0.25% and Depo-Medrol, 40 mg was incrementally injected into the left sacroiliac joint.~ The patient tolerated the procedure well with no complications. The patient was observed in the Pain Clinic and then was discharged home neurologically intact. Plan and Disposition:: Patient was discharged without incident.
[2024-05-08 14:30] VITALS: BP 134/71; PULSE 59; RESP 16; O2SAT 97
[2024-05-08] MEDS: BUPIVACAINE 0.25% 10ML INJ 25 MG IJ (15:17)
[2024-05-08 15:18] VITALS: BP 134/55; PULSE 62; RESP 18; O2SAT 94
[2024-05-08] MEDS: LIDOCAINE 1% 5ML PF VIAL 5 ML (15:18)
[2024-05-08 15:19] VITALS: BP 134/55; PULSE 62; RESP 18; O2SAT 94
== END 2024-05-08 14:30 | disposition home or self-care (01) ==
PROVIDERS: PCP Internal Medicine Adolescent Medicine; Visit Provider Nurse Anesthetist, Certified Registered
DX: M46.1 Sacroiliitis, not elsewhere classified (principal)
CPT/HCPCS: G0260; J1010

== ENCOUNTER 2024-05-24 13:19 | Outpatient (POV) | payer OTHER, SELFPAY ==
--- NOTE | 2024-05-24 14:16 | A.OFFVIS_ITS ---
[facility] Disclaimer: The information contained in this section may have been updated after the patient was seen, as this information can be updated by other users. Medical History (Updated 05/24/24 @ 14:18 by Azul Sagastume APRN) History of left heart catheterization History of BPH History of Paulino's palsy History of sciatica HLD (hyperlipidemia) HTN (hypertension), benign Nondisplaced fracture of third metatarsal bone, right foot, subsequent encounter for fracture with delayed healing Open wound of toe of right foot Open wound of toe of right foot Type 2 diabetes mellitus Surgical History History of amputation of toe History of amputation of right foot through metatarsal bone History of esophagogastroduodenoscopy (EGD) History of colonoscopy Family History Other Family history of diabetes mellitus type II Family history of hyperlipidemia Family history of hypertension Family history of myocardial infarction Social History Smoking Status: Never smoker second hand exposure: No alcohol intake: current alcohol intake frequency: holidays/special occasions only counseling provided: none substance use type: denies use current occupational status: other Travel in the last 8 weeks: None household members: significant other housing: house lives independently: Yes marital status: life partner education level: college service: No 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 Patient does state today that he feels like these did help however after having these done he felt like he had more pain that he noticed in his overall back that is worse with lifting or certain activities. He states that it is hard to gauge how effective that injection was due to this. He is currently stating that he guessed around 35% improvements however fully acknowledges that it may have done better. Patient does state that he has also been having significant leg cramps that are worse at night. He states that he feels like once he has been in bed for a few hours to 4 hours he ends up getting woken up in the middle of the night because he is having significant cramping in his foot and ankles that will even go into his thighs. Patient denies any recent falls or injuries. Patient is prescribed gabapentin from his PCP. His Antonio has been reviewed and is appropriate. Review of Systems: General: No recent weight changes, no fever, no sleep disturbances Respiratory: No cough, no shortness of air, no recurring pulmonary infections Cardiovascular/peripheral vascular: No chest pain, no palpitations, no edema, no shortness of breath Gastrointestinal: No new onset incontinence, normal bowel movements reported Genitourinary: No new onset incontinence Musculoskeletal: Low back pain, leg cramps Psychiatric: [Normal mood/affect] Neurological: [Denies weakness in extremities], [denies balance issues] Pain at rest (0-10 scale): 6 Objective Objective:: Physical Exam: General: Alert and oriented x3, no acute distress, pleasant and cooperative Lungs: Respirations even and unlabored, symmetrical chest expansion Eyes: PERRL Musculoskeletal: Flexion and extension of lumbar [spine] somewhat guarded secondary to pain, [antalgic gait noted] Neurological: Speech clear, no gross sensory deficit Has patient had previous pain injection?: Yes Percent improvement in pain since last injection: 35% Conservative treatment options previously tried: Home exercise plan Length of treatment: Longer than 12 weeks Meds Home Medications and Allergies Home Medications ?Medication ?Instructions ?Recorded ?Confirmed ?Type finasteride 5 mg tablet 5 mg PO DAILY prostate 03/08/17 05/08/24 History atorvastatin 40 mg tablet 40 mg PO HS Cholesterol 30 days 05/23/18 05/08/24 History melatonin 10 mg capsule 10 mg PO HS sleep 06/10/20 05/08/24 History metformin 1,000 mg tablet 1,000 mg PO BID Diabetes 06/10/20 05/08/24 History tamsulosin 0.4 mg capsule 0.4 mg PO DAILY prostate 06/10/20 05/08/24 History dapagliflozin propanediol 10 mg 10 mg PO DAILY Diabetes 09/11/20 05/08/24 History tablet (Farxiga) amlodipine 5 mg tablet 5 mg PO DAILY BLOOD PRESSURE 06/06/21 05/08/24 History gabapentin 800 mg tablet 800 mg PO TID NEUROPATHY 06/06/21 05/08/24 History lisinopril 40 mg tablet 40 mg PO DAILY BLOOD PRESSURE 06/06/21 05/08/24 History trazodone 50 mg tablet 50 mg PO HS sleep 06/14/22 05/08/24 History New Prescriptions to Start Prescriptions: Allergies Allergy/AdvReac Type Severity Reaction Status Date / Time tetanus toxoid, adsorbed Allergy Verified 06/30/22 09:35 aripiprazole (From [employer]) AdvReac Verified 06/30/22 09:35 Assessment and Plan *Assessment and plan (1) Bilateral sacroiliitis: Status: Acute Category: Medical Code(s): M46.1 - Sacroiliitis, not elsewhere classified (2) Leg cramping: Status: Acute Category: Medical Code(s): R25.2 - Cramp and spasm Plan I will order the patient ropinirole 0.25 mg at bedtime for his leg cramping and provide a 2-week supply. I did discuss with the patient in future he may benefit from additional injection therapy due to his worsening pain symptoms. Patient will return to clinic in 2 weeks for reevaluation of symptoms and plan of care. Patient has been instructed to contact the clinic with any concerns before the next appointment. Dr. Galvez has reviewed this note and agrees with this plan of care. This note was dictated using voice recognition software and make contain errors or omissions. All injections are used with Lidocaine, Bupivacaine and Depo Medrol. Occasionally urine drug screen is needed to verify patient's compliance with our office pain contract. This is ordered based off specific treatments related to chronic pain with the potential to abuse certain medications.
[2024-05-24 14:22] VITALS: BP 122/70; PULSE 58; RESP 18; O2SAT 98; BMI 32.1
== END 2024-05-24 23:59 | disposition home or self-care (01) ==
PROVIDERS: PCP Internal Medicine Adolescent Medicine; Visit Provider Nurse Practitioner Family
DX: M46.1 Sacroiliitis, not elsewhere classified (principal); R25.2 Cramp and spasm
CPT/HCPCS: 99212; G0463

== ENCOUNTER 2024-08-19 19:47 | Emergency (ER) | payer OTHER, SELFPAY ==
--- OUTSIDE RECORDS SUMMARY | 2024-05-19 17:30 | XMS_ITS ---
Author Organization [facility] D YFN Address [address] [place] [address] Care Team Providers Care Production Checker Name Role Phone Jose Francisco Caldera Primary Care Provider [phone] Migration, Provider Unavailable Unavailable Allergies Allergen (clinical drug ingredient) Drug/Non Drug Allergy documented on EMR Reaction Allergy Type Onset Date Status Tetanus Toxoid TETANUS TOXOID (uncoded) Unknown Allergy Active pregabalin Pregabalin Unknown Drug Allergy Activ e aripiprazole Abilify itching, anxiety Drug Allergy Active REASON FOR VISIT [facility] To [facility] Conversion Encounter Medications Medication SIG (Take, [...] Active Encounters Encounter Location Date Provider Diagnosis [facility] PED [facility] [address] [facility] [address] [facility] [address] [place] [address] 05/19/2024 Provider Migration Acute left-sided low back [...] Next Appt Details Provider Name:Jose Francisco Caldera, 09/10/2024 10:30:00 AM, [address] [facility], [address], [place], [address], Progress Notes * Lor SALASOB:1970 (53 yo M)Acc No.[id number]:05/19/2024 Patient: Charly GUNNAR Geeta Provider: Kathe carver Migration :1970 A ge:53 Y S ex:Male Date:05/19/2024 Address:[address] [place] [address] JORGE, [place], [id number] Pcp:Jose Francisco Caldera Subjective: * Chief Complaints: [...] Electronic signature of Prov ider Migration on 08/19/2024 at 08:30 PM EDT Sign off status: Pending * Provider: Kathe carver Migration Date: 0 05/19/2024 Generated for Bren otoole/Rebecca/Vera on: 0 08/19/2024 08:30 PM EDT
--- OUTSIDE RECORDS SUMMARY | 2024-07-13 06:15 | XMS_ITS ---
Author Organization [facility] Address [address] [place] [address] Care Team Providers Care Railroad Track Mechanic Name Role Phone Jose Francisco Caldera Primary Care Provider [phone] Allergies Allergen (clinical drug ingredient) Drug/Non Drug Allergy documented on EMR Reaction Allergy Type Onset Date Status Tetanus Toxoid TETANUS TOXOID (uncoded) Unknown Allergy Active pregabalin Pregabalin Unknown Drug Allergy Activ e aripiprazole Abilify itching, anxiety Drug Allergy Active Results Component Value Reference Range Notes Microalbumin (In-House) Reviewed date:07/13/2024 12:20:56 PM Interpretation:Abnormal Performing Lab: Notes/Report: Abnormal ALB 30mg CRE 50mg A:C 30-300mg REASON FOR VISIT meds/sugar/labs-fasting, c/o having lots of gas Medications Medication SIG (Take, Route, Frequency, Duration) Notes Start Date End Date Status amLODIPine Besylate 5 MG 1 tab(s) orally once a day; Duration: 90 days Active Lisinopril 40 MG 1 tab(s) orally once a day; Duration: 30 day(s) Active Finasteride 5 MG Take 1 tablet by mouth once daily; Duration: 90 Active Atorvastatin Calcium 40 MG 1 tab(s) orally once a day; Duration: 90 days Active traZODone HCl 100 MG 1 tab(s) orally once a day (at bedtime); Duration: 90 days Active metFORMIN HCl 1000 MG 1 tab(s) orally 2 times a day; Duration: 90 days Active Tamsulosin HCl 0.4 MG 1 cap(s) orally once a day; Duration: 90 Active Gabapentin 600 MG 1 tab(s) orally 3-4 times daily; Duration: 30 days 04/11/2024 Active GLUCOMETER NA USE FOR FSBS TESTING NA ONCE DAILY; Duration: 30 DAYS diagnosis: E11.9 *Please review for potential replacement for e-prescription and drug interaction check* 12/06/2018 Active TEST STRIPS AND LANCETS NA FOR FSBS TESTING NA ONCE DAILY; Duration: 30 DAYS diagnosis: E11.9 *Please review for potential replacement for e-prescription and drug interaction check* 12/06/2018 Active Melatonin 10 MG 1 cap(s) orally once a day (at bedtime); Duration: 90 days 12/10/2019 Active Farxiga 10 MG 1 tablet Orally Once a day Active Sildenafil Citrate 100 MG 1 tab(s) orally once a day, as needed; Duration: 10 Active Social History Tobacco Use: Social History Observation Description Date Details (start date - stop date) Never Smoker NA - NA Smoking: Question Answer Notes Are you a: nonsmoker Vital Signs Temperature 97.6 degrees Fahrenheit 07/14/19 25 Blood pressure systolic 114 mm Hg 07/14/19 25 Blood pressure diastolic 80 mm Hg 025 Heart Rate 68 /min 07/13/2024 Height 6 ft 2 in in 07/13/2024 Weight 249.8 lbs 07/13/2024 BMI 32.07 kg/m2 07/13/2024 Encounters Encounter Location Date Provider Diagnosis [facility] [address] [facility] [address] [place] [address] 07/13/2024 Jose Francisco Caldera Type 2 diabetes mellitus with diabetic polyneuropathy, without long-term current use of insulin E11.42 ; Diabetic retinopathy of both eyes associated with type 2 diabetes mellitus, macular edema presence unspecified, unspecified retinopathy severity E11.319 ; Hypertension, essential I10 and Neuropathic pain, leg, bilateral G57.93 Assessments Encounter Date Diagnosis (ICD Code) Assessment Notes Treatment Notes Treatment Clinical Notes Section Notes 07/13/2024 Type 2 diabetes mellitus with diabetic polyneuropathy, without long-term current use of insulin (ICD-10 - E11.42) Will check labs this coming Tuesday when he is fasting and lab is available. Discussed continuing Farxiga. Will need to check renal function. Proteinuria noted. Given his lack of treatment with SGLT2's over the last couple of weeks we will recheck this in a couple month 07/13/2024 Diabetic retinopathy of both eyes associated with type 2 diabetes mellitus, macular edema presence unspecified, unspecified retinopathy severity (ICD-10 - E11.319) Reminded patient to get his eye exam scheduled DIYA reminded patient that he has eye exam scheduled DIYA 07/13/2024 Hypertension, essential (ICD-10 - I10) Good blood pressure control, no changes in plan 07/13/2024 Neuropathic pain, leg, bilateral (ICD-10 - G57.93) Remains on neuropathic medication. No changes Patient has been compliant with our office and [place] regulations r.e. meds. No concerns on my part about diversion or misuse. Labs and Antonio reports reviewed and are appropriate. Plan Of Treatment Treatment Notes Assessment Notes Type 2 diabetes mellitus wit h diabetic polyneuropathy, without long-term current use of insulin Will check labs this coming Tuesday when he is fasting and lab is available. Discussed continuing Farxiga. Will need to check renal function. Proteinuria noted. Given his lack of treatment with SGLT2's over the last couple of weeks we will recheck this in a couple month Diabetic retinopathy of both eyes associated with type 2 diabetes mellitus, macular edema presence unspecified, unspecified retinopathy severity Reminded patient to get his eye exam scheduled DIYA reminded patient that he has eye exam scheduled DIYA Hypertension, essential Good blood press ure control, no changes in plan Neuropathic pain, leg, bilateral Remains on neuropathic medication. No changes Patient has been compliant with our office and [place] regulations r.e. meds. No concerns on my part about diversion or misuse. Labs and Antonio reports reviewed and are appropriate. Next Appt Details Follow Up: prn,2 Months, Dillwyn son: Provider Name:Jose Francisco Caldera, 09/10/2024 10:30:00 AM, [address], [address], [place], [address], Progress Notes * Lor SALASOB:1970 (53 yo M)Acc No.[id number]:07/13/2024 Progress Notes Patient: Geeta JARA Provider: Anil Caldera MD :1970 A ge:53 Y S ex:Male Date:07/13/2024 Address:[address] [place] [address] [place], [place], [id number] Subjective: * Chief Complaints: * 1 . Meds/sugar/labs-fasting. 2. C/o having lots of gas. * HPI: g en: Here to follow-up his medical problems. Overall feels pretty good. Was out of his Farxiga for a couple of weeks because of insurance delay and reviewing the preauthorization issues. Is back on it now. Urinalysis from today reviewed. Had a fall the other day where he tripped over a piece of furniture. Is behind on his eye and foot exams. * Medical History: B ells palsy, Diabetes mellitus with neuropathy and retinopathy, HTN, GERD- prior EGD normal, HLD, PVD, Palpitations- prior heart monitor and stress test normal, Sciatica, Kidney stones, Diabetic Neuropathy, Bulging discs and spinal stenosis, DAREN - sleep study 08/07. * Surgical History: L eft foot great toe- amputated , Right great toe- partial amputation , Heart cath , Colonoscopy , toe amputation-rt foot 11/2018, lt foot toe amputation 05/2019, Nerve block s in back , Right foot - partial amputation of right great toe and second toe 06/2021, rt foot-remaining 3 toes amputated 12/2021, Colonoscopy/EGD 06/2022. * Hospitalization/Major Diagno stic Procedure: A mputations as above , Diabetes- lots of hospital stays and ER visits , [facility]- Right foot infection 06/2021. * Family History: F ather: , CAD, Diabetes. M other: , CHF, Diabetes. P aternal Grand Father: . P aternal Grand Mother: , cancer. M aternal Grand Father: , Leukemia. M aternal Grand Mother: , Aneurysm. M aternal uncle: , cancer.?Maternal aunt: alive. S iblings: alive. C hildren: alive, autism, mental issues with oldest daughter. 1 brother(s) , 2 sister(s) - healthy. 3 son(s) , 2 daughter(s) - healthy. . * Social History: S moking A re you a: n onsmoker. R ecreational drug use: no. Exercise: yes. Home smoke detector use: yes. Caffeine: yes, frequency: diet soda 4 daily. Living Will: No. Alcohol: socially, rarely. Sexually active: no. Travel outside [place]: no. Occupation: Unemployed. * Medications: T aking Farxiga 10 MG Tablet 1 tablet Orally Once a day , Taking Sildenafil Citrate 100 MG Tablet 1 tab(s) [...] orally 2 times a day , Taking Tamsulosin HCl 0.4 MG Capsule 1 cap(s) orally once a day , Taking Gabapentin 600 MG Tablet 1 tab(s) orally 3-4 times daily , Taking Lisinopril 40 MG Tablet 1 tab(s) orally once a day , Taking Finasteride 5 MG Tablet Take 1 tablet by mouth once daily , Taking Atorvastatin Calcium 40 MG Tablet 1 tab(s) orally once a day , Taking amLODIPine Besylate 5 MG Tablet 1 tab(s) orally once a day , Discontinued Methocarbamol 500 MG Tablet as directed orally every 8 hours , Discontinued Jardiance 10 MG Tablet 1 tablet Orally Once a day , Medication List reviewed and reconciled with the patient * Allergies: T ETANUS TOXOID, Abilify: itching, anxiety, Abilify: itching, anxiety, Pregabalin: Allergy, Pregabalin: Allergy. Objective: * Vitals: N urse: jl, Pain: 2, Temp: 97.6, RR: 18, HR: 68, BP: 114/80, Ht: 6 ft 2 in, Wt: 249.8, BMI:32.07. * Examination: G eneral Examination: General P leasant and Cooperative, NAD on RA,. Heart: R egular Rate and Rhythm, no murmur, rubs or gallops. HEENT: p harynx and tonsils normal, TM's normal. Lungs: L CTAB, No wheezes, crackles or rhonchi, Good air movement,. Abdomen: S oft, NTND, BSNA, No organomegaly or peritoneal signs.. P leasant, talkative, alert and oriented x 3. Diminished pulses with poor sensation and toe loss in his feet as previously noted. Assessment: * Assessment: 1. T ype 2 diabetes mellitus with diabetic polyneuropathy, without long-term current use of insulin - E11.42 (Primary) 2 . D iabetic retinopathy of both eyes associated with type 2 diabetes mellitus, macular edema presence unspecified, unspecified retinopathy severity - E11.319 3 . H ypertension, essential - I10 4 . N europathic pain, leg, bilateral - G57.93 Plan: * Treatment: Value Reference Range A LB 30mg * C RE 50mg * A :C 30-300mg * Kalli Sibley Yunier 07/13/2024 10: 13:35 AM EDT > ?LAB: COMPREHENSIVE METABOLIC PANEL (67591) (Ordered for 07/16/2024) ?LAB: HEMOGLOBIN A1c (496) (Ordered for 07/16/2024) ?LAB: LIPID PANEL, STANDARD (7600) (Ordered for 07/16/2024) Notes: Will check labs this coming Tuesday when he is fasting and lab is available. Discussed continuing Farxiga. Will need to check renal function. Proteinuria noted. Given his lack of treatment with SGLT2's over the last couple of weeks we will recheck this in a couple month??2.?Diabetic retinopathy of both eyes associated with type 2 diabetes mellitus, macular edema presence unspecified, unspecified retinopathy severity? Notes: Reminded patient to get his eye exam scheduled DIYA reminded patient that he has eye exam scheduled DIYA??3.?Hypertension, essential? Notes: Good blood pressure control, no changes in plan??4.?Neuropathic pain, leg, bilateral? Notes: Remains on neuropathic medication. No changes [place]. No concerns on my part about diversion or misuse. Labs and Antonio reports reviewed and are appropriate.?? * Procedure Codes: 8 2043 MICROALBUMIN, URINE, Modifiers: QW * Follow Up: p rn,2 Months * * Sign off status: Completed true * Provider: Anil Caldera MD Date: 0 07/13/2024 Generated for Chidii sydnie/Rebecca/eTransmitting on: 0 08/19/2024 08:31 PM EDT History and Physical Notes * HPI (History of Present Illness) Category Sub-Category Detail Notes Category Not es gen Here to follow-up his medical problems. Overall feels pretty good. Was out of his Farxiga for a couple of weeks because of insurance delay and reviewing the preauthorization issues. Is back on it now. Urinalysis from today reviewed. Had a fall the other day where he tripped over a piece of furniture. Is behind on his eye and foot exams. Examination Category Sub-Category Detail Notes Category Not es General Examination HEENT: pharynx and tonsils normal, TM's normal Pleasant, talkative, alert and oriented x 3. Diminished pulses with poor sensation and toe loss in his feet as previously noted Heart: Regular Rate and Rhy thm, no murmur, rubs or gallops Lungs: LCTAB, No wheezes, c rackles or rhonchi, Good air movement, Abdomen: Soft, NTND, BSNA, No organomegaly or peritoneal signs. General Pleasant and Coopera tive, NAD on RA,
--- OUTSIDE RECORDS SUMMARY | 2024-07-16 04:00 | XMS_ITS ---
Author Organization [facility] Address [address] [facility] [address] [facility] [address] [place] [address] Care Team Providers Care Careers Adviser Name Role Phone Jose Francisco Caldera Primary Care Provider REASON FOR VISIT blood draw Encounters Encounter Location Date Provider Diagnosis [facility] [address] [place] [address] 07/16/2024 Jose Francisco Caldera Plan Of Treatment Next Appt Details Provider Name:Jose Francisco Caldera, 09/10/2024 10:30:00 AM, [address], [address], [place], [place], [address], Progress Notes * ALEGRIAAncelmo CLEMENTSieDOB:1970 (53 yo M)Acc No.[id number]:07/16/2024 LABS Patient: Geeta JARA Provider: Anil Caldera MD :1970 A ge:53 Y S ex:Male Date:07/16/2024 Address:[address], [phone] Subjective: * Chief Complaints: * 1 . Blood draw. * Medical History: Objective: * Vitals: Assessment: Plan: * Treatment: * * Electronic signature of Scot Caldera MD FAAP on 08/19/2024 at 08:31 PM EDT Sign off status: Pending * Provider: Anil Caldera MD Date: 0 07/16/2024 Generated for Bren otoole/Rebecca/Vera on: 0 08/19/2024 08:31 PM EDT
[2024-08-19 20:29] VITALS: BP 125/75; PULSE 63; RESP 16; TEMP 37.1; O2SAT 96; BMI 32.1
--- OUTSIDE RECORDS SUMMARY | 2024-08-19 20:31 | XMS_ITS | Patient Health Record ---
Author Organization 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 Role Phone Jose Francisco Caldera Primary Care Provider Graciela Priest Unavailable [phone] Migration, Provider Unavailable Unavailable Allergies Allergen (clinical [...] Abnormal ALB 30mg CRE 50mg A:C 30-300mg LIPID PANEL, STANDARD (7600) Reviewed date:07/18/2024 12:24:38 PM Interpretation: Performing Lab:CB, [facility] [id number], [facility] CenterBwsoOB[address] Kervin Sanchez Notes/Report: NON-FASTING; NON-FASTING; NON-FASTING CHOLESTEROL, TOTAL 147 <200 mg/dL HDL CHOLESTEROL 50 > OR = 40 mg/dL TRIGLYCERIDES 169 <150 mg/dL LDL-CHOLESTEROL 72 Reference range: <100 Desirable range <100 mg/dL for primary prevention; <70 mg/dL for patients with CHD or diabetic patients with > or = 2 CHD risk factors. LDL-C is now calculated using the Jhonatan-Cintron calculation, which is a validated novel method providing better accuracy than the Friedewald equation in the estimation of LDL-C. Jhonatan SS et al. CHIKIS. 2013;310(48): 2153-6058 (http://education.[employer].Boostable/faq/RPY057) CHOL/HDLC RATIO 2.9 <5.0 (calc) NON HDL CHOLESTEROL 97 <130 mg/dL (calc) For patients with diabetes plus 1 major ASCVD risk factor, treating to a non-HDL-C goal of <100 mg/dL (LDL-C of <70 mg/dL) is considered a therapeutic option. COMPREHENSIVE METABOLIC PANE L (52262) Reviewed date:07/18/2024 12:24:38 PM Interpretation: Performing Lab:JONATHAN 4meee-[employer] [id number] [employer] Serviceszohreh Reilly, Mikel TownsendTovdJZ[address] Kervin Sanchez Notes/Report: NON-FASTING; NON-FASTING; NON-FASTING GLUCOSE 151 65-99 mg/dL Fasting reference interval For someone without known diabetes, a glucose value >125 mg/dL indicates that they may have diabetes and this should be confirmed with a follow-up test. UREA NITROGEN (BUN) 26 7-25 mg/dL CREATININE 1.35 0.70-1.30 mg/dL EGFR 62 > OR = 60 mL/min/1.73m2 BUN/CREATININE RATIO 19 6-22 (calc) SODIUM 140 135-146 mmol/L POTASSIUM 4.8 3.5-5.3 mmol/L CHLORIDE 109 98-110 mmol/L CARBON DIOXIDE 24 20-32 mmol/L CALCIUM 9.2 8.6-10.3 mg/dL PROTEIN, TOTAL 6.9 6.1-8.1 g/dL ALBUMIN 4.2 3.6-5.1 g/dL GLOBULIN 2.7 1.9-3.7 g/dL (calc) ALBUMIN/GLOBULIN RATIO 1.6 1.0-2.5 (calc) BILIRUBIN, TOTAL 0.8 0.2-1.2 mg/dL ALKALINE PHOSPHATASE 79 35-144 U/L AST 18 10-35 U/L ALT 14 9-46 U/L BASIC METABOLIC PANEL (06558 ) Reviewed date:11/30/2023 10:31:07 AM Interpretation: Performing Lab:JONATHAN [employer]meee-[employer] [id number] [email or web address] LLCSt. Francis Medical CenterOcosUD[address] Kervin Sanchez Notes/Report: NON-FASTING; NON-FASTING; NON-FASTING; NON-FASTING GLUCOSE 137 65-99 mg/dL Fasting reference interval For someone without known diabetes, a glucose value >125 mg/dL indicates that they may have diabetes and this should be confirmed with a follow-up test. UREA NITROGEN (BUN) 21 7-25 mg/dL CREATININE 1.15 0.70-1.30 mg/dL EGFR 75 > OR = 60 mL/min/1.73m2 BUN/CREATININE RATIO SEE NOTE: 6-22 (calc) Not Reported: BUN and Creatinine are within reference range. SODIUM 144 135-146 mmol/L POTASSIUM 4.6 3.5-5.3 mmol/L CHLORIDE 113 98-110 mmol/L CARBON DIOXIDE 23 20-32 mmol/L CALCIUM 9.0 8.6-10.3 mg/dL CREATINE KINASE, TOTAL (374) Reviewed date:11/30/2023 10:31:07 AM Interpretation: Performing Lab:JONATHAN [address] [email or web address] LLCSt. Francis Medical CenterDxrfME[address] Kervin Sanchez Notes/Report: NON-FASTING; NON-FASTING; NON-FASTING; NON-FASTING CREATINE KINASE, TOTAL 158 44-196 U/L HEMOGLOBIN A1c (496) Reviewed date:11/30/2023 10:31:07 AM Interpretation: Performing Lab:JONATHAN [address]13[address] [email or web address] LLCSt. [facility] WklbHL[address] Kervin Sanchez Notes/Report: NON-FASTING; NON-FASTING; NON-FASTING; NON-FASTING HEMOGLOBIN A1c 7.2 <5.7 % of total Hgb For someone without known diabetes, a hemoglobin A1c value of 6.5% or greater indicates that they may have diabetes and this should be confirmed with a follow-up test. For someone with known diabetes, a value <7% indicates that their diabetes is well controlled and a value greater than or equal to 7% indicates suboptimal control. A1c targets should be individualized based on duration of diabetes, age, comorbid conditions, and other considerations. Currently, no consensus exists regarding use of hemoglobin A1c for diagnosis of diabetes for children. HEMOGLOBIN A1c (496) Reviewed date:07/18/2024 12:24:38 PM Interpretation: Performing Lab:JONATHAN [email or web address], [facility] CenterKcofFK[address] Kervin Sanchez Notes/Report: NON-FASTING; NON-FASTING; NON-FASTING HEMOGLOBIN A1c 7.2 <5.7 % For someone without known diabetes, a hemoglobin A1c value of 6.5% or greater indicates that they may have diabetes and this should be confirmed with a follow-up test. For someone with known diabetes, a value <7% indicates that their diabetes is well controlled and a value greater than or equal to 7% indicates suboptimal control. A1c targets should be individualized based on duration of diabetes, age, comorbid conditions, and other considerations. Currently, no consensus exists regarding use of hemoglobin A1c for diagnosis of diabetes for children. TSH (899) Reviewed date:11/30/2023 10:31:07 AM Interpretation: Performing Lab:JONATHAN 4meee-App[employer] [email or web address], [facility] ClinicEvetRD[address] Kervin Sanchez Notes/Report: NON-FASTING; NON-FASTING; NON-FASTING; NON-FASTING TSH 1.51 0.40-4.50 mIU/L Reason For Referral Reason Needs Cpap - DAREN Referral Organization [facility] Referring Provider First Name Jos eFrancisco Referring Provider Last Name Werner Referring Provider Speciality Internal M edicine Referral Priority Routine Reason Please refer to pain management at [facility] for back pain, history of bulging disc and spinal stenosis. Diagnosis 1 Acute left-sided low back pain with left-sided sciatica (M54.42) Referral Organization [facility] Referring Provider First Name Graciela Referring Provider Last Name Zayda Referring Provider Speciality Family [facility] ctice Referred Organization [facility] Referred Address [address],[address], Referred Provider Specialty Pain Managem ent General Notes Ashely Calderon 2024 02:55:34 PM >, Ashely Calderon 04/12/2024 02:55:38 PM > Faxed to Dr. Galvez Referral Priority Routine Medications Medication SIG (Take, Route, Frequency, Duration) Notes Start Date End Date Status Tamsulosin HCl 0.4 MG 1 cap(s) orally once a day; Duration: 90 Active Gabapentin 600 MG TAKE 1 TABLET BY MOUTH 3 TO 4 TIMES DAILY; Duration: 30 08/12/2024 Active Lisinopril 40 MG 1 tab(s) orally once a day; Duration: 30 day(s) Active Farxiga 10 MG 1 tablet Orally Once a day Active Finasteride 5 MG Take 1 tablet by mouth once daily; Duration: 90 Active Sildenafil Citrate 100 MG 1 tab(s) orally once a day, as needed; Duration: 10 Active Atorvastatin Calcium 40 MG 1 tab(s) orally once a day; Duration: 90 days Active GLUCOMETER NA USE FOR FSBS TESTING NA ONCE DAILY; Duration: 30 DAYS diagnosis: E11.9 *Please review for potential replacement for e-prescription and drug interaction check* 12/06/2018 Active amLODIPine Besylate 5 MG 1 tab(s) orally once a day; Duration: 90 days Active TEST STRIPS AND LANCETS NA FOR FSBS TESTING NA ONCE DAILY; Duration: 30 DAYS diagnosis: E11.9 *Please review for potential replacement for e-prescription and drug interaction check* 12/06/2018 Active Melatonin 10 MG 1 cap(s) orally once a day (at bedtime); Duration: 90 days 12/10/2019 Active traZODone HCl 100 MG 1 tab(s) orally once a day (at bedtime); Duration: 90 days Active metFORMIN HCl 1000 MG 1 tab(s) orally 2 times a day; Duration: 90 days Active Social History Tobacco Use: Social History Observation Description Date Details (start date - stop date) Never Smoker NA - NA Smoking: Question Answer Notes Are you a: nonsmoker Problems Problem Type SNOMED Code ICD Code Onset Dates Problem Status W/U Status Risk Notes Problem Foot ulcer due to type 2 diabetes mellitus (8080879898628) Type 2 diabetes mellitus with foot ulcer (E11.621) Active confirmed Problem Dermopathy due to type 2 diabetes mellitus (disorder) (8671161910326) Type 2 diabetes mellitus with other skin complications (E11.628) Active confirmed Problem 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) Active confirmed Problem Right side sciatica (863744877219120) Sciatica, right side (M54.31) Active confirmed Problem Obese class I (finding) (563244283801708) Obesity (BMI 30.0-34.9) (E66.9) Active confirmed Problem Essential hypertension (60297664) Hypertension, essential (I10) Active confirmed Problem Sleep disturbance (65870052) Sleep disturbance (G47.9) Active confirmed Problem Erectile dysfunction (disorder) (946182244) Erectile dysfunction, unspecified erectile dysfunction type (N52.9) Active confirmed Problem Chronic insomnia (373981338) Chronic insomnia (F51.04) Active confirmed Problem Sciatica (17288093) Left sided sciatica (M54.32) Active confirmed Problem Recurrent major depression (81388387) Recurrent major depressive disorder, remission status unspecified (F33.9) Active confirmed Problem Acid reflux (746473539) Acid reflux (K21.9) Active confirmed Problem Sciatica (89874301) Acute left-sided low back pain with left-sided sciatica (M54.42) Active confirmed Problem Benign prostatic hypertrophy with outflow obstruction (769036468) BPH loc w urin obs/LUTS (N40.1) Active confirmed Problem Adult health examination (846271663) Healthcare maintenance (Z00.00) Active confirmed Problem Peripheral artery disease (862773277) Peripheral artery disease (I73.9) Active confirmed Problem Type II diabetes mellitus without complication (986272063) Controlled type 2 diabetes mellitus without complication, without long-term current use of insulin (E11.9) Active confirmed Problem Bilateral carpal tunnel syndrome (64722611019719036 ) Bilateral carpal tunnel syndrome (G56.03) Active confirmed Problem Polyneuropathy due to type 2 diabetes mellitus (705359946) Type 2 diabetes mellitus with diabetic polyneuropathy, without long-term current use of insulin (E11.42) Active confirmed Problem Ulcer of left foot (disorder) (250401412) Ulcer of left foot, unspecified ulcer stage (L97.529) Active confirmed Problem Diabetic retinopathy associated with type 2 diabetes mellitus (816708878) Diabetic retinopathy of both eyes associated with type 2 diabetes mellitus, macular edema presence unspecified, unspecified retinopathy severity (E11.319) Active confirmed Problem Neuropathic pain, leg, bilateral (G57.93) Active confirmed Vital Signs Heart Rate 68 /min 07/13/2024 Temperature 97.6 degrees Fahrenheit 07/13/2024 Blood pressure diastolic 80 mm Hg 07/13/2024 Height 6 ft 2 in in 07/13/2024 Blood pressure systolic 114 mm Hg 07/13/2024 Weight 249.8 lbs 07/13/2024 BMI 32.07 kg/m2 07/13/2024 Encounters Encounter Location Date Provider Diagnosis [facility] [address] [facility] [address] [place] [address] 05/19/2024 Provider Migration Acute left-sided low back pain with left-sided sciatica M54.42 [facility] [address] [facility] [address] [place], [place] [address] 07/16/2024 Jose Francisco Caldera [facility] [address] [facility] [address] [place] [address] 09/05/2023 Jose Francisco Caldera Type 2 diabetes mellitus with diabetic polyneuropathy, without long-term current use of insulin E11.42 ; Hypertension, essential I10 ; Bilateral carpal tunnel syndrome G56.03 and Routine medical exam Z00.00 [facility] [address] [facility] [address] [place], [place] [address] 11/28/2023 Jose Francisco Caldera Type 2 diabetes mellitus with diabetic polyneuropathy, without long-term current use of insulin E11.42 ; Hypertension, essential I10 and Myalgia M79.10 [facility] [address] [facility] [address] [place], [place] [address] 04/11/2024 Graciela Priest Acute left-sided low back pain with left-sided sciatica M54.42 [facility] [address] [facility] [address] [place], [place] [address] 07/13/2024 Jose Francisco Caldera Type 2 diabetes mellitus with diabetic polyneuropathy, without long-term current use of insulin E11.42 ; Diabetic retinopathy of both eyes associated with type 2 diabetes mellitus, macular edema presence unspecified, unspecified retinopathy severity E11.319 ; Hypertension, essential I10 and Neuropathic pain, leg, bilateral G57.93 [facility] [place] [address] [address] 06/14/2024 Jose Francisco Caldera [facility] [address] [place] [address] 06/25/2024 Jose Francisco Caldera [facility] [address] [address] 06/28/2024 Jose Franciscosahil Caldera Assessments Encounter Date Diagnosis (ICD Code) Assessment Notes Treatment Notes Treatment Clinical Notes Section Notes 04/11/2024 Acute left-sided low back pain with left-sided sciatica (ICD-10 - M54.42) Discussed the etiology and expected course of back pain related to muscle spasm/strain. Discussed the role of pain medications/anti- inflammatories including Tylenol, heat pad, stretches, and to walk 30 mins a day. Patient declined PT and steroid shot. PRN muscle relaxer ordered. Counseled patient to not drive when taking this medication. Previous MRI ordered and disc bulging noted so will refer back to pain management which patient is agreeable to. Also, discussed signs and symptoms of worsening condition that may warrant reassessment in clinic or ED. Patient to call office if no improvement in a week for PT to be ordered at that time. Patient and family voice understanding and agree with the plan of care above. 05/19/2024 Acute left-sided low back pain with left-sided sciatica (ICD-10 - M54.42) 11/28/2023 Hypertension, essential (ICD-10 - I10) BP well controlled on lisinopril 40mg daily. Plan - BMP due 11/28/2023 Type 2 diabetes mellitus with diabetic polyneuropathy, without long-term current use of insulin (ICD-10 - E11.42) Well-controlled on Farxiga 10mg daily and metformin 1000mg BID. Neuropathic pain well-controlled on gabapentin. UTD on eye examination. Foot exam performed today w/o concern for new diabetic foot ulcer. Plan - BMP and A1c due 07/13/2024 Type 2 diabetes mellitus with diabetic [...] that he has eye exam scheduled DIYA 09/05/2023 Hypertension, essential (ICD-10 - I10) Patient's BP remains controlled with no issues. No changes at this time. 09/05/2023 Type 2 diabetes mellitus with diabetic polyneuropathy, without long-term current use of insulin (ICD-10 - E11.42) Patient's diabetes continue to be well controlled. Marcela continues to experience neuropathy; will increase dose to 3-4x per day as needed to help control symptoms. 09/05/2023 Bilateral carpal tunnel syndrome (ICD-10 - G56.03) Encouraged patient to wear wrist braces at night to help relieve pain. Will follow up in a couple months to monitor symptom progress. 07/13/2024 Hypertension, essential (ICD-10 - I10) Good blood pressure control, no changes in plan 11/28/2023 Myalgia (ICD-10 - M79.10) I think this is most likely myalgias related to strenuous physical activity as it always occurs approximatley 24 hours after physical activity, but given history of diabetes and statin use, will check CPK, electrolytes, and TSH. Encouraged stretching and increased hydration. 09/05/2023 Routine medical exam (ICD-10 - Z00.00) UTD with colonoscopy screen.... Declines vaccines.. lifelong nonsmoker UTD with labs, etc 07/13/2024 Neuropathic pain, leg, bilateral (ICD-10 - G57.93) Remains on neuropathic medication. No changes Patient has been compliant with our office and [place] regulations r.e. meds. No concerns on my part about diversion or misuse. Labs and Antonio reports reviewed and are appropriate. 04/11/2024 Other Patient discuss ed with Attending Dr. Caldera who agrees with the plan of care above. Plan Of Treatment Pending Test Test Name Order Date X ray : Spines, Cervical 12/27/2018 C-CBC 09/28/2019 C-CMP 09/28/2019 C-LIPID PANEL 09/28/2019 C-PSA 09/28/2019 Future Test Test Name Order Date C-CMP 06/14/2018 C-LIPID PANEL 06/14/2018 C-HGBA1C 06/14/2018 C-BASIC METABOLIC 07/20/2018 C-TSH 10/02/2018 C-VITAMIN B12 10/02/2018 Next Appt Details Provider Name:Jose Francisco Caldera, 09/10/2024 10:30:00 AM, [address], [place], [address], Insurance Providers Payer Name Payer Address Payer Phone Subscriber Number Group Number Insured Name Patient Relationship to Insured Coverage Start Date Coverage End Date [employer] [facility] [address] [address] [place] [address] [id number] Geeta Salas Self - patient is the insured Medical (General) History Medical History History ICD Code [place] palsy Diabetes mellitus with neuropathy and re tinopathy HTN GERD- prior EGD normal HLD PVD Palpitations- prior heart monitor and st ress test normal Sciatica kidney stones Diabetic Neuropathy Bulging discs and spinal stenosis DAREN - sleep study 08/07 Surgical History Surgery Date(Month/Year) Left foot great toe- amputated Right great toe- partial amputation Heart cath Colonoscopy toe amputation-rt foot 11/2018 lt foot toe amputation 05/2019 Nerve block s in back Right foot - partial amputation of right great toe and second toe 06/2021 rt foot-remaining 3 toes amputated 01/03 22 Colonoscopy/EGD 06/2022 Hospitalization History Reason Date(Month/Year) [facility]- Right foot infection 06/2021 Diabetes- lots of hospital stays and ER visits Amputations as above
--- NOTE | 2024-08-19 20:42 | HMH.EDGENADL ---
Discharge Plan Disposition Patient Disposition: Home, Self-Care Prescriptions Prescriptions: No Action atorvastatin 40 mg tablet 40 mg PO HS 30 Days Farxiga 10 mg tablet 10 mg PO DAILY Patient Comments: TAKE 1 TABLET BY MOUTH ONCE DAILY ropinirole 0.25 mg tablet 0.25 mg PO HS Qty: 14 0RF Rx Instructions: administer 1-3 hours before bedtime finasteride 5 tablet 5 mg PO DAILY Patient Comments: tamsulosin 0.4 MG capsule 0.4 mg PO DAILY metformin 1,000 MG tablet 1,000 mg PO BID melatonin 10 MG capsule 10 mg PO HS Patient Comments: TAKE 1 CAPSULE BY MOUTH ONCE DAILY AT BEDTIME amlodipine 5 MG tablet 5 mg PO DAILY gabapentin 800 MG tablet 800 mg PO TID lisinopril 40 MG tablet 40 mg PO DAILY trazodone 50 mg Tablet 50 mg PO HS Referrals Follow up/Referrals: Jose Francisco Caldera MD [Primary Care Provider, Internal Medicine] - See instructions Activity Restrictions/Add. Instructions Additional Instructions/Restrictions: Keep sutures dry and intact for 7 to 10 days. Keep covered. Do not bend your fingers as this will also sutures to come out. Have sutures removed in 7 to 10 days. Clinical Impressions Clinical Impression: Laceration Instructions Patient Instructions: DI for Laceration Repair Print Language Print Language: Vietnamese Discharge ED Provider: Richard Howell General Adult HPI <Keri Campbell (ED), CORPORATION OFFICER - Last Filed: 08/19/24 22:23> General Chief complaint: Wound/Laceration Stated complaint: AO 08/19/241914 laceration Right Index,middle fin Time Seen by Provider: 08/19/24 20:32 Mode of Arrival: Family Vehicle Source of Information: Patient Description of Symptoms (Recalled from ER Triage Doc. by RN): Laceration Pt presents to the ED eith c/o a laceration to his R hand. Pt rpeorts that he was using a garden tool and the shovel cut his fingers. Pt has 2 lacerations to 2 fingers on his R hand. Bleeding controlled upon arrival to ED. Pt reports being allergic to the tetanus vaccine. History of Present Illness HPI narrative: 53-year-old male presents to the ED today for lacerations to his 2nd and 3rd finger on his right hand. He was using a garden tool and cut his fingers. Bleeding is controlled on arrival to the ED. He is allergic to the tetanus vaccine so we cannot get this. Related Data Home Medications ?Medication ?Instructions ?Recorded ?Confirmed finasteride 5 mg tablet 5 mg PO DAILY prostate 03/08/17 05/24/24 atorvastatin 40 mg tablet 40 mg PO HS Cholesterol 30 days 05/23/18 05/24/24 melatonin 10 mg capsule 10 mg PO HS sleep 06/10/20 05/24/24 metformin 1,000 mg tablet 1,000 mg PO BID Diabetes 06/10/20 05/24/24 tamsulosin 0.4 mg capsule 0.4 mg PO DAILY prostate 06/10/20 05/24/24 dapagliflozin propanediol 10 mg 10 mg PO DAILY Diabetes 09/11/20 05/24/24 tablet (Farxiga) amlodipine 5 mg tablet 5 mg PO DAILY BLOOD PRESSURE 06/06/21 05/24/24 gabapentin 800 mg tablet 800 mg PO TID NEUROPATHY 06/06/21 05/24/24 lisinopril 40 mg tablet 40 mg PO DAILY BLOOD PRESSURE 06/06/21 05/24/24 trazodone 50 mg tablet 50 mg PO HS sleep 06/14/22 05/24/24 Previous Rx's ?Medication ?Instructions ?Recorded ropinirole 0.25 mg tablet 0.25 mg PO HS #14 tabs 05/24/24 Allergies Allergy/AdvReac Type Severity Reaction Status Date / Time tetanus toxoid, adsorbed Allergy Verified 06/30/22 09:35 aripiprazole (From Abilify) AdvReac Verified 06/30/22 09:35 [facility] <Keri Campbell (ED), CORPORATION OFFICER - Last Filed: 08/19/24 22:23> [facility] Disclaimer: The information contained in this section may have been updated after the patient was seen, as this information can be updated by other users. Medical History (Updated 08/19/24 @ 21:05 by Keri Campblel (ED), [employer]ATION OFFICER) History of left heart catheterization History of BPH History of Paulino's palsy History of sciatica HLD (hyperlipidemia) HTN (hypertension), benign Nondisplaced fracture of third metatarsal bone, right foot, subsequent encounter for fracture with delayed healing Open wound of toe of right foot Open wound of toe of right foot Type 2 diabetes mellitus Surgical History History of amputation of toe History of amputation of right foot through metatarsal bone History of esophagogastroduodenoscopy (EGD) History of colonoscopy Family History Other Family history of diabetes mellitus type II Family history of hyperlipidemia Family history of hypertension Family history of myocardial infarction Social History Smoking Status: Former smoker second hand exposure: No alcohol intake: current alcohol intake frequency: holidays/special occasions only counseling provided: none substance use type: denies use current occupational status: other Travel in the last 8 weeks?: None household members: significant other housing: house lives independently: Yes marital status: life partner education level: college service: No 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 occupational exposures/hazards: No caffeine: Yes do you feel safe at home: Yes victim of physical abuse: No victim of emotional abuse: No victim of sexual abuse: No would you like helpful sources: No Have you lived/traveled outside US in past 30 days?: No Contact w/someone who lives/traveled outside US past 30 days?: No Exposure to someone with infectious disease in past 14 days?: No Do you have a fever (greater than 100.4 F or 38 C)?: No Have you tested positive for COVID-19?: No Exposed to someone with COVID-19 in past 14 days?: No Do you have a sore throat?: No Do you have a cough?: No Do you have any weakness?: No Do you have any diarrhea?: No Are you experiencing any unusual bleeding?: Yes Do you have any muscle aches/pain?: No Do you have any abdominal pain?: No Are you experiencing loss of taste or smell?: No Other Medical History Have you received the Flu Vaccine for this season: No Have you received the Pneumonia Vaccine: No <Keri Campbell (ED), [employer]ATION OFFICER - Last Filed: 08/19/24 22:23> ROS Obtained: Yes Systems reviewed as appropriate & no additional complaints except as documented Constitutional Constitutional: Reports as per HPI Physical Exam <Keri Campbell (ED), [employer]ATION OFFICER - Last Filed: 08/19/24 22:23> General General appearance: alert and in no apparent distress Head Head exam: normocephalic Eye Eye exam: Present PERRL and EOMI ENT ENT exam: Present normal oropharynx and mucous membranes moist Neck Neck exam: Present full ROM and trachea midline Respiratory Respiratory exam: Present normal lung sounds bilaterally Cardiovascular Cardiovascular exam: Present regular rate, normal rhythm, normal heart sounds, +S1 and +S2 Extremities Exam Extremities exam: Present normal capillary refill and other (Laceration to index and middle finger on right hand) Neurological Exam Neurological exam: Present alert, oriented X3 and normal gait Skin Skin exam: Present warm, dry and other (Laceration to index and middle finger) Medical Decision Making <Keri Campbell (ED), [employer]ATION OFFICER - Last Filed: 08/19/24 22:23> Medical Records Medical records reviewed: Yes I reviewed the patient's medical records. Screening: Per USPSTF and CDC recommendations, given the prevalence of disease in our region, it is our hospital?s policy to screen for HIV and viral Hepatitis for all patients aged 18 and over and those with ongoing risk factors. Antonio Inquiry Pt receiving controlled substance: No Antonio was queried for this patient: No Vital Signs: 08/19/24 20:29 08/19/24 21:08 Temperature 98.7 F 98.3 F Temperature Source Temporal Artery Scan Oral Pulse Rate 75 Pulse Rate [Left] 63 Respiratory Rate 16 18 Blood Pressure 134/78 Blood Pressure [Right Arm] 125/75 Blood Pressure Mean [Right Arm] 91 Blood Pressure Source [Right Arm] Automatic Cuff Blood Pressure Position [Right Arm] Sitting 02 Sat by Pulse Oximetry 96 Oxygen Delivery Method Room Air Room Air Orders (Tests/Meds): ORDERS Category Date Time Status HIV Combo Stat Lab 08/19/24 20:35 Ordered Hepatitis C Ab Qual. W/ RFX Stat Lab 08/19/24 20:35 Ordered Medical Decision Narrative: patient is a 53-year-old male presenting to the emergency department for evaluation of laceration of first and index fingers. Patient is hemodynamically stable and nontoxic-appearing upon arrival, afebrile. Differential diagnosis includes laceration to index and middle finger on right hand. Sutures placed in both fingers on right hand. Patient given instructions to take care of the sutures. He needs to have them removed in 7 to 10 days. If he has any problems or concerns please return to the ED or call his PCP. Patient safe for discharge home. <Richard Howell MD - Last Filed: 08/20/24 02:47> Vital Signs: 08/19/24 20:29 08/19/24 21:08 Temperature 98.7 F 98.3 F Temperature Source Temporal Artery Scan Oral Pulse Rate 75 Pulse Rate [Left] 63 Respiratory Rate 16 18 Blood Pressure 134/78 Blood Pressure [Right Arm] 125/75 Blood Pressure Mean [Right Arm] 91 Blood Pressure Source [Right Arm] Automatic Cuff Blood Pressure Position [Right Arm] Sitting 02 Sat by Pulse Oximetry 96 Oxygen Delivery Method Room Air Room Air Orders (Tests/Meds): ORDERS Category Date Time Status HIV Combo Stat Lab 08/19/24 20:35 Ordered Hepatitis C Ab Qual. W/ RFX Stat Lab 08/19/24 20:35 Ordered Medical Decision Narrative: patient is a 53-year-old male presenting to the emergency department for evaluation of laceration of first and index fingers. Patient is hemodynamically stable and nontoxic-appearing upon arrival, afebrile. Differential diagnosis includes laceration to index and middle finger on right hand. Sutures placed in both fingers on right hand. Patient given instructions to take care of the sutures. He needs to have them removed in 7 to 10 days. If he has any problems or concerns please return to the ED or call his PCP. Patient safe for discharge home. I was consulted by the ALEKSANDRA, and we discussed the complexity of the problems being addressed. I approve the treatment and management plan for this patient's care in the emergency department, thus performing a substantive portion of the medical decision making. Richard Howell MD Procedures <Keri Campbell (ED), [employer]ATION OFFICER - Last Filed: 08/19/24 22:23> Laceration Laceration 1: Site: finger Side (If applicable): right Size (cm): 2 Description: irregular Depth: simple, single layer Local Anesthetic: lidocaine 2% Amount of anesthesia used (mL): 3 Pre-repair: irrigated extensively Skin layer closed with: nylon Size (cm): 3-0 Number of sutures: 3 Technique: simple, interrupted Laceration 2: Site: finger Side (If applicable): right Size (cm): 1.5 Description: linear Depth: simple, single layer Local Anesthetic: lidocaine 2% Amount of anesthesia used (mL): 2 Pre-repair: irrigated extensively Skin layer closed with: nylon Size (cm): 3-0 Number of sutures: 2 Technique: simple, interrupted Size: 3-0 Critical Care <Keri Campbell (VANESA), [employer]PORATION OFFICER - Last Filed: 08/19/24 22:23> Critical Care Time Critical Care Time: No
[2024-08-19 21:08] VITALS: BP 134/78; PULSE 75; RESP 18; TEMP 36.8; O2SAT 100
== END 2024-08-19 21:09 | disposition home or self-care (01) ==
PROVIDERS: Emergency Provider Student in an Organized Health Care Education/Training Program; PCP Internal Medicine Adolescent Medicine
DX: S61.210A Laceration without foreign body of right index finger without damage to nail, initial encounter (principal); W27.1XXA Contact with garden tool, initial encounter; I10 Essential (primary) hypertension; Z87.891 Personal history of nicotine dependence
CPT/HCPCS: 12002; 99283

== ENCOUNTER 2024-09-18 12:35 | Outpatient (CLI) | payer OTHER, SELFPAY ==
--- OUTSIDE RECORDS SUMMARY | 2024-07-16 04:00 | XMS_ITS ---
Author Organization [facility] Address [address] [address] [facility] [address] [place] [address] Care Team Providers Care Senior Java Software Engineer Name Role Phone Jose Francisco Caldera Primary Care Provider [phone] REASON FOR VISIT blood draw Encounters Encounter Location Date Provider Diagnosis [facility] [address] [place] [address] 07/16/2024 Jose Francisco Caldrea Plan Of Treatment Next Appt Details Provider Name:Jose Francisco Caldera, 01/28/2025 09:45:00 AM, [address], [address], [place], [place], [address], Progress Notes * ALEGRIAAncelmo CLEMENTSieDOB:1970 (53 yo M)Acc No.[id number]:07/16/2024 LABS Patient: Geeta JARA Provider: Anil Caldera MD :1970 A ge:53 Y S ex:Male Date:07/16/2024 Address:[address], [id number] Subjective: * Chief Complaints: * 1 . Blood draw. * Medical History: Objective: * Vitals: Assessment: Plan: * Treatment: * * Electronic signature of Scot Caldera MD FAAP on 09/18/2024 at 12:39 PM EDT Sign off status: Pending * Provider: Anil Caldera MD Date: 0 07/16/2024 Generated for Bren otoole/Rebecca/Vera on: 0 09/18/2024 12:39 PM EDT
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
--- NOTE | 2024-09-18 12:38 | MR_ITS ---
FINAL REPORT CLINICAL HISTORY: ROTATOR CUFF SYNDROME LEFT SHOULDER left shoulder pain that goes down into arm x 1 year pain with movement FINDINGS: Multi planar MR imaging of the left shoulder was performed. The supraspinatus tendon appears intact. There is a defect at the anterior insertion of the distal supraspinatus tendon best seen on images 19-21 of series 5 consistent with partial full-thickness tear. There is no abnormal fluid in the subacromial/subdeltoid bursa. The anterior and posterior glenoid fara appear intact. The biceps tendon appears intact. The acromioclavicular joint appears intact. IMPRESSION: Partial full-thickness tear of the distal supraspinatus tendon. Reviewed, Interpreted and Dictated by Pb Maddox MD Transcribed by Poornima Whitlock Authenticated and [facility]
--- OUTSIDE RECORDS SUMMARY | 2024-09-18 12:39 | XMS_ITS | Patient Health Record ---
Author Organization [facility] D YFN Address [address] [place] [address] Care Team Providers Care Alliance Consultant Name Role Phone Jose Francisco Caldera Primary Care Provider Graciela Priest Unavailable [phone] Migration, Provider Unavailable Unavailable Allergies Allergen (clinical drug ingredient) Drug/Non Drug Allergy documented on EMR Reaction Allergy Type Onset Date Status Tetanus Toxoid TETANUS TOXOID (uncoded) Unknown Allergy Active pregabalin Pregabalin Unknown Drug Allergy Activ e aripiprazole Abilify itching, anxiety Drug Allergy Active Results Component Value Reference Range Notes HEMOGLOBIN A1c (496) Reviewed date:07/18/2024 12:24:38 PM Interpretation: Performing Lab:CB, [facility] [id number] [facility], Mikel QuevedoDawiMF[address] Kervin Sanchez Notes/Report: NON-FASTING; NON-FASTING; NON-FASTING HEMOGLOBIN [...] A1c for diagnosis of diabetes for children. COMPREHENSIVE METABOLIC PANE Ezra (10604) Reviewed date:07/18/2024 12:24:38 PM Interpretation: Performing Lab:JONATHAN [facility]-[place] Afky[address] [facility] [address] [facility], [facility] CenterXwemJZ[address] Kervin Sanchez Notes/Report: NON-FASTING; NON-FASTING; NON-FASTING GLUCOSE [...] 18 10-35 U/L ALT 14 9-46 U/L LIPID PANEL, STANDARD (7600) Reviewed date:07/18/2024 12:24:38 PM Interpretation: Performing Lab:JONATHAN [facility] Gafd0447 [facility], [facility] CenterRrxjEL[address] Kervin Sanchez Notes/Report: NON-FASTING; NON-FASTING; NON-FASTING CHOLESTEROL, TOTAL 147 <200 mg/dL HDL CHOLESTEROL 50 > OR = 40 mg/dL TRIGLYCERIDES 169 <150 mg/dL LDL-CHOLESTEROL 72 Reference range: <100 Desirable range <100 mg/dL for primary prevention; <70 mg/dL for patients with CHD or diabetic patients with > or = 2 CHD risk factors. LDL-C is now calculated using the John calculation, which is a validated novel method providing better accuracy than the Friedewald equation in the estimation of LDL-C. Jhonatan EPPS et al. CHIKIS. 2013;310(19): 0375-5120 (http://education.[employer].com/faq/ZDM822) CHOL/HDLC RATIO 2.9 <5.0 (calc) NON HDL CHOLESTEROL 97 <130 mg/dL (calc) For patients with diabetes plus 1 major ASCVD risk factor, treating to a non-HDL-C goal of <100 mg/dL (LDL-C of <70 mg/dL) is considered a therapeutic option. Microalbumin (In-House) Reviewed date:07/13/2024 12:20:56 PM Interpretation:Abnormal Performing Lab: Notes/Report: Abnormal ALB 30mg CRE 50mg A:C 30-300mg BASIC METABOLIC PANEL (96821 ) Reviewed date:11/30/2023 10:31:07 AM Interpretation: Performing Lab:JONATHAN oBaz Roap0825 [facility] medicalteSeismic Software, iOTOS, IncRlhpFM[address] Kervin Sanchez Notes/Report: NON-FASTING; NON-FASTING; NON-FASTING; NON-FASTING [...] Reviewed date:11/30/2023 10:31:07 AM Interpretation: Performing Lab:JONATHAN Corso12e1355 KA[facility] medicaltel [employer], iOTOS, IncHtwyKQ[address] Kervin Sanchez Notes/Report: NON-FASTING; NON-FASTING; NON-FASTING; NON-FASTING CREATINE KINASE, TOTAL 158 44-196 U/L HEMOGLOBIN A1c (496) Reviewed date:11/30/2023 10:31:07 AM Interpretation: Performing Lab:JONATHAN Corso12e1355 [facility] ControlsLifec[facility] Kervin Sanchez Notes/Report: NON-FASTING; NON-FASTING; NON-FASTING; NON-FASTING [...] Reviewed date:11/30/2023 10:31:07 AM Interpretation: Performing Lab:JONATHAN [facility] Ktih3540 [employer] ControlsLifec[facility] Hospital of [place] Kervin Sanchez Notes/Report: NON-FASTING; NON-FASTING; NON-FASTING; NON-FASTING TSH 1.51 0.40-4.50 mIU/L Reason For Referral Reason Please refer to pain management at [facility] for back pain, history of bulging disc and spinal stenosis. Diagnosis 1 Acute left-sided low back pain with left-sided sciatica (M54.42) Referral Organization [facility] Referring Provider First Name Graciela Referring Provider Last Name Zayda Referring Provider Speciality Family Pra ctice Referred Organization [facility] Referred Address [address] [place] [id number], Referred Provider Specialty Pain Managem ent General Notes Ashely Calderon 2024 02:55:34 PM >, Ashely Calderon 04/12/2024 02:55:38 PM > Faxed to Dr. Galvez Referral Priority Routine Reason MRI L Shoulder Diagnosis 1 Shoulder pain, left (M25.512) Diagnosis 2 Rotator cuff syndrom e of left shoulder (M75.102) Referral Organization [facility] Referring Provider First Name Jose Francisco Referring Provider Last Name Werner Referring Provider Speciality Internal M edicine Referred Organization [facility] Referred Address [address] [place] [address] [address] [place], [place],[address], Referred Provider Specialty Diagnostic R adiology General Notes Ashely Calderon 2024 04:05:56 PM >pending with Dev, Ashely Calderon 09/11/2024 03:45:04 PM >Dev has requested Xray reports, PT notes and anything else related to his arm. I do not see any of this in [employer] related to his shoulder, just his back and feet., Ashely Calderon 09/12/2024 10:30:01 AM >approved and sent to [facility] Referral Priority Routine Reason MRI left shoulder-ro tator cuff syndrome-negative x-rays Diagnosis 1 Rotator cuff syndrom e of left shoulder (M75.102) Referral Organization [facility] YFN Referring Provider First Name Jose Francisco Referring Provider Last Name Werner Referring Provider Speciality Internal M edicine Referral Priority Routine Medications Medication SIG (Take, Route, Frequency, Duration) Notes Start Date End Date Status Gabapentin 600 MG TAKE 1 TABLET BY MOUTH 3 TO 4 TIMES DAILY; Duration: 30 08/12/2024 Active GLUCOMETER NA USE FOR FSBS TESTING NA ONCE DAILY; Duration: 30 DAYS diagnosis: E11.9 *Please review for potential replacement for e-prescription and drug interaction check* 12/06/2018 Active traZODone HCl 100 MG 1 tab(s) [...] (at bedtime); Duration: 90 days 12/10/2019 Active Finasteride 5 MG Take 1 tablet by mouth once daily; Duration: 90 Active Atorvastatin Calcium 40 MG 1 tab(s) orally once a day; Duration: 90 days Active Tamsulosin HCl 0.4 MG 1 cap(s) orally once a day; Duration: 90 Active Lisinopril 40 MG 1 tab(s) orally once a day; Duration: 30 day(s) Active Farxiga 10 MG 1 tablet Orally Once a day Active amLODIPine Besylate 5 MG 1 tab(s) orally once a day; Duration: 90 days Active Sildenafil Citrate 100 MG 1 tab(s) [...] ulcer due to type 2 diabetes mellitus (0797885908937) Type 2 diabetes mellitus with foot ulcer (E11.621) Active confirmed Problem Dermopathy due to type 2 diabetes mellitus (disorder) (6982618616158) Type 2 diabetes mellitus with other skin complications (E11.628) Active confirmed Problem 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) Active confirmed Problem Right side sciatica (032653657657127) Sciatica, right side (M54.31) Active confirmed Problem Obese class I (finding) (186209799058661) Obesity (BMI 30.0-34.9) (E66.9) Active confirmed Problem Essential hypertension (50852951) Hypertension, essential (I10) Active confirmed Problem Sleep disturbance (41800114) Sleep disturbance (G47.9) Active confirmed Problem Erectile dysfunction (disorder) (159028210) Erectile dysfunction, unspecified erectile dysfunction type (N52.9) Active confirmed Problem Chronic insomnia (503956025) Chronic insomnia (F51.04) Active confirmed Problem Sciatica (93627115) Left sided sciatica (M54.32) Active confirmed Problem Left rotator cuff syndrome (460115235520434) Rotator cuff syndrome of left shoulder (M75.102) Active confirmed Problem Recurrent major depression (25272822) Recurrent major depressive disorder, remission status unspecified (F33.9) Active confirmed Problem Acid reflux (260785842) Acid reflux (K21.9) Active confirmed Problem Sciatica (50397942) Acute left-sided low back pain with left-sided sciatica (M54.42) Active confirmed Problem Benign prostatic hypertrophy with outflow obstruction (607711875) BPH loc w urin obs/LUTS (N40.1) Active confirmed Problem Adult health examination (339435752) Healthcare maintenance (Z00.00) Active confirmed Problem Peripheral artery disease (810967870) Peripheral artery disease (I73.9) Active confirmed Problem Type II diabetes mellitus without complication (653078941) Controlled type 2 diabetes mellitus without complication, without long-term current use of insulin (E11.9) Active confirmed Problem Bilateral carpal tunnel syndrome (71462298237403572 ) Bilateral carpal tunnel syndrome (G56.03) Active confirmed Problem Polyneuropathy due to type 2 diabetes mellitus (710957607) Type 2 diabetes mellitus with diabetic polyneuropathy, without long-term current use of insulin (E11.42) Active confirmed Problem Ulcer of left foot (disorder) (874392503) Ulcer of left foot, unspecified ulcer stage (L97.529) Active confirmed Problem Diabetic retinopathy associated with type 2 diabetes mellitus (441663713) Diabetic retinopathy of both eyes associated with type 2 diabetes mellitus, macular edema presence unspecified, unspecified retinopathy severity (E11.319) Active confirmed Problem Neuropathic pain, leg, bilateral (G57.93) Active confirmed Vital Signs Heart Rate 60 /min 09/10/2024 Temperature 97.8 degrees Fahrenheit 09/10/2024 Blood pressure diastolic 78 mm Hg 09/10/2024 Height 6 ft 2 in in 09/10/2024 Blood pressure systolic 124 mm Hg 09/10/2024 Weight 245.5 lbs 09/10/2024 BMI 31.52 kg/m2 09/10/2024 Encounters Encounter Location Date Provider Diagnosis [facility] [address] [place], [place] [address] 05/19/2024 Provider Migration Acute left-sided low back pain with left-sided sciatica M54.42 [facility] [address] [place] [address] 07/16/2024 Jose Francisco Caldera [facility] [address] [place] [address] 11/28/2023 Jose Francisco Caldera Type 2 diabetes mellitus with diabetic polyneuropathy, without long-term current use of insulin E11.42 ; Hypertension, essential I10 and Myalgia M79.10 [facility] [address] [place], [place] [address] 04/11/2024 Graciela Priest Acute left-sided low back pain with left-sided sciatica M54.42 [facility] [address] [place] [address] 07/13/2024 Jose Francisco Caldera Type 2 diabetes mellitus with diabetic polyneuropathy, without long-term current use of insulin E11.42 ; Diabetic retinopathy of both eyes associated with type 2 diabetes mellitus, macular edema presence unspecified, unspecified retinopathy severity E11.319 ; Hypertension, essential I10 and Neuropathic pain, leg, bilateral G57.93 [facility] [address] [facility] [address] [place] [address] 09/10/2024 Jose Francisco Caldera Rotator cuff syndrome of left shoulder M75.102 ; Type 2 diabetes mellitus with diabetic polyneuropathy, without long-term current use of insulin E11.42 ; Diabetic retinopathy of both eyes associated with type 2 diabetes mellitus, macular edema presence unspecified, unspecified retinopathy severity E11.319 ; Hypertension, essential I10 ; Neuropathic pain, leg, bilateral G57.93 ; Recurrent major depressive disorder, remission status unspecified F33.9 and Routine medical exam Z00.00 [facility] [place] [address] [address] 06/14/2024 Jose Franicsco Besson [facility] [address] [facility] [address] [place] [address] 06/25/2024 Jose Francisco Besson [facility] [address] [address] 06/28/2024 Jose Francisco Besson [facility] [address] [place] [address] 09/11/2024 Jose Franciscosahil Caldera Assessments Encounter Date Diagnosis (ICD Code) Assessment Notes Treatment Notes Treatment Clinical Notes Section Notes 11/28/2023 Hypertension, essential (ICD-10 - I10) BP [...] that he has eye exam scheduled DIYA 04/11/2024 Acute left-sided low back pain with [...] pain with left-sided sciatica (ICD-10 - M54.42) 09/10/2024 Rotator cuff syndrome of left shoulder [...] severity (ICD-10 - E11.319) Has not seen ophthalmology/opt ometry for over a year. Encouraged him to make this appointment 07/13/2024 Hypertension, essential (ICD-10 - I10) Good blood pressure control, no changes in plan 11/28/2023 Myalgia (ICD-10 - M79.10) I think this is most likely myalgias related to strenuous physical activity as it always occurs approximatley 24 hours after physical activity, but given history of diabetes and statin use, will check CPK, electrolytes, and TSH. Encouraged stretching and increased hydration. 09/10/2024 Hypertension, essential (ICD-10 - I10) Good blood pressure control, on appropriate angiotensin receptor madhavi 07/13/2024 Neuropathic pain, leg, bilateral (ICD-10 - G57.93) Remains on neuropathic medication. No changes Patient has been compliant with our office and [place] regulations r.e. meds. No concerns on my part about diversion or misuse. Labs and Antonio reports reviewed and are appropriate. 09/10/2024 Neuropathic pain, leg, bilateral (ICD-10 - [...] take care of this. No recent falls. 04/11/2024 Other Patient discuss ed with Attending Dr. Caldera who agrees with the plan of care above. Plan Of Treatment Pending Test Test Name Order Date MRI : Shoulder, Left 09/10/2024 X ray : Spines, Cervical 12/27/2018 C-CBC 09/28/2019 C-CMP 09/28/2019 C-LIPID PANEL 09/28/2019 C-PSA 09/28/2019 Future Test Test Name Order Date C-CMP 06/14/2018 C-LIPID PANEL 06/14/2018 C-HGBA1C 06/14/2018 C-BASIC METABOLIC 07/20/2018 C-TSH 10/02/2018 C-VITAMIN B12 10/02/2018 Next Appt Details Provider Name:Jose Francisco Caldera, 01/28/2025 09:45:00 AM, [address], [place], [address], Insurance Providers Payer Name Payer Address Payer Phone Subscriber Number Group Number Insured Name Patient Relationship to Insured Coverage Start Date Coverage End Date [employer] [facility] [address] [address] [place] [address] [id number] Salas Geeta Self - patient is the insured Medical (General) History Medical History History ICD Code [place] palsy Diabetes mellitus with neuropathy and re [...] 22 Colonoscopy/EGD 06/2022 Hospitalization History Reason Date(Month/Year) [facility]- Right foot infection 06/2021 Diabetes- lots of hospital stays and ER visits Amputations as above
== END 2024-09-18 23:59 | disposition home or self-care (01) ==
LOC: RAD 12:36
PROVIDERS: PCP Internal Medicine Adolescent Medicine; Visit Provider Internal Medicine Adolescent Medicine
DX: M75.102 Unspecified rotator cuff tear or rupture of left shoulder, not specified as traumatic (principal)
CPT/HCPCS: 73221

== ENCOUNTER 2024-11-27 07:44 | Outpatient (CLI) | payer OTHER, SELFPAY ==
--- OUTSIDE RECORDS SUMMARY | 2024-05-19 17:30 | XMS_ITS ---
Author Organization [facility] D YFN Address [address] [place] [address] Care Team Providers Care Skein Yarn Dyer Name Role Phone Jose Francisco Caldera Primary Care Provider [phone] Migration, Provider Unavailable Unavailable Allergies Allergen (clinical drug ingredient) Drug/Non Drug Allergy documented on EMR Reaction Allergy Type Onset Date Status Tetanus Toxoid TETANUS TOXOID (uncoded) Unknown Allergy Active pregabalin Pregabalin Unknown Drug Allergy Activ e aripiprazole Abilify itching, anxiety Drug Allergy Active REASON FOR VISIT [facility] To [facility] Conversion Encounter Medications Medication SIG (Take, Route, Frequency, Duration) Notes Start Date End Date Status Lisinopril 40 MG 1 tab(s) orally once a day; Duration: 30 day(s) Active Methocarbamol 500 MG as directed orally every 8 hours; Duration: 5 days 04/11/2024 Active Finasteride 5 MG 1 tab(s) orally once a day; Duration: 90 day(s) Active Tamsulosin HCl 0.4 MG 1 cap(s) orally once a day; Duration: 90 Active amLODIPine Besylate 5 MG 1 tab(s) orally once a day; Duration: 90 days Active Atorvastatin Calcium 40 MG 1 tab(s) orally once a day; Duration: 90 days Active Farxiga 10 MG Take 1 tablet by mouth once daily; Duration: 90 Active metFORMIN HCl 1000 MG 1 tab(s) orally 2 times a day; Duration: 90 days Active traZODone HCl 100 MG 1 tab(s) orally once a day (at bedtime); Duration: 90 days Active Melatonin 10 MG 1 cap(s) orally once a day (at bedtime); Duration: 90 days 12/10/2019 Active Gabapentin 600 MG 1 tab(s) orally 3-4 times daily; Duration: 30 days 04/11/2024 Active GLUCOMETER NA USE FOR FSBS TESTING NA ONCE DAILY; Duration: 30 DAYS diagnosis: E11.9 *Please review for potential replacement for e-prescription and drug interaction check* 12/06/2018 Active Sildenafil Citrate 100 MG 1 tab(s) orally once a day, as needed; Duration: 10 Active TEST STRIPS AND LANCETS NA FOR FSBS TESTING NA ONCE DAILY; Duration: 30 DAYS diagnosis: E11.9 *Please review for potential replacement for e-prescription and drug interaction check* 12/06/2018 Active Encounters Encounter Location Date Provider [facility] [address] [facility] [address] [facility] [address] [place] [address] 05/19/2024 Provider Migration Acute left-sided low back pain with left-sided sciatica M54.42 Assessments Encounter Date Diagnosis (ICD Code) Assessment Notes Treatment Notes Treatment Clinical Notes Section Notes 05/19/2024 Acute left-sided low back pain with left-sided sciatica (ICD-10 - M54.42) Plan Of Treatment Medication Medication Name Sig Start Date Stop Date Notes Lisinopril 40 MG 1 tab(s) orally once a day; Duration: 30 day(s) Methocarbamol 500 MG as directed orally every 8 hours; Duration: 5 days 04/11/2024 Gabapentin 600 MG 1 tab(s) orally 3-4 times daily; Duration: 30 days 04/11/2024 Next Appt Details Provider Name:Jose Francisco Caldera, 01/28/2025 09:45:00 AM, [address] [facility], [address], [place], [address], Progress Notes * Lor SALASOB:1970 (54 yo M)Acc No.[id number]:05/19/2024 Patient: Charly GUNNAR Geeta Provider: Kathe carver Migration :1970 A ge:53 Y S ex:Male Date:05/19/2024 Address:[address] [place] [address] JORGE, [place], [id number] Pcp:Jose Francisco Caldera Subjective: * Chief Complaints: * 1 . Multum To Medispan Conversion Encounter. * Medical History: * Medications: T aking Sildenafil Citrate 100 MG Tablet 1 tab(s) orally once a day, as needed , Taking GLUCOMETER NA PER INSURANCE COVERAGE USE FOR FSBS TESTING NA ONCE DAILY , Notes to Pharmacist: diagnosis: E11.9 *Please review for potential replacement for e-prescription and drug interaction check*, Taking TEST STRIPS AND LANCETS NA PER INSURANCE COVERAGE WITH GLUCOMETER FOR FSBS TESTING NA ONCE DAILY , Notes to Pharmacist: diagnosis: E11.9 *Please review for potential replacement for e-prescription and drug interaction check*, Taking Melatonin 10 MG Capsule 1 cap(s) orally once a day (at bedtime) , Taking traZODone HCl 100 MG Tablet 1 tab(s) orally once a day (at bedtime) , Taking metFORMIN HCl 1000 MG Tablet 1 tab(s) orally 2 times a day , Taking Farxiga 10 MG Tablet Take 1 tablet by mouth once daily , Taking Atorvastatin Calcium 40 MG Tablet 1 tab(s) orally once a day , Taking Finasteride 5 MG Tablet 1 tab(s) orally once a day , Taking amLODIPine Besylate 5 MG Tablet 1 tab(s) orally once a day , Taking Tamsulosin HCl 0.4 MG Capsule 1 cap(s) orally once a day * Allergies: T ETANUS TOXOID, Abilify: itching, anxiety, Pregabalin: Allergy. Objective: * Vitals: Assessment: * Assessment: 1. A cute left-sided low back pain with left-sided sciatica - M54.42 (Primary) Plan: * Treatment: 2. O thers Start Gabapentin Tablet, 600 MG, 1 tab(s), orally, 3-4 times daily, 30 days, 120, Refills 1; S tart Lisinopril Tablet, 40 MG, 1 tab(s), orally, once a day, 30 day(s), 30, Refills 5. * * Electronic signature of Prov ider Migration on 11/27/2024 at 07:45 AM EDT Sign off status: Pending * Provider: Kathe carver Migration Date: 0 05/19/2024 Generated for Bren otoole/Rebecca/Vera on: 1 07:45 AM EDT
--- OUTSIDE RECORDS SUMMARY | 2024-07-16 04:00 | XMS_ITS ---
Author Organization [facility] Address [address] [facility] [address] [place] [address] Care Team Providers Care Door Puller Name Role Phone Jose Francisco Caldera Primary Care Provider REASON FOR VISIT blood draw Encounters Encounter Location Date Provider Diagnosis [facility] [address] [place] [address] 07/16/2024 Jose Francisco Caldera Plan Of Treatment Next Appt Details Provider Name:Jose Francisco Caldera, 01/28/2025 09:45:00 AM, [address], [address], [place], [place], [address], Progress Notes * ALEGRIAAncelmo CLEMENTSieDOB:1970 (54 yo M)Acc No.[id number]:07/16/2024 LABS Patient: Geeta JARA Provider: Anil Caldera MD :1970 A ge:53 Y S ex:Male Date:07/16/2024 Address:[address], [phone] Subjective: * Chief Complaints: * 1 . Blood draw. * Medical History: Objective: * Vitals: Assessment: Plan: * Treatment: * * Electronic signature of Scot Caldera MD FAAP on 11/27/2024 at 07:46 AM EDT Sign off status: Pending * Provider: Anil Caldera MD Date: 0 07/16/2024 Generated for Bren otoole/Rebecca/Vera on: 1 07:46 AM EDT
--- OUTSIDE RECORDS SUMMARY | 2024-10-04 09:10 | XMS_ITS | Encounter Summary ---
Author Organization Healthcare Address [address] [place] [address] Care Team Providers Care Consumer Credit Counselor Name Role Phone Jose Francisco Caldera MD Primary Care Provider + [phone] Encounter Details Date Type Department Care Team (Latest Contact Info) Description 10/04/2024 9:10 AM EDT - 10/04/2024 11:59 PM EDT Hospital Encounter [facility] X-Ray [address] [facility], [address] [place] [address] Left shoulder pain, unspecified chronicity Discharge Disposition: Home or Self Care Social History Tobacco Use Types Packs/Day Years Used Date Smoking Tobacco: Never Smokeless Tobacco: Never Sex and Gender Information Value Date Recorded Sex Assigned at Not on file Legal Sex Male 5:00 PM EDT Gender Identity Not on file Sexual Orientation Not on file documented as of this encounter Medications at Time of Discharge amLODIPine (Norvasc) 5 MG tablet 04/14/2024 atorvastatin (Lipitor) 40 MG tablet 01/05/2024 dapagliflozin (Farxiga) 10 MG tablet Take 1 tablet by mouth daily. gabapentin (Neurontin) 600 MG tablet Take 1 tablet by mouth 2 times a day. lisinopril 40 MG tablet 06/14/2024 metFORMIN (Glucophage) 1000 MG tablet Take 1 tablet by mouth 2 times a day with meals. traZODone (Desyrel) 100 MG tablet Take 1 tablet by mouth nightly. documented as of this encounter Plan of Treatment Upcoming Encounters Date Type Department Care Team (Late st Contact Info) Description 11/29/2024 9:10 AM EDT Office Visit [facility] Orthopaedic Surgery & Sports Medicine [address] [facility], [address] [place] [address] Elijah Rosas MD [address] [place] [address] 01/02/2025 9:30 AM EST Office Visit [facility] General Surgery [address] [place] [address] Cris Patrick L, SOLUTIONS ANALYST [address] [place] [address] documented as of this encounter Procedures Procedure Name Priority Date/Time Associated Diagnosis Comments XR SHOULDER LEFT 2+ VIEWS Routine 10/04/2024 9:17 AM EDT Left shoulder pain, unspecified chronicity documented in this encounter Results * XR Shoulder Left 2+ Views (10/04/2024 9:17 AM EDT) Anatomical Region Laterality Modality Upper Extremities, Shoulder Left Digi michelle Radiography Impressions 10/04/2024 10:22 AM EDT Mild subacromial space narrowing with enthesopathy of the undersurface of the acromion and sclerosis of the greater tuberosity. Mild to moderate lateral humeral osteoarthrosis. CRITICAL RESULT: No. COMMUNICATION: Per this written report. By electronically signing this report, I, the attending physician, attest that I have personally reviewed the images/data for the above examination(s) and agree with the final edited report. Drafted by Gerardo Lepe III, MD on 10/04/2024 9:28 AM Final report signed by Leander Segovia MD on 10/04/2024 10:22 AM Narrative 10/04/2024 10:22 AM EDT CLINICAL INDICATION: pain TECHNIQUE: XR SHOULDER LEFT 2+ VIEWS COMPARISON: Left shoulder MRI dated 09/18/2024 FINDINGS: There is moderate joint space narrowing of the glenohumeral joint with subacromial space narrowing. There is also increased sclerosis of the greater tubercle of the humerus. Subacromial enthesophyte. There are mild degenerative changes of the acromioclavicular joint. No acute fracture or dislocation. Visualized lung greenfield are unremarkable. No significant soft tissue abnormality. Procedure Note Leander Segovia MD - 10/04/2024 CLINICAL INDICATION: pain TECHNIQUE: XR SHOULDER LEFT 2+ VIEWS COMPARISON: Left shoulder MRI dated 09/18/2024 FINDINGS: There is moderate joint space narrowing of the glenohumeral joint withsubacromial space narrowing. There is also increased sclerosis of thegreater tubercle of the humerus. Subacromial enthesophyte. There are milddegenerative changes of the acromioclavicular joint. No acute fracture ordislocation. Visualized lung greenfield are unremarkable. No significant softtissue abnormality. IMPRESSION: Mild subacromial space narrowing with enthesopathy of the undersurface ofthe acromion and sclerosis of the greater tuberosity. Mild to moderate lateral humeral osteoarthrosis. CRITICAL RESULT: No. COMMUNICATION: Per this written report. By electronically signing this report, I, the attending physician, attestthat I have personally reviewed the images/data for the aboveexamination(s) and agree with the final edited report. Drafted by Gerardo Lepe III, MD on 10/04/2024 9:28 AM Final report signed by Leander Segovia MD on 10/04/2024 10:22 AM Elijah Rosas MD IMG XR PROCEDURES Final Result documented in this encounter Visit Diagnoses Diagnosis Left shoulder pain, unspecified chronicity documented in this encounter Additional Health Concerns Assessment Noted Time A fall risk assessment has been complete d for the patient 10/04/2024 9:03 AM EDT A Body Mass Index follow-up plan has been documented for the patient 10/06/2024 1:32 PM EDT documented as of this encounter Care Teams Consumer Credit Counselor Relationship Specialty Start Date End Date Jose Francisco Caldera MD [address] [place] [address] PCP - General Internal Medicine 10/01/24 documented as of this encounter
--- OUTSIDE RECORDS SUMMARY | 2024-10-04 09:30 | XMS_ITS | Encounter Summary ---
Author Organization Healthcare Address [address] [id number] Care Team Providers Care Vacuum Worker Name Role Phone Jose Francisco Caldera MD Primary Care Provider + [phone] Reason for Referral * Other Medical (Routine) - Pending Review Specialty Diagnoses / Procedures Referred By Dora kathleen Referred To Contact Diagnoses 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 Procedures Injection - Large Joint: L subacromial bursa Elijah Rosas MD [address] [address] Phone: tel: fax: Referral ID Status Reason Start Date Expiration Date V isits Requested Visits Authorized [id number] Pending Review 10/06/2024 04/07/2026 1 1 * Consultation (Routine) - Closed Specialty Diagnoses / Procedures Referred By Dora kathleen Referred To Contact Orthopaedic Surgery Diagnoses Left shoulder pain, unspecified chronicity Tanesha John, IC DESIGN ENGINEER [address] [facility] [address] [place] [address] Phone: tel: fax: Medical Office Building Surgery [facility] [address] [facility], [address] [place] [address] Phone: tel: fax: Referral ID Status Reason Start Date Expiration Date Visits Re quested Visits Authorized [id number] Closed 10/04/2024 04/05/2026 1 1 Reason for Visit * Reason Comments Pain Consult * Consultation (Routine) - Closed Specialty Diagnoses / Procedures Referred By Dora t Referred To Contact Sports Medicine Diagnoses Complete tear of left rotator cuff, unspecified whether traumatic Jose Francisco Caldera MD [address] [place] [address] Phone: tel: fax: Elijah Rosas MD [address] [place] [address] Phone: tel: fax: Referral ID Status Reason Start Date Expiration Date V isits Requested Visits Authorized [id number] Closed Specialty Services Required 09/26/2024 03/28/2026 1 1 Encounter Details Date Type Department Care Team (Late st Contact Info) Description 10/04/2024 9:30 AM EDT Office Visit [facility] Orthopaedic Surgery & Sports Medicine [address] , [address] [place] [address] Elijah Rosas MD [address] [facility] [address] [place] [address] 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 (Primary Dx); Degenerative disc disease, cervical Social History Tobacco Use Types Packs/Day Years Used Date Smoking Tobacco: Never Smokeless Tobacco: Never Sex and Gender Information Value Date Recorded Sex Assigned at Not on file Legal Sex Male 5:00 PM EDT Gender Identity Not on file Sexual Orientation Not on file documented as of this encounter Last Filed Vital Signs Vital Sign Reading Time Taken Comments Blood Pressure 146/83 10/04/2024 9:02 AM EDT Pulse - - Temperature - - Respiratory Rate - - Oxygen Saturation - - Inhaled Oxygen Concentration - - Weight 111 kg (245 lb) 10/04/2024 9:02 AM EDT Height 188 cm (6' 2 ) 10/04/2024 9:02 AM EDT Body Mass Index 31.46 10/04/2024 9:02 AM EDT documented in this encounter Miscellaneous Notes * Progress Notes - Elijah Rosas MD - 10/04/2024 9:30 AM EDTAssociated Order(s): Injection - Large Joint: L subacromial bursa Post-Procedure Diagnose(s): 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 History of present illness: Geeta Salas is a 53 y.o. male who presents today as a new patient forevaluation of left shoulder pain. Patient has had intermittent right and left shoulder pain over the years. States that his left shoulder is worse than right and has progressively worsened recently. He was seen and evaluated by his primary care provider who obtained an MRI which he brings with him today to discuss. He has a significant cervical history and has been seeing pain management for facet injections and a possible ablation in the future. States that his providers changed during COV and it they are no longer offering an ablation despite his progressing symptoms. He has not seen a spine doctor in the past for this problem. He is inquiring about referral for one today. Regarding his left shoulder, he notes pain primarily on the anterior aspect. He does note some lateral pain radiating down towards his elbow. Patient has been cautioned to avoid NSAID use secondary to cardiac medications. He has a diabetic states his last hemoglobin A1c was around 7.2. I have reviewed and updated the patient's past medical history, past surgical history, social history, and family history. This is located both in the patient's note and their intake form that has been scanned into the medical record for today's visit. 14 point review of systems was reviewed per signed intake sheet and is otherwise negative except asnoted above. Objective: Constitutional: Well developed, well nourished, no acute distress HEENT: mucous membranes moist, normocephalic atraumatic Psychologic: appropriate mood and affect Chest: bilateral chest elevations, symmetric Cardiovascular: pink extremities, peripheral perfusion intact Respiratory: no respiratory distress, nonlabored on room air Abdomen: soft, nontender Neurologic: orientation to person, place and time Left SHOULDER EXAM There is no cervical tenderness and negative Spurling's. No obvious atrophy or deformity. No scapular dyskinesia. Patient has tenderness about the anterolateral shoulder. Active elevation is 170??, external rotation at the side 60??, internal rotation to T10. There is full passive range of motion. There is pain with elevation and resisted strength testing. There is pain with resisted external rotation. There is mild weakness to supraspinatus testing, no obvious weakness to external rotation. Lift-off test is normal. The patient has a painful arc of abduction and positive impingement signs. There is a negative speed's test and negative Yergason's test. There is no significant pain with cross-arm adduction. No signs of instability or apprehension. Distal neurovascular exam is normal. The patient has a warm and well-perfused upper extremity with capillary refill less than 2 seconds.Sensation is intact to light touch in terminal nerve distributions. The patient has no palpable epitrochlear lymphadenopathy. Imaging: X-Rays: Personally reviewed radiographs of the left shoulder obtained today in three views with mild degenerative Acromioclavicular joint changes. Glenohumeral joint is maintained with humeral head aligned the glenoid. MRI: Personally reviewed MRI of the left shoulder from an outside facility dated 09/18/2024 which demonstrates a small high-grade partial supraspinatus tear at the footprint. Infraspinatus remains intact. Subscapularis is intact. Moderate proximal biceps tendinitis which remains well seated in the bicipital groove. Degenerative labral changes. No significant glenohumeral osteoarthritis. Jhis-si-ddvctywm acromioclavicular joint osteoarthrosis. Procedure: Injection - Large Joint: L subacromial bursa on 10/04/2024 10:32 AM Indications: pain Details: 22 G needle, posterior approach Medications: 20 mg bupivacaine 0.5 %; 40 mg lidocaine 1 %; 80 mg Kenalog-40 40 MG/ML Outcome: tolerated well, no immediate complications Procedure, treatment alternatives, risks and benefits explained, specific risks discussed (Specificrisks included flare reaction, increased pain, increased stiffness, injury to surrounding tissues, increased risk of infection, and risk of elevated glucose level.). Consent was given by the patient.Immediately prior to procedure a time out was called to verify the correct patient, procedure, equipment, technical support 1 software engineer and site/side marked as required. Patient was prepped and draped in the usual sterile fashion. Assessment/Plan This is a 53-year-old male seen today with chronic left shoulder pain. MRI does show a small high-grade partial rotator cuff tear with moderate biceps tendinosis. We discussed his findings. He maintains full range of motion on exam with mild rotator cuff pain. He also has some proximal biceps tendon pain on exam in the setting of cervical radiculopathy. We discussed options. We reviewed his MRI and discussed his partial tear may do well with conservative treatment and recommended a subacromial injection for both diagnostic and therapeutic purposes, given his cervical symptoms as well. Patientwished to proceed with an injection. After discussing risks and benefits, including but not limited to bleeding, infection and worseningpain, the patient wished to proceed with the procedure today. See procedure note. Post-injection care instructions were provided. We will also refer him to our spine colleagues to establish care regarding his cervical pain. We will have him follow up in 6-8 weeks for repeat evaluation. documented in this encounter Plan of Treatment Upcoming Encounters Date Type Department Care Team (Late st Contact Info) Description 11/29/2024 9:10 AM EDT Office Visit [facility] Orthopaedic Surgery & Sports Medicine [address] [facility], [address] [place] [address] Elijah Rosas MD [address] [facility] [address] [place] [address] 01/02/2025 9:30 AM EST Office Visit [facility] General Surgery [address], [address] [place] [address] Cris Patrick APRN [address] [facility] [address] [place] [address] Scheduled Referrals Name Type Priority Associated Diagnoses Order Schedule Ambulatory referral to Orthopaedics Spine Outpatient Referral Routine 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 1 Occurrences starting 10/04/2024 until 04/07/2026 documented as of this encounter Procedures Procedure Name Priority Date/Time Associated Diagnosis Comments MS ARTHROCENTESIS ASPIR&/INJ MAJOR JT/BURSA W/O US Routine 10/04/2024 10:32 AM EDT 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 documented in this encounter Results * MS ARTHROCENTESIS ASPIR&/INJ MAJOR JT/BURSA W/O US (10/04/2024 10:32 AM EDT) Elijah Francisco MD - 10/04/2024 10:32 AM EDT Elijah Rosas MD 10/06/2024 1:31 PM Injection - Large Joint: L subacromial bursa on 10/04/2024 10:32 AM Indications: pain Details: 22 G needle, posterior approach Medications: 20 mg bupivacaine 0.5 %; 40 mg lidocaine 1 %; 80 mg Kenalog-40 40 MG/ML Outcome: tolerated well, no immediate complications Procedure, treatment alternatives, risks and benefits explained, specific risks discussed (Specific risks included flare reaction, increased pain, increased stiffness, injury to surrounding tissues, increased risk of infection, and risk of elevated glucose level.). Consent was given by the patient. Immediately prior to procedure a time out was called to verify the correct patient, procedure, equipment, technical support 1 software engineer and site/side marked as required. Patient was prepped and draped in the usual sterile fashion. Assessment/Plan This is a 53-year-old male seen today with chronic left shoulder pain. MRI does show a small high-grade partial rotator cuff tear with moderate biceps tendinosis. We discussed his findings. He maintains full range of motion on exam with mild rotator cuff pain. He also has some proximal biceps tendon pain on exam in the setting of cervical radiculopathy. We discussed options. We reviewed his MRI and discussed his partial tear may do well with conservative treatment and recommended a subacromial injection for both diagnostic and therapeutic purposes, given his cervical symptoms as well. Patient wished to proceed with an injection. After discussing risks and benefits, including but not limited to bleeding, infection and worsening pain, the patient wished to proceed with the procedure today. See procedure note. Post-injection care instructions were provided. We will also refer him to our spine colleagues to establish care regarding his cervical pain. We will have him follow up in 6-8 weeks for repeat evaluation. us Elijah Rosas MD IN CLINIC/BEDSIDE ORDERABLES Fin al Result * XR Shoulder Left 2+ Views (10/04/2024 [...] documented in this encounter Visit Diagnoses Diagnosis 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- Primary Degenerative disc disease, cervical Left shoulder pain, unspecified chronicity documented in this encounter Administered Medications Inactive Administered Medications - up to 3 most recent administrations Medication Order MAR Action Action Date Dose Rate Site bupivacaine (Marcaine) 0.5 % injection 20 mg 20 mg, Injection, Once PRN Procedure, 1 dose, Starting on Rajani 10/04/24 at 1032, Until Rajani 10/04/24 at 1032, RoutineIndications: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 Given 10/04/2024 10:32 AM EDT 20 mg lidocaine (Xylocaine) 1 % injection 40 mg 40 mg, Intra-articular, Once PRN Procedure, 1 dose, Starting on Rajani 10/04/24 at 1032, Until Rajani 10/04/24 at 1032, RoutineIndications: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 Given 10/04/2024 10:32 AM EDT 40 mg triamcinolone acetonide (Kenalog-40) injection 80 mg 80 mg, Intra-articular, Once PRN Procedure, 1 dose, Starting on Rajani 10/04/24 at 1032, Until Rajani 10/04/24 at 1032, RoutineIndications: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 Given 10/04/2024 10:32 AM EDT 80 mg documented in this encounter Additional Health Concerns Assessment Noted Time A fall risk assessment has been complete d for the patient 10/04/2024 9:03 AM EDT A Body Mass Index follow-up plan has been documented for the patient 10/06/2024 1:32 PM EDT documented as of this encounter Care Teams Vacuum Worker Relationship Specialty Start Date End Date Jose Francisco Caldera MD [address] [place] [address] PCP - General Internal Medicine 10/01/24 documented as of this encounter
--- OUTSIDE RECORDS SUMMARY | 2024-11-08 08:44 | XMS_ITS | Encounter Summary ---
Author Organization Healthcare Address [address] [place] [address] Care Team Providers Care Fiberglass Fabricator Name Role Phone Jose Francisco Caldera MD Primary Care Provider + [phone] Encounter Details Date Type Department Care Team (Latest Contact Info) Description 11/08/2024 8:44 AM EDT - 11/08/2024 9:33 AM EDT Hospital Encounter Medical Office Building Radiology [address] [place] [address] Cervical pain (neck) Discharge Disposition: [...] 11/29/2024 9:10 AM EDT Office Visit [facility] Orthopaedic Surgery & Sports Medicine [address] [facility], [address] [place] [address] Elijah Rosas MD [address] [place] [address] 01/02/2025 9:30 AM EST Office Visit [facility] General Surgery [address], [address] [place] [address] Cris Patrick, BUFFING WHEEL INSPECTOR [address] [place] [address] documented as of this encounter Procedures Procedure Name Priority Date/Time Associated Diagnosis Comments XR CERVICAL SPINE 2 OR 3 VIEWS Routine 11/08/2024 8:49 AM EDT Cervical pain (neck) documented in this encounter Results * VEHICLE DAMAGE APPRAISER: C-Spine: XR Cervical Spine (AP/Lateral/Odontoid) (11/08/2024 8:49 [...] documented as of this encounter Care Teams Fiberglass Fabricator Relationship Specialty Start Date End Date Jose Francisco Caldera MD [address] [place] [address] PCP - General Internal Medicine 10/01/24 documented as of this encounter
--- OUTSIDE RECORDS SUMMARY | 2024-11-08 09:00 | XMS_ITS | Encounter Summary ---
Author Organization Healthcare Address [address] [place] [address] Care Team Providers Care Imaging Assistant Name Role Phone Jose Francisco Caldera MD Primary Care Provider + [phone] Reason for Referral * Imaging (Routine) - Authorized Specialty Diagnoses / Procedures Referred By Contac t Referred To Contact Diagnoses Lumbar radiculitis Procedures MR Lumbar Spine wo IV Contrast Isra Em PA [address] [place] [address] Phone: tel: fax: [facility] () [address] [place] [address] Phone: tel: fax: Referral ID Status Reason Start Date Expiration Date V isits Requested Visits Authorized [id number] Authorized 11/08/2024 05/10/2026 1 1 * Imaging (Routine) - Authorized Specialty Diagnoses / Procedures Referred By Contac t Referred To Contact Diagnoses Cervical pain (neck) Cervical radiculitis Procedures MR Cervical Spine wo IV Contrast Isra Em PA [address] [place] [address] Phone: tel: fax: Referral ID Status Reason Start Date Expiration Date V isits Requested Visits Authorized [id number] Authorized 11/08/2024 05/10/2026 1 1 Reason for Visit * Reason Comments Consult * Consultation (Routine) - Closed Specialty Diagnoses / Procedures Referred By Dora kathleen Referred To Contact Orthopaedic Surgery Diagnoses Left shoulder pain, unspecified chronicity Tanesha John, BRASS MOLDER HELPER [address] [facility] [address] [place] [address] Phone: tel: fax: Medical Office [facility] [address] , [address] [place] [address] Phone: tel: fax: Referral ID Status Reason Start Date Expiration Date Visits Re quested Visits Authorized [id number] Closed 10/04/2024 04/05/2026 1 1 Encounter Details Date Type Department Care Team ([facility] st Contact Info) Description 11/08/2024 9:00 AM EDT Office Visit Medical Office Building [facility] [address] , [address] [place] [address] Isra Em PA [address] [place] [address] Cervical pain (neck) (Primary Dx); Cervical radiculitis; Lumbar radiculitis Social History Tobacco Use Types Packs/Day Years Used Date Smoking Tobacco: Never Smokeless Tobacco: Never Tobacco Cessation:Counseling Given: Not Answered Sex and Gender Information Value Date Recorded Sex Assigned at Not on file Legal Sex Male 5:00 PM EDT Gender Identity Not on file Sexual Orientation Not on file documented as of this encounter Last Filed Vital Signs Vital Sign Reading Time Taken Comments Blood Pressure 146/87 11/08/2024 8:45 AM EDT Pulse 73 11/08/2024 8:45 AM EDT Temperature - - Respiratory Rate - - Oxygen Saturation 98% 11/08/2024 8:45 AM EDT Inhaled Oxygen Concentration - - Weight 112 kg (246 lb 14.6 oz) 11/08/2024 8:45 A M EDT Height 188 cm (6' 2 ) 11/08/2024 8:45 AM EDT Body Mass Index 31.7 11/08/2024 8:45 AM EDT documented in this encounter Miscellaneous Notes * Progress Notes - Isra Em PA - 11/08/2024 9:00 AM EDT Images from the original note were not included. Outpatient [facility] Note CHIEF COMPLAINT: Low back pain, leg pain, neck pain, are pain. Subjective: History of Present Illness: Geeta Salas is a 54 y.o. male with history of T2DM (A1c 7.2), who presents today with referral from Dr. Rosas for evaluation of neck pain with radiation to L>R shoulder and lateral arm. Patient previously evaluated in sports medicine for left shoulder pathology. MRI was obtained that demonstrated partial supraspinatus tear, AC joint arthritis and biceps tendinitis. AC joint injection trialed with some benefit. Onset several years ago with progressive worsening. Patient does have intermittent diminished hand dexterity frequently drops objects. Of note patient has significant diabetic peripheral neuropathy affecting his hands and feet. Patient has history of removal of all toes on right side, medial two on left resulting in baseline gait instability has varied over the years. Cervical symptoms worsen when turning head, driving. Noted that these progress throughout the day. Patient also has several year history of low back pain that radiates to bilateral anterior thigh stopping at the knee and posterior leg stopping at feet. Associated standing/walking intolerance with L>R symptoms. Denies saddle anesthesia, bowel/bladder dysfunction. Prior Treatments: Injections: LESI x1 (6y ago) PT/Chiro: none recently Medications: nne Surgery: No prior spine surgeries Prior Surgeries: Surgical History[1] PAST MEDICAL HISTORY Past Medical History[2] MEDICATIONS Current Medications[3] ALLERGIES Allergies[4] PAST SURGICAL HISTORY Surgical History[5] FAMILY HISTORY Family History[6] SOCIAL HISTORY Current work status: Tobacco use: No Alchohol use: No Drug use: N/A REVIEW OF SYSTEMS: Please see above. A complete 14 point review of systems was performed and is otherwise negative. Objective: Visit Vitals BP (!) 146/87 Pulse 73 Ht 1.88 m (6' 2 ) Wt 112 kg (246 lb 14.6 oz) SpO2 98% BMI 31.70 kg/m?? Smoking Status Never BSA 2.42 m?? PHYSICAL EXAMINATION: GENERAL: The patient is a pleasant male in no acute distress. General Physical Exam Constitutional Appears well-developed and well-nourished. Eyes Pupils are equal, round, and reactive to light. Neck No tracheal deviation or JVD noted. No previous surgical scars Cardiovascular Minimal to no peripheral edema, intact distal pulses Pulmonary/Chest Effort normal, no shortness of breath Neurological Alert and oriented to person, place, and time Skin Skin is warm and dry Psychiatric Normal mood and affect, behavior and judgment FOCUSED MUSCULOSKELETAL/NEUROLOGIC EXAM: Prior Surgical Incisions: None Motor Strength Right Left C5: Shoulder abduction (Deltoid) 06/18 4+/5 C5: Elbow flexion (Biceps, Brachialis) 06/18 55 C6: Wrist extension (ECRB, ECRL) 06/18 5 C7: Elbow extension (Triceps) 06/18 06/18 C8: Finger flexion (Tan Room Supervisor Strength) 06/18 06/18 T1: Finger abduction 06/18 5/ Sensation Right Left Neck normal normal C5: Shoulder normal normal C6: Thumb, radial aspect hand/forearm (Radial Nerve) normal normal C7: Long finger (Median Nerve) normal normal C8: Little finger, ulnar aspect of hand/forearm (Ulnar n.) normal normal T1: Medial forearm/arm normal normal Reflexes Right Left C5: Biceps 2/4 2/4 C6: Brachioradialus 2/4 2/4 C7: Triceps 2/ 2/4 Hoffmans absent absent Clonus <3 beat <3 beat Motor Strength Right Left L2: Hip flexion (Iliopsoas) 06/18 5/5 L3: Knee extension (Quad) 06/18 5 L4: Ankle DF (TA) 06/18 5 L5: Great Toe DF (EHL) 06/18 5 S1: Ankle Pf, Foot Eversion (Peroneal longus/brevis) 06/18 5/5 Sensation Right Left L2: Proximal anterior thigh normal normal L3: Mid anterior thigh normal normal L4: Medial leg/foot, great toe (Saphenous n.) normal normal L5: Dorsum of mid foot normal normal S1: Lateral leg/foot, little toe, Back of leg (Sural n.) normal normal Reflexes Right Left L4: Patellar 2/4 2/4 S1: Achilles 2/4 2/4 Babinski Absent Absent Clonus <3 beats <3 beats Straight leg raise is Positive Ambulates with a cane IMAGING: Plain Radiographs: 2 views of the cervical/lumbar spine were obtained in clinic and independently reviewed today showing: Straightening of cervical lordosis otherwise adequate alignment. Slight levocurvature lumbar spine. Severe disc height loss at L5-S1. Mild facet joint hypertrophy lower lumbar spine. Assessment and Plan: Geeta Salas is a 54 y.o. male who, after review of history, physical exam findings and imaging, is diagnosed with cervical radiculitis, lumbar radiculitis. Patient has several year history of neck pain with progressive worsening. Radiation to left shoulder and lateral arm. Other pain limited low b ack with radiation due right anterior thigh and without extension past the knee, and posterior leg to foot. Patient evaluated by sports Medicine who diagnosed supraspinatus tear on left side as well as biceps tendonitis and AC joint arthritis. This was addressed with AC joint injection with some benefit. On exam patient has 4+/5 strength with shoulder abduction on the left otherwise 5/5 strength C5-T1, L2-S1. Positive straight leg raise on left. Negative Jeb's. No hyperreflexia. Imaging demonstrates straightening of cervical lordosis but no other degenerative findings. Slight levocurvature lumbar spine with severe disc height loss L5-S1 and mild facet joint hypertrophy in the lower lumbar spine. We have discussed conservative treatments which include nsaids or topical pain relievers,physical therapy, epidural injections, and/or massage. -- PT referral placed with focus on cervical isometrics, nerve glides modalities, core strengthening global body conditioning -- C/L MRI placed to evaluate for cervical or lumbar pathology of symptoms -- I will call him with results of MRI and updated plan; briefly discussed diagnostic therapeutic benefit of injections. After further discussion, the patient wishes to proceed with above plan. All questions answered to his satisfaction. Isra Em PA-C [1] No past surgical history on file. [2] No past medical history on file. [3] Current Outpatient Medications: amLODIPine (Norvasc) 5 MG tablet, , Disp: , Rfl: atorvastatin (Lipitor) 40 MG tablet, , Disp: , Rfl: dapagliflozin (Farxiga) 10 MG tablet, Take 1 tablet by mouth daily., Disp: , Rfl: gabapentin (Neurontin) 600 MG tablet, Take 1 tablet by mouth 2 times a day., Disp: , Rfl: lisinopril 40 MG tablet, , Disp: , Rfl: metFORMIN (Glucophage) 1000 MG tablet, Take 1 tablet by mouth 2 times a day with meals., Disp: , Rfl: traZODone (Desyrel) 100 MG tablet, Take 1 tablet by mouth nightly., Disp: , Rfl: [4] Allergies Allergen Reactions Abilify [Aripiprazole] Other - please document in the comment field Lyrica [Pregabalin] Other - please document in the comment field Double vision Tetanus Antitoxin Other - please document in the comment field [5] No past surgical history on file. [6] No family history on file. documented in this encounter Plan of Treatment Upcoming Encounters Date Type Department Care Team (Late st Contact Info) Description 11/29/2024 9:10 AM EDT Office Visit [facility] Orthopaedic Surgery & Sports Medicine [address] [facility], [address] [place] [address] Elijah Rosas MD [address] [place] [address] 01/02/2025 9:30 AM EST Office Visit [facility] General Surgery [address] [place] [address] Cris Patrick APRN [address] [place] [address] Scheduled Orders Name Type Priority Associated Diagnoses Orde r Schedule MR Cervical Spine wo IV Contrast Imaging Routine Cervical pain (neck) Cervical radiculitis Expected: 11/08/2024 (Approximate), Expires: 05/12/2026 MR Lumbar Spine wo IV Contrast Imaging Routine Lumbar radiculitis Expected: 11/08/2024 (Approximate), Expires: 05/12/2026 documented as of this encounter Results * XR Lumbar Spine 2 or 3 Views (11/08/2024 9:37 AM EDT) Anatomical Region Laterality Modality Spine, L-spine Digital Radiogra phy Impressions 11/08/2024 10:23 AM EDT 1. Moderate degenerative disc changes at L5-S1. 2. Minimal posterior subluxation at L1-L2 through L3-L4. CRITICAL RESULT: No. COMMUNICATION: Per this written report. Drafted by Santosh Loza MD on 11/08/2024 10:20 AM Final report signed by Santosh Loza MD on 11/08/2024 10:23 AM Narrative 11/08/2024 10:23 AM EDT CLINICAL INDICATION: pain TECHNIQUE: XR LUMBAR SPINE 2 OR 3 VIEWS COMPARISON: None. FINDINGS: 2 views of the lumbar spine show disc space narrowing at L5-S1 and mild degenerative changes at L1-L2 through L3-L4. Minimal posterior subluxation at L1-L2 through L3-L4. No fracture or bone destruction. Attempted lumbarization of S1. Sacroiliac joints are normal. Procedure Note Santosh Loza MD - 11/08/2024 CLINICAL INDICATION: pain TECHNIQUE: XR LUMBAR SPINE 2 OR 3 VIEWS COMPARISON: None. FINDINGS: 2 views of the lumbar spine show disc space narrowing at L5-S1 and milddegenerative changes at L1-L2 through L3-L4. Minimal posterior subluxationat L1-L2 through L3-L4. No fracture or bone destruction. Attemptedlumbarization of S1. Sacroiliac joints are normal. IMPRESSION: 1.Moderate degenerative disc changes at L5-S1. 2.Minimal posterior subluxation at L1-L2 through L3-L4. CRITICAL RESULT: No. COMMUNICATION: Per this written report. Drafted by Santosh Loza MD on 11/08/2024 10:20 AM Final report signed by Santosh Loza MD on 11/08/2024 10:23 AM Isra CASTRO IMG XR PROCEDURES Final Resul t * PRODUCT MARKETING EXECUTIVE: C-Spine: XR Cervical Spine (AP/Lateral/Odontoid) (11/08/2024 8:49 [...] this encounter Visit Diagnoses Diagnosis Cervical pain (neck)- Primary Cervicalgia Cervical radiculitis Brachial neuritis or radiculitis nos Lumbar radiculitis Cervical pain (neck) Cervicalgia Lumbar radiculitis documented in this encounter Additional Health Concerns Assessment Noted Time A fall risk assessment has been complete d for the patient 11/08/2024 8:45 AM EDT A Body Mass Index follow-up plan has been documented for the patient 11/08/2024 12:11 PM EDT documented as of this encounter Care Teams Imaging Assistant Relationship Specialty Start Date End Date Jose Francisco Caldera MD [address] [place] [id number] PCP - General Internal Medicine 8/18/25 documented as of this encounter
--- OUTSIDE RECORDS SUMMARY | 2024-11-08 09:34 | XMS_ITS | Encounter Summary ---
Author Organization Healthcare Address [address] [place] [address] Care Team Providers Care Principal Clerk Typist Name Role Phone Jose Francisco Caldera MD Primary Care Provider + [phone] Encounter Details Date Type Department Care Team (Latest Contact Info) Description 11/08/2024 9:34 AM EDT - 11/08/2024 11:59 PM EDT Hospital Encounter Medical Office Building Radiology [address] [place] [address] Lumbar radiculitis Discharge Disposition: Home or Self Care Social [...] Description 11/29/2024 9:10 AM EDT Office Visit [facility] Orthopaedic Surgery & Sports Medicine [address] [facility], [address] [place] [address] Elijah Rosas MD [address] [place] [address] 01/02/2025 9:30 AM EST Office Visit [facility] General Surgery [address] [place] [address] Cris Patrick, STONE SETTER [address] [place] [address] documented as of this encounter Procedures Procedure Name Priority Date/Time Associated Diagnosis Comments XR LUMBAR SPINE 2 OR 3 VIEWS Routine 11/08/2024 9:37 AM EDT Lumbar radiculitis documented in this encounter Results * XR Lumbar Spine [...] documented in this encounter Visit Diagnoses Diagnosis Lumbar radiculitis documented in this encounter Additional Health Concerns Assessment Noted Time A fall risk assessment has been complete d for the patient 11/08/2024 8:45 AM EDT A Body Mass Index follow-up plan has been documented for the patient 11/08/2024 12:11 PM EDT documented as of this encounter Care Teams Principal Clerk Typist Relationship Specialty Start Date End Date Jose Francisco Caldera MD [address] [place] [id number] PCP - General Internal Medicine 10/01/24 documented as of this encounter
--- OUTSIDE RECORDS SUMMARY | 2024-11-15 07:00 | XMS_ITS ---
Author Organization [facility] PE D YFN Address [address] [facility] 36 [facility] [address] [place] [address] Care Team Providers Care Supervisor Pumping Station Name Role Phone Jose Francisco Caldera Primary Care Provider [phone] Allergies Allergen (clinical drug ingredient) Drug/Non Drug Allergy documented on EMR Reaction Allergy Type Onset Date Status Tetanus Toxoid TETANUS TOXOID (uncoded) Unknown Allergy Active pregabalin Pregabalin Unknown Drug Allergy Activ e aripiprazole Abilify itching, anxiety Drug Allergy Active Reason For Referral Reason MRI head - first ned ilable place Diagnosis 1 Injury of head, init ial encounter (S09.90XA) Referral Organization [facility] PED YNF Referring Provider First Name Jose Francisco Referring Provider Last Name Werner Referring Provider Speciality Internal M edicine Referred Organization [facility] Referred Address [address] [place] [address], [place],[address], Referred Provider Specialty Diagnostic R adiology General Notes Authorization Number : [id number] Effective Date: 11/15/2024uth End Date: 01/14/2025Initiated Date: [...] Signs Temperature 98.2 degrees Fahrenheit 11/16/19 25 Blood pressure systolic 118 mm Hg 11/16/19 25 Blood pressure diastolic 80 mm Hg 025 Heart Rate 74 /min 11/15/2024 Height 6 ft 2 in in 11/15/2024 Weight 247 lbs 11/15/2024 BMI 31.71 kg/m2 11/15/2024 Encounters Encounter Location Date Provider Diagnosis [facility] [address] [address] 11/15/2024 Jose Francisco Caldera Ventral hernia without [...] MRI head - first available place, [address], [address], Next Appt Details Follow Up: prn, Reason: Provider Name:Jose Francisco Caldera, 01/28/2025 09:45:00 AM, [address] [place] [facility] 36 [facility], [address], [place], [address], Progress Notes * SALAS AncelmoShelleyOB:1970 (54 yo M)Acc No.[id number]:11/15/2024 Progress Notes Patient: Geeta JARA Provider: Anil Caldera MD :1970 A ge:54 Y S ex:Male Date:11/15/2024 Address:[address] [place] [address], [id number] Subjective: * Chief Complaints: * 1 . [...] : Head ?Imaging: MRI BRAIN WO* Authorization Number:[id number] Auth Effective Date:11/15/2024 Auth End Date:5CPT [id number] [facility] * Notes: Given head trauma with residual [...] MD Date: Generated for Printi sydnie/Rebecca/eTransmitting on: 07:46 AM EDT History and Physical Notes * HPI [...]
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
--- OUTSIDE RECORDS SUMMARY | 2024-11-27 07:45 | XMS_ITS | Encounter Summary ---
Author Organization Healthcare Address [address] [place] [address] Care Team Providers Care Analytical Strategist Name Role Phone Jose Francisco Caldera MD Primary Care Provider + [phone] Encounter Details Date Type Department Care Team (Latest Contact Info) Description 11/08/2024 Travel Social History Tobacco Use Types Packs/Day Years Used Date Smoking Tobacco: Never Smokeless Tobacco: Never Sex and Gender Information Value Date Recorded Sex Assigned at Not on file Legal Sex Male 5:00 PM EDT Gender Identity Not on file Sexual Orientation Not on file documented as of this encounter Plan of Treatment Upcoming Encounters Date Type Department Care Team (Late st Contact Info) Description 11/29/2024 9:10 AM EDT Office Visit [facility] Orthopaedic Surgery & Sports Medicine [address] [facility], [address] [place] [address] Elijah Rosas MD [address] [facility] [address] [place] [address] 01/02/2025 9:30 AM EST Office Visit [facility] General Surgery [address], [address] [place] [address] Cris Patrick, JOHANA [address] [facility] [address] [place] [address] documented as of this encounter Visit Diagnoses Not on filedocumented in this encounter Additional Health Concerns Assessment Noted Time A fall risk assessment has been complete d for the patient 11/08/2024 8:45 AM EDT A Body Mass Index follow-up plan has been documented for the patient 11/08/2024 12:11 PM EDT documented as of this encounter Care Teams Analytical Strategist Relationship Specialty Start Date End Date Jose Francisco Caldera MD [address] [place] [address] PCP - General Internal Medicine 10/01/24 documented as of this encounter
--- OUTSIDE RECORDS SUMMARY | 2024-11-27 07:45 | XMS_ITS | Encounter Summary ---
Author Organization Healthcare Address [address] [place] [address] Care Team Providers Care Consumer Lender Name Role Phone Jose Francisco Caldera MD Primary Care Provider + [phone] Encounter Details Date Type Department Care Team (Late Contact Info) Description 11/14/2024 Telephone Medical Office [facility] Surgery Spine [facility] [address] [facility], [address] [place] [address] Yfn Mims Social History Tobacco Use Types Packs/Day Years Used Date Smoking Tobacco: Never Smokeless Tobacco: Never Sex and Gender Information Value Date Recorded Sex Assigned at Not on file Legal Sex Male 5:00 PM EDT Gender Identity Not on file Sexual Orientation Not on file documented as of this encounter Miscellaneous Notes * Telephone Encounter - Yfn Mims - 11/14/2024 9:32 AM EDT FAXED MRI/AUTH'S TO SCHEDULING-PT UPDATED LL documented in this encounter Plan of Treatment Upcoming Encounters Date Type Department Care Team (Late Contact Info) Description 11/29/2024 9:10 AM EDT Office Visit [facility] Orthopaedic Surgery & Sports Medicine [address] , [address] [place] [address] Elijah Rosas MD [address] [place] [address] 01/02/2025 9:30 AM EST Office Visit [facility] General Surgery [address], [address] [place] [address] Cris Patrick, CLINICAL REHABILITATION SPECIALIST [address] [place] [address] documented as of this encounter Visit Diagnoses Not on filedocumented in this encounter Additional Health Concerns Assessment Noted Time A fall risk assessment has been complete d for the patient 11/08/2024 8:45 AM EDT A Body Mass Index follow-up plan has been documented for the patient 11/08/2024 12:11 PM EDT documented as of this encounter Care Teams Consumer Lender Relationship Specialty Start Date End Date Jose Francisco Caldera MD [address] [place] [address] PCP - General Internal Medicine 10/01/24 documented as of this encounter
--- OUTSIDE RECORDS SUMMARY | 2024-11-27 07:46 | XMS_ITS | Patient Health Record ---
Author Organization [facility] Address [address] [place] [address] Care Team Providers Care Metrology Engineer Name Role Phone Jose Francisco Caldera Primary Care Provider Graciela Priest Unavailable [phone] Migration, Provider Unavailable Unavailable Allergies Allergen (clinical drug ingredient) Drug/Non Drug Allergy documented on EMR Reaction Allergy Type Onset Date Status Tetanus Toxoid TETANUS TOXOID (uncoded) Unknown Allergy Active pregabalin Pregabalin Unknown Drug Allergy Activ e aripiprazole Abilify itching, anxiety Drug Allergy Active Results Component Value Reference Range Notes LIPID PANEL, STANDARD (7600) Reviewed date:07/18/2024 12:24:38 PM Interpretation: Performing Lab:JONATHAN, [facility] [id number] [facility], Mikel QuevedoHuocIM[address] Kervin Sanchez Notes/Report: NON-FASTING; NON-FASTING; NON-FASTING CHOLESTEROL, [...] LDL-C. Jhonatan EPPS et al. CHIKIS. 2013;310(19): 0319-8254 (http://education.QuestDiag nostics.com/faq/WHG989) CHOL/HDLC RATIO 2.9 <5.0 (calc) NON HDL CHOLESTEROL 97 <130 mg/dL (calc) For patients with diabetes plus 1 major ASCVD risk factor, treating to a non-HDL-C goal of <100 mg/dL (LDL-C of <70 mg/dL) is considered a therapeutic option. Microalbumin (In-House) Reviewed date:07/13/2024 12:20:56 PM Interpretation:Abnormal Performing Lab: Notes/Report: Abnormal ALB 30mg CRE 50mg A:C 30-300mg COMPREHENSIVE METABOLIC PANE L (24442) Reviewed date:07/18/2024 12:24:38 PM Interpretation: Performing Lab:JONATHAN [facility]ikel [id number], Mikel QuevedoBmthCQ[address] Kervin Sanchez Notes/Report: NON-FASTING; NON-FASTING; NON-FASTING GLUCOSE [...] 18 10-35 U/L ALT 14 9-46 U/L HEMOGLOBIN A1c (496) Reviewed date:07/18/2024 12:24:38 PM Interpretation: Performing Lab:JONATHAN [facility] [address], Constellation ResearchDdieOM[address] Kervin Sanchez Notes/Report: NON-FASTING; NON-FASTING; NON-FASTING HEMOGLOBIN [...] A1c for diagnosis of diabetes for children. MRI : Shoulder, Left Reviewed date:09/26/2024 04:50:26 PM Interpretation: Performing Lab: Notes/Report: BASIC METABOLIC PANEL (01836 ) Reviewed date:11/30/2023 10:31:07 AM Interpretation: Performing Lab:JONATHAN [facility] [employer], Constellation ResearchOpklXI[address] Kervin Sanchez Notes/Report: NON-FASTING; NON-FASTING; NON-FASTING; NON-FASTING [...] Reviewed date:11/30/2023 10:31:07 AM Interpretation: Performing Lab:JONATHAN [facility] [id number], Constellation ResearchRbawQH[address] Kervin Sanchez Notes/Report: NON-FASTING; NON-FASTING; NON-FASTING; NON-FASTING CREATINE KINASE, TOTAL 158 44-196 U/L HEMOGLOBIN A1c (496) Reviewed date:11/30/2023 10:31:07 AM Interpretation: Performing Lab:JONATHAN, [facility] [id number] [employer], [place] FcwvSH[address] Kervin Sanchez Notes/Report: NON-FASTING; NON-FASTING; NON-FASTING; NON-FASTING [...] Reviewed date:11/30/2023 10:31:07 AM Interpretation: Performing Lab:JONATHAN [facility] [id number], [employer] G[employer] CompanyGvnxHE[address] Kervin Sanchez Notes/Report: NON-FASTING; NON-FASTING; NON-FASTING; NON-FASTING TSH 1.51 0.40-4.50 mIU/L Reason For Referral Reason Please refer to pain management at [facility] for back pain, history of bulging disc and spinal stenosis. Diagnosis 1 Acute left-sided low back pain with left-sided sciatica (M54.42) Referral Organization [facility] Referring Provider First Name Graciela Referring Provider Last Name Zayda Referring Provider Speciality Family Pra ctice Referred Organization [facility] Referred Address [address],[address], Referred Provider Specialty Pain Managem ent General Notes Ashely Calderon 2024 02:55:34 PM >, Ashely Calderon 04/12/2024 02:55:38 PM > Faxed to Dr. Galvez Referral Priority Routine Reason MRI L Shoulder Diagnosis 1 Shoulder pain, left (M25.512) Diagnosis 2 Rotator cuff syndrom e of left shoulder (M75.102) Referral Organization [facility] Referring Provider First Name Jose Francisco Referring Provider Last Name Werner Referring Provider Speciality Internal M edicine Referred Organization [facility] Referred Address [address] [facility] Referred Provider Specialty Diagnostic R adiology General Notes Ashely Calderon 2024 04:05:56 PM >pending with [employer] Nickie 09/11/2024 03:45:04 PM >Dev has requested Xray reports, PT notes and anything else related to his arm. I do not see any of this in [employer] related to his shoulder, just his back and feet., Ashely Calderon 09/12/2024 10:30:01 AM >approved and sent to [facility] Referral Priority Routine Reason MRI left shoulder-ro tator cuff syndrome-negative x-rays Diagnosis 1 Rotator cuff syndrom e of left shoulder (M75.102) Referral Organization [facility] Referring Provider First Name Jose Francisco Referring Provider Last Name Werner Referring Provider Speciality Internal edicine Referral Priority Routine Reason Dr. Elijah Rosas Rot ator cuff tear Referral Organization [facility] Referring Provider First Name Jose Francisco Referring Provider Last Name Werner Referring Provider Speciality Internal edicine Referred Organization [facility] Referred Address [address] [place], [place],[address], Referred Provider Specialty Orthopedic S urgery General Notes Ashely Calderon 2024 05:07:25 PM >Placed with through [employer]- They will contact patient to schedule.[facility] Nickie 10/01/2024 04:07:32 PM >Scheduled 10/04/2024 9:30 AM ANAND [facility] Elijah Rosas MD Referral Priority Routine Referral Appointment Date 10/04/2024 Reason MRI head - first ned ilable place Diagnosis 1 Injury of head, init ial encounter (S09.90XA) Referral Organization [facility] Referring Provider First Name Jose Francisco Referring Provider Last Name Werner Referring Provider Speciality Internal edicine Referred Organization [facility] Referred Address [address] [place] [facility] [address] [facility] [place],[address] Referred Provider Specialty Diagnostic R adiology General Notes Authorization Number : [id number] Effective Date: 11/15/2024uth End Date: 01/14/2025Initiated Date: 11/15/2024 Referral Priority Routine Medications Medication SIG (Take, Route, Frequency, Duration) Notes Start Date End Date Status traZODone HCl 100 MG 1 tab(s) orally once a day (at bedtime); Duration: 90 days Active Melatonin 10 MG 1 cap(s) orally once a day (at bedtime); Duration: 90 days 12/10/2019 Active Atorvastatin Calcium 40 MG 1 tab(s) orally once a day; Duration: 90 days Active Finasteride 5 MG Take 1 tablet by mouth once daily; Duration: 90 Active Tamsulosin HCl 0.4 MG 1 cap(s) orally once a day; Duration: 90 Active Gabapentin 600 MG TAKE 1 TABLET BY MOUTH 3 TO 4 TIMES DAILY; Duration: 30 10/11/2024 Active metFORMIN HCl 1000 MG 1 tab(s) orally 2 times a day; Duration: 90 days Active Sildenafil [...] e-prescription and drug interaction check* 12/06/2018 Active Social History Tobacco Use: Social History Observation Description Date Details (start date - stop date) Never Smoker NA - NA Smoking: Question Answer Notes Are you a: nonsmoker Problems Problem Type SNOMED Code ICD Code Onset Dates Problem Status W/U Status Risk Notes Problem Foot ulcer due to type 2 diabetes mellitus (7637506955548) Type 2 diabetes mellitus with foot ulcer (E11.621) Active confirmed Problem Dermopathy due to type 2 diabetes mellitus (disorder) (8654351749842) Type 2 diabetes mellitus with other skin complications (E11.628) Active confirmed Problem 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) Active confirmed Problem Right side sciatica (541325320797795) Sciatica, right side (M54.31) Active confirmed Problem Obese class I (finding) (253257505292426) Obesity (BMI 30.0-34.9) (E66.9) Active confirmed Problem Essential hypertension (77978996) Hypertension, essential (I10) Active confirmed Problem Sleep disturbance (76615854) Sleep disturbance (G47.9) Active confirmed Problem Erectile dysfunction (disorder) (569668212) Erectile dysfunction, unspecified erectile dysfunction type (N52.9) Active confirmed Problem Chronic insomnia (658727250) Chronic insomnia (F51.04) Active confirmed Problem Sciatica (44877290) Left sided sciatica (M54.32) Active confirmed Problem Left rotator cuff syndrome (630181294377292) Rotator cuff syndrome of left shoulder (M75.102) Active confirmed Problem Recurrent major depression (39026850) Recurrent major depressive disorder, remission status unspecified (F33.9) Active confirmed Problem Acid reflux (009873328) Acid reflux (K21.9) Active confirmed Problem Sciatica (17743603) Acute left-sided low back pain with left-sided sciatica (M54.42) Active confirmed Problem Benign prostatic hypertrophy with outflow obstruction (844036420) BPH loc w urin obs/LUTS (N40.1) Active confirmed Problem Adult health examination (785672843) Healthcare maintenance (Z00.00) Active confirmed Problem Peripheral artery disease (462106574) Peripheral artery disease (I73.9) Active confirmed Problem Type II diabetes mellitus without complication (923015303) Controlled type 2 diabetes mellitus without complication, without long-term current use of insulin (E11.9) Active confirmed Problem Bilateral carpal tunnel syndrome (63727287220243988 ) Bilateral carpal tunnel syndrome (G56.03) Active confirmed Problem Polyneuropathy due to type 2 diabetes mellitus (172584680) Type 2 diabetes mellitus with diabetic polyneuropathy, without long-term current use of insulin (E11.42) Active confirmed Problem Ulcer of left foot (disorder) (952454309) Ulcer of left foot, unspecified ulcer stage (L97.529) Active confirmed Problem Diabetic retinopathy associated with type 2 diabetes mellitus (933672172) Diabetic retinopathy of both eyes associated with type 2 diabetes mellitus, macular edema presence unspecified, unspecified retinopathy severity (E11.319) Active confirmed Problem Neuropathic pain, leg, bilateral (G57.93) Active confirmed Vital Signs Heart Rate 74 /min 11/15/2024 Temperature 98.2 degrees Fahrenheit 11/15/2024 Blood pressure diastolic 80 mm Hg 11/15/2024 Height 6 ft 2 in in 11/15/2024 Blood pressure systolic 118 mm Hg 11/15/2024 Weight 247 lbs 11/15/2024 BMI 31.71 kg/m2 11/15/2024 Encounters Encounter Location Date Provider Diagnosis [facility] [address] [facility] [address] [place], [place] [address] 05/19/2024 Provider Migration Acute left-sided low back pain with left-sided sciatica M54.42 [facility] [address] [facility] [address] [place], [place] [address] 07/16/2024 Jose Francisco Caldera [facility] [address] [facility] [address] [place], [place] [address] 11/28/2023 Jose Francisco Fontanamatthew Type 2 diabetes mellitus with diabetic polyneuropathy, without long-term current use of insulin E11.42 ; Hypertension, essential I10 and Myalgia M79.10 [facility] [address] [facility] [address] [place], [place] [address] 04/11/2024 Graciela Priest Acute left-sided low back pain with left-sided sciatica M54.42 [facility] [address] [facility] [address] [place], [place] [address] 07/13/2024 Jose Franciscosahil Caldera Type 2 diabetes mellitus with diabetic polyneuropathy, without long-term current use of insulin E11.42 ; Diabetic retinopathy of both eyes associated with type 2 diabetes mellitus, macular edema presence unspecified, unspecified retinopathy severity E11.319 ; Hypertension, essential I10 and Neuropathic pain, leg, bilateral G57.93 [facility] [address] [facility] [address] [place] [address] 09/10/2024 Jose Francisco Caldera Rotator cuff syndrome [...] unspecified F33.9 and Routine medical exam Z00.00 [facility] [address] [address] 11/15/2024 Jose Franciscosahil Caldera Ventral hernia without obstruction or gangrene K43.9 and Injury of head, initial encounter S09.90XA [facility] [address] [address] 06/14/2024 Jose Francisco Besson [facility] [address] [place] [address] 06/25/2024 Jose Francisco Besson [facility] [address] [address] 06/28/2024 Jose Francisco Besson [facility] [address] [place] [address] 09/11/2024 Jose Francisco Besson [facility] [address] [address] 10/11/2024 Jose Francisco Caldera Assessments Encounter Date Diagnosis (ICD Code) [...] him. No. In plan, get labs in 11/15/2024 Ventral hernia without obstruction or gangrene [...] a head MRI to evaluate for injury. 09/10/2024 Diabetic retinopathy of both eyes associated [...] has been compliant with our office and [place] regulations r.e. meds. No concerns on my [...] Name Order Date MRI : Head 11/15/2024 X ray : Spines, Cervical 12/27/2018 C-CBC 09/28/2019 C-CMP 09/28/2019 C-LIPID PANEL 09/28/2019 C-PSA 09/28/2019 Future Test Test Name Order Date C-CMP 06/14/2018 C-LIPID PANEL 06/14/2018 C-HGBA1C 06/14/2018 C-BASIC METABOLIC 07/20/2018 C-TSH 10/02/2018 C-VITAMIN B12 10/02/2018 Next Appt Details Provider Name:Jose Francisco Caldera, 01/28/2025 09:45:00 AM, [address], [place], [address], Insurance Providers Payer Name Payer Address Payer Phone Subscriber Number Group Number Insured Name Patient Relationship to Insured Coverage Start Date Coverage End Date [employer] [facility] [address] [address] [place] [address] [id number] Geeta Salas Self - patient is the insured Medical (General) History Medical History History ICD Code [place] palsy Diabetes mellitus with neuropathy and re [...] 22 Colonoscopy/EGD 06/2022 Hospitalization History Reason Date(Month/Year) [facility]- Right foot infection 06/2021 Diabetes- lots of hospital stays and ER visits Amputations as above
--- OUTSIDE RECORDS SUMMARY | 2024-11-27 07:46 | XMS_ITS | Encounter Summary ---
Author Organization Healthcare Address [address] [place] [address] Care Team Providers Care Manager Client Service Name Role Phone Jose Francisco Caldera MD Primary Care Provider + [phone] Encounter Details Date Type Department Care Team (Late st Contact Info) Description 09/18/2024 Orders Only External Location [address] [place] [address] Provider, External Social History Tobacco Use Types Packs/Day Years Used Date Smoking Tobacco: Never Assessed Sex and Gender Information Value Date Recorded Sex Assigned at Not on file Legal Sex Male 5:00 PM EDT Gender Identity Not on file Sexual Orientation Not on file documented as of this encounter Plan of Treatment Upcoming Encounters Date Type Department Care Team (Late st Contact Info) Description 11/29/2024 9:10 AM EDT Office Visit [facility] Orthopaedic Surgery & Sports Medicine [address] [facility], [address] [place] [address] Elijah Rosas MD [address] [facility] [place] [address] 01/02/2025 9:30 AM EST Office Visit [facility] General [facility] [address], [address] [place] [address] Cris Patrick APRN [address] [facility] [address] [place] [address] documented as of this encounter Procedures Procedure Name Priority Date/Time Associated Diagnosis Comments MR MSK OUTSIDE IMAGES 09/18/2024 12:54 PM EDT documented in this encounter Results * MR MSK OUTSIDE IMAGES (09/18/2024 12:54 PM EDT) Anatomical Region Laterality Modality Magnetic Resonan ce 09/18/2024 12:5 4 PM EDT us External Provider IMG MRI PROCEDURES Final Resul t documented in this encounter Visit Diagnoses Not on filedocumented in this encounter Care Teams Manager Client Service Relationship Specialty Start Date End Date Jose Francisco Caldera MD [address] [place] [address] PCP - General Internal Medicine 10/01/24 documented as of this encounter
--- OUTSIDE RECORDS SUMMARY | 2024-11-27 07:46 | XMS_ITS | Encounter Summary ---
Author Organization Healthcare Address [address] [place] [address] Care Team Providers Care [employer] Supervisor Name Role Phone Jose Francisco Caldera MD Primary Care Provider + [phone] Encounter Details Date Type Department Care Team (Latest Contact Info) Description 10/04/2024 Travel Social History Tobacco Use Types Packs/Day [...] Description 11/29/2024 9:10 AM EDT Office Visit [facility] Orthopaedic Surgery & Sports Medicine [address] [facility], [address] [place] [address] Elijah Rosas MD [address] [facility] [address] [place] [address] 01/02/2025 9:30 AM EST Office Visit [facility] General Surgery [address] [place] [address] Cris Patrick, JOHANA [address] [facility] [address] [place] [address] documented as of this encounter Visit Diagnoses Not on filedocumented in this encounter Additional Health Concerns Assessment Noted Time A fall risk assessment has been complete d for the patient 10/04/2024 9:03 AM EDT A Body Mass Index follow-up plan has been documented for the patient 10/06/2024 1:32 PM EDT documented as of this encounter Care Teams [employer] Supervisor Relationship Specialty Start Date End Date Jose Francisco Caldera MD [address] [place] [address] PCP - General Internal Medicine 10/01/24 documented as of this encounter
--- OUTSIDE RECORDS SUMMARY | 2024-11-27 07:46 | XMS_ITS | Clinical Summary ---
Author Organization [facility] Address [address] [place] [address] Care Team Providers Care Mail Distributor Name Role Phone Jose Francisco Caldera MD Primary Care Provider + [phone] Allergies Active Allergy Reactions Criticality Noted Date Comments Aripiprazole Other - please docum ent in the comment field Low 10/04/2024 Pregabalin Other - please docum ent in the comment field Low 10/04/2024 Double vision Tetanus Antitoxin Other - please docum ent in the comment field Low 10/04/2024 Medications amLODIPine (Norvasc) 5 MG tablet 04/14/2024 Active atorvastatin (Lipitor) 40 MG tablet 01/05/2024 Active lisinopril 40 MG tablet 06/14/2024 Active gabapentin (Neurontin) 600 MG tablet Take 1 tablet by mouth 2 times a day. Active dapagliflozin (Farxiga) 10 MG tablet Take 1 tablet by mouth daily. Active metFORMIN (Glucophage) 1000 MG tablet Take 1 tablet by mouth 2 times a day with meals. Active traZODone (Desyrel) 100 MG tablet Take 1 tablet by mouth nightly. Active Encounters Date Type Department Care Team Description 11/19/2024 Community Orders Community Practice [address] [place] [address] Jose Francisco Caldera MD Ventral hernia without obstruction or gangrene (Primary Dx); Diabetic polyneuropathy associated with type 2 diabetes mellitus; Gastroesophageal reflux disease with esophagitis, unspecified whether hemorrhage 11/14/2024 Telephone Medical Office Building Surgery [facility] [address] [facility], [address] [place] [address] Yfn Mims 11/08/2024 9:34 AM EDT - 11/08/2024 11:59 PM EDT Hospital Encounter Medical Office Building Radiology [address] [place] [address] Lumbar radiculitis Discharge Disposition: Home or Self Care 11/08/2024 9:00 AM EDT Office Visit Medical Office Building [facility] [address] [facility], [address] [place] [address] Isra Em PA Cervical pain (neck) (Primary Dx); Cervical radiculitis; Lumbar radiculitis 11/08/2024 8:44 AM EDT - 11/08/2024 9:33 AM EDT Hospital Encounter Medical Office Building Radiology [address] [place] [address] Cervical pain (neck) Discharge Disposition: Home or Self Care 11/08/2024 Travel 10/04/2024 9:30 AM EDT Office Visit [facility] [address], [address] [place] [address] Elijah Rosas MD 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 (Primary Dx); Degenerative disc disease, cervical 10/04/2024 9:10 AM EDT - 10/04/2024 11:59 PM EDT Hospital Encounter [facility] X-Ray [address], [address] [place] [address] Left shoulder pain, unspecified chronicity Discharge Disposition: Home or Self Care 10/04/2024 Travel 09/26/2024 Community Orders Community Practice [address] [place] [address] Jose Francisco Caldera MD Complete tear of left rotator cuff, unspecified whether traumatic (Primary Dx) 09/18/2024 Orders Only External Location [address] [place] [id number] Provider, External from Last 3 Months Social History Tobacco Use Types Packs/Day Years Used Date Smoking Tobacco: Never Smokeless Tobacco: Never Tobacco Cessation:Counseling Given: Not Answered Sex and Gender Information Value Date Recorded Sex Assigned at Not on file Legal Sex Male 5:00 PM EDT Gender Identity Not on file Sexual Orientation Not on file Last Filed Vital Signs Vital Sign Reading [...] Mass Index 31.7 11/08/2024 8:45 AM EDT Plan of Treatment Upcoming Encounters Date Type Department Care Team (Late st Contact Info) Description 11/29/2024 9:10 AM EDT Office Visit [facility] [address], [address] [place] [address] Elijah Rosas MD [address] [place] [address] 01/02/2025 9:30 AM EST [facility] General Surgery [address], [address] [place] [address] Cris Patrick APRN [address] [place] [address] Health Maintenance Due Date Last Done Comments [facility]-Depression Screening 1968 [facility]-Diabetes: Hemoglobin A1C 1968 [facility]-HIV Screening 1968 [facility]-Hepatitis C Screening 1968 [facility]-Infant/Child/Adol SDOH Screenings 1968 Diabetes: Dental Exam 1978 [facility]- SDOH Screenings 1986 [facility]-Adult SDOH Screenings 1986 [facility]-DTaP,Tdap,and Td Vaccine s (1 - Tdap) 10/21/1987 [facility]-Hepatitis B Vaccines (1 of 3 - 19+ 3-dose series) 10/21/1987 [facility]-Pneumococcal Vaccine: 50 + Years (1 of 2 - PCV) 10/21/1987 CT Colonography 2013 Colonoscopy 2013 FIT-DNA 2013 FIT 2013 FOBT 2013 Sigmoidoscopy 2013 [facility]-Colorectal Cancer Screening 2013 [facility]-Zoster Vaccines (1 of 2) 2018 ADG-VBAXA-60 Vaccine (1 - season) 2024 [facility]-Influenza Vaccine (#1) 2024 01/07/2015 [facility]-Obesity Intervention Completed 025, 10/04/2024 HPV Vaccines Aged Out No longer eligi ble based on patient's age to complete this topic [facility]-HIB Vaccines Aged Out No longer e ligible based on patient's age to complete this topic [facility]-Hepatitis A Vaccines Aged Out No longer eligible based on patient's age to complete this topic [facility]-IPV Vaccines Aged Out No longer e ligible based on patient's age to complete this topic [facility]-Rotavirus Vaccines Aged Out No lo nger eligible based on patient's age to complete this topic Procedures Procedure Name Priority Date/Time Associated Diagnosis Comments XR LUMBAR SPINE 2 OR 3 VIEWS Routine 11/08/2024 9:37 AM EDT Lumbar radiculitis XR CERVICAL SPINE 2 OR 3 VIEWS Routine 11/08/2024 8:49 AM EDT Cervical pain (neck) [place] ARTHROCENTESIS ASPIR&/INJ MAJOR JT/BURSA W/O US Routine 10/04/2024 10:32 AM EDT 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 XR SHOULDER LEFT 2+ VIEWS Routine 10/04/2024 9:17 AM EDT Left shoulder pain, unspecified chronicity MR YANETH OUTSIDE IMAGES 09/18/2024 12:54 PM EDT from Last 3 Months Results * XR Lumbar Spine 2 or [...] IMG XR PROCEDURES Final Resul t * ELECTRIC BLANKET PACKER: C-Spine: XR Cervical Spine (AP/Lateral/Odontoid) (11/08/2024 8:49 [...] Santosh Loza MD on 11/08/2024 8:53 AM us Isra CASTRO IMG XR PROCEDURES Final Resul t * [place] ARTHROCENTESIS ASPIR&/INJ MAJOR JT/BURSA W/O US (10/04/2024 10:32 AM EDT) Narrative Elijah Rosas MD - 10/04/2024 10:32 AM EDT Elijah [...] to verify the correct patient, procedure, equipment, behaviour support teacher and site/side marked as required. Patient was [...] Rosas MD IMG XR PROCEDURES Final Result * MR MSK OUTSIDE IMAGES (09/18/2024 12:54 PM EDT) Anatomical Region Laterality Modality Magnetic Resonan ce 09/18/2024 12:5 4 PM EDT us External Provider IMG MRI PROCEDURES Final Resul t from Last 3 Months Insurance [employer] [facility] MEDICAID Care Teams Mail Distributor Relationship Specialty Start Date End Date Jose Francisco Caldera MD [address] [place] [address] PCP - General Internal Medicine 10/01/24
--- OUTSIDE RECORDS SUMMARY | 2024-11-27 07:46 | XMS_ITS | Encounter Summary ---
Author Organization [facility] Address [address] [id number] Care Team Providers Care Concrete Smoother Name Role Phone Jose Francisco Caldera MD Primary Care Provider [phone] Reason for Referral * Consultation (Routine) - Closed Specialty Diagnoses / Procedures Referred By Contac t Referred To Contact Sports Medicine Diagnoses Complete tear of left rotator cuff, unspecified whether traumatic Jose Francisco Caldera MD [address] [facility] [address] [place] [address] Phone: tel: fax: Elijah Rosas MD [address] [facility] [address] [place] [address] Phone: tel: fax: Referral ID Status Reason Start Date Expiration Date V isits Requested Visits Authorized [id number] Closed Specialty Services Required 09/26/2024 03/28/2026 1 1 Encounter Details Date Type Department Care Team (Late st Contact Info) Description 09/26/2024 [facility] [address] [place] [address] Jose Francisco Caldera MD [address] [place] [address] Complete tear of left rotator cuff, unspecified whether traumatic (Primary Dx) Social History Tobacco Use Types Packs/Day Years [...] Center Orthopaedic Surgery & Sports Medicine [address], [address] [place] [address] Elijah Rosas MD [address] [facility] [address] [place] [address] 01/02/2025 9:30 AM EST Office Visit [facility] General Surgery [address], 1st [place] [address] Cris Patrick, KEYING MACHINE OPERATOR [address] [place] [address] Scheduled Referrals Name Type Priority Associated Diagnoses Orde r Schedule Ambulatory referral to General Orthopaedics Outpatient Referral Routine Complete tear of left rotator cuff, unspecified whether traumatic Expected: 09/26/2024 (Approximate), Expires: 03/30/2026 documented as of this encounter Visit Diagnoses Diagnosis Complete tear of left rotator cuff, unspecified whether traumatic- Primary documented in this encounter Care Teams Concrete Smoother Relationship Specialty Start Date End Date Jose Francisco Caldera MD [address] [place] [address] PCP - General Internal Medicine 10/01/24 documented as of this encounter
--- OUTSIDE RECORDS SUMMARY | 2024-11-27 07:46 | XMS_ITS | Encounter Summary ---
Author Organization [facility] Address [address] [id number] Care Team Providers Care Ornamental Plasterer Helper Name Role Phone Jose Francisco Caldera MD Primary Care Provider + [phone] Reason for Referral * Consultation (Routine) - Authorized Specialty Diagnoses / Procedures Referred By Contac t Referred To Contact Gastroenterology Diagnoses Ventral hernia without obstruction or gangrene Diabetic polyneuropathy associated with type 2 diabetes mellitus Gastroesophageal reflux disease with esophagitis, unspecified whether hemorrhage Referral ID Status Reason Start Date Expiration Date V isits Requested Visits Authorized [id number] Authorized 11/19/2024 05/21/2026 1 1 Encounter Details Date Type Department Care Team (Latest Contact Info) Description 11/19/2024 [facility] [address] [place] [address] Jose Francisco Caldera MD [address] [place] [id number] Ventral hernia without obstruction or gangrene (Primary Dx); Diabetic polyneuropathy associated with type 2 diabetes mellitus; Gastroesophageal reflux disease with esophagitis, unspecified whether hemorrhage Social History Tobacco Use Types Packs/Day Years [...] Description 11/29/2024 9:10 AM EDT Office Visit [facility] Orthopaedic Surgery & Sports Medicine [address], [address] [place] [address] Elijah Rosas MD [address] [place] [address] 01/02/2025 9:30 AM EST Office Visit [facility] General Surgery [address], [address] [place] [address] Cris Patrick, COSMETICS SUPERVISOR [address] [place] [address] Scheduled Referrals Name Type Priority Associated Diagnoses Orde r Schedule Ambulatory Referral to General Surgery ([facility]) Outpatient Referral Routine Ventral hernia without obstruction or gangrene Diabetic polyneuropathy associated with type 2 diabetes mellitus Gastroesophageal reflux disease with esophagitis, unspecified whether hemorrhage Expected: 11/19/2024 (Approximate), Expires: 05/23/2026 documented as of this encounter Visit Diagnoses Diagnosis Ventral hernia without obstruction or gangrene- Primary Unspecified ventral hernia without mention of obstruction or gangrene Diabetic polyneuropathy associated with type 2 diabetes mellitus Gastroesophageal reflux disease with esophagitis, unspecified whether hemorrhage documented in this encounter Additional Health Concerns Assessment Noted Time A fall risk assessment has been complete d for the patient 11/08/2024 8:45 AM EDT A Body Mass Index follow-up plan has been documented for the patient 11/08/2024 12:11 PM EDT documented as of this encounter Care Teams Ornamental Plasterer Helper Relationship Specialty Start Date End Date Jose Francisco Caldera MD [address] [place] [address] PCP - General Internal Medicine 10/01/24 documented as of this encounter
== END 2024-11-27 23:59 | disposition home or self-care (01) ==
LOC: RAD 07:44
PROVIDERS: PCP Internal Medicine Adolescent Medicine; Visit Provider Internal Medicine Adolescent Medicine
DX: R90.82 White matter disease, unspecified (principal); S09.90XA Unspecified injury of head, initial encounter
CPT/HCPCS: 70551

== ENCOUNTER 2024-11-28 13:39 | Outpatient (CLI) | payer OTHER, SELFPAY ==
--- OUTSIDE RECORDS SUMMARY | 2024-05-19 17:30 | XMS_ITS ---
Author Organization [facility] D YFN Address [address] [place] [address] Care Team Providers Care Boiler Service Technician Name Role Phone Jose Francisco Caldera Primary Care Provider Migration, Provider Unavailable Unavailable Allergies Allergen (clinical drug ingredient) Drug/Non Drug Allergy documented on EMR Reaction Allergy Type Onset Date Status Tetanus Toxoid TETANUS TOXOID (uncoded) Unknown Allergy Active pregabalin Pregabalin Unknown Drug Allergy Activ e aripiprazole Abilify itching, anxiety Drug Allergy Active REASON FOR VISIT [facility] To [facility] Conversion Encounter Medications Medication SIG (Take, Route, [...] Active Encounters Encounter Location Date Provider Diagnosis [facility] PED [facility]FN [address] [facility] [address] [facility] [address] [place] [address] 05/19/2024 Provider Migration Acute left-sided low back [...] 01/28/2025 09:45:00 AM, [address] [facility], [address], [place], [address], Progress Notes * Lor SALASOB:1970 (54 yo M)Acc No.[id number]:05/19/2024 Patient: Charly GUNNAR Geeta Provider: Kathe carver Migration :1970 A ge:53 Y S ex:Male Date:05/19/2024 Address:[address] [place] [address] JOR[place], [place], [id number] Pcp:Jose Francisco Caldera Subjective: * Chief Complaints: [...] Electronic signature of Prov ider Migration on 11/28/2024 at 01:41 PM EDT Sign off status: Pending * Provider: Kathe carver Migration Date: 0 05/19/2024 Generated for Bren otoole/Rebecca/Vera on: 1 01:41 PM EDT
--- OUTSIDE RECORDS SUMMARY | 2024-07-16 04:00 | XMS_ITS ---
Author Organization [facility] Address [address] [facility] [address] [place] [address] Care Team Providers Care Beverage Sales Consultant Name Role Phone Jose Francisco Caldera Primary Care Provider [phone] REASON FOR VISIT blood draw Encounters Encounter Location Date Provider Diagnosis [facility] [address] [place] [address] 07/16/2024 Jose Francisco Caldera Plan Of Treatment Next Appt Details Provider Name:Jose Francisco Caldera, 01/28/2025 09:45:00 AM, [address], [address], [place], [place], [address], Progress Notes * ALEGRIAAncelmo CLEMENTSieDOB:1970 (54 yo M)Acc No.[id number]:07/16/2024 LABS Patient: Geeta JARA Provider: Anil Caldera MD :1970 A ge:53 Y S ex:Male Date:07/16/2024 Address:[address], [id number] Subjective: * Chief Complaints: * 1 . Blood draw. * Medical History: Objective: * Vitals: Assessment: Plan: * Treatment: * * Electronic signature of Scot Caldera MD FAAP on 11/28/2024 at 01:43 PM EDT Sign off status: Pending * Provider: Anil Caldera MD Date: 0 07/16/2024 Generated for Bren otoole/Rebecca/Vera on: 1 01:43 PM EDT
--- OUTSIDE RECORDS SUMMARY | 2024-10-04 09:10 | XMS_ITS | Encounter Summary ---
Author Organization Healthcare Address [address] [place] [address] Care Team Providers Care Dispatcher [employer] Name Role Phone Jose Francisco Caldera MD Primary Care Provider + [phone] Encounter Details Date Type Department Care Team (Latest Contact Info) Description 10/04/2024 9:10 AM EDT - 10/04/2024 11:59 PM EDT Hospital Encounter [facility] X-Ray [address] [facility], [address] [place] [address] Left shoulder pain, unspecified chronicity [...] Description 11/29/2024 9:10 AM EDT Office Visit [facility] Orthopaedic Surgery & Sports Medicine [address] [facility], [address] [place] [address] Elijah Rosas MD [address] [place] [address] 01/02/2025 9:30 AM EST Office Visit [facility] General Surgery [address] [place] [address] Cris Patrick L, TRAVEL REGISTERED NURSE PACU [address] [place] [address] documented as of this encounter [...] No acute fracture or dislocation. Visualized lung greenfeild are unremarkable. No significant soft tissue abnormality. [...] documented as of this encounter Care Teams Dispatcher Electric Power Relationship Specialty Start Date End Date Jose Francisco Caldera MD [address] [place] [address] PCP - General Internal Medicine 10/01/24 documented as of this encounter
--- OUTSIDE RECORDS SUMMARY | 2024-10-04 09:30 | XMS_ITS | Encounter Summary ---
Author Organization Healthcare Address [address] [id number] Care Team Providers Care Director Global Strategic Publisher Sales Name Role Phone Jose Francisco Caldera MD Primary Care Provider + [phone] Reason for Referral * Other Medical (Routine) - Pending Review Specialty Diagnoses / Procedures Referred By Dora kathleen Referred To Contact Diagnoses 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 Procedures Injection - Large Joint: L subacromial bursa Elijah Rosas MD [address] [address] Phone: tel: fax: Referral ID Status Reason Start Date Expiration Date V isits Requested Visits Authorized [id number] Pending Review 10/06/2024 04/07/2026 1 1 * Consultation (Routine) - Closed Specialty Diagnoses / Procedures Referred By Dora kathleen Referred To Contact Orthopaedic Surgery Diagnoses Left shoulder pain, unspecified chronicity Tanesha John, MANAGEMENT LIAISON [address] [facility] [address] [place] [address] Phone: tel: fax: Medical Office Building Surgery [facility] [address] [facility], [address] [place] [address] Phone: tel: fax: Referral ID Status Reason Start Date Expiration Date Visits Re quested Visits Authorized [id number] Closed 10/04/2024 04/05/2026 1 1 Reason for Visit * Reason Comments Pain Consult * Consultation (Routine) - Closed Specialty Diagnoses / Procedures Referred By Dora t Referred To Contact Sports Medicine Diagnoses Complete tear of left rotator cuff, unspecified whether traumatic Jose Francisco Caldera MD [address] [place] [address] Phone: tel: fax: Elijah Rosas MD [address] [place] [address] Phone: tel: fax: Referral ID Status Reason Start Date Expiration Date V isits Requested Visits Authorized [id number] Closed Specialty Services Required 09/26/2024 03/28/2026 1 1 Encounter Details Date Type Department Care Team (Late st Contact Info) Description 10/04/2024 9:30 AM EDT Office Visit [facility] Orthopaedic Surgery & Sports Medicine [address] , [address] [place] [address] Elijah Rosas MD [address] [facility] [address] [place] [address] Nontraumatic incomplete tear of left [...] Degenerative labral changes. No significant glenohumeral osteoarthritis. Gsmy-aj-goxsaifx acromioclavicular joint osteoarthrosis. Procedure: Injection - Large [...] to verify the correct patient, procedure, equipment, desktop support engineer and site/side marked as required. Patient [...] Description 11/29/2024 9:10 AM EDT Office Visit [facility] Orthopaedic Surgery & Sports Medicine [address] [facility], [address] [place] [address] Elijah Rosas MD [address] [facility] [address] [place] [address] 01/02/2025 9:30 AM EST Office Visit [facility] General Surgery [address], [address]st [place] [address] Cris Patrick APRN [address] [facility] [address] [place] [address] Scheduled Referrals Name Type Priority Associated Diagnoses Order Schedule Ambulatory referral to Orthopaedics Spine Outpatient Referral Routine 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 1 Occurrences starting 10/04/2024 until 04/07/2026 documented as of this encounter Procedures Procedure Name Priority Date/Time Associated Diagnosis Comments WA ARTHROCENTESIS ASPIR&/INJ MAJOR JT/BURSA W/O US Routine 10/04/2024 10:32 AM EDT 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 documented in this encounter Results * WA ARTHROCENTESIS ASPIR&/INJ MAJOR JT/BURSA W/O US (10/04/2024 [...] to verify the correct patient, procedure, equipment, desktop support engineer and site/side marked as required. Patient [...] documented as of this encounter Care Teams Director Global Strategic Publisher Sales Relationship Specialty Start Date End Date Jose Francisco Caldera MD [address] [place] [address] PCP - General Internal Medicine 10/01/24 documented as of this encounter
--- OUTSIDE RECORDS SUMMARY | 2024-11-08 08:44 | XMS_ITS | Encounter Summary ---
Author Organization Healthcare Address [address] [place] [address] Care Team Providers Care Parts Consultant Name Role Phone Jose Francisco Caldera MD Primary Care Provider + [phone] Encounter Details Date Type Department Care Team (Latest Contact Info) Description 11/08/2024 8:44 AM EDT - 11/08/2024 9:33 AM EDT Hospital Encounter Medical Office Building Radiology [address] [place] [address] Cervical pain (neck) Discharge Disposition: Home or Self Care Social [...] Description 11/29/2024 9:10 AM EDT Office Visit [facility] Orthopaedic Surgery & Sports Medicine [address] [facility], [address] [place] [address] Elijah Rosas MD [address] [place] [address] 01/02/2025 9:30 AM EST Office Visit [facility] General Surgery [address], [address] [place] [address] Cris Patrick, SALESPERSON FURS [address] [place] [address] documented as of this encounter Procedures Procedure Name Priority Date/Time Associated Diagnosis Comments XR CERVICAL SPINE 2 OR 3 VIEWS Routine 11/08/2024 8:49 AM EDT Cervical pain (neck) documented in this encounter Results * BUSINESS JOB TITLES: C-Spine: XR Cervical Spine (AP/Lateral/Odontoid) (11/08/2024 8:49 AM EDT) Anatomical Region Laterality Modality Spine, C-spine Digital Radiogra phy Impressions 11/08/2024 8:53 AM EDT Normal evaluation of the cervical spine. CRITICAL RESULT: No. COMMUNICATION: Per this written report. Drafted by Santosh Loza MD on 11/08/2024 8:52 AM Final report signed by Santosh Loza MD on 11/08/2024 8:53 AM Narrative 11/08/2024 8:53 AM EDT CLINICAL INDICATION: NECK PAIN TECHNIQUE: XR CERVICAL SPINE 2 OR 3 VIEWS COMPARISON: None. FINDINGS: 3 views of the cervical spine show normal disc height. C1-C2 joint space and alignment are normal. No fracture or bone destruction. Vertebral alignment is normal. Prevertebral soft tissues are normal. Lung apices are normal. Procedure Note Santosh Loza MD - 11/08/2024 CLINICAL INDICATION: NECK PAIN TECHNIQUE: XR CERVICAL SPINE 2 OR 3 VIEWS COMPARISON: None. FINDINGS: 3 views of the cervical spine show normal disc height. C1-C2 joint spaceand alignment are normal. No fracture or bone destruction. Vertebralalignment is normal. Prevertebral soft tissues are normal. Lung apices arenormal. IMPRESSION: Normal evaluation of the cervical spine. CRITICAL RESULT: No. COMMUNICATION: Per this written report. Drafted by Santosh Loza MD on 11/08/2024 8:52 AM Final report signed by Santosh Loza MD on 11/08/2024 8:53 AM Isra CASTRO IMG XR PROCEDURES Final Resul t documented in this encounter Visit Diagnoses Diagnosis Cervical pain (neck) Cervicalgia documented in this encounter Additional Health Concerns Assessment Noted Time A fall risk assessment has been complete d for the patient 11/08/2024 8:45 AM EDT A Body Mass Index follow-up plan has been documented for the patient 11/08/2024 12:11 PM EDT documented as of this encounter Care Teams Parts Consultant Relationship Specialty Start Date End Date Jose Frnacisco Caldera MD [address] [place] [address] PCP - General Internal Medicine 10/01/24 documented as of this encounter
--- OUTSIDE RECORDS SUMMARY | 2024-11-08 09:00 | XMS_ITS | Encounter Summary ---
Author Organization Healthcare Address [address] [place] [address] Care Team Providers Care [employer] Professional Name Role Phone Jose Francisco Caldera MD Primary Care Provider + [phone] Reason for Referral * Imaging (Routine) - Authorized Specialty Diagnoses / Procedures Referred By Contac t Referred To Contact Diagnoses Lumbar radiculitis Procedures MR Lumbar Spine wo IV Contrast Isra Em PA [address] [place] [address] Phone: tel: fax: [facility] () [address] [place] [address] Phone: tel: fax: Referral ID Status Reason Start Date Expiration Date V isits Requested Visits Authorized [id number] Authorized 11/08/2024 05/10/2026 1 1 * Imaging (Routine) - Authorized Specialty Diagnoses / Procedures Referred By Contac t Referred To Contact Diagnoses Cervical pain (neck) Cervical radiculitis Procedures MR Cervical Spine wo IV Contrast Isra Em PA [address] [place] [address] Phone: tel: fax: Referral ID Status Reason Start Date Expiration Date V isits Requested Visits Authorized [id number] Authorized 11/08/2024 05/10/2026 1 1 Reason for Visit * Reason Comments Consult * Consultation (Routine) - Closed Specialty Diagnoses / Procedures Referred By Dora kathleen Referred To Contact Orthopaedic Surgery Diagnoses Left shoulder pain, unspecified chronicity Tanesha John, PANEL INSTALLER [address] [facility] [address] [place] [address] Phone: tel: fax: Medical Office Building [facility] [address] , [address] [place] [address] Phone: tel: fax: Referral ID Status Reason Start Date Expiration Date Visits Re quested Visits Authorized [id number] Closed 10/04/2024 04/05/2026 1 1 Encounter Details Date Type Department Care Team ([facility] st Contact Info) Description 11/08/2024 9:00 AM EDT Office Visit Medical Office Building [facility] [address] , [address] [place] [address] Isra Em PA [address] [place] [address] Cervical pain (neck) (Primary Dx); [...] extension (Triceps) 06/18 06/18 C8: Finger flexion (Locomotive Oiler Strength) 06/18 06/18 T1: Finger abduction 06/18 [...] Description 11/29/2024 9:10 AM EDT Office Visit [facility]opa[facility] Sports Medicine [address] [facility], [address] [place] [address] Elijah [place]as MD [address] [place] [address] 01/02/2025 9:30 AM EST Office Visit [facility] General Surgery [address] [place] [address] Cris Patrick APRN [address] [place] [address] Scheduled Orders Name Type Priority [...] 11/08/2024 10:20 AM Final report signed by Santsoh Loza MD on 11/08/2024 10:23 AM Isra CASTRO IMG XR PROCEDURES Final Resul t * PROFILE TRIMMER: C-Spine: XR Cervical Spine (AP/Lateral/Odontoid) (11/08/2024 8:49 [...] documented as of this encounter Care Teams Auto [employer] Professional Relationship Specialty Start Date End Date Jose Francisco Caldera MD [address] [place] [id number] PCP - General Internal Medicine 8/18/25 documented as of this encounter
--- OUTSIDE RECORDS SUMMARY | 2024-11-08 09:34 | XMS_ITS | Encounter Summary ---
Author Organization Healthcare Address [address] [place] [address] Care Team Providers Care Commercial Food Instructor Name Role Phone Jose Franicsco Caldera MD Primary Care Provider + [phone] Encounter Details Date Type Department Care Team (Latest Contact Info) Description 11/08/2024 9:34 AM EDT - 11/08/2024 11:59 PM EDT Hospital Encounter Medical Office Building Radiology [address] [place] [address] Lumbar radiculitis Discharge Disposition: Home [...] Description 11/29/2024 9:10 AM EDT Office Visit [facility] Orthopaedic Surgery & Sports Medicine [address] [facility], [address] [place] [address] Elijah Rosas MD [address] [place] [address] 01/02/2025 9:30 AM EST Office Visit [facility] General Surgery [address] [place] [address] Cris Patrick, SURVEYOR HYDROGRAPHIC [address] [place] [address] documented as of this encounter [...] documented as of this encounter Care Teams Commercial Food Instructor Relationship Specialty Start Date End Date Jose Francisco Caldera MD [address] [place] [address] PCP - General Internal Medicine 10/01/24 documented as of this encounter
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
--- OUTSIDE RECORDS SUMMARY | 2024-11-28 13:41 | XMS_ITS | Encounter Summary ---
Author Organization [facility] Address [address] [place] [address] Care Team Providers Care Transmission Specialist Name Role Phone Jose Francisco Caldera MD Primary Care Provider + [phone] Encounter Details Date Type Department Care Team [...] Description 11/29/2024 9:10 AM EDT Office Visit [facility] Orthopaedic Surgery & Sports Medicine [address] [facility], [address] [place] [address] Elijah Rosas MD [address] [facility] [address] [place] [address] 01/02/2025 9:30 AM EST Office Visit [facility] General Surgery [address], [address] [place] [address] Cris Patrick, JOHANA [address] [facility] [address] [place] [address] documented as of this encounter Visit Diagnoses Not on filedocumented in this encounter Additional Health Concerns Assessment Noted Time A fall risk assessment has been complete d for the patient 11/08/2024 8:45 AM EDT A Body Mass Index follow-up plan has been documented for the patient 11/08/2024 12:11 PM EDT documented as of this encounter Care Teams Transmission Specialist Relationship Specialty Start Date End Date Jose Francisco Caldera MD [address] [place] [address] PCP - General Internal Medicine 10/01/24 documented as of this encounter
--- NOTE | 2024-11-28 13:42 | MR_ITS ---
FINAL REPORT TECHNIQUE: Multiplanar and multisequence imaging of the cervical spine was obtained. CLINICAL HISTORY: CERVICAL PAIN. PAIN RADIATES DOWN BILATERAL ARMS WORSE ON LEFT SIDE. CHRONIC PAIN. DIZZY COMPARISON: None FINDINGS: Alignment is normal in the sagittal plane. Vertebral body height is preserved. Signal intensity within the substance of the spinal cord is normal. No acute bone marrow edema. No acute paraspinal abnormality. C2/3: No focal disc herniation, central canal stenosis, or neural foraminal narrowing. C3/4: Minimal annular disc bulge with mild degenerative endplate change. No central canal stenosis. No right but mild left neural foraminal narrowing. C4/5: Annular disc bulge with degenerative endplate changes and facet osteoarthropathy. No central canal stenosis. Mild ouxec-uuylbza-ahsi-left neural foraminal narrowing. C5/6: Annular disc bulge with degenerative endplate changes and facet osteoarthropathy. No central canal stenosis. Mild bilateral neural foraminal narrowing. C6/7: No focal disc herniation, central canal stenosis, or neural foraminal narrowing. C7/T1: No focal disc herniation, central canal stenosis, or neural foraminal narrowing. IMPRESSION: Mild degenerative disc disease. No central canal stenosis. No acute findings. Reviewed, Interpreted and Dictated by Carina Kaur MD Transcribed by Lakesha Lamb Authenticated and [facility]
--- OUTSIDE RECORDS SUMMARY | 2024-11-28 13:42 | XMS_ITS | Encounter Summary ---
Author Organization Healthcare Address [address] [place] [address] Care Team Providers Care Backpackers Manager Name Role Phone Jose Francisco Caldera MD Primary Care Provider + [phone] Encounter Details Date Type Department Care Team (Late Contact Info) Description 11/14/2024 Telephone Medical Office [facility] Surgery Spine & Joint [address] [facility] [place] [address] Yfn Mims Social History Tobacco [...] Center Orthopaedic Surgery & Sports Medicine [address] , [address] [place] [address] Elijah Rosas MD [address] [place] [address] 01/02/2025 9:30 AM EST Office Visit [facility] General Surgery [address] [place] [address] Cris Patrick, CONSTRUCTION MANAGER [address] [place] [address] documented as of this encounter Visit Diagnoses Not on filedocumented in this encounter Additional Health Concerns Assessment Noted Time A fall risk assessment has been complete d for the patient 11/08/2024 8:45 AM EDT A Body Mass Index follow-up plan has been documented for the patient 11/08/2024 12:11 PM EDT documented as of this encounter Care Teams Backpackers Manager Relationship Specialty Start Date End Date Jose Francisco Caldera MD [address] [place] [address] PCP - General Internal Medicine 10/01/24 documented as of this encounter
--- OUTSIDE RECORDS SUMMARY | 2024-11-28 13:42 | XMS_ITS | Encounter Summary ---
Author Organization [facility] Address [address] [place] [address] Care Team Providers Care Blow Down Helper Name Role Phone Jose Francisco Caldera MD Primary Care Provider + [phone] Encounter Details Date Type Department Care Team (Late st Contact Info) Description 09/18/2024 Orders Only External Location [address] [place] [address] Provider, External Social History Tobacco Use Types [...] Center Orthopaedic Surgery [facility] Sports Medicine [address] [facility], [address] [place] [address] Elijah Rosas MD [address] [facility] [address] [place] [address] 01/02/2025 9:30 AM EST Office Visit [facility] General Surgery [address], [address] [place] [address] Cris Patrick APRN [address] [facility] [address] [place] [address] documented as of this encounter [...] on filedocumented in this encounter Care Teams Blow Down Helper Relationship Specialty Start Date End Date Jose Francisco Caldera MD [address] [place] [address] PCP - General Internal Medicine 10/01/24 documented as of this encounter
--- OUTSIDE RECORDS SUMMARY | 2024-11-28 13:42 | XMS_ITS | Patient Health Record ---
Author Organization [facility] D YFN Address [address] [place] [address] Care Team Providers Care Cylinder Filler Name Role Phone Jose Francisco Caldera Primary Care Provider Graciela Priest Unavailable [phone] Migration, Provider Unavailable Unavailable Allergies Allergen (clinical [...] date:07/18/2024 12:24:38 PM Interpretation: Performing Lab:CB, [facility] [id number], [facility]ypv[facility]Q[address] Kervin Sanchez Notes/Report: NON-FASTING; NON-FASTING; NON-FASTING CHOLESTEROL, [...] of LDL-C. Jhonatan SS et al. CHIKIS. 2013;310(99): 3183-0918 (http://education.zahnarztzentrum.ch.[employer]/faq/KQJ573) CHOL/HDLC RATIO 2.9 <5.0 (calc) NON HDL CHOLESTEROL 97 <130 mg/dL (calc) For patients with diabetes plus 1 major ASCVD risk factor, treating to a non-HDL-C goal of <100 mg/dL (LDL-C of <70 mg/dL) is considered a therapeutic option. COMPREHENSIVE METABOLIC PANE L (79189) Reviewed date:07/18/2024 12:24:38 PM Interpretation: Performing Lab:[facility] [id number]reh Reilly, Mikel JovelNugvWN[address] Kervin Sanchez Notes/Report: NON-FASTING; NON-FASTING; NON-FASTING GLUCOSE [...] Reviewed date:07/18/2024 12:24:38 PM Interpretation: Performing Lab:[facility] [id number] InstrumentLifefarhana [facility] CenterMikelEpojFV[address] Kervinroger Sanchez Notes/Report: NON-FASTING; NON-FASTING; NON-FASTING HEMOGLOBIN A1c [...] date:09/26/2024 04:50:26 PM Interpretation: Performing Lab: Notes/Report: Reason For Referral Reason Please refer to pain management at [facility] for back pain, history of bulging disc and spinal stenosis. Diagnosis 1 Acute left-sided low back pain with left-sided sciatica (M54.42) Referral Organization [facility]FN Referring Provider First Name Graciela Referring Provider Last Name Zayda Referring Provider Speciality Family Pra ctice Referred Organization [facility] Referred Address [address] [facility] [address] [place], [place],[address], Referred Provider Specialty Pain Managem ent General Notes Ashely Calderon 2024 02:55:34 PM >, Ashely Calderon 04/12/2024 02:55:38 PM > Faxed to Dr. Galvez Referral Priority Routine Reason MRI L Shoulder Diagnosis 1 Shoulder pain, left (M25.512) Diagnosis 2 Rotator cuff syndrom e of left shoulder (M75.102) Referral Organization [facility]FN Referring Provider First Name Jose Francisco Referring Provider Last Name Werner Referring Provider Speciality Internal M edicine Referred Organization [facility] Referred Address [address] [facility] [address] [place], [place],[address], Referred Provider Specialty Diagnostic R adiology General Notes Ashely Calderon 2024 04:05:56 PM >pending with Kvng Méndez Nickie 09/11/2024 03:45:04 PM >Dev has requested Xray reports, PT notes and anything else related to his arm. I do not see any of this in [facility] related to his shoulder, just his back and feet., Ashely Calderon 09/12/2024 10:30:01 AM >approved and sent to [facility] Referral Priority Routine Reason MRI left shoulder-ro tator cuff syndrome-negative x-rays Diagnosis 1 Rotator cuff syndrom e of left shoulder (M75.102) Referral Organization [facility] Referring Provider First Name Jose Francisco Referring Provider Last Name Werner [facility] Referral Priority Routine Reason Dr. Elijah Rosas Rot ator cuff tear Referral Organization [facility] AZUL YFN Referring Provider First Name Jose Francisco Referring Provider Last Name Werner Ref[facility] Referred Organization Referrals Referred Address [address] [facility] [place],[address], Referred Provider Specialty Orthopedic S urgery General Notes Ashely Calderon 2024 05:07:25 PM >Placed with through [facility]- They will contact patient to schedule., Ashely Calderon 10/01/2024 04:07:32 PM >Scheduled 10/04/2024 9:[address] [facility] Elijah Rosas MD Referral Priority Routine Referral Appointment Date 10/04/2024 Reason MRI head - first ned ilable place Diagnosis 1 Injury of head, init ial encounter (S09.90XA) Referral Organization [facility] AZUL YFN Referring Provider First Name Jose Francisco Referring Provider Last Name Werner [facility] Referred Organization [facility] Referred Address [address], [place], [place],[address], Referred Provider Specialty Diagnostic R adiology General Notes Authorization Number : [id number] Effective Date: 11/15/2024uth End Date: 01/14/2025Initiated Date: [...] ulcer due to type 2 diabetes mellitus (1593198324371) Type 2 diabetes mellitus with foot ulcer (E11.621) Active confirmed Problem Dermopathy due to type 2 diabetes mellitus (disorder) (0490201493485) Type 2 diabetes mellitus with other skin complications (E11.628) Active confirmed Problem 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) Active confirmed Problem Right side sciatica (132749338432468) Sciatica, right side (M54.31) Active confirmed Problem Obese class I (finding) (815506623338485) Obesity (BMI 30.0-34.9) (E66.9) Active confirmed Problem Essential hypertension (21341952) Hypertension, essential (I10) Active confirmed Problem Sleep disturbance (46361463) Sleep disturbance (G47.9) Active confirmed Problem Erectile dysfunction (disorder) (839448962) Erectile dysfunction, unspecified erectile dysfunction type (N52.9) Active confirmed Problem Chronic insomnia (713630763) Chronic insomnia (F51.04) Active confirmed Problem Sciatica (00596329) Left sided sciatica (M54.32) Active confirmed Problem Left rotator cuff syndrome (627677997430293) Rotator cuff syndrome of left shoulder (M75.102) Active confirmed Problem Recurrent major depression (43267595) Recurrent major depressive disorder, remission status unspecified (F33.9) Active confirmed Problem Acid reflux (049103976) Acid reflux (K21.9) Active confirmed Problem Sciatica (73009837) Acute left-sided low back pain with left-sided sciatica (M54.42) Active confirmed Problem Benign prostatic hypertrophy with outflow obstruction (061423542) BPH loc w urin obs/LUTS (N40.1) Active confirmed Problem Adult health examination (054037710) Healthcare maintenance (Z00.00) Active confirmed Problem Peripheral artery disease (026119135) Peripheral artery disease (I73.9) Active confirmed Problem Type II diabetes mellitus without complication (357146861) Controlled type 2 diabetes mellitus without complication, without long-term current use of insulin (E11.9) Active confirmed Problem Bilateral carpal tunnel syndrome (67496765882313601 ) Bilateral carpal tunnel syndrome (G56.03) Active confirmed Problem Polyneuropathy due to type 2 diabetes mellitus (896538626) Type 2 diabetes mellitus with diabetic polyneuropathy, without long-term current use of insulin (E11.42) Active confirmed Problem Ulcer of left foot (disorder) (288811626) Ulcer of left foot, unspecified ulcer stage (L97.529) Active confirmed Problem Diabetic retinopathy associated with type 2 diabetes mellitus (353802864) Diabetic retinopathy of both eyes associated with [...] 11/15/2024 Encounters Encounter Location Date Provider Diagnosis [facility] [address] [place] [address] 05/19/2024 Provider Migration Acute left-sided low back pain with left-sided sciatica M54.42 [facility] [address] [facility] [address] [place] [address] 07/16/2024 Jose Francisco Caldera [facility] [address] [facility] [address] [place] [address] 04/11/2024 Graciela Priest Acute left-sided low back pain with left-sided sciatica M54.42 [facility] [address] [facility] [address] [place] [address] 07/13/2024 Jose Francisco Caldera Type 2 diabetes mellitus with diabetic polyneuropathy, without long-term current use of insulin E11.42 ; Diabetic retinopathy of both eyes associated with type 2 diabetes mellitus, macular edema presence unspecified, unspecified retinopathy severity E11.319 ; Hypertension, essential I10 and Neuropathic pain, leg, bilateral G57.93 [facility] [address] [facility] [address] [place] [address] 09/10/2024 Jose Francisco Caldera Rotator cuff syndrome [...] unspecified F33.9 and Routine medical exam Z00.00 [facility] [address] [address] 11/15/2024 Jose Francisco Besmatthew Ventral hernia without obstruction or gangrene K43.9 and Injury of head, initial encounter S09.90XA [facility] [address] [address] 06/14/2024 Jose Francisco Fontanason [facility] [address] [place] [address] 06/25/2024 Jose Francisco Besson [facility] [address] [address] 06/28/2024 [facility] [address] [place] [address] 09/11/2024 Jose Francisco [facility] [address] [facility] [address] [place] [address] 10/11/2024 Jose Francisco Caldera Assessments Encounter Date [...] blood pressure control, no changes in plan 09/10/2024 Hypertension, essential (ICD-10 - I10) Good blood pressure control, on appropriate angiotensin receptor madhavi 07/13/2024 Neuropathic pain, leg, bilateral (ICD-10 - G57.93) Remains on neuropathic medication. No changes Patient has been compliant with our office and [place] regulations r.e. meds. No concerns on my [...] 10/02/2018 Next Appt Details Provider Name:Jose Francisco Hampton Werner, 01/28/2025 09:45:00 AM, [address], [place], [address], Insurance Providers Payer Name Payer Address Payer Phone Subscriber Number Group Number Insured Name Patient Relationship to Insured Coverage Start Date Coverage End Date [employer]ETNA [facility] [address] [address] [place] [address] [id number] Geeta Salas Self - patient is the insured Medical (General) History Medical History History ICD Code Medina palsy Diabetes mellitus with neuropathy and re [...] 22 Colonoscopy/EGD 06/2022 Hospitalization History Reason Date(Month/Year) [facility]- Right foot infection 06/2021 Diabetes- lots of hospital stays and ER visits Amputations as above
--- NOTE | 2024-11-28 13:43 | MR_ITS ---
FINAL REPORT TECHNIQUE: Multiplanar and multisequence imaging of the lumbar spine was obtained without contrast. CLINICAL HISTORY: CERVICAL PAIN/LUMBAR PAIN. WORSENING BIATERAL LEG PAIN, NUMBNESS AND TINGLING. LEFT LEG IS WORSE. COMPARISON: None FINDINGS: The superior endplate of L1 is not included in the imaging field. Rudimentary disc is noted at S1-2. There is normal alignment of the lumbar vertebral bodies in the sagittal plane. Vertebral body height of L2 through L5 is preserved.. The spinal cord ends at the level of L1-2. There is normal signal intensity within the substance of the distal spinal cord. No acute bone marrow edema of the imaged lumbar spine. No acute paraspinal abnormality is identified. L1-2: No imaging in the axial plane. No central canal stenosis or neural foraminal narrowing on the sagittal views. L2-3: No focal disc herniation. No central canal stenosis. Mild bilateral neural foraminal narrowing related to disc osteophyte complex. L3-4: Annular disc bulge with very mild endplate changes. No central canal stenosis. Mild bilateral neural foraminal narrowing. L4-5: No focal disc herniation, central canal stenosis or neuroforaminal narrowing. L5-S1: Annular disc bulge with degenerative endplate changes and facet osteoarthropathy. Mild central canal stenosis. Moderate right and severe left neural foraminal narrowing. IMPRESSION: L1 vertebral body incompletely imaged. Degenerative disc disease most pronounced at L5-S1. Reviewed, Interpreted and Dictated by Carina Kaur MD Transcribed by Lakesha Lamb Authenticated and [facility]
--- OUTSIDE RECORDS SUMMARY | 2024-11-28 13:43 | XMS_ITS | Clinical Summary ---
Author Organization [facility] Address [address] [place] [address] Care Team Providers Care Cylinder Block Mechanic Name Role Phone Jose Francisco Caldera MD Primary Care Provider + [phone] Allergies Active Allergy Reactions Criticality Noted Date [...] Description 11/19/2024 Community Orders Community Practice [address] [place] [address] Jose Francisco Caldera MD Ventral hernia without obstruction or gangrene (Primary Dx); Diabetic polyneuropathy associated with type 2 diabetes mellitus; Gastroesophageal reflux disease with esophagitis, unspecified whether hemorrhage 11/14/2024 Telephone Medical Office Building [facility] [address] [facility], [address] [place] [address] Yfn Mims 11/08/2024 9:34 AM EDT - 11/08/2024 11:59 PM EDT Hospital Encounter Medical Office Building Radiology [address] [place] [address] Lumbar radiculitis Discharge Disposition: Home or Self Care 11/08/2024 9:00 AM EDT Office Visit [facility] [address] [facility], [address] [place] [address] Isra Em PA Cervical pain (neck) (Primary Dx); Cervical radiculitis; Lumbar radiculitis 11/08/2024 8:44 AM EDT - 11/08/2024 9:33 AM EDT Hospital Encounter Medical Office Building Radiology [address] [place] [address] Cervical pain (neck) Discharge Disposition: Home or Self Care 11/08/2024 Travel 10/04/2024 9:30 AM EDT Office Visit [facility] Orthopaedic Surgery & Sports Medicine [address] [facility], [address] [place] [address] Elijah Rosas MD 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 (Primary Dx); Degenerative disc disease, cervical 10/04/2024 9:10 AM EDT - 10/04/2024 11:59 PM EDT Hospital Encounter [facility] X-Ray [address] [facility] [address], [address] [place] [address] Left shoulder pain, unspecified chronicity Discharge Disposition: Home or Self Care 10/04/2024 Travel 09/26/2024 Community Orders Community [facility] [address] [place] [address] Jose Francisco Caldrea MD Complete tear of left rotator cuff, unspecified whether traumatic (Primary Dx) 09/18/2024 Orders Only External Location [address] [place] [address] Provider, External from Last 3 Months Social [...] Description 11/29/2024 9:10 AM EDT Office Visit [facility] Orthopaedic Surgery & Sports Medicine [address], [address] [place] [address] Elijah Rosas MD [address] [place] [address] 01/02/2025 9:30 AM EST Office Visit [facility] General Surgery [address] [place] [address] Cris Patrick APRN [address] [place] [address] Health Maintenance Due Date Last [...] 2013 [facility]-Zoster Vaccines (1 of 2) 2018 [id number] Vaccine (1 - season) 2024 [facility]-Influenza Vaccine [...] 11/08/2024 8:49 AM EDT Cervical pain (neck) [place] ARTHROCENTESIS ASPIR&/INJ MAJOR JT/BURSA W/O US Routine [...] IMG XR PROCEDURES Final Resul t * WATCH ENGINE OPERATOR: C-Spine: XR Cervical Spine (AP/Lateral/Odontoid) (11/08/2024 8:49 [...] IMG XR PROCEDURES Final Resul t * FL ARTHROCENTESIS ASPIR&/INJ MAJOR JT/BURSA W/O US (10/04/2024 [...] to verify the correct patient, procedure, equipment, patient support partner and site/side marked as required. Patient was [...] 9:28 AM Final report signed by Leander Segovai MD on 10/04/2024 10:22 AM Elijah Rosas MD IMG XR PROCEDURES Final Result * MR MSK OUTSIDE IMAGES (09/18/2024 12:54 PM EDT) Anatomical Region Laterality Modality Magnetic Resonan ce 09/18/2024 12:5 4 PM EDT us External Provider IMG MRI PROCEDURES Final Resul t from Last 3 Months Insurance AETNA [facility] MEDICAID Care Teams Cylinder Block Mechanic Relationship Specialty Start Date End Date Jose Francisco Caldera MD [address] [place] [address] PCP - General Internal Medicine 10/01/24
--- OUTSIDE RECORDS SUMMARY | 2024-11-28 13:43 | XMS_ITS | Encounter Summary ---
Author Organization Healthcare Address [address] [place] [address] Care Team Providers Care Methods Analyst Data Processing Name Role Phone Jose Francisco Caldera MD Primary Care Provider + [phone] Encounter Details Date Type Department Care Team [...] Hospital Orthopaedic Surgery & Sports Medicine [address] [facility], [address] [place] [address] Elijah Rosas MD [address] [facility] [address] [place] [address] 01/02/2025 9:30 AM EST Office Visit [facility] General Surgery [address] [place] [address] Cris Patrick, JOHANA [address] [facility] [address] [place] [address] documented as of this encounter Visit Diagnoses Not on filedocumented in this encounter Additional Health Concerns Assessment Noted Time A fall risk assessment has been complete d for the patient 10/04/2024 9:03 AM EDT A Body Mass Index follow-up plan has been documented for the patient 10/06/2024 1:32 PM EDT documented as of this encounter Care Teams Methods Analyst Data Processing Relationship Specialty Start Date End Date Jose Francisco Caldera MD [address] [place] [address] PCP - General Internal Medicine 10/01/24 documented as of this encounter
--- OUTSIDE RECORDS SUMMARY | 2024-11-28 13:43 | XMS_ITS | Encounter Summary ---
Author Organization Healthcare Address [address] [place] [id number] Care Team Providers Care Marine Specialist Name Role Phone Jose Francisco Caldera MD Primary Care Provider + [phone] Reason for Referral * Consultation (Routine) - Authorized Specialty Diagnoses / Procedures Referred By Contac t Referred To Contact Gastroenterology Diagnoses Ventral hernia without obstruction or gangrene Diabetic polyneuropathy associated with type 2 diabetes mellitus Gastroesophageal reflux disease with esophagitis, unspecified whether hemorrhage Referral ID Status Reason Start Date Expiration Date V isits Requested Visits Authorized [id number] Authorized 11/19/2024 05/21/2026 1 1 Encounter Details Date Type Department Care Team (Latest Contact Info) Description 11/19/2024 [facility] Community Practice [address] [place] [address] Jose Francisco Caldera MD [address] [place] [address] Ventral hernia without obstruction or gangrene (Primary [...] [facility] [address] [place] [address] Elijah Rosas MD [address] [place] [address] 01/02/2025 9:30 AM EST Office Visit [facility] General Surgery [address] [place] [address] Cris Patrick, INFORMATION STRATEGIST [address] [place] [address] Scheduled Referrals Name Type Priority [...] documented as of this encounter Care Teams Marine Specialist Relationship Specialty Start Date End Date Jose Francisco Caldera MD [address] [place] [address] PCP - General Internal Medicine 10/01/24 documented as of this encounter
--- OUTSIDE RECORDS SUMMARY | 2024-11-28 13:43 | XMS_ITS | Encounter Summary ---
Author Organization Healthcare Address [address] [id number] Care Team Providers Care Deburrer Strip Name Role Phone Jose Francisco Caldera MD Primary Care Provider [phone] Reason for Referral * Consultation (Routine) - Closed Specialty Diagnoses / Procedures Referred By Contac t Referred To Contact Sports Medicine Diagnoses Complete tear of left rotator cuff, unspecified whether traumatic Jose Francisco Caldera MD [address] [facility] [address] [place] [address] Phone: tel: fax: Elijah Rosas MD [address] [facility] [address] [place] [address] Phone: tel: fax: Referral ID Status Reason Start Date Expiration Date V isits Requested Visits Authorized [id number] Closed Specialty Services Required 09/26/2024 03/28/2026 1 1 Encounter Details Date Type Department Care Team (Late st Contact Info) Description 09/26/2024 [facility] [address] [place] [address] Jose Francisco Caldera MD [address] [place] [address] Complete tear of left rotator cuff, unspecified [...] 9:10 AM EDT Office Visit [facility] Orthopaedic Surgery & Sports Medicine [address], [address] [place] [address] Elijah Rosas MD [address] [facility] [address] [place] [address] 01/02/2025 9:30 AM EST Office Visit [facility] General Surgery [address] [place] [address] Cris Patrick, LINE MAINTENANCE TECHNICIAN [address] [place] [address] Scheduled Referrals Name Type Priority Associated Diagnoses Orde r Schedule Ambulatory referral to General Orthopaedics Outpatient Referral Routine Complete tear of left rotator cuff, unspecified whether traumatic Expected: 09/26/2024 (Approximate), Expires: 03/30/2026 documented as of this encounter Visit Diagnoses Diagnosis Complete tear of left rotator cuff, unspecified whether traumatic- Primary documented in this encounter Care Teams Deburrer Strip Relationship Specialty Start Date End Date Jose Francisco Caldera MD [address] [place] [address] PCP - General Internal Medicine 10/01/24 documented as of this encounter
== END 2024-11-28 23:59 | disposition home or self-care (01) ==
LOC: RAD 13:40
PROVIDERS: PCP Internal Medicine Adolescent Medicine; Visit Provider Physician Assistant Medical
DX: M51.17 Intervertebral disc disorders with radiculopathy, lumbosacral region (principal); M50.10 Cervical disc disorder with radiculopathy, unspecified cervical region
CPT/HCPCS: 72141; 72148

== ENCOUNTER 2025-01-14 12:39 | Outpatient (CLI) | payer OTHER, SELFPAY ==
--- NOTE | 2025-01-14 12:40 | CT_ITS ---
FINAL REPORT TECHNIQUE: Thin section axial images were obtained from the lung bases to the pubic symphysis without IV contrast. Coronal reconstruction images were obtained from the axial data. Exam was performed using dose reduction technique. CLINICAL HISTORY: ABD WALL BULGE FINDINGS: There are no renal or ureteral stones. There is no hydronephrosis or perinephric stranding. The gallbladder is present. The remaining unenhanced solid abdominal organs are unremarkable. There is no evidence of small bowel obstruction. The appendix is normal. GI tract is without acute abnormality. Prostate is unremarkable. There is no lymphadenopathy or ascites. There are small fat-containing inguinal hernias. No ventral hernia is seen. No acute osseous abnormality is identified. IMPRESSION: Small fat-containing inguinal hernias. No abdominal wall hernia or acute abnormality. Reviewed, Interpreted and Dictated by Carina Kaur MD Transcribed by Poornima Whitlock Authenticated and [facility]
== END 2025-01-14 23:59 | disposition home or self-care (01) ==
LOC: RAD 12:39
PROVIDERS: PCP Internal Medicine Adolescent Medicine; Visit Provider Nurse Practitioner Family
DX: K40.90 Unilateral inguinal hernia, without obstruction or gangrene, not specified as recurrent (principal)
CPT/HCPCS: 74176